=== PATIENT | female | born 1990 | race Asian ===

== ENCOUNTER 2020-08-14 17:46 | Emergency (ER) | payer OTHER ==
[2020-08-14 18:11] VITALS: BP 121/80
--- NOTE | 2020-08-14 20:10 | ED Physician Documentation ---
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 No fall. But pain was bad enough that it made her see white briefly. She points to the anterior/inferior part of the heel as the site of the pain. Review of Systems Constitutional: reports: Reviewed and negative Eyes: reports: Reviewed and negative Ears: reports: Reviewed and negative Nose: reports: Reviewed and negative Throat: reports: Reviewed and negative Cardiac: reports: Reviewed and negative PD PAST MEDICAL HISTORY - Past Medical History Psych: Panic attacks - Past Surgical History Past Surgical History: Yes - Present Medications Home Medications: Ambulatory Orders Medication Instructions Recorded Confirmed Control 1 tab PO DAILY 10/18/15 08/14/20 - Allergies Allergies/Adverse Reactions: Allergies Allergy/AdvReac Type Severity Reaction Status Date / Time No Known Drug Allergies Allergy Verified 08/14/20 18:08 - Social History Does the pt smoke?: No Smoking Status: Never smoker Does the pt drink ETOH?: No Does the pt have substance abuse?: No - Immunizations Immunizations are current?: Yes PD ED PE NORMAL - Vitals Vital signs reviewed: Yes - General General: Alert and oriented X 3, No acute distress - Extremities Extremities: Other (No Achilles tenderness, no posterior calcaneal tenderness. She has tenderness at the insertion of the plantar fascia of the right foot without plantar fascial tenderness.) - Neuro Neuro: Alert and oriented X 3, Normal speech <Elieser Resendez - Last Filed: 08/14/20 20:11> PD HPI LOWER EXT INJURY - History obtained from History obtained from: Patient - History of Present Illness PD HPI LOW EXT INJURY LOCATION: Right, Foot, Sole / plantar Results - Vitals Vitals: Vital Signs - 24 hr 08/14/20 18:08 Temperature 36.8 C Heart Rate 80 Respiratory 16 Rate Blood Pressure 121/80 O2 Saturation 99 Oxygen O2 Source Room air
--- NOTE | 2020-08-14 20:24 | ED Physician Documentation ---
PD HPI UPPER EXT INJURY - Stated complaint Stated Complaint: RIGHT FOOT PX - Chief complaint Chief Complaint: Trauma Ext - History obtained from History obtained from: Patient - Additonal information Additional information: She was walking down a ramp today and boots and felt a sudden stabbing pain in the bottom of the right heel. Now it hurts anytime she puts pressure on it. Review of Systems Constitutional: reports: Reviewed and negative Eyes: reports: Reviewed and negative Ears: reports: Reviewed and negative Nose: reports: Reviewed and negative PD PAST MEDICAL HISTORY - Past Medical History Past Medical History: No Psych: Panic attacks - Past Surgical History Past Surgical History: Yes - Present Medications Home Medications: Ambulatory Orders Medication Instructions Recorded Confirmed Control 1 tab PO DAILY 10/18/15 08/14/20 - Allergies Allergies/Adverse Reactions: Allergies Allergy/AdvReac Type Severity Reaction Status Date / Time No Known Drug Allergies Allergy Verified 08/14/20 18:08 - Social History Does the pt smoke?: No Smoking Status: Never smoker Does the pt drink ETOH?: No Does the pt have substance abuse?: No - Immunizations Immunizations are current?: Yes - POLST Patient has POLST: No PD ED PE NORMAL - Vitals Vital signs reviewed: Yes - General General: Alert and oriented X 3, No acute distress - Extremities Extremities: Other (She is tender at the insertion of plantar fascia on the bottom of the anterior part of the calcaneus. The plantar fascia itself is nontender. No Achilles tenderness or posterior calcaneal tenderness.) - Neuro Neuro: Alert and oriented X 3, Normal speech Results - Vitals Vitals: Vital Signs - 24 hr 08/14/20 18:08 Temperature 36.8 C Heart Rate 80 Respiratory 16 Rate Blood Pressure 121/80 O2 Saturation 99 Oxygen O2 Source Room air PD MEDICAL DECISION MAKING - ED course ED course: 30-year-old woman with focal pain at the insertion of the plantar fascia at the calcaneus. X-ray of the calcaneus negative for acute pathology. Close watchful waiting was advised. Departure - Departure Disposition: 01 Home, Self Care Clinical Impression: Plantar fasciitis of right foot Condition: Good Record reviewed to determine appropriate education?: Yes Instructions: ED Sprain Foot Comments: Motrin as needed for pain. Return as needed. Followup with your physician in 1 week if not better. Discharge Date/Time: 08/14/20 21:00
--- NOTE | 2020-08-14 20:39 | XRAY Report ---
PROCEDURE: Calcaneus RT INDICATIONS: foot pain TECHNIQUE: Two views of the calcaneus were acquired. COMPARISON: None FINDINGS: Bones: No fractures or dislocations. No suspicious bony lesions. Soft tissues: No suspicious calcifications. Achilles tendon appears normal. IMPRESSION: No evidence of acute bony abnormality of the right calcaneus. Reviewed by: Daniele Romero MD on 08/14/2020 8:38 PM PDT Approved by: Daniele Romero MD on 08/14/2020 8:38 PM PDT Station ID: [id number]
--- OUTSIDE RECORDS SUMMARY | 2020-08-21 00:16 | EXTERNAL MEDICAL SUMMARY RPT | Continuity of Care Document ---
:1990 Demographics Phone Unavailable Preferred Language Unknown Marital Status Unknown Am[employer] Affiliation Unknown Race Unknown Ethnic Group Unknown Author Organization [facility] Address [address] [place] [address] Phone Social History date description facility [id number]
== END 2020-08-14 21:00 | disposition home or self-care (01) ==
LOC: ED 17:46
DX: M72.2 Plantar fascial fibromatosis (principal)
CPT/HCPCS: 99282; 99283

== ENCOUNTER 2021-01-29 16:17 | Emergency (ER) | payer OTHER ==
[2021-01-29] MEDS ORDERED: LORazepam 0.5 MG TABLET PO STA (18:46)
[2021-01-29 18:47] LABS: BASOPHILS # (AUTO) 0.1 10^3/uL (0.0-0.1); BASOPHILS % (AUTO) 0.5 %; EOSINOPHILS # (AUTO) 0.4 10^3/uL (0.0-0.7); HCT - HEMATOCRIT 44.1 % (37.0-47.0); HGB - HEMOGLOBIN 14.6 g/dL (12.0-16.0); LYMPHOCYTES # (AUTO) 3.4 10^3/uL (1.5-3.5); LYMPHOCYTES % (AUTO) 32.1 %; MEAN CORPUSCULAR HEMOGLOBIN 30.4 pg (27.0-31.0); MEAN CORPUSCULAR HGB CONC 33.1 g/dL (32.0-36.0); MEAN CORPUSCULAR VOLUME 91.7 fL (81.0-99.0); MEAN PLATELET VOLUME 10.6 fL (7.9-10.8); MONOCYTES # (AUTO) 0.7 10^3/uL (0.0-1.0); MONOCYTES % (AUTO) 6.7 %; NEUTROPHILS % (AUTO) 56.5 %; PLT - PLATELET COUNT 230 10^3/uL (130-450); RED BLOOD COUNT 4.81 10^6/uL (4.20-5.40); RED CELL DISTRIBUTION WIDTH 12.2 % (12.0-15.0); WHITE BLOOD COUNT 10.6 x10^3/uL (4.8-10.8)
[2021-01-29 18:55] LABS: CALCIUM 9.6 mg/dL (8.5-10.3); CREATININE 0.9 mg/dL (0.4-1.0); POTASSIUM 3.7 mmol/L (3.5-5.0)
--- NOTE | 2021-01-29 18:57 | ED Physician Documentation ---
History of Present Illness - Stated complaint Stated Complaint: POST VACCINE SYMPTOMS - Chief complaint Chief Complaint: General - History obtained from History obtained from: Patient - History of Present Illness Timing: Today Pain level max: 0 Pain level now: 0 - Additonal information Additional information: Patient is a 30-year-old female who states that she received her Pfizer Covid vaccination this morning. Since that time she has had spasms in her hands and feet along with tingling in her hands and feet as well. She has felt very nervous and anxious. Had diarrhea x2. Nothing makes it better or worse. Review of Systems Constitutional: denies: Fever, Chills Nose: denies: Rhinorrhea / runny nose, Congestion Throat: denies: Sore throat Cardiac: denies: Chest pain / pressure Respiratory: denies: Dyspnea, Cough GI: denies: Vomiting, Diarrhea Skin: denies: Rash Musculoskeletal: denies: Neck pain, Back pain Neurologic: denies: Headache PD PAST MEDICAL HISTORY - Past Medical History Past Medical History: Yes Psych: Panic attacks - Past Surgical History Past Surgical History: Yes - Present Medications Home Medications: Ambulatory Orders Medication Instructions Recorded Confirmed Control 1 tab PO DAILY 10/18/15 08/14/20 - Allergies Allergies/Adverse Reactions: Allergies Allergy/AdvReac Type Severity Reaction Status Date / Time No Known Drug Allergies Allergy Verified 01/29/21 16:36 - Social History Does the pt smoke?: No Smoking Status: Never smoker Does the pt drink ETOH?: No Does the pt have substance abuse?: No - Immunizations Immunizations are current?: Yes - POLST Patient has POLST: No PD ED PE NORMAL - Vitals Vital signs reviewed: Yes - General General: Alert and oriented X 3, Well developed/nourished, Other (Patient is anxious appearing) - HEENT HEENT: PERRL, Moist mucous membranes - Neck Neck: Supple, no meningeal sign - Cardiac Cardiac: RRR, No murmur, Strong equal pulses - Respiratory Respiratory: No respiratory distress, Clear bilaterally - Abdomen Abdomen: Soft, Non tender, Non distended - Derm Derm: Warm and dry - Extremities Extremities: No edema, No calf tenderness / cord, Other (Brisk cap refill in all 4 extremities. 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, No motor deficit, No sensory deficit, Normal speech - Psych Psych: Other (Anxious) Results - Vitals Vitals: Oxygen O2 Source Room air - Labs Labs: Laboratory Tests 01/29/21 01/29/21 01/29/21 18:37 18:37 19:33 WBC 10.6 RBC 4.81 Hgb 14.6 Hct 44.1 MCV 91.7 MCH 30.4 MCHC 33.1 RDW 12.2 Plt Count 230 MPV 10.6 Neut # (Auto) 6.0 Lymph # (Auto) 3.4 [place] # (Auto) 0.7 Eos # (Auto) 0.4 Baso # (Auto) 0.1 Absolute Nucleated RBC 0.00 Nucleated RBC % 0.0 Sodium 136 Potassium 3.7 Chloride 100 L Carbon Dioxide 27 Anion Gap 9.0 BUN 17 Creatinine 0.9 Estimated GFR (MDRD) 75 L Glucose 98 Calcium 9.6 Urine Color LIGHT YELLOW Urine Clarity CLEAR Urine pH 6.0 Ur Specific [place] 1.010 Urine Protein NEGATIVE Urine Glucose (UA) NEGATIVE Urine Ketones NEGATIVE Urine Occult Blood NEGATIVE Urine Nitrite NEGATIVE Urine Bilirubin NEGATIVE Urine Urobilinogen 0.2 (NORMAL) Ur Leukocyte Esterase NEGATIVE Ur Microscopic Review NOT INDICATED Urine Culture Comments NOT INDICATED Urine HCG, Qual NEGATIVE PD MEDICAL DECISION MAKING - ED course Complexity details: reviewed results, re-evaluated patient, considered differential, d/w patient ED course: Patient appears to be having a panic attack. Feels better after benzodiazepine administration. Symptoms improved. No evidence of allergic reaction or anaphylaxis. No lab abnormalities. Patient counseled regarding signs and symptoms for which I believe and urgent re-evaluation would be necessary. Patient with good understanding of and agreement to plan and is comfortable going home at this time This document was made in part using voice recognition software. While efforts are made to proofread this document, sound alike and grammatical errors may occur. Departure - Departure Disposition: 01 Home, Self Care Clinical Impression: Paresthesia, Hyperventilation syndrome Condition: Good Instructions: ED Paraesthesias Follow-Up: your,doctor as needed [Other] Comments: Please follow-up with your doctor for further care. Return if you worsen. Your testing is normal tonight. Discharge Date/Time: 01/29/21 20:07
[2021-01-29 19:41] LABS: BILIRUBIN,URINE NEGATIVE (NEGATIVE); GLUCOSE, URINE (UA) NEGATIVE (NEGATIVE); KETONES,URINE (UA) NEGATIVE (NEGATIVE); LEUKOCYTE ESTERASE, URINE NEGATIVE (NEGATIVE); NITRITE,URINE NEGATIVE (NEGATIVE); OCCULT BLOOD,URINE NEGATIVE (NEGATIVE); PROTEIN,URINE NEGATIVE (NEGATIVE); UROBILINOGEN,URINE 0.2 (NORMAL) E.U./dL (NORMAL)
[2021-01-29 19:45] VITALS: BP 115/77
[2021-01-29 19:45] LABS: CLARITY,URINE CLEAR (CLEAR); HCG UR QUAL NEGATIVE
== END 2021-01-29 20:07 | disposition home or self-care (01) ==
LOC: ED 16:17
DX: F45.8 Other somatoform disorders (principal)
CPT/HCPCS: 36415; 80048; 81003; 81025; 85025; 99283; A9270; 81001; 87086

== ENCOUNTER 2022-08-14 14:35 | Outpatient (CLI) | payer OTHER ==
[2022-08-14 14:51] VITALS: BP 112/69
--- NOTE | 2022-08-14 17:47 | PROCEDURE REPORT ---
- HPI Diagnosis/Indication for NST: Gestational Diabetes Current EDU 09/02/22 Gestation 37 Weeks and 2 Days 1 Para 0 Vital Signs Temperature 36.6 C 08/14/22 14:48 Heart Rate 86 08/14/22 14:48 Respiratory Rate 16 08/14/22 14:48 Blood Pressure 112/69 08/14/22 14:48 O2 Saturation 100 08/14/22 14:48 Temperature 36.6 C 08/14/22 14:51 Heart Rate 86 08/14/22 14:48 Respiratory Rate 16 08/14/22 14:48 Blood Pressure 112/69 08/14/22 14:48 O2 Saturation 100 08/14/22 14:48 If not protocol: Oxygen Flow, liters/minute - NST Procedure NST Procedure Start Date 08/14/22 Start Time 14:45 Stop Time 15:15 Vibroacoustic Stimulation Used No Patient States Movement Yes - Results and Plan Plan: NST reactive. FHR baseline 120s, moderate variability, + accels, no decels No contractions appreciated via tocometry FINAL DIAGNOSIS: A2 Gestational diabetes, third trimester
== END 2022-08-14 15:29 | disposition home or self-care (01) ==
LOC: WFO 14:35 → FBP 14:39 → WFO 15:29
PROVIDERS: ATTEND Nurse Practitioner Obstetrics & Gynecology
DX: O24.419 Gestational diabetes mellitus in pregnancy, unspecified control (principal); Z3A.37 37 weeks gestation of pregnancy
CPT/HCPCS: 59025

== ENCOUNTER 2022-08-17 15:35 | Outpatient (CLI) | payer OTHER ==
[2022-08-17 15:49] VITALS: BP 118/73
--- NOTE | 2022-08-17 18:10 | Ultrasound Report ---
PROCEDURE: OB Biophysical Profile INDICATIONS: GDM OUTSIDE/PRIOR DATING DATA: Last menstrual period (LMP): 11/11/2021. LMP-based estimated date of delivery (MAIRANNE): 08/18/2022. First dating scan (date and location): 01/01/2022. Estimated date of delivery (MARIANNE) from first dating scan: 09/02/2022. The below data below was generated using the ultrasound MARIANNE of 09/01/2022 TECHNIQUE: Real-time scanning was performed of the fetus, with image documentation. Biophysical pro file was also obtained and uterine artery Doppler. COMPARISON: None available FINDINGS: General: A single living intrauterine gestation is present. Presentation: Vertex Placenta: Placental position is anterior, without previa. Amniotic fluid index: 12.5 cm, normal for gestational age. Largest pocket 4.1 cm. heart rate: 140 beats per minute. Maternal cervical canal: Not well seen. Estimated gestational age from initial scan: 37 weeks 5 days. Biophysical profile: Tone: 0 points. Movement: 2 points. Respiration: 2 points. Largest pocket of fluid: 2 points. Umbilical artery Doppler: 2.58; 2.75; 3.04. Preserved diastolic flow. IMPRESSION: 1. [place] living intrauterine at 37 weeks 5 days based on prior ultrasound. 2. Normal placenta and amniotic fluid. 3. Biophysical profile score 6 out of 8. Tone is not appreciated. Uterine artery Doppler is within normal limits. Reviewed by: Mesfin Lopez MD on 08/17/2022 6:09 PM PDT Approved by: Mesfin Lopez MD on 08/17/2022 6:09 PM PDT Station ID: [id number]
--- NOTE | 2022-08-24 18:16 | PROCEDURE REPORT ---
- HPI Diagnosis/Indication for NST: Other Current EDU 09/02/22 Gestation 37 Weeks and 5 Days 1 Para 0 Vital Signs Temperature 36.8 C 08/17/22 15:47 Heart Rate 90 08/17/22 15:47 Respiratory Rate 16 08/17/22 15:47 Blood Pressure 118/73 08/17/22 15:47 Temperature 36.8 C 08/17/22 15:49 Heart Rate 90 08/17/22 15:49 Respiratory Rate 14 08/17/22 15:49 Blood Pressure 118/73 08/17/22 15:49 O2 Saturation 100 08/17/22 15:49 If not protocol: Oxygen Flow, liters/minute - NST Procedure NST Procedure Start Date 08/17/22 Start Time 15:43 Stop Time 16:04 Vibroacoustic Stimulation Used No Patient States Movement Yes - Results and Plan Plan: NST reactive. FHR baseline 140s, moderate variability, + accels, no decels Contractions palpate strong every 3-5 minutes with soft resting tone
== END 2022-08-17 17:10 | disposition home or self-care (01) ==
LOC: WFO 15:35 → FBP 15:37 → WFO 17:10
PROVIDERS: ATTEND Nurse Practitioner Obstetrics & Gynecology
DX: O24.419 Gestational diabetes mellitus in pregnancy, unspecified control (principal); Z3A.37 37 weeks gestation of pregnancy
CPT/HCPCS: 59025

== ENCOUNTER 2022-08-19 18:59 | Inpatient (IN) | payer OTHER ==
[2022-08-19] MEDS ORDERED: LACTATED RINGERS 1,000 ML ONE (19:22)
[2022-08-19] MEDS ORDERED: AMPICILLIN 2 GM in SODIUM CHLORIDE 0.9% MINIBAG 100 ML IV STA (19:24)
[2022-08-19] MEDS ORDERED: LACTATED RINGERS 1,000 ML IV SCH ×2 (19:30→22:00)
[2022-08-19] MEDS ORDERED: OXYTOCIN 10 UNIT/ML VIAL ONE (19:32)
[2022-08-19] MEDS ORDERED: OXYTOCIN/SODIUM CHLORIDE 500 ML IV ONE (19:33)
[2022-08-19] MEDS ORDERED: miSOPROStoL 200 MCG TABLET ONE (19:33)
[2022-08-19 19:37] LABS: BASOPHILS % (AUTO) 0.2 %; EOSINOPHILS # (AUTO) 0.2 10^3/uL (0.0-0.7); EOSINOPHILS % (AUTO) 1.9 %; HCT - HEMATOCRIT 34.9 % (37.0-47.0); HGB - HEMOGLOBIN 11.8 g/dL (12.0-16.0); LYMPHOCYTES % (AUTO) 24.4 %; MEAN CORPUSCULAR HEMOGLOBIN 29.8 pg (27.0-31.0); MEAN CORPUSCULAR HGB CONC 33.8 g/dL (32.0-36.0); MEAN CORPUSCULAR VOLUME 88.1 fL (81.0-99.0); MONOCYTES # (AUTO) 0.8 10^3/uL (0.0-1.0); MONOCYTES % (AUTO) 6.8 %; NEUTROPHILS # (AUTO) 8.1 10^3/uL (1.5-6.6); NEUTROPHILS % (AUTO) 66.3 %; PLT - PLATELET COUNT 267 10^3/uL (130-450); RED BLOOD COUNT 3.96 10^6/uL (4.20-5.40); RED CELL DISTRIBUTION WIDTH 13.2 % (12.0-15.0); WHITE BLOOD COUNT 12.3 x10^3/uL (4.8-10.8)
--- OUTSIDE RECORDS SUMMARY | 2022-08-19 19:52 | EXTERNAL MEDICAL SUMMARY RPT | Continuity of Care Document ---
:1990 Author Organization [facility] Address [address] [place] [address] Phone Care Team Providers Name Role Phone PenaBrayan patrick Unavailable Unavailable Allergies and Intolerances date description facility type (no date) [facility] (unknown) (no date) [facility] (unknown) Encounters No information. Functional Status No information. Immunizations date description facility 2022-06-16 00:00 Tetanus, Diphtheria, Pertussis (Tdap) [facility] Medications date description facility 2022-06-16 00:00 [facility] 2022-07-20 00:00 [facility] Problems date description facility 2022-06-02 17:25 Encounter for supervision of other [facility] , second 2022-06-02 17:25 26 weeks gestation of [facility] 2022-06-28 00:00 [facility]ational [facility] mellitus [facility]GDM[facility] 2022-07-09 13:50 Gestational diabetes mellitus in [facility] controlled by or 2022-07-16 15:55 Gestational diabetes mellitus in [facility] controlled by or 2022-07-27 00:00 34 weeks gestation of [facility] 2022-07-27 08:16 Gestational diabetes mellitus in [facility] controlled by or 2022-07-27 17:11 Gestational diabetes mellitus in [facility] controlled by or 2022-07-27 17:11 34 weeks gestation of [facility] 2022-07-30 13:11 Gestational diabetes mellitus in [facility] controlled by or 2022-07-30 13:11 34 weeks gestation of [facility] 2022-08-03 00:00 35 weeks gestation of [facility] 2022-08-03 13:54 Recurrent loss [facility] 2022-08-03 13:54 Gestational diabetes mellitus in [facility] controlled by or 2022-08-03 13:54 35 weeks gestation of [facility] 2022-08-03 14:03 Recurrent loss [facility] 2022-08-03 14:03 Gestational diabetes mellitus in [facility] controlled by or 2022-08-03 14:03 35 weeks gestation of [facility] 2022-08-03 15:00 Recurrent loss [facility] 2022-08-03 15:00 Gestational diabetes mellitus in [facility] controlled by or 2022-08-03 15:00 35 weeks gestation of [facility] 2022-08-03 15:16 Recurrent loss [facility] 2022-08-03 15:16 Gestational diabetes mellitus in [facility] controlled by or 2022-08-03 15:16 35 weeks gestation of [facility] 2022-08-03 17:10 Recurrent loss [facility] 2022-08-03 17:10 Gestational diabetes mellitus in [facility] controlled by or 2022-08-03 17:10 35 weeks gestation of [facility] 2022-08-06 07:01 Recurrent loss [facility] 2022-08-06 07:01 Gestational diabetes mellitus in [facility] controlled by or 2022-08-06 07:01 35 weeks gestation of [facility] Procedures No information. Results/Labs test date author facility value unit interpret ation Result panel 1 (unknown) (no date) (unknown) [facility] Result panel 2 (unknown) (no date) (unknown) [facility]) Result panel 3 (unknown) (no date) (unknown) [facility] Result panel 4 (unknown) (no date) (unknown) [facility]) Result panel 5 (unknown) (no date) (unknown) [facility] Result panel 6 (unknown) (no date) (unknown) [facility]) Result panel 7 (unknown) (no date) (unknown) [facility]) Result panel 8 (unknown) (no date) (unknown) [facility]) Result panel 9 (unknown) (no date) (unknown) [facility] unknown) Result panel 10 (unknown) (no date) (unknown) [facility] unknown) Result panel 11 (unknown) (no date) (unknown) (unknown) 11.2 g/dl (unkn own) (unknown) (no date) (unknown) (unknown) 32.9 % (unkn own) Result panel 12 (unknown) (no date) (unknown) (unknown) 195 mg/dl (unkn own) (unknown) (no date) (unknown) (unknown) 195 mg/dl (unkn own) Result panel 13 (unknown) (no (unknown) (unknown) (no value) (units (unk nown) date) unknown) (unknown) (no (unknown) (unknown) (+12 lb) 120/58 (units (unknown) date) N unknown) (unknown) (no (unknown) (unknown) (+13 lb) 104/54 (units (unknown) date) N unknown) (unknown) (no (unknown) (unknown) (+18 lb) 122/60 (units (unknown) date) N unknown) (unknown) (no (unknown) (unknown) (+7 lb) 128/66 N (units (unknown) date) unknown) (unknown) (no (unknown) (unknown) (+8 lb) 122/68 N (units (unknown) date) unknown) (unknown) (no (unknown) (unknown) Genetic (units (unkn own) date) Screening/Teratol unknown) ogy Counseling - Includes patient, baby's father, or (unknown) (no (unknown) (unknown) -?-?-?-?-?-?-?-? (units (unknown) date) -?-?-?-? unknown) (unknown) (no (unknown) (unknown) 05/19/22 (units (unkno wn) date) unknown) (unknown) (no (unknown) (unknown) 06/16/22 (units (unkno wn) date) unknown) (unknown) (no (unknown) (unknown) 06/16/22] (units (unkn own) date) unknown) (unknown) (no (unknown) (unknown) 08/29/22 (units (unkno wn) date) Ultrasound #1 29w unknown) 3d (unknown) (no (unknown) (unknown) [id number] (units (unkno wn) date) unknown) (unknown) (no (unknown) (unknown) 01/27/22 (units (unkno wn) date) unknown) (unknown) (no (unknown) (unknown) 02/24/22 (units (unkno wn) date) unknown) (unknown) (no (unknown) (unknown) 03/24/22 (units (unkno wn) date) unknown) (unknown) (no (unknown) (unknown) 04/20/22 (units (unkno wn) date) unknown) (unknown) (no (unknown) (unknown) 12w 6d 163 lb (units ( unknown) date) unknown) (unknown) (no (unknown) (unknown) 13:15 (units (unkno wn) date) unknown) (unknown) (no (unknown) (unknown) 16w 6d 167 lb (units ( unknown) date) unknown) (unknown) (no (unknown) (unknown) 20w 5d 168 lb (units ( unknown) date) unknown) (unknown) (no (unknown) (unknown) 24w 6d 173 lb (units ( unknown) date) unknown) (unknown) (no (unknown) (unknown) 4 wk (units (unkno wn) date) unknown) (unknown) (no (unknown) (unknown) 8w 6d 162 lb (units (u nknown) date) unknown) (unknown) (no (unknown) (unknown) Abnormal lab (units (u nknown) date) values 1st unknown) trimester: discussed (unknown) (no (unknown) (unknown) Abnormal lab (units (u nknown) date) values 2nd unknown) trimester: discussed (unknown) (no (unknown) (unknown) Add'l Plan (units (unk nown) date) Details unknown) (unknown) (no (unknown) (unknown) Age/Sex: 31 / F (units (unknown) date) Date of Service: unknown) (unknown) (no (unknown) (unknown) Allergies (units (unkn own) date) () unknown) (unknown) (no (unknown) (unknown) Allergies (units (unkn own) date) unknown) (unknown) (no (unknown) (unknown) [place], [place] (units ( unknown) date) [id number] unknown) (unknown) (no (unknown) (unknown) Anesthesia (units (unk nown) date) unknown) (unknown) (no (unknown) (unknown) Aneuploidy (units (unk nown) date) Screening unknown) Offered: Accepted (wants CFDNA) (unknown) (no (unknown) (unknown) Anticipated (units (un known) date) course of unknown) care: discussed (unknown) (no (unknown) (unknown) Anxiety (-2016) (units (unknown) date) unknown) (unknown) (no (unknown) (unknown) Arrhythmia (units (unk nown) date) unknown) (unknown) (no (unknown) (unknown) Assessment and (units (unknown) date) Plan unknown) (unknown) (no (unknown) (unknown) Attending Dr: (units ( unknown) date) Richelle Dawkins unknown) (unknown) (no (unknown) (unknown) Corazon presents (units (unknown) date) today for routine unknown) OB f/u at 20w5d. She reports good (unknown) (no (unknown) (unknown) BMI 28.5 (units (unkno wn) date) unknown) (unknown) (no (unknown) (unknown) BP 110/62 (units (unkn own) date) unknown) (unknown) (no (unknown) (unknown) (units (unkno wn) date) Plan/Preferences unknown) (unknown) (no (unknown) (unknown) Planning (units (unknown) date) unknown) (unknown) (no (unknown) (unknown) Blood Pressure (units (unknown) date) Location Lt unknown) brachial (unknown) (no (unknown) (unknown) Blood (units (unkno wn) date) transfusions?: unknown) yes (Never had but would accept) (unknown) (no (unknown) (unknown) : (units (unknown) date) discussed unknown) (unknown) (no (unknown) (unknown) Chicken pox (units (un known) date) (-1994) unknown) (unknown) (no (unknown) (unknown) Childbirth (units (unk nown) date) Classes: unknown) discussed (unknown) (no (unknown) (unknown) Conceived (units (unkn own) date) naturally this unknown) (unknown) (no (unknown) (unknown) Confirmed (units (unkn own) date) 06/16/22] unknown) (unknown) (no (unknown) (unknown) Current Estimate (units (unknown) date) 09/02/22 unknown) Ultrasound #2 28w 6d (unknown) (no (unknown) (unknown) Current (units (unkno wn) date) History unknown) (unknown) (no (unknown) (unknown) DNA (units (unkno wn) date) unknown) (unknown) (no (unknown) (unknown) : 1990 (units (unknown) date) Acct:[id number] unknown) (unknown) (no (unknown) (unknown) Date of positive (units (unknown) date) home unknown) test: 12/29/21 (unknown) (no (unknown) (unknown) Date (units (unkno wn) date) unknown) (unknown) (no (unknown) (unknown) Denies Congenital (units (unknown) date) Heart Defect, unknown) Denies Down Syndrome, Denies Muscular Dystrophy, (unknown) (no (unknown) (unknown) Denies Maternal (units (unknown) date) Metabolic unknown) Disorder (EG,TYPE 1 Diabetes, PKU), Denies Patient or (unknown) (no (unknown) (unknown) Denies Neural (units ( unknown) date) Tube Defect unknown) (Meningomyelocele , Spina Bifida, or Anencephaly), (unknown) (no (unknown) (unknown) Denies Sickle (units ( unknown) date) Cell Disease or unknown) Trait (), Denies Hemophilia or other blood (unknown) (no (unknown) (unknown) Denies Enio-Sachs (units (unknown) date) (Ashkenazi unknown) Sabianism, Cajun, Indonesian Paraguayan), Denies Jose (unknown) (no (unknown) (unknown) Depression (units (unk nown) date) (-2015) unknown) (unknown) (no (unknown) (unknown) Depression: (units (un known) date) discussed unknown) (unknown) (no (unknown) (unknown) Dept at (units (unkno wn) date) . unknown) (unknown) (no (unknown) (unknown) Diet and (units (unkno wn) date) Exercise unknown) (unknown) (no (unknown) (unknown) Disease (units (unkno wn) date) (Ashkenazi unknown) Sabianism), Denies Familial Dysautonomia (Ashkenazi Sabianism), (unknown) (no (unknown) (unknown) Documented By: (units (unknown) date) Richelle Dawkins unknownShiva MAGALLON 06/16/22 1314 (unknown) (no (unknown) (unknown) Draft (units (unkno wn) date) unknown) (unknown) (no (unknown) (unknown) MARIANNE Calculator (units (unknown) date) unknown) (unknown) (no (unknown) (unknown) EGA Weight BP (units ( unknown) date) UGlucose unknown) (unknown) (no (unknown) (unknown) Eczema (-1999) (units (unknown) date) unknown) (unknown) (no (unknown) (unknown) Estimated (units (unkn own) date) Delivery Date unknown) Method Current (unknown) (no (unknown) (unknown) Exercise and (units (u nknown) date) activity, unknown) work/environmenta l/hazards, Sexual activity, X-ray (unknown) (no (unknown) (unknown) F/u in 4 wks. (units ( unknown) date) unknown) (unknown) (no (unknown) (unknown) Family History (units (unknown) date) (Updated 01/24/22 unknown) @ 21:49 by Anamaria Cooper) (unknown) (no (unknown) (unknown) Family/Other (units (u nknown) date) Multiple unknown) sclerosis (unknown) (no (unknown) (unknown) Father (units (unkno wn) date) Hypertension unknown) (unknown) (no (unknown) (unknown) Father of Baby: (units (unknown) date) same unknown) (unknown) (no (unknown) (unknown) [facility] unknown) (unknown) (no (unknown) (unknown) First Trimester (units (unknown) date) Education unknown) Checklist (unknown) (no (unknown) (unknown) Foot pain (units (unkn own) date) (-2019) unknown) (unknown) (no (unknown) (unknown) (SAB (units (unkn own) date) x7),Fertility Tx, unknown) meds only, started on baby aspirin 02/24/2022 (unknown) (no (unknown) (unknown) Genetic (units (unkno wn) date) Screening + unknown) Counseling (unknown) (no (unknown) (unknown) Genetic (units (unkno wn) date) Screening unknown) (unknown) (no (unknown) (unknown) Grandfather (units (un known) date) Cancer unknown) (unknown) (no (unknown) (unknown) Grandfather (units (un known) date) Stroke unknown) (unknown) (no (unknown) (unknown) Grandmother (units (un known) date) History unknown) of heart disease (unknown) (no (unknown) (unknown) Grandmother (units (un known) date) Multiple unknown) sclerosis (unknown) (no (unknown) (unknown) 8 (units (unkn own) date) Multiple births 0 unknown) (unknown) (no (unknown) (unknown) HIV risk (units (unkno wn) date) evaluation: low unknown) risk (unknown) (no (unknown) (unknown) Health Center (units ( unknown) date) Education unknown) (unknown) (no (unknown) (unknown) Health center (units ( unknown) date) information: unknown) nature of practice discussed, personnel (unknown) (no (unknown) (unknown) Height 5 ft 6 in (units (unknown) date) unknown) (unknown) (no (unknown) (unknown) Hepatitis C risk (units (unknown) date) evaluation: low unknown) risk (unknown) (no (unknown) (unknown) History of (units (unk nown) date) Hepatitis B: No unknown) (unknown) (no (unknown) (unknown) History of (units (unk nown) date) Hepatitis C: No unknown) (unknown) (no (unknown) (unknown) 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 (unknown) (no (unknown) (unknown) Hospital: (units (u nknown) date) unknown) (unknown) (no (unknown) (unknown) [facility] (units (u nknown) date) Chorea, Denies unknown) Other inherited genetic or chromosomal disorder, (unknown) (no (unknown) (unknown) , Elieser (units ( unknown) date) Martell unknown) (unknown) (no (unknown) (unknown) Hx # (units (u nknown) date) Pregnancies 0 unknown) Elective abortions 0 (unknown) (no (unknown) (unknown) Hx # Term (units (unkn own) date) Pregnancies 0 unknown) Ectopic pregnancies 0 (unknown) (no (unknown) (unknown) Infant will be (units (unknown) date) adopted?: no unknown) (unknown) (no (unknown) (unknown) Infection (units (unkn own) date) History unknown) (unknown) (no (unknown) (unknown) Infectious (units (unk nown) date) Disease Education unknown) (unknown) (no (unknown) (unknown) Infectious (units (unk nown) date) disease exposure: unknown) chicken pox immunity discussed, hepatitis risk (unknown) (no (unknown) (unknown) Infertility (units (un known) date) () unknown) (unknown) (no (unknown) (unknown) Initial Weight: (units (unknown) date) 155 lb unknown) (unknown) (no (unknown) (unknown) Initials (units (unkno wn) date) unknown) (unknown) (no (unknown) (unknown) Intake Clinical (units (unknown) date) Staff unknown) (unknown) (no (unknown) (unknown) Intake Note: (units (u nknown) date) unknown) (unknown) (no (unknown) (unknown) Intake performed (units (unknown) date) by: unknown) Nu Alexander (unknown) (no (unknown) (unknown) Intake (units (unkno wn) date) unknown) (unknown) (no (unknown) (unknown) Irregular (units (unkn own) date) menstrual cycle unknown) () (unknown) (no (unknown) (unknown) LM (units (unkno wn) date) unknown) (unknown) (no (unknown) (unknown) Lipoma (units (unkno wn) date) unknown) (unknown) (no (unknown) (unknown) Live with (units (unkn own) date) someone with TB unknown) or exposed to TB: No (unknown) (no (unknown) (unknown) Loc: [facility] (units (unkno wn) date) unknown) (unknown) (no (unknown) (unknown) Marital status: (units (unknown) date) unknown) (unknown) (no (unknown) (unknown) Medical History (units (unknown) date) (Updated 01/27/22 unknown) @ 15:16 by Richelle Dawkins MD) (unknown) (no (unknown) (unknown) Medications (units (un known) date) unknown) (unknown) (no (unknown) (unknown) Mother Gastric (units (unknown) date) cancer unknown) (unknown) (no (unknown) (unknown) N No 142 13 N/A (units (unknown) date) 4wk unknown) (unknown) (no (unknown) (unknown) N No no 143 17 (units (unknown) date) N/A absent AFP 4 unknown) wks (unknown) (no (unknown) (unknown) N No no 178 9 (units ( unknown) date) N/A absent unknown) long/closed AGA 9 (unknown) (no (unknown) (unknown) N Yes no 141 24 (units (unknown) date) N/A absent 4 wks unknown) (unknown) (no (unknown) (unknown) N Yes no 142 20 (units (unknown) date) N/A absent AFP unknown) negative (unknown) (no (unknown) (unknown) NF (units (unkno wn) date) unknown) (unknown) (no (unknown) (unknown) Notes (units (unkno wn) date) unknown) (unknown) (no (unknown) (unknown) Number of Living (units (unknown) date) Children 0 unknown) (unknown) (no (unknown) (unknown) Number of (units (unkn own) date) fetuses:: Single unknown) (unknown) (no (unknown) (unknown) Nutrition and (units ( unknown) date) weight gain unknown) counseling: special diet: discussed (unknown) (no (unknown) (unknown) OB Office Visit (units (unknown) date) unknown) (unknown) (no (unknown) (unknown) OB Visit Log (units (u nknown) date) unknown) (unknown) (no (unknown) (unknown) OB check (units (unkno wn) date) unknown) (unknown) (no (unknown) (unknown) On control (units (unknown) date) at conception?: unknown) No (unknown) (no (unknown) (unknown) Other Estimates (units (unknown) date) 08/18/22 LMP unknown) (Certain) 31w 0d (unknown) (no (unknown) (unknown) Ovarian cyst (units (u nknown) date) () unknown) (unknown) (no (unknown) (unknown) PCOS (polycystic (units (unknown) date) ovarian syndrome) unknown) (unknown) (no (unknown) (unknown) PFSH (units (unkno wn) date) unknown) (unknown) (no (unknown) (unknown) Pap performed?: (units (unknown) date) No unknown) (unknown) (no (unknown) (unknown) Para 0 (units (unkno wn) date) Spontaneous unknown) abortions 7 (unknown) (no (unknown) (unknown) Partner history (units (unknown) date) of STD: denies hx unknown) (unknown) (no (unknown) (unknown) Partner history (units (unknown) date) of genital unknown) herpes: No (unknown) (no (unknown) (unknown) Partner: Elieser (units ( unknown) date) Martell unknown) (unknown) (no (unknown) (unknown) Patient comes in (units (unknown) date) for follow-up OB unknown) visit. She had some pelvic pain that (unknown) (no (unknown) (unknown) Patient presents (units (unknown) date) for a new OB unknown) visit at 8 weeks gestation. She is (unknown) (no (unknown) (unknown) Patient presents (units (unknown) date) for a routine unknown) visit, accompanied by her . 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) [place] vs unknown) [facility] (unknown) (no (unknown) (unknown) Personal history (units (unknown) date) of STD: denies hx unknown) (unknown) (no (unknown) (unknown) Personal history (units (unknown) date) of genital unknown) herpes: No (unknown) (no (unknown) (unknown) Plantar (units (unkno wn) date) fasciitis unknown) (unknown) (no (unknown) (unknown) Position Sitting (units (unknown) date) unknown) (unknown) (no (unknown) (unknown) (units (unk nown) date) family unknown) planning/Tubal sterilization: further discussion needed (unknown) (no (unknown) (unknown) (units (unkn own) date) History unknown) (unknown) (no (unknown) (unknown) type:: (units (unknown) date) Other Normal unknown) (unknown) (no (unknown) (unknown) (units (unkno wn) date) Education unknown) (unknown) (no (unknown) (unknown) Initial (units (unknown) date) Assessment unknown) (unknown) (no (unknown) (unknown) (units (unkno wn) date) Specific unknown) Issues/Plans (unknown) (no (unknown) (unknown) (units (unkno wn) date) Testing: unknown) discussed (unknown) (no (unknown) (unknown) Visit (units (unknown) date) unknown) (unknown) (no (unknown) (unknown) (units (unkno wn) date) education packet: unknown) Child education/plan, symptoms, (unknown) (no (unknown) (unknown) Primary Care (units (u nknown) date) Provider: [place] Arbol[place] unknown) [place] (unknown) (no (unknown) (unknown) Primary Ob (units (unk nown) date) Provider: unknown) Richelle Dawkins (unknown) (no (unknown) (unknown) Prior (units (unkno wn) date) GBS-Infected unknown) child: No (unknown) (no (unknown) (unknown) Providers (units (unkn own) date) unknown) (unknown) (no (unknown) (unknown) Pt presents for (units (unknown) date) a PNV at 16+6 unknown) wks. No FM. No LOF/VB. 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 She unknown) has felt good movement. She says it is (unknown) (no (unknown) (unknown) Shingles (units (unkno wn) date) unknown) (unknown) (no (unknown) (unknown) Signed By: (units (unk nown) date) unknown) (unknown) (no (unknown) (unknown) Signs and (units (unkn own) date) symptoms of unknown) labor: discussed (unknown) (no (unknown) (unknown) Smoking Status: (units (unknown) date) Never smoker unknown) (unknown) (no (unknown) (unknown) Social History (units (unknown) date) unknown) (unknown) (no (unknown) (unknown) Support (units (unkno wn) date) Person(s):: Elieser unknown) (unknown) (no (unknown) (unknown) Surgical History (units (unknown) date) (Updated 01/24/22 unknown) @ 21:46 by Anamaria Cooper) (unknown) (no (unknown) (unknown) Surrogate (units (unkn own) date) ?: no unknown) (unknown) (no (unknown) (unknown) Symptoms since (units (unknown) date) LMP: Reports unknown) amenorrhea, nausea, fatigue, breast tenderness, (unknown) (no (unknown) (unknown) Teratogen (units (unkn own) date) Exposures since unknown) LMP/Conception: Denies prescription medications, (unknown) (no (unknown) (unknown) Testing (units (unkno wn) date) Education unknown) (unknown) (no (unknown) (unknown) Testing (units (unkno wn) date) education unknown) completed: group B strep, Spina bifida testing and Cell Free (unknown) (no (unknown) (unknown) This note may (units ( unknown) date) have been all or unknown) partially generated using voice recognition (unknown) (no (unknown) (unknown) Tobacco + (units (unkn own) date) Substance Use unknown) (unknown) (no (unknown) (unknown) Tobacco Status (units (unknown) date) unknown) (unknown) (no (unknown) (unknown) Trimester:: 3rd (units (unknown) date) Trimester unknown) (28wks-Del) (unknown) (no (unknown) (unknown) Tumor () (units (unknown) date) unknown) (unknown) (no (unknown) (unknown) Type(s) of (units (unk nown) date) exercise: unknown) bicycling (stationary bike), regular exercise, weight (unknown) (no (unknown) (unknown) UProtein Movement (units (unknown) date) PreLabor FHR Fndl unknown) Ht Pres Edema Cerv Exam US/Comment Next Appt (unknown) (no (unknown) (unknown) Ultrasound (units (unk nown) date) performed?: Yes unknown) (unknown) (no (unknown) (unknown) Varicella/chicke (units (unknown) date) n pox status: unknown) previous disease (unknown) (no (unknown) (unknown) Visit Date: (units (un known) date) 05/19/22 Last unknown) Updated by: Richelle Dawkins MD (unknown) (no (unknown) (unknown) Visit Date: (units (un known) date) 01/27/22 Last unknown) Updated by: Richelle Dawkins MD (unknown) (no (unknown) (unknown) Visit Date: (units (un known) date) 02/24/22 Last unknown) Updated by: Marietta Massey MD (unknown) (no (unknown) (unknown) Visit Date: (units (un known) date) 03/24/22 Last unknown) Updated by: Richelle Dawkins MD (unknown) (no (unknown) (unknown) Visit Date: (units (un known) date) 04/20/22 Last unknown) Updated by: Xiao Boland P.A-C (unknown) (no (unknown) (unknown) Visit Reasons: (units (unknown) date) OB w 3D US unknown) (unknown) (no (unknown) (unknown) Vitals (units (unkno wn) date) unknown) (unknown) (no (unknown) (unknown) Vitamins and (units (u nknown) date) iron, Diet and unknown) weight gain, Fish and mercury intake, Caffeine use, (unknown) (no (unknown) (unknown) WG (units (unkno wn) date) unknown) (unknown) (no (unknown) (unknown) Weeks (units (unkno wn) date) gestation:: 28 unknown) (unknown) (no (unknown) (unknown) Weight 177 lb (units ( unknown) date) unknown) (unknown) (no (unknown) (unknown) Ages [place] teeth (units (u nknown) date) extracted unknown) (unknown) (no (unknown) (unknown) Zika virus (units (unk nown) date) exposure: No unknown) (unknown) (no (unknown) (unknown) accompanied by (units (unknown) date) her . She unknown) went through fertility treatments with (unknown) (no (unknown) (unknown) alcohol intake: (units (unknown) date) never unknown) (unknown) (no (unknown) (unknown) anterior (units (unkno wn) date) placenta. Routine unknown) precautions reviewed with the patient. Due to 1st (unknown) (no (unknown) (unknown) anyone in either (units (unknown) date) family with: unknown) (unknown) (no (unknown) (unknown) baby's father (units ( unknown) date) had a child with unknown) defects not listed above and Denies Other (unknown) (no (unknown) (unknown) back pain. (units (unk nown) date) Advised unknown) stretching, belly band, and PT if not improving. AFP was (unknown) (no (unknown) (unknown) blood sugar (units (un known) date) diagnostic (Blood unknown) Glucose Test strips) #100 ea 06/02/22 [Rx (unknown) (no (unknown) (unknown) blood-glucose (units ( unknown) date) meter #1 ea unknown) 06/02/22 [Rx Confirmed 06/16/22] (unknown) (no (unknown) (unknown) by ultrasound is (units (unknown) date) normal with good unknown) movement, normal appearing fluid, (unknown) (no (unknown) (unknown) caffeine: Yes (units ( unknown) date) (1-2 cups unknown) tea/day) (unknown) (no (unknown) (unknown) carbon monox (units (u nknown) date) detector in home: unknown) Yes (unknown) (no (unknown) (unknown) cfDNA normal (units (u nknown) date) female, AFP unknown) negative (unknown) (no (unknown) (unknown) consistent with (units (unknown) date) 9 weeks 0 days. unknown) Yolk sac visible. heart rate 178 beats (unknown) (no (unknown) (unknown) current (units (unkno wn) date) occupational unknown) exposures/hazards : No (unknown) (no (unknown) (unknown) daily servings (units (unknown) date) fruits/ve-4 unknown) (unknown) (no (unknown) (unknown) described, visit (units (unknown) date) schedule unknown) reviewed, ultrasounds policy reviewed, coverage 24 (unknown) (no (unknown) (unknown) developing a (units (u nknown) date) pattern. No unknown) leakage of fluid or vaginal bleeding. No contractions (unknown) (no (unknown) (unknown) discussed, (units (unk nown) date) tuberculosis unknown) exposure discussed, CMV discussed, Toxoplasmosis (unknown) (no (unknown) (unknown) disorders, (units (unk nown) date) Denies Cystic unknown) Fibrosis, Denies Mental Retardation/Autis m, Denies (unknown) (no (unknown) (unknown) do you feel safe (units (unknown) date) at home: Yes unknown) (unknown) (no (unknown) (unknown) during the past (units (unknown) date) year weight has: unknown) remained stable (unknown) (no (unknown) (unknown) education level: (units (unknown) date) college unknown) (Associate's degree) (unknown) (no (unknown) (unknown) exposure, (units (unkn own) date) Medication use, unknown) Sauna/hot tub use, Dental care, Travel and Influenza (unknown) (no (unknown) (unknown) fire (units (unkno wn) date) extinguisher in unknown) home: Yes (unknown) (no (unknown) (unknown) firearms in (units (un known) date) home: Yes unknown) firearms unloaded and locked: Yes (unknown) (no (unknown) (unknown) frequency: 5-6 (units (unknown) date) times per week unknown) (unknown) (no (unknown) (unknown) gestational sac (units (unknown) date) with a fetus with unknown) a crown-rump length measuring 2.29 cm (unknown) (no (unknown) (unknown) have occurred. (units (unknown) date) If there are any unknown) questions, please contact the Medical Records (unknown) (no (unknown) (unknown) hours a day and (units (unknown) date) participation of unknown) father in care and office visits (unknown) (no (unknown) (unknown) household (units (unkn own) date) members: spouse unknown) and family (father and [id number]-sk-eyb) (unknown) (no (unknown) (unknown) housing: house (units (unknown) date) unknown) (unknown) (no (unknown) (unknown) illicit drugs (units ( unknown) date) and Denies other unknown) (unknown) (no (unknown) (unknown) kag (units (unkno wn) date) unknown) (unknown) (no (unknown) (unknown) lancets #100 ea (units (unknown) date) 06/02/22 [Rx unknown) Confirmed 06/16/22] (unknown) (no (unknown) (unknown) last visit. (units (un known) date) Plan: AFP today. unknown) 20 wk u/s reviewed. F/U 4 wks. Warning signs (unknown) (no (unknown) (unknown) lifting and (units (un known) date) other (hiking) unknown) (unknown) (no (unknown) (unknown) lives (units (unkno wn) date) independently: unknown) Yes (unknown) (no (unknown) (unknown) marital status: (units (unknown) date) unknown) (unknown) (no (unknown) (unknown) may occur. (units (unk nown) date) Occasional unknown) wrong-word or 'sound-alike' substitutions may have (unknown) (no (unknown) (unknown) medication only. (units (unknown) date) Had 7 unknown) miscarriages. No bleeding with this . This 1 (unknown) (no (unknown) (unknown) movement and (units (u nknown) date) denies VB, LOF, unknown) cramping and regular contractions. Pt reports low (unknown) (no (unknown) (unknown) negative. (units (unkn own) date) Anatomy US unknown) scheduled for later today. Warning precautions reviewed. 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 Please (unknown) (no (unknown) (unknown) or cramping. (units (u nknown) date) Plan: 1 hour unknown) glucose ordered. Follow-up in 4 weeks. Warning (unknown) (no (unknown) (unknown) per minute. (units (un known) date) Normal ovaries unknown) bilaterally. Plan: Follow-up in 4 weeks. Warning (unknown) (no (unknown) (unknown) pets and (units (unkno wn) date) animals: Yes (1 unknown) large dog, chickens) (unknown) (no (unknown) (unknown) precautions, (units (u nknown) date) Listeriosis unknown) prevention and Rubella Immunization (unknown) (no (unknown) (unknown) preeclampsia. (units ( unknown) date) unknown) (unknown) (no (unknown) (unknown) (units (unkn own) date) discussed unknown) starting baby aspirin per day to decrease her risk for (unknown) (no (unknown) (unknown) prenat.vits,dara, (units (unknown) date) [id number] 1 unknown) tab PO DAILY 01/08/22 [History Confirmed (unknown) (no (unknown) (unknown) read the note (units ( unknown) date) carefully and unknown) recognize, using context, where these substitutions (unknown) (no (unknown) (unknown) reviewed. (units (unkn own) date) unknown) (unknown) (no (unknown) (unknown) seatbelt use: (units ( unknown) date) always unknown) (unknown) (no (unknown) (unknown) second hand (units (un known) date) exposure: Yes unknown) (iynphd-ln-nge smokes outside the house) (unknown) (no (unknown) (unknown) signs reviewed. (units (unknown) date) cfDNA ordered. unknown) (unknown) (no (unknown) (unknown) signs reviewed. (units (unknown) date) unknown) (unknown) (no (unknown) (unknown) software. (units (unkn own) date) Although every unknown) effort is made to edit content, snubber errors (unknown) (no (unknown) (unknown) special anjum (units ( unknown) date) needs: No unknown) (unknown) (no (unknown) (unknown) substance use (units ( unknown) date) type: does not unknown) use (unknown) (no (unknown) (unknown) travel history: (units (unknown) date) over 6 months ago unknown) (unknown) (no (unknown) (unknown) urinary (units (unkno wn) date) frequency and unknown) irritability (unknown) (no (unknown) (unknown) vaccine (Annual (units (unknown) date) flu, Phizer Covid unknown) x2) (unknown) (no (unknown) (unknown) w0d 4 wks (units (unkn own) date) unknown) (unknown) (no (unknown) (unknown) was not using (units ( unknown) date) any infertility unknown) medications. Ultrasound: An intrauterine (unknown) (no (unknown) (unknown) water heater (units (u nknown) date) temp set < 120 unknown) deg: Yes (unknown) (no (unknown) (unknown) well-balanced (units ( unknown) date) diet: daily or unknown) most days (unknown) (no (unknown) (unknown) went away with (units (unknown) date) laying down. No unknown) vaginal bleeding. No fevers. heart tone (unknown) (no (unknown) (unknown) while ) (units (unknown) date) unknown) (unknown) (no (unknown) (unknown) working smoke (units ( unknown) date) detector in home: unknown) Yes Result panel 14 (unknown) (no (unknown) (unknown) (no value) (units (unk nown) date) unknown) (unknown) (no (unknown) (unknown) (+12 lb) 120/58 (units (unknown) date) N unknown) (unknown) (no (unknown) (unknown) (+13 lb) 104/54 (units (unknown) date) N unknown) (unknown) (no (unknown) (unknown) (+18 lb) 122/60 (units (unknown) date) N unknown) (unknown) (no (unknown) (unknown) (+7 lb) 128/66 N (units (unknown) date) unknown) (unknown) (no (unknown) (unknown) (+8 lb) 122/68 N (units (unknown) date) unknown) (unknown) (no (unknown) (unknown) Genetic (units (unkn own) date) Screening/Teratol unknown) ogy Counseling - Includes patient, baby's father, or (unknown) (no (unknown) (unknown) -?-?-?-?-?-?-?-? (units (unknown) date) -?-?-?-? unknown) (unknown) (no (unknown) (unknown) 0.5 mL IM Right (units (unknown) date) Deltoid [id number] unknown) 05/01/24 [id number] SANOFI-PASTEUR (unknown) (no (unknown) (unknown) 05/19/22 (units (unkno wn) date) unknown) (unknown) (no (unknown) (unknown) 06/16/22 Single (units (unknown) date) Vaccine 12/20/20 unknown) (unknown) (no (unknown) (unknown) 06/16/22 (units (unkno wn) date) unknown) (unknown) (no (unknown) (unknown) 06/16/22] (units (unkn own) date) unknown) (unknown) (no (unknown) (unknown) 08/29/22 (units (unkno wn) date) Ultrasound #1 29w unknown) 3d (unknown) (no (unknown) (unknown) [id number] (units (unkno wn) date) unknown) (unknown) (no (unknown) (unknown) 01/27/22 (units (unkno wn) date) unknown) (unknown) (no (unknown) (unknown) 02/24/22 (units (unkno wn) date) unknown) (unknown) (no (unknown) (unknown) 03/24/22 (units (unkno wn) date) unknown) (unknown) (no (unknown) (unknown) 04/20/22 (units (unkno wn) date) unknown) (unknown) (no (unknown) (unknown) 12w 6d 163 lb (units ( unknown) date) unknown) (unknown) (no (unknown) (unknown) 13:15 (units (unkno wn) date) unknown) (unknown) (no (unknown) (unknown) 16w 6d 167 lb (units ( unknown) date) unknown) (unknown) (no (unknown) (unknown) 20w 5d 168 lb (units ( unknown) date) unknown) (unknown) (no (unknown) (unknown) 24w 6d 173 lb (units ( unknown) date) unknown) (unknown) (no (unknown) (unknown) 4 wk (units (unkno wn) date) unknown) (unknown) (no (unknown) (unknown) 8w 6d 162 lb (units (u nknown) date) unknown) (unknown) (no (unknown) (unknown) Abnormal lab (units (u nknown) date) values 1st unknown) trimester: discussed (unknown) (no (unknown) (unknown) Abnormal lab (units (u nknown) date) values 2nd unknown) trimester: discussed (unknown) (no (unknown) (unknown) Adacel(Tdap (units (un known) date) Adolesn/Adult)(PF unknown) ) (unknown) (no (unknown) (unknown) Add'l Plan (units (unk nown) date) Details unknown) (unknown) (no (unknown) (unknown) Administered by: (units (unknown) date) Nu Alexander, unknown) KUNAL on 06/16/22 13:25 (unknown) (no (unknown) (unknown) Age/Sex: 31 / F (units (unknown) date) Date of Service: unknown) (unknown) (no (unknown) (unknown) Allergies (units (unkn own) date) (-2013) unknown) (unknown) (no (unknown) (unknown) Allergies (units (unkn own) date) unknown) (unknown) (no (unknown) (unknown) [place] (units ( unknown) date) [id number] unknown) (unknown) (no (unknown) (unknown) Anesthesia (units (unk nown) date) unknown) (unknown) (no (unknown) (unknown) Aneuploidy (units (unk nown) date) Screening unknown) Offered: Accepted (wants CFDNA) (unknown) (no (unknown) (unknown) Anticipated (units (un known) date) course of unknown) care: discussed (unknown) (no (unknown) (unknown) Anxiety (-2015) (units (unknown) date) unknown) (unknown) (no (unknown) (unknown) Arrhythmia (units (unk nown) date) unknown) (unknown) (no (unknown) (unknown) Assessment and (units (unknown) date) Plan unknown) (unknown) (no (unknown) (unknown) Attending Dr: (units ( unknown) date) Richelle Dawkins unknown) (unknown) (no (unknown) (unknown) Corazon presents (units (unknown) date) today for routine unknown) OB f/u at 20w5d. She reports good (unknown) (no (unknown) (unknown) BMI 28.5 (units (unkno wn) date) unknown) (unknown) (no (unknown) (unknown) BP 110/62 (units (unkn own) date) unknown) (unknown) (no (unknown) (unknown) (units (unkno wn) date) Plan/Preferences unknown) (unknown) (no (unknown) (unknown) Planning (units (unknown) date) unknown) (unknown) (no (unknown) (unknown) Blood Pressure (units (unknown) date) Location Lt unknown) brachial (unknown) (no (unknown) (unknown) Blood (units (unkno wn) date) transfusions?: unknown) yes (Never had but would accept) (unknown) (no (unknown) (unknown) : (units (unknown) date) discussed unknown) (unknown) (no (unknown) (unknown) Chicken pox (units (un known) date) () unknown) (unknown) (no (unknown) (unknown) Childbirth (units (unk nown) date) Classes: unknown) discussed (unknown) (no (unknown) (unknown) Conceived (units (unkn own) date) naturally this unknown) (unknown) (no (unknown) (unknown) Confirmed (units (unkn own) date) 06/16/22] unknown) (unknown) (no (unknown) (unknown) Current Estimate (units (unknown) date) 09/02/22 unknown) Ultrasound #2 28w 6d (unknown) (no (unknown) (unknown) Current (units (unkno wn) date) History unknown) (unknown) (no (unknown) (unknown) DNA (units (unkno wn) date) unknown) (unknown) (no (unknown) (unknown) : 1990 (units (unknown) date) Acct:[id number] unknown) (unknown) (no (unknown) (unknown) Date of positive (units (unknown) date) home unknown) test: 12/29/21 (unknown) (no (unknown) (unknown) Date (units (unkno wn) date) unknown) (unknown) (no (unknown) (unknown) Denies Congenital (units (unknown) date) Heart Defect, unknown) Denies Down Syndrome, Denies Muscular Dystrophy, (unknown) (no (unknown) (unknown) Denies Maternal (units (unknown) date) Metabolic unknown) Disorder (EG,TYPE 1 Diabetes, PKU), Denies Patient or (unknown) (no (unknown) (unknown) Denies Neural (units ( unknown) date) Tube Defect unknown) (Meningomyelocele , Spina Bifida, or Anencephaly), (unknown) (no (unknown) (unknown) Denies Sickle (units ( unknown) date) Cell Disease or unknown) Trait (), Denies Hemophilia or other blood (unknown) (no (unknown) (unknown) Denies Enio-Sachs (units (unknown) date) (Ashkenazi unknown) Sabianism, Cajun, Indonesian Paraguayan), Denies Jose (unknown) (no (unknown) (unknown) Depression (units (unk nown) date) (-2016) unknown) (unknown) (no (unknown) (unknown) Depression: (units (un known) date) discussed unknown) (unknown) (no (unknown) (unknown) Dept at (units (unkno wn) date) . unknown) (unknown) (no (unknown) (unknown) Diet and (units (unkno wn) date) Exercise unknown) (unknown) (no (unknown) (unknown) Disease (units (unkno wn) date) (Ashkenazi unknown) Sabianism), Denies Familial Dysautonomia (Ashkenazi Sabianism), (unknown) (no (unknown) (unknown) Documented By: (units (unknown) date) Richelle Dawkins unknown) 06/16/22 1314 (unknown) (no (unknown) (unknown) Dose Route Admin (units (unknown) date) Location Lot unknown) Number Expiration Date NDC (unknown) (no (unknown) (unknown) Draft (units (unkno wn) date) unknown) (unknown) (no (unknown) (unknown) MARIANNE Calculator (units (unknown) date) unknown) (unknown) (no (unknown) (unknown) EGA Weight BP (units ( unknown) date) UGlucose unknown) (unknown) (no (unknown) (unknown) Eczema (-2000) (units (unknown) date) unknown) (unknown) (no (unknown) (unknown) Eligibility (units (un known) date) Eligibility Date unknown) Funding Source (unknown) (no (unknown) (unknown) Estimated (units (unkn own) date) Delivery Date unknown) Method Current (unknown) (no (unknown) (unknown) Exercise and (units (u nknown) date) activity, unknown) work/environmenta l/hazards, Sexual activity, X-ray (unknown) (no (unknown) (unknown) F/u in 4 wks. (units ( unknown) date) unknown) (unknown) (no (unknown) (unknown) Family History (units (unknown) date) (Updated 01/24/22 unknown) @ 21:49 by Anamaria Cooper) (unknown) (no (unknown) (unknown) Family/Other (units (u nknown) date) Multiple unknown) sclerosis (unknown) (no (unknown) (unknown) Father (units (unkno wn) date) Hypertension unknown) (unknown) (no (unknown) (unknown) Father of Baby: (units (unknown) date) same unknown) (unknown) (no (unknown) (unknown) [facility]) (unknown) (no (unknown) (unknown) First Trimester (units (unknown) date) Education unknown) Checklist (unknown) (no (unknown) (unknown) Foot pain (units (unkn own) date) () unknown) (unknown) (no (unknown) (unknown) (SAB (units (unkn own) date) x7),Fertility Tx, unknown) meds only, started on baby aspirin 02/24/2022 (unknown) (no (unknown) (unknown) Genetic (units (unkno wn) date) Screening + unknown) Counseling (unknown) (no (unknown) (unknown) Genetic (units (unkno wn) date) Screening unknown) (unknown) (no (unknown) (unknown) Grandfather (units (un known) date) Cancer unknown) (unknown) (no (unknown) (unknown) Grandfather (units (un known) date) Stroke unknown) (unknown) (no (unknown) (unknown) Grandmother (units (un known) date) History unknown) of heart disease (unknown) (no (unknown) (unknown) Grandmother (units (un known) date) Multiple unknown) sclerosis (unknown) (no (unknown) (unknown) 8 (units (unkn own) date) Multiple births 0 unknown) (unknown) (no (unknown) (unknown) HIV risk (units (unkno wn) date) evaluation: low unknown) risk (unknown) (no (unknown) (unknown) Health Center (units ( unknown) date) Education unknown) (unknown) (no (unknown) (unknown) Health center (units ( unknown) date) information: unknown) nature of practice discussed, personnel (unknown) (no (unknown) (unknown) Height 5 ft 6 in (units (unknown) date) unknown) (unknown) (no (unknown) (unknown) Hepatitis C risk (units (unknown) date) evaluation: low unknown) risk (unknown) (no (unknown) (unknown) History of (units (unk nown) date) Hepatitis B: No unknown) (unknown) (no (unknown) (unknown) History of (units (unk nown) date) Hepatitis C: No unknown) (unknown) (no (unknown) (unknown) 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 (unknown) (no (unknown) (unknown) Hospital[facility] (units (u nknown) date) unknown) (unknown) (no (unknown) (unknown) [facility] (units (u nknown) date) Chorea, Denies unknown) Other inherited genetic or chromosomal disorder, (unknown) (no (unknown) (unknown) , Elieser (units ( unknown) date) Martell unknown) (unknown) (no (unknown) (unknown) Hx # (units (u nknown) date) Pregnancies 0 unknown) Elective abortions 0 (unknown) (no (unknown) (unknown) Hx # Term (units (unkn own) date) Pregnancies 0 unknown) Ectopic pregnancies 0 (unknown) (no (unknown) (unknown) Immunizations (units ( unknown) date) unknown) (unknown) (no (unknown) (unknown) Infant will be (units (unknown) date) adopted?: no unknown) (unknown) (no (unknown) (unknown) Infection (units (unkn own) date) History unknown) (unknown) (no (unknown) (unknown) Infectious (units (unk nown) date) Disease Education unknown) (unknown) (no (unknown) (unknown) Infectious (units (unk nown) date) disease exposure: unknown) chicken pox immunity discussed, hepatitis risk (unknown) (no (unknown) (unknown) Infertility (units (un known) date) () unknown) (unknown) (no (unknown) (unknown) Initial Weight: (units (unknown) date) 155 lb unknown) (unknown) (no (unknown) (unknown) Initials (units (unkno wn) date) unknown) (unknown) (no (unknown) (unknown) Intake Clinical (units (unknown) date) Staff unknown) (unknown) (no (unknown) (unknown) Intake Note: (units (u nknown) date) unknown) (unknown) (no (unknown) (unknown) Intake performed (units (unknown) date) by: unknown) Nu Alexander (unknown) (no (unknown) (unknown) Intake (units (unkno wn) date) unknown) (unknown) (no (unknown) (unknown) Irregular (units (unkn own) date) menstrual cycle unknown) () (unknown) (no (unknown) (unknown) LM (units (unkno wn) date) unknown) (unknown) (no (unknown) (unknown) Lipoma (units (unkno wn) date) unknown) (unknown) (no (unknown) (unknown) Live with (units (unkn own) date) someone with TB unknown) or exposed to TB: No (unknown) (no (unknown) (unknown) Loc: [facility] (units (unkno wn) date) unknown) (unknown) (no (unknown) (unknown) Cloth Roll Winder (units (u nknown) date) unknown) (unknown) (no (unknown) (unknown) Marital status: (units (unknown) date) unknown) (unknown) (no (unknown) (unknown) Medical History (units (unknown) date) (Updated 01/27/22 unknown) @ 15:16 by Richelle Dawkins MD) (unknown) (no (unknown) (unknown) Medications (units (un known) date) unknown) (unknown) (no (unknown) (unknown) Mother Gastric (units (unknown) date) cancer unknown) (unknown) (no (unknown) (unknown) N No 142 13 N/A (units (unknown) date) 4wk unknown) (unknown) (no (unknown) (unknown) N No no 143 17 (units (unknown) date) N/A absent AFP 4 unknown) wks (unknown) (no (unknown) (unknown) N No no 178 9 (units ( unknown) date) N/A absent unknown) long/closed AGA 9 (unknown) (no (unknown) (unknown) N Yes no 141 24 (units (unknown) date) N/A absent 4 wks unknown) (unknown) (no (unknown) (unknown) N Yes no 142 20 (units (unknown) date) N/A absent AFP unknown) negative (unknown) (no (unknown) (unknown) NF (units (unkno wn) date) unknown) (unknown) (no (unknown) (unknown) Not [facility] Eligible (units (unknown) date) 06/16/22 Private unknown) Funds (unknown) (no (unknown) (unknown) Notes (units (unkno wn) date) unknown) (unknown) (no (unknown) (unknown) Number of Living (units (unknown) date) Children 0 unknown) (unknown) (no (unknown) (unknown) Number of (units (unkn own) date) fetuses:: Single unknown) (unknown) (no (unknown) (unknown) Nutrition and (units ( unknown) date) weight gain unknown) counseling: special diet: discussed (unknown) (no (unknown) (unknown) OB Office Visit (units (unknown) date) unknown) (unknown) (no (unknown) (unknown) OB Visit Log (units (u nknown) date) unknown) (unknown) (no (unknown) (unknown) OB check (units (unkno wn) date) unknown) (unknown) (no (unknown) (unknown) On control (units (unknown) date) at conception?: unknown) No (unknown) (no (unknown) (unknown) Orders (units (unkno wn) date) unknown) (unknown) (no (unknown) (unknown) Orders: (units (unkno wn) date) unknown) (unknown) (no (unknown) (unknown) Other Estimates (units (unknown) date) 08/18/22 LMP unknown) (Certain) 31w 0d (unknown) (no (unknown) (unknown) Ovarian cyst (units (u nknown) date) () unknown) (unknown) (no (unknown) (unknown) PCOS (polycystic (units (unknown) date) ovarian syndrome) unknown) (unknown) (no (unknown) (unknown) PFSH (units (unkno wn) date) unknown) (unknown) (no (unknown) (unknown) Pap performed?: (units (unknown) date) No unknown) (unknown) (no (unknown) (unknown) Para 0 (units (unkno wn) date) Spontaneous unknown) abortions 7 (unknown) (no (unknown) (unknown) Partner history (units (unknown) date) of STD: denies hx unknown) (unknown) (no (unknown) (unknown) Partner history (units (unknown) date) of genital unknown) herpes: No (unknown) (no (unknown) (unknown) Partner: Elieser (units ( unknown) date) Martell unknown) (unknown) (no (unknown) (unknown) Patient comes in (units (unknown) date) for follow-up OB unknown) visit. She had some pelvic pain that (unknown) (no (unknown) (unknown) Patient presents (units (unknown) date) for a new OB unknown) visit at 8 weeks gestation. She is (unknown) (no (unknown) (unknown) Patient presents (units (unknown) date) for a routine unknown) visit, accompanied by her . 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) [facility] vs unknown) [facility] (unknown) (no (unknown) (unknown) Performing (units (unk nown) date) Provider: unknown) Richelle Dawkins MD (unknown) (no (unknown) (unknown) Personal history (units (unknown) date) of STD: denies hx unknown) (unknown) (no (unknown) (unknown) Personal history (units (unknown) date) of genital unknown) herpes: No (unknown) (no (unknown) (unknown) Plantar (units (unkno wn) date) fasciitis unknown) (unknown) (no (unknown) (unknown) Position Sitting (units (unknown) date) unknown) (unknown) (no (unknown) (unknown) (units (unk nown) date) family unknown) planning/Tubal sterilization: further discussion needed (unknown) (no (unknown) (unknown) (units (unkn own) date) History unknown) (unknown) (no (unknown) (unknown) type:: (units (unknown) date) Other Normal unknown) (unknown) (no (unknown) (unknown) (units (unkno wn) date) Education unknown) (unknown) (no (unknown) (unknown) Initial (units (unknown) date) Assessment unknown) (unknown) (no (unknown) (unknown) (units (unkno wn) date) Specific unknown) Issues/Plans (unknown) (no (unknown) (unknown) (units (unkno wn) date) Testing: unknown) discussed (unknown) (no (unknown) (unknown) Visit (units (unknown) date) unknown) (unknown) (no (unknown) (unknown) (units (unkno wn) date) education packet: unknown) Child education/plan, symptoms, (unknown) (no (unknown) (unknown) Primary Care (units (u nknown) date) Provider: [place] Arboleda unknown) [place] (unknown) (no (unknown) (unknown) Primary Ob (units (unk nown) date) Provider: unknown) Richelle Dawkins (unknown) (no (unknown) (unknown) Prior (units (unkno wn) date) GBS-Infected unknown) child: No (unknown) (no (unknown) (unknown) Providers (units (unkn own) date) unknown) (unknown) (no (unknown) (unknown) Pt presents for (units (unknown) date) a PNV at 16+6 unknown) wks. No FM. No LOF/VB. 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 She unknown) has felt good movement. She says it is (unknown) (no (unknown) (unknown) Shingles (units (unkno wn) date) unknown) (unknown) (no (unknown) (unknown) Signed By: (units (unk nown) date) unknown) (unknown) (no (unknown) (unknown) Signs and (units (unkn own) date) symptoms of unknown) labor: discussed (unknown) (no (unknown) (unknown) Smoking Status: (units (unknown) date) Never smoker unknown) (unknown) (no (unknown) (unknown) Social History (units (unknown) date) unknown) (unknown) (no (unknown) (unknown) Support (units (unkno wn) date) Person(s):: Elieser unknown) (unknown) (no (unknown) (unknown) Surgical History (units (unknown) date) (Updated 01/24/22 unknown) @ 21:46 by Anamaria Cooper) (unknown) (no (unknown) (unknown) Surrogate (units (unkn own) date) ?: no unknown) (unknown) (no (unknown) (unknown) Symptoms since (units (unknown) date) LMP: Reports unknown) amenorrhea, nausea, fatigue, breast tenderness, (unknown) (no (unknown) (unknown) Tdap Adult (units (unk nown) date) (Adacel) Today unknown) Z23 - Encounter for immunization (unknown) (no (unknown) (unknown) Teratogen (units (unkn own) date) Exposures since unknown) LMP/Conception: Denies prescription medications, (unknown) (no (unknown) (unknown) Testing (units (unkno wn) date) Education unknown) (unknown) (no (unknown) (unknown) Testing (units (unkno wn) date) education unknown) completed: group B strep, Spina bifida testing and Cell Free (unknown) (no (unknown) (unknown) This note may (units ( unknown) date) have been all or unknown) partially generated using voice recognition (unknown) (no (unknown) (unknown) Tobacco + (units (unkn own) date) Substance Use unknown) (unknown) (no (unknown) (unknown) Tobacco Status (units (unknown) date) unknown) (unknown) (no (unknown) (unknown) Trimester:: 3rd (units (unknown) date) Trimester unknown) (28wks-Del) (unknown) (no (unknown) (unknown) Tumor () (units (unknown) date) unknown) (unknown) (no (unknown) (unknown) Type(s) of (units (unk nown) date) exercise: unknown) bicycling (stationary bike), regular exercise, weight (unknown) (no (unknown) (unknown) UProtein Movement (units (unknown) date) PreLabor FHR Fndl unknown) Ht Pres Edema Cerv Exam US/Comment Next Appt (unknown) (no (unknown) (unknown) Ultrasound (units (unk nown) date) performed?: Yes unknown) (unknown) (no (unknown) (unknown) VIS Given Date (units (unknown) date) VIS Provided VIS unknown) Publication Date (unknown) (no (unknown) (unknown) Varicella/chicke (units (unknown) date) n pox status: unknown) previous disease (unknown) (no (unknown) (unknown) Visit Date: (units (un known) date) 05/19/22 Last unknown) Updated by: Richelle Dawkins MD (unknown) (no (unknown) (unknown) Visit Date: (units (un known) date) 01/27/22 Last unknown) Updated by: Richelle Dawkins MD (unknown) (no (unknown) (unknown) Visit Date: (units (un known) date) 02/24/22 Last unknown) Updated by: Marietta Massey MD (unknown) (no (unknown) (unknown) Visit Date: (units (un known) date) 03/24/22 Last unknown) Updated by: Richelle Dawkins MD (unknown) (no (unknown) (unknown) Visit Date: (units (un known) date) 04/20/22 Last unknown) Updated by: Xiao Boland P.A-C (unknown) (no (unknown) (unknown) Visit Reasons: (units (unknown) date) OB w 3D US unknown) (unknown) (no (unknown) (unknown) Vitals (units (unkno wn) date) unknown) (unknown) (no (unknown) (unknown) Vitamins and (units (u nknown) date) iron, Diet and unknown) weight gain, Fish and mercury intake, Caffeine use, (unknown) (no (unknown) (unknown) WG (units (unkno wn) date) unknown) (unknown) (no (unknown) (unknown) Weeks (units (unkno wn) date) gestation:: 28 unknown) (unknown) (no (unknown) (unknown) Weight 177 lb (units ( unknown) date) unknown) (unknown) (no (unknown) (unknown) Ages [place] teeth (units (u nknown) date) extracted unknown) (unknown) (no (unknown) (unknown) Zika virus (units (unk nown) date) exposure: No unknown) (unknown) (no (unknown) (unknown) accompanied by (units (unknown) date) her . She unknown) went through fertility treatments with (unknown) (no (unknown) (unknown) alcohol intake: (units (unknown) date) never unknown) (unknown) (no (unknown) (unknown) anterior (units (unkno wn) date) placenta. Routine unknown) precautions reviewed with the patient. Due to 1st (unknown) (no (unknown) (unknown) anyone in either (units (unknown) date) family with: unknown) (unknown) (no (unknown) (unknown) baby's father (units ( unknown) date) had a child with unknown) defects not listed above and Denies Other (unknown) (no (unknown) (unknown) back pain. (units (unk nown) date) Advised unknown) stretching, belly band, and PT if not improving. AFP was (unknown) (no (unknown) (unknown) blood sugar (units (un known) date) diagnostic (Blood unknown) Glucose Test strips) #100 ea 06/02/22 [Rx (unknown) (no (unknown) (unknown) blood-glucose (units ( unknown) date) meter #1 ea unknown) 06/02/22 [Rx Confirmed 06/16/22] (unknown) (no (unknown) (unknown) by ultrasound is (units (unknown) date) normal with good unknown) movement, normal appearing fluid, (unknown) (no (unknown) (unknown) caffeine: Yes (units ( unknown) date) (1-2 cups unknown) tea/day) (unknown) (no (unknown) (unknown) carbon monox (units (u nknown) date) detector in home: unknown) Yes (unknown) (no (unknown) (unknown) cfDNA normal (units (u nknown) date) female, AFP unknown) negative (unknown) (no (unknown) (unknown) consistent with (units (unknown) date) 9 weeks 0 days. unknown) Yolk sac visible. heart rate 178 beats (unknown) (no (unknown) (unknown) current (units (unkno wn) date) occupational unknown) exposures/hazards : No (unknown) (no (unknown) (unknown) daily servings (units (unknown) date) fruits/ve-4 unknown) (unknown) (no (unknown) (unknown) described, visit (units (unknown) date) schedule unknown) reviewed, ultrasounds policy reviewed, coverage 24 (unknown) (no (unknown) (unknown) developing a (units (u nknown) date) pattern. No unknown) leakage of fluid or vaginal bleeding. No contractions (unknown) (no (unknown) (unknown) discussed, (units (unk nown) date) tuberculosis unknown) exposure discussed, CMV discussed, Toxoplasmosis (unknown) (no (unknown) (unknown) disorders, (units (unk nown) date) Denies Cystic unknown) Fibrosis, Denies Mental Retardation/Autis m, Denies (unknown) (no (unknown) (unknown) do you feel safe (units (unknown) date) at home: Yes unknown) (unknown) (no (unknown) (unknown) during the past (units (unknown) date) year weight has: unknown) remained stable (unknown) (no (unknown) (unknown) education level: (units (unknown) date) college unknown) (Associate's degree) (unknown) (no (unknown) (unknown) exposure, (units (unkn own) date) Medication use, unknown) Sauna/hot tub use, Dental care, Travel and Influenza (unknown) (no (unknown) (unknown) fire (units (unkno wn) date) extinguisher in unknown) home: Yes (unknown) (no (unknown) (unknown) firearms in (units (un known) date) home: Yes unknown) firearms unloaded and locked: Yes (unknown) (no (unknown) (unknown) frequency: 5-6 (units (unknown) date) times per week unknown) (unknown) (no (unknown) (unknown) gestational sac (units (unknown) date) with a fetus with unknown) a crown-rump length measuring 2.29 cm (unknown) (no (unknown) (unknown) have occurred. (units (unknown) date) If there are any unknown) questions, please contact the Medical Records (unknown) (no (unknown) (unknown) hours a day and (units (unknown) date) participation of unknown) father in care and office visits (unknown) (no (unknown) (unknown) household (units (unkn own) date) members: spouse unknown) and family (father and [id number]) (unknown) (no (unknown) (unknown) housing: house (units (unknown) date) unknown) (unknown) (no (unknown) (unknown) illicit drugs (units ( unknown) date) and Denies other unknown) (unknown) (no (unknown) (unknown) kag (units (unkno wn) date) unknown) (unknown) (no (unknown) (unknown) lancets #100 ea (units (unknown) date) 06/02/22 [Rx unknown) Confirmed 06/16/22] (unknown) (no (unknown) (unknown) last visit. (units (un known) date) Plan: AFP today. unknown) 20 wk u/s reviewed. F/U 4 wks. Warning signs (unknown) (no (unknown) (unknown) lifting and (units (un known) date) other (hiking) unknown) (unknown) (no (unknown) (unknown) lives (units (unkno wn) date) independently: unknown) Yes (unknown) (no (unknown) (unknown) marital status: (units (unknown) date) unknown) (unknown) (no (unknown) (unknown) may occur. (units (unk nown) date) Occasional unknown) wrong-word or 'sound-alike' substitutions may have (unknown) (no (unknown) (unknown) medication only. (units (unknown) date) Had 7 unknown) miscarriages. No bleeding with this . This 1 (unknown) (no (unknown) (unknown) movement and (units (u nknown) date) denies VB, LOF, unknown) cramping and regular contractions. Pt reports low (unknown) (no (unknown) (unknown) negative. (units (unkn own) date) Anatomy US unknown) scheduled for later today. Warning precautions reviewed. 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 Please (unknown) (no (unknown) (unknown) or cramping. (units (u nknown) date) Plan: 1 hour unknown) glucose ordered. Follow-up in 4 weeks. Warning (unknown) (no (unknown) (unknown) per minute. (units (un known) date) Normal ovaries unknown) bilaterally. Plan: Follow-up in 4 weeks. Warning (unknown) (no (unknown) (unknown) pets and (units (unkno wn) date) animals: Yes (1 unknown) large dog, chickens) (unknown) (no (unknown) (unknown) precautions, (units (u nknown) date) Listeriosis unknown) prevention and Rubella Immunization (unknown) (no (unknown) (unknown) preeclampsia. (units ( unknown) date) unknown) (unknown) (no (unknown) (unknown) (units (unkn own) date) discussed unknown) starting baby aspirin per day to decrease her risk for (unknown) (no (unknown) (unknown) prenat.vits,dara, (units (unknown) date) [id number] 1 unknown) tab PO DAILY 01/08/22 [History Confirmed (unknown) (no (unknown) (unknown) read the note (units ( unknown) date) carefully and unknown) recognize, using context, where these substitutions (unknown) (no (unknown) (unknown) reviewed. (units (unkn own) date) unknown) (unknown) (no (unknown) (unknown) seatbelt use: (units ( unknown) date) always unknown) (unknown) (no (unknown) (unknown) second hand (units (un known) date) exposure: Yes unknown) ([id number] smokes outside the house) (unknown) (no (unknown) (unknown) signs reviewed. (units (unknown) date) cfDNA ordered. unknown) (unknown) (no (unknown) (unknown) signs reviewed. (units (unknown) date) unknown) (unknown) (no (unknown) (unknown) software. (units (unkn own) date) Although every unknown) effort is made to edit content, snubber errors (unknown) (no (unknown) (unknown) special anjum (units ( unknown) date) needs: No unknown) (unknown) (no (unknown) (unknown) substance use (units ( unknown) date) type: does not unknown) use (unknown) (no (unknown) (unknown) travel history: (units (unknown) date) over 6 months ago unknown) (unknown) (no (unknown) (unknown) urinary (units (unkno wn) date) frequency and unknown) irritability (unknown) (no (unknown) (unknown) vaccine (Annual (units (unknown) date) flu, Phizer Covid unknown) x2) (unknown) (no (unknown) (unknown) w0d 4 wks (units (unkn own) date) unknown) (unknown) (no (unknown) (unknown) was not using (units ( unknown) date) any infertility unknown) medications. Ultrasound: An intrauterine (unknown) (no (unknown) (unknown) water heater (units (u nknown) date) temp set < 120 unknown) deg: Yes (unknown) (no (unknown) (unknown) well-balanced (units ( unknown) date) diet: daily or unknown) most days (unknown) (no (unknown) (unknown) went away with (units (unknown) date) laying down. No unknown) vaginal bleeding. No fevers. heart tone (unknown) (no (unknown) (unknown) while ) (units (unknown) date) unknown) (unknown) (no (unknown) (unknown) working smoke (units ( unknown) date) detector in home: unknown) Yes Result panel 15 (unknown) (no (unknown) (unknown) (no value) (units (unk nown) date) unknown) (unknown) (no (unknown) (unknown) (+12 lb) 120/58 (units (unknown) date) N unknown) (unknown) (no (unknown) (unknown) (+13 lb) 104/54 (units (unknown) date) N unknown) (unknown) (no (unknown) (unknown) (+18 lb) 122/60 (units (unknown) date) N unknown) (unknown) (no (unknown) (unknown) (+22 lb) 110/62 (units (unknown) date) unknown) (unknown) (no (unknown) (unknown) (+7 lb) 128/66 N (units (unknown) date) unknown) (unknown) (no (unknown) (unknown) (+8 lb) 122/68 N (units (unknown) date) unknown) (unknown) (no (unknown) (unknown) Genetic (units (unkn own) date) Screening/Teratol unknown) ogy Counseling - Includes patient, baby's father, or (unknown) (no (unknown) (unknown) -?-?-?-?-?-?-?-? (units (unknown) date) -?-?-?-? unknown) (unknown) (no (unknown) (unknown) 0.5 mL IM Right (units (unknown) date) Deltoid [id number] unknown) 05/01/24 [id number] SANOFI-PASTEUR (unknown) (no (unknown) (unknown) 05/19/22 (units (unkno wn) date) unknown) (unknown) (no (unknown) (unknown) 06/16/22 Single (units (unknown) date) Vaccine 12/20/20 unknown) (unknown) (no (unknown) (unknown) 06/16/22 (units (unkno wn) date) unknown) (unknown) (no (unknown) (unknown) 06/16/22] (units (unkn own) date) unknown) (unknown) (no (unknown) (unknown) 08/29/22 (units (unkno wn) date) Ultrasound #1 29w unknown) 3d (unknown) (no (unknown) (unknown) [id number] (units (unkno wn) date) unknown) (unknown) (no (unknown) (unknown) 01/27/22 (units (unkno wn) date) unknown) (unknown) (no (unknown) (unknown) 02/24/22 (units (unkno wn) date) unknown) (unknown) (no (unknown) (unknown) 03/24/22 (units (unkno wn) date) unknown) (unknown) (no (unknown) (unknown) 04/20/22 (units (unkno wn) date) unknown) (unknown) (no (unknown) (unknown) 12w 6d 163 lb (units ( unknown) date) unknown) (unknown) (no (unknown) (unknown) 13:15 (units (unkno wn) date) unknown) (unknown) (no (unknown) (unknown) 16w 6d 167 lb (units ( unknown) date) unknown) (unknown) (no (unknown) (unknown) 20w 5d 168 lb (units ( unknown) date) unknown) (unknown) (no (unknown) (unknown) 24w 6d 173 lb (units ( unknown) date) unknown) (unknown) (no (unknown) (unknown) 28w 6d 177 lb (units ( unknown) date) unknown) (unknown) (no (unknown) (unknown) 3 wks (units (unkno wn) date) unknown) (unknown) (no (unknown) (unknown) 4 wk (units (unkno wn) date) unknown) (unknown) (no (unknown) (unknown) 8w 6d 162 lb (units (u nknown) date) unknown) (unknown) (no (unknown) (unknown) Abnormal lab (units (u nknown) date) values 1st unknown) trimester: discussed (unknown) (no (unknown) (unknown) Abnormal lab (units (u nknown) date) values 2nd unknown) trimester: discussed (unknown) (no (unknown) (unknown) Adacel(Tdap (units (un known) date) Adolesn/Adult)(PF unknown) ) (unknown) (no (unknown) (unknown) Add'l Plan (units (unk nown) date) Details unknown) (unknown) (no (unknown) (unknown) Administered by: (units (unknown) date) Nu Alexander, unknown) KUNAL on 06/16/22 13:25 (unknown) (no (unknown) (unknown) Age/Sex: 31 / F (units (unknown) date) Date of Service: unknown) (unknown) (no (unknown) (unknown) Allergies (units (unkn own) date) () unknown) (unknown) (no (unknown) (unknown) Allergies (units (unkn own) date) unknown) (unknown) (no (unknown) (unknown) ORALIA Erickson (units ( unknown) date) [id number] unknown) (unknown) (no (unknown) (unknown) Anesthesia (units (unk nown) date) unknown) (unknown) (no (unknown) (unknown) Aneuploidy (units (unk nown) date) Screening unknown) Offered: Accepted (wants CFDNA) (unknown) (no (unknown) (unknown) Anticipated (units (un known) date) course of unknown) care: discussed (unknown) (no (unknown) (unknown) Anxiety (-2016) (units (unknown) date) unknown) (unknown) (no (unknown) (unknown) Arrhythmia (units (unk nown) date) unknown) (unknown) (no (unknown) (unknown) Assessment and (units (unknown) date) Plan unknown) (unknown) (no (unknown) (unknown) Attending Dr: (units ( unknown) date) Richelle Dawkins unknown) (unknown) (no (unknown) (unknown) Corazon presents (units (unknown) date) today for routine unknown) OB f/u at 20w5d. She reports good (unknown) (no (unknown) (unknown) BMI 28.5 (units (unkno wn) date) unknown) (unknown) (no (unknown) (unknown) BP 110/62 (units (unkn own) date) unknown) (unknown) (no (unknown) (unknown) (units (unkno wn) date) Plan/Preferences unknown) (unknown) (no (unknown) (unknown) Planning (units (unknown) date) unknown) (unknown) (no (unknown) (unknown) Blood Pressure (units (unknown) date) Location Lt unknown) brachial (unknown) (no (unknown) (unknown) Blood (units (unkno wn) date) transfusions?: unknown) yes (Never had but would accept) (unknown) (no (unknown) (unknown) : (units (unknown) date) discussed unknown) (unknown) (no (unknown) (unknown) Chicken pox (units (un known) date) () unknown) (unknown) (no (unknown) (unknown) Childbirth (units (unk nown) date) Classes: unknown) discussed (unknown) (no (unknown) (unknown) Conceived (units (unkn own) date) naturally this unknown) (unknown) (no (unknown) (unknown) Confirmed (units (unkn own) date) 06/16/22] unknown) (unknown) (no (unknown) (unknown) Current Estimate (units (unknown) date) 09/02/22 unknown) Ultrasound #2 28w 6d (unknown) (no (unknown) (unknown) Current (units (unkno wn) date) History unknown) (unknown) (no (unknown) (unknown) DNA (units (unkno wn) date) unknown) (unknown) (no (unknown) (unknown) : 1990 (units (unknown) date) Acct:[id number] unknown) (unknown) (no (unknown) (unknown) Date of positive (units (unknown) date) home unknown) test: 12/29/21 (unknown) (no (unknown) (unknown) Date (units (unkno wn) date) unknown) (unknown) (no (unknown) (unknown) Denies Congenital (units (unknown) date) Heart Defect, unknown) Denies Down Syndrome, Denies Muscular Dystrophy, (unknown) (no (unknown) (unknown) Denies Neural (units ( unknown) date) Tube Defect unknown) (Meningomyelocele , Spina Bifida, or Anencephaly), (unknown) (no (unknown) (unknown) Denies Sickle (units ( unknown) date) Cell Disease or unknown) Trait (), Denies Hemophilia or other blood (unknown) (no (unknown) (unknown) Denies Enio-Sachs (units (unknown) date) (Ashkenazi unknown) Sabianism, Cajun, Indonesian Paraguayan), Denies Jose (unknown) (no (unknown) (unknown) Depression (units (unk nown) date) (-2016) unknown) (unknown) (no (unknown) (unknown) Depression: (units (un known) date) discussed unknown) (unknown) (no (unknown) (unknown) Dept at (units (unkno wn) date) . unknown) (unknown) (no (unknown) (unknown) Diet and (units (unkno wn) date) Exercise unknown) (unknown) (no (unknown) (unknown) Disease (units (unkno wn) date) (Ashkenazi unknown) Sabianism), Denies Familial Dysautonomia (Ashkenazi Sabianism), (unknown) (no (unknown) (unknown) Documented By: (units (unknown) date) Richelle Dawkins unknown) 06/16/22 1314 (unknown) (no (unknown) (unknown) Dose Route Admin (units (unknown) date) Location Lot unknown) Number Expiration Date NDC (unknown) (no (unknown) (unknown) Draft (units (unkno wn) date) unknown) (unknown) (no (unknown) (unknown) MARIANNE Calculator (units (unknown) date) unknown) (unknown) (no (unknown) (unknown) EGA Weight BP (units ( unknown) date) UGlucose unknown) (unknown) (no (unknown) (unknown) Eczema (-2000) (units (unknown) date) unknown) (unknown) (no (unknown) (unknown) Eligibility (units (un known) date) Eligibility Date unknown) Funding Source (unknown) (no (unknown) (unknown) Estimated (units (unkn own) date) Delivery Date unknown) Method Current (unknown) (no (unknown) (unknown) Exercise and (units (u nknown) date) activity, unknown) work/environmenta l/hazards, Sexual activity, X-ray (unknown) (no (unknown) (unknown) F/u in 4 wks. (units ( unknown) date) unknown) (unknown) (no (unknown) (unknown) Family History (units (unknown) date) (Updated 01/24/22 unknown) @ 21:49 by Anamaria Cooper) (unknown) (no (unknown) (unknown) Family/Other (units (u nknown) date) Multiple unknown) sclerosis (unknown) (no (unknown) (unknown) Father (units (unkno wn) date) Hypertension unknown) (unknown) (no (unknown) (unknown) Father of Baby: (units (unknown) date) same unknown) (unknown) (no (unknown) (unknown) [facility] unknown) (unknown) (no (unknown) (unknown) First Trimester (units (unknown) date) Education unknown) Checklist (unknown) (no (unknown) (unknown) Foot pain (units (unkn own) date) () unknown) (unknown) (no (unknown) (unknown) (SAB (units (unkn own) date) x7),Fertility Tx, unknown) meds only, started on baby aspirin 02/24/2022 (unknown) (no (unknown) (unknown) Genetic (units (unkno wn) date) Screening + unknown) Counseling (unknown) (no (unknown) (unknown) Genetic (units (unkno wn) date) Screening unknown) (unknown) (no (unknown) (unknown) Grandfather (units (un known) date) Cancer unknown) (unknown) (no (unknown) (unknown) Grandfather (units (un known) date) Stroke unknown) (unknown) (no (unknown) (unknown) Grandmother (units (un known) date) History unknown) of heart disease (unknown) (no (unknown) (unknown) Grandmother (units (un known) date) Multiple unknown) sclerosis (unknown) (no (unknown) (unknown) 8 (units (unkn own) date) Multiple births 0 unknown) (unknown) (no (unknown) (unknown) HIV risk (units (unkno wn) date) evaluation: low unknown) risk (unknown) (no (unknown) (unknown) Health Center (units ( unknown) date) Education unknown) (unknown) (no (unknown) (unknown) Health center (units ( unknown) date) information: unknown) nature of practice discussed, personnel (unknown) (no (unknown) (unknown) Height 5 ft 6 in (units (unknown) date) unknown) (unknown) (no (unknown) (unknown) Hepatitis C risk (units (unknown) date) evaluation: low unknown) risk (unknown) (no (unknown) (unknown) History of (units (unk nown) date) Hepatitis B: No unknown) (unknown) (no (unknown) (unknown) History of (units (unk nown) date) Hepatitis C: No unknown) (unknown) (no (unknown) (unknown) 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 (unknown) (no (unknown) (unknown) Hospital: (units (u nknown) date) unknown) (unknown) (no (unknown) (unknown) [facility] (units (u nknown) date) Chorea, Denies unknown) Other inherited genetic or chromosomal disorder, D (unknown) (no (unknown) (unknown) , Elieser (units ( unknown) date) Martell unknown) (unknown) (no (unknown) (unknown) Hx # (units (u nknown) date) Pregnancies 0 unknown) Elective abortions 0 (unknown) (no (unknown) (unknown) Hx # Term (units (unkn own) date) Pregnancies 0 unknown) Ectopic pregnancies 0 (unknown) (no (unknown) (unknown) Immunizations (units ( unknown) date) unknown) (unknown) (no (unknown) (unknown) will be (units (unknown) date) adopted?: no unknown) (unknown) (no (unknown) (unknown) Infection (units (unkn own) date) History unknown) (unknown) (no (unknown) (unknown) Infectious (units (unk nown) date) Disease Education unknown) (unknown) (no (unknown) (unknown) Infectious (units (unk nown) date) disease exposure: unknown) chicken pox immunity discussed, hepatitis risk (unknown) (no (unknown) (unknown) Infertility (units (un known) date) () unknown) (unknown) (no (unknown) (unknown) Initial Weight: (units (unknown) date) 155 lb unknown) (unknown) (no (unknown) (unknown) Initials (units (unkno wn) date) unknown) (unknown) (no (unknown) (unknown) Intake Clinical (units (unknown) date) Staff unknown) (unknown) (no (unknown) (unknown) Intake Note: (units (u nknown) date) unknown) (unknown) (no (unknown) (unknown) Intake performed (units (unknown) date) by: unknown) Nu Alexander (unknown) (no (unknown) (unknown) Intake (units (unkno wn) date) unknown) (unknown) (no (unknown) (unknown) Irregular (units (unkn own) date) menstrual cycle unknown) () (unknown) (no (unknown) (unknown) LM (units (unkno wn) date) unknown) (unknown) (no (unknown) (unknown) Lipoma (units (unkno wn) date) unknown) (unknown) (no (unknown) (unknown) Live with (units (unkn own) date) someone with TB unknown) or exposed to TB: No (unknown) (no (unknown) (unknown) Loc: [facility] (units (unkno wn) date) unknown) (unknown) (no (unknown) (unknown) Cloth Roll Winder (units (u nknown) date) unknown) (unknown) (no (unknown) (unknown) Marital status: (units (unknown) date) unknown) (unknown) (no (unknown) (unknown) Medical History (units (unknown) date) (Updated 01/27/22 unknown) @ 15:16 by Richelle Dawkins MD) (unknown) (no (unknown) (unknown) Medications (units (un known) date) unknown) (unknown) (no (unknown) (unknown) Mother Gastric (units (unknown) date) cancer unknown) (unknown) (no (unknown) (unknown) N No 142 13 N/A (units (unknown) date) 4wk unknown) (unknown) (no (unknown) (unknown) N No no 143 17 (units (unknown) date) N/A absent AFP 4 unknown) wks (unknown) (no (unknown) (unknown) N No no 178 9 (units ( unknown) date) N/A absent unknown) long/closed AGA 9 (unknown) (no (unknown) (unknown) N Yes no 141 24 (units (unknown) date) N/A absent 4 wks unknown) (unknown) (no (unknown) (unknown) N Yes no 142 20 (units (unknown) date) N/A absent AFP unknown) negative (unknown) (no (unknown) (unknown) NF (units (unkno wn) date) unknown) (unknown) (no (unknown) (unknown) Not VFC Eligible (units (unknown) date) 06/16/22 Private unknown) Funds (unknown) (no (unknown) (unknown) Notes (units (unkno wn) date) unknown) (unknown) (no (unknown) (unknown) Number of Living (units (unknown) date) Children 0 unknown) (unknown) (no (unknown) (unknown) Number of (units (unkn own) date) fetuses:: Single unknown) (unknown) (no (unknown) (unknown) Nutrition and (units ( unknown) date) weight gain unknown) counseling: special diet: discussed (unknown) (no (unknown) (unknown) OB Office Visit (units (unknown) date) unknown) (unknown) (no (unknown) (unknown) OB Visit Log (units (u nknown) date) unknown) (unknown) (no (unknown) (unknown) OB check (units (unkno wn) date) unknown) (unknown) (no (unknown) (unknown) On control (units (unknown) date) at conception?: unknown) No (unknown) (no (unknown) (unknown) Orders (units (unkno wn) date) unknown) (unknown) (no (unknown) (unknown) Orders: (units (unkno wn) date) unknown) (unknown) (no (unknown) (unknown) Other Estimates (units (unknown) date) 08/18/22 LMP unknown) (Certain) 31w 0d (unknown) (no (unknown) (unknown) Ovarian cyst (units (u nknown) date) () unknown) (unknown) (no (unknown) (unknown) PCOS (polycystic (units (unknown) date) ovarian syndrome) unknown) (unknown) (no (unknown) (unknown) PFSH (units (unkno wn) date) unknown) (unknown) (no (unknown) (unknown) Pap performed?: (units (unknown) date) No unknown) (unknown) (no (unknown) (unknown) Para 0 (units (unkno wn) date) Spontaneous unknown) abortions 7 (unknown) (no (unknown) (unknown) Partner history (units (unknown) date) of STD: denies hx unknown) (unknown) (no (unknown) (unknown) Partner history (units (unknown) date) of genital unknown) herpes: No (unknown) (no (unknown) (unknown) Partner: Elieser (units ( unknown) date) Martell unknown) (unknown) (no (unknown) (unknown) Patient comes in (units (unknown) date) for follow-up OB unknown) visit. She had some pelvic pain that (unknown) (no (unknown) (unknown) Patient presents (units (unknown) date) for a new OB unknown) visit at 8 weeks gestation. She is (unknown) (no (unknown) (unknown) Patient presents (units (unknown) date) for a routine unknown) visit, accompanied by her . 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) [facility] vs unknown) [facility] (unknown) (no (unknown) (unknown) Performing (units (unk nown) date) Provider: unknown) Richelle Dawkins MD (unknown) (no (unknown) (unknown) Personal history (units (unknown) date) of STD: denies hx unknown) (unknown) (no (unknown) (unknown) Personal history (units (unknown) date) of genital unknown) herpes: No (unknown) (no (unknown) (unknown) Plantar (units (unkno wn) date) fasciitis unknown) (unknown) (no (unknown) (unknown) Position Sitting (units (unknown) date) unknown) (unknown) (no (unknown) (unknown) (units (unk nown) date) family unknown) planning/Tubal sterilization: further discussion needed (unknown) (no (unknown) (unknown) (units (unkn own) date) History unknown) (unknown) (no (unknown) (unknown) type:: (units (unknown) date) Other Normal unknown) (unknown) (no (unknown) (unknown) (units (unkno wn) date) Education unknown) (unknown) (no (unknown) (unknown) Initial (units (unknown) date) Assessment unknown) (unknown) (no (unknown) (unknown) (units (unkno wn) date) Specific unknown) Issues/Plans (unknown) (no (unknown) (unknown) (units (unkno wn) date) Testing: unknown) discussed (unknown) (no (unknown) (unknown) Visit (units (unknown) date) unknown) (unknown) (no (unknown) (unknown) (units (unkno wn) date) education packet: unknown) Child education/plan, symptoms, (unknown) (no (unknown) (unknown) Primary Care (units (u nknown) date) Provider: [place] Arboleda unknown) Lindy (unknown) (no (unknown) (unknown) Primary Ob (units (unk nown) date) Provider: unknown) Richelle Dawkins (unknown) (no (unknown) (unknown) Prior (units (unkno wn) date) GBS-Infected unknown) child: No (unknown) (no (unknown) (unknown) Providers (units (unkn own) date) unknown) (unknown) (no (unknown) (unknown) Pt presents for (units (unknown) date) a PNV at 16+6 unknown) wks. No FM. No LOF/VB. 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 She unknown) has felt good movement. She says it is (unknown) (no (unknown) (unknown) Shingles (units (unkno wn) date) unknown) (unknown) (no (unknown) (unknown) Signed By: (units (unk nown) date) unknown) (unknown) (no (unknown) (unknown) Signs and (units (unkn own) date) symptoms of unknown) labor: discussed (unknown) (no (unknown) (unknown) Smoking Status: (units (unknown) date) Never smoker unknown) (unknown) (no (unknown) (unknown) Social History (units (unknown) date) unknown) (unknown) (no (unknown) (unknown) Support (units (unkno wn) date) Person(s):: Elieser unknown) (unknown) (no (unknown) (unknown) Surgical History (units (unknown) date) (Updated 01/24/22 unknown) @ 21:46 by Anamaria Cooper) (unknown) (no (unknown) (unknown) Surrogate (units (unkn own) date) ?: no unknown) (unknown) (no (unknown) (unknown) Symptoms since (units (unknown) date) LMP: Reports unknown) amenorrhea, nausea, fatigue, breast tenderness, (unknown) (no (unknown) (unknown) Tdap Adult (units (unk nown) date) (Adacel) Today unknown) Z23 - Encounter for immunization (unknown) (no (unknown) (unknown) Teratogen (units (unkn own) date) Exposures since unknown) LMP/Conception: Denies prescription medications, (unknown) (no (unknown) (unknown) Testing (units (unkno wn) date) Education unknown) (unknown) (no (unknown) (unknown) Testing (units (unkno wn) date) education unknown) completed: group B strep, Spina bifida testing and Cell Free (unknown) (no (unknown) (unknown) This note may (units ( unknown) date) have been all or unknown) partially generated using voice recognition (unknown) (no (unknown) (unknown) Tobacco + (units (unkn own) date) Substance Use unknown) (unknown) (no (unknown) (unknown) Tobacco Status (units (unknown) date) unknown) (unknown) (no (unknown) (unknown) Trimester:: 3rd (units (unknown) date) Trimester unknown) (28wks-Del) (unknown) (no (unknown) (unknown) Tumor () (units (unknown) date) unknown) (unknown) (no (unknown) (unknown) Type(s) of (units (unk nown) date) exercise: unknown) bicycling (stationary bike), regular exercise, weight (unknown) (no (unknown) (unknown) UProtein Movement (units (unknown) date) PreLabor FHR Fndl unknown) Ht Pres Edema Cerv Exam US/Comment Next Appt (unknown) (no (unknown) (unknown) Ultrasound (units (unk nown) date) performed?: Yes unknown) (unknown) (no (unknown) (unknown) VIS Given Date (units (unknown) date) VIS Provided VIS unknown) Publication Date (unknown) (no (unknown) (unknown) Varicella/chicke (units (unknown) date) n pox status: unknown) previous disease (unknown) (no (unknown) (unknown) Visit Date: (units (un known) date) 05/19/22 Last unknown) Updated by: Richelle Dawkins MD (unknown) (no (unknown) (unknown) Visit Date: (units (un known) date) 01/27/22 Last unknown) Updated by: Richelle Dawkins MD (unknown) (no (unknown) (unknown) Visit Date: (units (un known) date) 02/24/22 Last unknown) Updated by: Marietta Massey MD (unknown) (no (unknown) (unknown) Visit Date: (units (un known) date) 03/24/22 Last unknown) Updated by: Richelle Dawkins MD (unknown) (no (unknown) (unknown) Visit Date: (units (un known) date) 04/20/22 Last unknown) Updated by: Xioa Boland P.A-C (unknown) (no (unknown) (unknown) Visit Reasons: (units (unknown) date) OB w 3D US unknown) (unknown) (no (unknown) (unknown) Vitals (units (unkno wn) date) unknown) (unknown) (no (unknown) (unknown) Vitamins and (units (u nknown) date) iron, Diet and unknown) weight gain, Fish and mercury intake, Caffeine use, (unknown) (no (unknown) (unknown) WG (units (unkno wn) date) unknown) (unknown) (no (unknown) (unknown) Weeks (units (unkno wn) date) gestation:: 28 unknown) (unknown) (no (unknown) (unknown) Weight 177 lb (units ( unknown) date) unknown) (unknown) (no (unknown) (unknown) Ages [place] teeth (units (u nknown) date) extracted unknown) (unknown) (no (unknown) (unknown) Yes no 144 29 (units ( unknown) date) Vertex absent AGA unknown) 29w5d (unknown) (no (unknown) (unknown) Zika virus (units (unk nown) date) exposure: No unknown) (unknown) (no (unknown) (unknown) accompanied by (units (unknown) date) her . She unknown) went through fertility treatments with (unknown) (no (unknown) (unknown) alcohol intake: (units (unknown) date) never unknown) (unknown) (no (unknown) (unknown) anterior (units (unkno wn) date) placenta. Routine unknown) precautions reviewed with the patient. Due to 1st (unknown) (no (unknown) (unknown) anyone in either (units (unknown) date) family with: unknown) (unknown) (no (unknown) (unknown) baby's father (units ( unknown) date) had a child with unknown) defects not listed above and Denies Other (unknown) (no (unknown) (unknown) back pain. (units (unk nown) date) Advised unknown) stretching, belly band, and PT if not improving. AFP was (unknown) (no (unknown) (unknown) blood sugar (units (un known) date) diagnostic (Blood unknown) Glucose Test strips) #100 ea 06/02/22 [Rx (unknown) (no (unknown) (unknown) blood-glucose (units ( unknown) date) meter #1 ea unknown) 06/02/22 [Rx Confirmed 06/16/22] (unknown) (no (unknown) (unknown) by ultrasound is (units (unknown) date) normal with good unknown) movement, normal appearing fluid, (unknown) (no (unknown) (unknown) caffeine: Yes (units ( unknown) date) (1-2 cups unknown) tea/day) (unknown) (no (unknown) (unknown) carbon monox (units (u nknown) date) detector in home: unknown) Yes (unknown) (no (unknown) (unknown) cfDNA normal (units (u nknown) date) female, AFP unknown) negative (unknown) (no (unknown) (unknown) consistent with (units (unknown) date) 9 weeks 0 days. unknown) Yolk sac visible. heart rate 178 beats (unknown) (no (unknown) (unknown) current (units (unkno wn) date) occupational unknown) exposures/hazards : No (unknown) (no (unknown) (unknown) daily servings (units (unknown) date) fruits/ve-4 unknown) (unknown) (no (unknown) (unknown) described, visit (units (unknown) date) schedule unknown) reviewed, ultrasounds policy reviewed, coverage 24 (unknown) (no (unknown) (unknown) developing a (units (u nknown) date) pattern. No unknown) leakage of fluid or vaginal bleeding. No contractions (unknown) (no (unknown) (unknown) discussed, (units (unk nown) date) tuberculosis unknown) exposure discussed, CMV discussed, Toxoplasmosis (unknown) (no (unknown) (unknown) disorders, (units (unk nown) date) Denies Cystic unknown) Fibrosis, Denies Mental Retardation/Autis m, Denies (unknown) (no (unknown) (unknown) do you feel safe (units (unknown) date) at home: Yes unknown) (unknown) (no (unknown) (unknown) during the past (units (unknown) date) year weight has: unknown) remained stable (unknown) (no (unknown) (unknown) education level: (units (unknown) date) college unknown) (Associate's degree) (unknown) (no (unknown) (unknown) enies Maternal (units (unknown) date) Metabolic unknown) Disorder (EG,TYPE 1 Diabetes, PKU), Denies Patient or (unknown) (no (unknown) (unknown) exposure, (units (unkn own) date) Medication use, unknown) Sauna/hot tub use, Dental care, Travel and Influenza (unknown) (no (unknown) (unknown) fire (units (unkno wn) date) extinguisher in unknown) home: Yes (unknown) (no (unknown) (unknown) firearms in (units (un known) date) home: Yes unknown) firearms unloaded and locked: Yes (unknown) (no (unknown) (unknown) frequency: 5-6 (units (unknown) date) times per week unknown) (unknown) (no (unknown) (unknown) gestational sac (units (unknown) date) with a fetus with unknown) a crown-rump length measuring 2.29 cm (unknown) (no (unknown) (unknown) have occurred. (units (unknown) date) If there are any unknown) questions, please contact the Medical Records (unknown) (no (unknown) (unknown) hours a day and (units (unknown) date) participation of unknown) father in care and office visits (unknown) (no (unknown) (unknown) household (units (unkn own) date) members: spouse unknown) and family (father and [id number]-fhb) (unknown) (no (unknown) (unknown) housing: house (units (unknown) date) unknown) (unknown) (no (unknown) (unknown) illicit drugs (units ( unknown) date) and Denies other unknown) (unknown) (no (unknown) (unknown) kag (units (unkno wn) date) unknown) (unknown) (no (unknown) (unknown) lancets #100 ea (units (unknown) date) 06/02/22 [Rx unknown) Confirmed 06/16/22] (unknown) (no (unknown) (unknown) last visit. (units (un known) date) Plan: AFP today. unknown) 20 wk u/s reviewed. F/U 4 wks. Warning signs (unknown) (no (unknown) (unknown) lifting and (units (un known) date) other (hiking) unknown) (unknown) (no (unknown) (unknown) lives (units (unkno wn) date) independently: unknown) Yes (unknown) (no (unknown) (unknown) marital status: (units (unknown) date) unknown) (unknown) (no (unknown) (unknown) may occur. (units (unk nown) date) Occasional unknown) wrong-word or 'sound-alike' substitutions may have (unknown) (no (unknown) (unknown) medication only. (units (unknown) date) Had 7 unknown) miscarriages. No bleeding with this . This 1 (unknown) (no (unknown) (unknown) movement and (units (u nknown) date) denies VB, LOF, unknown) cramping and regular contractions. Pt reports low (unknown) (no (unknown) (unknown) negative. (units (unkn own) date) Anatomy US unknown) scheduled for later today. Warning precautions reviewed. 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 Please (unknown) (no (unknown) (unknown) or cramping. (units (u nknown) date) Plan: 1 hour unknown) glucose ordered. Follow-up in 4 weeks. Warning (unknown) (no (unknown) (unknown) per minute. (units (un known) date) Normal ovaries unknown) bilaterally. Plan: Follow-up in 4 weeks. Warning (unknown) (no (unknown) (unknown) pets and (units (unkno wn) date) animals: Yes (1 unknown) large dog, chickens) (unknown) (no (unknown) (unknown) precautions, (units (u nknown) date) Listeriosis unknown) prevention and Rubella Immunization (unknown) (no (unknown) (unknown) preeclampsia. (units ( unknown) date) unknown) (unknown) (no (unknown) (unknown) (units (unkn own) date) discussed unknown) starting baby aspirin per day to decrease her risk for (unknown) (no (unknown) (unknown) prenat.vits,dara, (units (unknown) date) [id number] 1 unknown) tab PO DAILY 01/08/22 [History Confirmed (unknown) (no (unknown) (unknown) read the note (units ( unknown) date) carefully and unknown) recognize, using context, where these substitutions (unknown) (no (unknown) (unknown) reviewed. (units (unkn own) date) unknown) (unknown) (no (unknown) (unknown) seatbelt use: (units ( unknown) date) always unknown) (unknown) (no (unknown) (unknown) second hand (units (un known) date) exposure: Yes unknown) ([id number] smokes outside the house) (unknown) (no (unknown) (unknown) signs reviewed. (units (unknown) date) cfDNA ordered. unknown) (unknown) (no (unknown) (unknown) signs reviewed. (units (unknown) date) unknown) (unknown) (no (unknown) (unknown) software. (units (unkn own) date) Although every unknown) effort is made to edit content, snubber errors (unknown) (no (unknown) (unknown) special anjum (units ( unknown) date) needs: No unknown) (unknown) (no (unknown) (unknown) substance use (units ( unknown) date) type: does not unknown) use (unknown) (no (unknown) (unknown) travel history: (units (unknown) date) over 6 months ago unknown) (unknown) (no (unknown) (unknown) urinary (units (unkno wn) date) frequency and unknown) irritability (unknown) (no (unknown) (unknown) vaccine (Annual (units (unknown) date) flu, Phizer Covid unknown) x2) (unknown) (no (unknown) (unknown) w0d 4 wks (units (unkn own) date) unknown) (unknown) (no (unknown) (unknown) was not using (units ( unknown) date) any infertility unknown) medications. Ultrasound: An intrauterine (unknown) (no (unknown) (unknown) water heater (units (u nknown) date) temp set < 120 unknown) deg: Yes (unknown) (no (unknown) (unknown) well-balanced (units ( unknown) date) diet: daily or unknown) most days (unknown) (no (unknown) (unknown) went away with (units (unknown) date) laying down. No unknown) vaginal bleeding. No fevers. heart tone (unknown) (no (unknown) (unknown) while ) (units (unknown) date) unknown) (unknown) (no (unknown) (unknown) working smoke (units ( unknown) date) detector in home: unknown) Yes Result panel 16 (unknown) (no (unknown) (unknown) (no value) (units (unk nown) date) unknown) (unknown) (no (unknown) (unknown) (+12 lb) 120/58 (units (unknown) date) N unknown) (unknown) (no (unknown) (unknown) (+13 lb) 104/54 (units (unknown) date) N unknown) (unknown) (no (unknown) (unknown) (+18 lb) 122/60 (units (unknown) date) N unknown) (unknown) (no (unknown) (unknown) (+22 lb) 110/62 (units (unknown) date) unknown) (unknown) (no (unknown) (unknown) (+7 lb) 128/66 N (units (unknown) date) unknown) (unknown) (no (unknown) (unknown) (+8 lb) 122/68 N (units (unknown) date) unknown) (unknown) (no (unknown) (unknown) Genetic (units (unkn own) date) Screening/Teratol unknown) ogy Counseling - Includes patient, baby's father, or (unknown) (no (unknown) (unknown) -?-?-?-?-?-?-?-? (units (unknown) date) -?-?-?-? unknown) (unknown) (no (unknown) (unknown) 0.5 mL IM Right (units (unknown) date) Deltoid [id number] unknown) 05/01/24 [id number] SANOFI-PASTEUR (unknown) (no (unknown) (unknown) 05/19/22 (units (unkno wn) date) unknown) (unknown) (no (unknown) (unknown) 06/16/22 Single (units (unknown) date) Vaccine 12/20/20 unknown) (unknown) (no (unknown) (unknown) 06/16/22 (units (unkno wn) date) unknown) (unknown) (no (unknown) (unknown) 06/16/22] (units (unkn own) date) unknown) (unknown) (no (unknown) (unknown) 08/29/22 (units (unkno wn) date) Ultrasound #1 29w unknown) 3d (unknown) (no (unknown) (unknown) [id number] (units (unkno wn) date) unknown) (unknown) (no (unknown) (unknown) 01/27/22 (units (unkno wn) date) unknown) (unknown) (no (unknown) (unknown) 02/24/22 (units (unkno wn) date) unknown) (unknown) (no (unknown) (unknown) 03/24/22 (units (unkno wn) date) unknown) (unknown) (no (unknown) (unknown) 04/20/22 (units (unkno wn) date) unknown) (unknown) (no (unknown) (unknown) 12w 6d 163 lb (units ( unknown) date) unknown) (unknown) (no (unknown) (unknown) 13:15 (units (unkno wn) date) unknown) (unknown) (no (unknown) (unknown) 16w 6d 167 lb (units ( unknown) date) unknown) (unknown) (no (unknown) (unknown) 20w 5d 168 lb (units ( unknown) date) unknown) (unknown) (no (unknown) (unknown) 24w 6d 173 lb (units ( unknown) date) unknown) (unknown) (no (unknown) (unknown) 28w 6d 177 lb (units ( unknown) date) unknown) (unknown) (no (unknown) (unknown) 3 wks (units (unkno wn) date) unknown) (unknown) (no (unknown) (unknown) 4 wk (units (unkno wn) date) unknown) (unknown) (no (unknown) (unknown) 8w 6d 162 lb (units (u nknown) date) unknown) (unknown) (no (unknown) (unknown) Abnormal lab (units (u nknown) date) values 1st unknown) trimester: discussed (unknown) (no (unknown) (unknown) Abnormal lab (units (u nknown) date) values 2nd unknown) trimester: discussed (unknown) (no (unknown) (unknown) Adacel(Tdap (units (un known) date) Adolesn/Adult)(PF unknown) ) (unknown) (no (unknown) (unknown) Add'l Plan (units (unk nown) date) Details unknown) (unknown) (no (unknown) (unknown) Administered by: (units (unknown) date) Nu Alexander unknown) KUNAL on 06/16/22 13:25 (unknown) (no (unknown) (unknown) Age/Sex: 31 / F (units (unknown) date) Date of Service: unknown) (unknown) (no (unknown) (unknown) Allergies (units (unkn own) date) (-2013) unknown) (unknown) (no (unknown) (unknown) Allergies (units (unkn own) date) unknown) (unknown) (no (unknown) (unknown) [place], [place] (units ( unknown) date) [id number] unknown) (unknown) (no (unknown) (unknown) Anesthesia (units (unk nown) date) unknown) (unknown) (no (unknown) (unknown) Aneuploidy (units (unk nown) date) Screening unknown) Offered: Accepted (wants CFDNA) (unknown) (no (unknown) (unknown) Anticipated (units (un known) date) course of unknown) care: discussed (unknown) (no (unknown) (unknown) Anxiety (-2016) (units (unknown) date) unknown) (unknown) (no (unknown) (unknown) Arrhythmia (units (unk nown) date) unknown) (unknown) (no (unknown) (unknown) Assessment and (units (unknown) date) Plan unknown) (unknown) (no (unknown) (unknown) Attending Dr: (units ( unknown) date) Richelle Dawkins unknown) (unknown) (no (unknown) (unknown) Corazon presents (units (unknown) date) today for routine unknown) OB f/u at 20w5d. She reports good (unknown) (no (unknown) (unknown) BMI 28.5 (units (unkno wn) date) unknown) (unknown) (no (unknown) (unknown) BP 110/62 (units (unkn own) date) unknown) (unknown) (no (unknown) (unknown) (units (unkno wn) date) Plan/Preferences unknown) (unknown) (no (unknown) (unknown) Planning (units (unknown) date) unknown) (unknown) (no (unknown) (unknown) Blood Pressure (units (unknown) date) Location Lt unknown) brachial (unknown) (no (unknown) (unknown) Blood (units (unkno wn) date) transfusions?: unknown) yes (Never had but would accept) (unknown) (no (unknown) (unknown) : (units (unknown) date) discussed unknown) (unknown) (no (unknown) (unknown) Chicken pox (units (un known) date) () unknown) (unknown) (no (unknown) (unknown) Childbirth (units (unk nown) date) Classes: unknown) discussed (unknown) (no (unknown) (unknown) Conceived (units (unkn own) date) naturally this unknown) (unknown) (no (unknown) (unknown) Confirmed (units (unkn own) date) 06/16/22] unknown) (unknown) (no (unknown) (unknown) Current Estimate (units (unknown) date) 09/02/22 unknown) Ultrasound #2 28w 6d (unknown) (no (unknown) (unknown) Current (units (unkno wn) date) History unknown) (unknown) (no (unknown) (unknown) DNA (units (unkno wn) date) unknown) (unknown) (no (unknown) (unknown) : 1990 (units (unknown) date) Acct:[id number] unknown) (unknown) (no (unknown) (unknown) Date of positive (units (unknown) date) home unknown) test: 12/29/21 (unknown) (no (unknown) (unknown) Date (units (unkno wn) date) unknown) (unknown) (no (unknown) (unknown) Denies Congenital (units (unknown) date) Heart Defect, unknown) Denies Down Syndrome, Denies Muscular Dystrophy, (unknown) (no (unknown) (unknown) Denies Maternal (units (unknown) date) Metabolic unknown) Disorder (EG,TYPE 1 Diabetes, PKU), Denies Patient or (unknown) (no (unknown) (unknown) Denies Neural (units ( unknown) date) Tube Defect unknown) (Meningomyelocele , Spina Bifida, or Anencephaly), (unknown) (no (unknown) (unknown) Denies Sickle (units ( unknown) date) Cell Disease or unknown) Trait (), Denies Hemophilia or other blood (unknown) (no (unknown) (unknown) Denies Enio-Sachs (units (unknown) date) (Ashkenazi unknown) Sabianism, Cajun, Indonesian Paraguayan), Denies Jose (unknown) (no (unknown) (unknown) Depression (units (unk nown) date) (-2016) unknown) (unknown) (no (unknown) (unknown) Depression: (units (un known) date) discussed unknown) (unknown) (no (unknown) (unknown) Dept at (units (unkno wn) date) . unknown) (unknown) (no (unknown) (unknown) Diet and (units (unkno wn) date) Exercise unknown) (unknown) (no (unknown) (unknown) Disease (units (unkno wn) date) (Ashkenazi unknown) Sabianism), Denies Familial Dysautonomia (Ashkenazi Sabianism), (unknown) (no (unknown) (unknown) Documented By: (units (unknown) date) Richelle Dawkins unknownShiva MAGALLON 06/16/22 1314 (unknown) (no (unknown) (unknown) Dose Route Admin (units (unknown) date) Location Lot unknown) Number Expiration Date NDC (unknown) (no (unknown) (unknown) Draft (units (unkno wn) date) unknown) (unknown) (no (unknown) (unknown) MARIANNE Calculator (units (unknown) date) unknown) (unknown) (no (unknown) (unknown) EGA Weight BP (units ( unknown) date) UGlucose unknown) (unknown) (no (unknown) (unknown) Eczema (-2000) (units (unknown) date) unknown) (unknown) (no (unknown) (unknown) Eligibility (units (un known) date) Eligibility Date unknown) Funding Source (unknown) (no (unknown) (unknown) Estimated (units (unkn own) date) Delivery Date unknown) Method Current (unknown) (no (unknown) (unknown) Exercise and (units (u nknown) date) activity, unknown) work/environmenta l/hazards, Sexual activity, X-ray (unknown) (no (unknown) (unknown) F/u in 4 wks. (units ( unknown) date) unknown) (unknown) (no (unknown) (unknown) Family History (units (unknown) date) (Updated 01/24/22 unknown) @ 21:49 by Anamaria Cooper) (unknown) (no (unknown) (unknown) Family/Other (units (u nknown) date) Multiple unknown) sclerosis (unknown) (no (unknown) (unknown) Father (units (unkno wn) date) Hypertension unknown) (unknown) (no (unknown) (unknown) Father of Baby: (units (unknown) date) same unknown) (unknown) (no (unknown) (unknown) [facility] unknown) (unknown) (no (unknown) (unknown) First Trimester (units (unknown) date) Education unknown) Checklist (unknown) (no (unknown) (unknown) Foot pain (units (unkn own) date) (-2019) unknown) (unknown) (no (unknown) (unknown) (SAB (units (unkn own) date) x7),Fertility Tx, unknown) meds only, started on baby aspirin 02/24/2022 (unknown) (no (unknown) (unknown) GDM, on (units (unkno wn) date) Metformin 500mg unknown) BID (unknown) (no (unknown) (unknown) Genetic (units (unkno wn) date) Screening + unknown) Counseling (unknown) (no (unknown) (unknown) Genetic (units (unkno wn) date) Screening unknown) (unknown) (no (unknown) (unknown) Grandfather (units (un known) date) Cancer unknown) (unknown) (no (unknown) (unknown) Grandfather (units (un known) date) Stroke unknown) (unknown) (no (unknown) (unknown) Grandmother (units (un known) date) History unknown) of heart disease (unknown) (no (unknown) (unknown) Grandmother (units (un known) date) Multiple unknown) sclerosis (unknown) (no (unknown) (unknown) 8 (units (unkn own) date) Multiple births 0 unknown) (unknown) (no (unknown) (unknown) HIV risk (units (unkno wn) date) evaluation: low unknown) risk (unknown) (no (unknown) (unknown) Health Center (units ( unknown) date) Education unknown) (unknown) (no (unknown) (unknown) Health center (units ( unknown) date) information: unknown) nature of practice discussed, personnel (unknown) (no (unknown) (unknown) Height 5 ft 6 in (units (unknown) date) unknown) (unknown) (no (unknown) (unknown) Hepatitis C risk (units (unknown) date) evaluation: low unknown) risk (unknown) (no (unknown) (unknown) History of (units (unk nown) date) Hepatitis B: No unknown) (unknown) (no (unknown) (unknown) History of (units (unk nown) date) Hepatitis C: No unknown) (unknown) (no (unknown) (unknown) 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 (unknown) (no (unknown) (unknown) Hospital[facility] (units (u nknown) date) unknown) (unknown) (no (unknown) (unknown) [facility] (units (u nknown) date) Chorea, Denies unknown) Other inherited genetic or chromosomal disorder, (unknown) (no (unknown) (unknown) , Elieser (units ( unknown) date) Martell unknown) (unknown) (no (unknown) (unknown) Hx # (units (u nknown) date) Pregnancies 0 unknown) Elective abortions 0 (unknown) (no (unknown) (unknown) Hx # Term (units (unkn own) date) Pregnancies 0 unknown) Ectopic pregnancies 0 (unknown) (no (unknown) (unknown) Immunizations (units ( unknown) date) unknown) (unknown) (no (unknown) (unknown) Infant will be (units (unknown) date) adopted?: no unknown) (unknown) (no (unknown) (unknown) Infection (units (unkn own) date) History unknown) (unknown) (no (unknown) (unknown) Infectious (units (unk nown) date) Disease Education unknown) (unknown) (no (unknown) (unknown) Infectious (units (unk nown) date) disease exposure: unknown) chicken pox immunity discussed, hepatitis risk (unknown) (no (unknown) (unknown) Infertility (units (un known) date) () unknown) (unknown) (no (unknown) (unknown) Initial Weight: (units (unknown) date) 155 lb unknown) (unknown) (no (unknown) (unknown) Initials (units (unkno wn) date) unknown) (unknown) (no (unknown) (unknown) Intake Clinical (units (unknown) date) Staff unknown) (unknown) (no (unknown) (unknown) Intake Note: (units (u nknown) date) unknown) (unknown) (no (unknown) (unknown) Intake performed (units (unknown) date) by: unknown) Nu Alexander (unknown) (no (unknown) (unknown) Intake (units (unkno wn) date) unknown) (unknown) (no (unknown) (unknown) Irregular (units (unkn own) date) menstrual cycle unknown) () (unknown) (no (unknown) (unknown) LM (units (unkno wn) date) unknown) (unknown) (no (unknown) (unknown) Lipoma (units (unkno wn) date) unknown) (unknown) (no (unknown) (unknown) Live with (units (unkn own) date) someone with TB unknown) or exposed to TB: No (unknown) (no (unknown) (unknown) Loc: [facility] (units (unkno wn) date) unknown) (unknown) (no (unknown) (unknown) Cloth Roll Winder (units (u nknown) date) unknown) (unknown) (no (unknown) (unknown) Marital status: (units (unknown) date) unknown) (unknown) (no (unknown) (unknown) Medical History (units (unknown) date) (Updated 01/27/22 unknown) @ 15:16 by Richelle Dawkins MD) (unknown) (no (unknown) (unknown) Medications (units (un known) date) unknown) (unknown) (no (unknown) (unknown) Medications: (units (u nknown) date) unknown) (unknown) (no (unknown) (unknown) Mother Gastric (units (unknown) date) cancer unknown) (unknown) (no (unknown) (unknown) N No 142 13 N/A (units (unknown) date) 4wk unknown) (unknown) (no (unknown) (unknown) N No no 143 17 (units (unknown) date) N/A absent AFP 4 unknown) wks (unknown) (no (unknown) (unknown) N No no 178 9 (units ( unknown) date) N/A absent unknown) long/closed AGA 9 (unknown) (no (unknown) (unknown) N Yes no 141 24 (units (unknown) date) N/A absent 4 wks unknown) (unknown) (no (unknown) (unknown) N Yes no 142 20 (units (unknown) date) N/A absent AFP unknown) negative (unknown) (no (unknown) (unknown) NF (units (unkno wn) date) unknown) (unknown) (no (unknown) (unknown) New (units (unkno wn) date) unknown) (unknown) (no (unknown) (unknown) Not [facility] Eligible (units (unknown) date) 06/16/22 Private unknown) Funds (unknown) (no (unknown) (unknown) Notes (units (unkno wn) date) unknown) (unknown) (no (unknown) (unknown) Number of Living (units (unknown) date) Children 0 unknown) (unknown) (no (unknown) (unknown) Number of (units (unkn own) date) fetuses:: Single unknown) (unknown) (no (unknown) (unknown) Nutrition and (units ( unknown) date) weight gain unknown) counseling: special diet: discussed (unknown) (no (unknown) (unknown) OB Office Visit (units (unknown) date) unknown) (unknown) (no (unknown) (unknown) OB Visit Log (units (u nknown) date) unknown) (unknown) (no (unknown) (unknown) OB check (units (unkno wn) date) unknown) (unknown) (no (unknown) (unknown) On control (units (unknown) date) at conception?: unknown) No (unknown) (no (unknown) (unknown) Orders (units (unkno wn) date) unknown) (unknown) (no (unknown) (unknown) Orders: (units (unkno wn) date) unknown) (unknown) (no (unknown) (unknown) Other Estimates (units (unknown) date) 08/18/22 LMP unknown) (Certain) 31w 0d (unknown) (no (unknown) (unknown) Ovarian cyst (units (u nknown) date) () unknown) (unknown) (no (unknown) (unknown) PCOS (polycystic (units (unknown) date) ovarian syndrome) unknown) (unknown) (no (unknown) (unknown) PFSH (units (unkno wn) date) unknown) (unknown) (no (unknown) (unknown) Pap performed?: (units (unknown) date) No unknown) (unknown) (no (unknown) (unknown) Para 0 (units (unkno wn) date) Spontaneous unknown) abortions 7 (unknown) (no (unknown) (unknown) Partner history (units (unknown) date) of STD: denies hx unknown) (unknown) (no (unknown) (unknown) Partner history (units (unknown) date) of genital unknown) herpes: No (unknown) (no (unknown) (unknown) Partner: Elieser (units ( unknown) date) Martell unknown) (unknown) (no (unknown) (unknown) Patient comes in (units (unknown) date) for follow-up OB unknown) visit. She had some pelvic pain that (unknown) (no (unknown) (unknown) Patient presents (units (unknown) date) for a new OB unknown) visit at 8 weeks gestation. She is (unknown) (no (unknown) (unknown) Patient presents (units (unknown) date) for a routine unknown) visit, accompanied by her . 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) [facility] vs unknown) [facility] (unknown) (no (unknown) (unknown) Performing (units (unk nown) date) Provider: unknown) Richelle Dawkins MD (unknown) (no (unknown) (unknown) Personal history (units (unknown) date) of STD: denies hx unknown) (unknown) (no (unknown) (unknown) Personal history (units (unknown) date) of genital unknown) herpes: No (unknown) (no (unknown) (unknown) Plantar (units (unkno wn) date) fasciitis unknown) (unknown) (no (unknown) (unknown) Position Sitting (units (unknown) date) unknown) (unknown) (no (unknown) (unknown) (units (unk nown) date) family unknown) planning/Tubal sterilization: further discussion needed (unknown) (no (unknown) (unknown) (units (unkn own) date) History unknown) (unknown) (no (unknown) (unknown) type:: (units (unknown) date) Other Normal unknown) (unknown) (no (unknown) (unknown) (units (unkno wn) date) Education unknown) (unknown) (no (unknown) (unknown) Initial (units (unknown) date) Assessment unknown) (unknown) (no (unknown) (unknown) (units (unkno wn) date) Specific unknown) Issues/Plans (unknown) (no (unknown) (unknown) (units (unkno wn) date) Testing: unknown) discussed (unknown) (no (unknown) (unknown) Visit (units (unknown) date) unknown) (unknown) (no (unknown) (unknown) (units (unkno wn) date) education packet: unknown) Child education/plan, symptoms, (unknown) (no (unknown) (unknown) Primary Care (units (u nknown) date) Provider: [place] Arboleda unknown) Lindy (unknown) (no (unknown) (unknown) Primary Ob (units (unk nown) date) Provider: unknown) Richelle Dawkins (unknown) (no (unknown) (unknown) Prior (units (unkno wn) date) GBS-Infected unknown) child: No (unknown) (no (unknown) (unknown) Providers (units (unkn own) date) unknown) (unknown) (no (unknown) (unknown) Pt presents for (units (unknown) date) a PNV at 16+6 unknown) wks. No FM. No LOF/VB. 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 She unknown) has felt good movement. She says it is (unknown) (no (unknown) (unknown) Shingles (units (unkno wn) date) unknown) (unknown) (no (unknown) (unknown) Signed By: (units (unk nown) date) unknown) (unknown) (no (unknown) (unknown) Signs and (units (unkn own) date) symptoms of unknown) labor: discussed (unknown) (no (unknown) (unknown) Smoking Status: (units (unknown) date) Never smoker unknown) (unknown) (no (unknown) (unknown) Social History (units (unknown) date) unknown) (unknown) (no (unknown) (unknown) Support (units (unkno wn) date) Person(s):: Elieser unknown) (unknown) (no (unknown) (unknown) Surgical History (units (unknown) date) (Updated 01/24/22 unknown) @ 21:46 by Anamaria Cooper) (unknown) (no (unknown) (unknown) Surrogate (units (unkn own) date) ?: no unknown) (unknown) (no (unknown) (unknown) Symptoms since (units (unknown) date) LMP: Reports unknown) amenorrhea, nausea, fatigue, breast tenderness, (unknown) (no (unknown) (unknown) Tdap Adult (units (unk nown) date) (Adacel) Today unknown) Z23 - Encounter for immunization (unknown) (no (unknown) (unknown) Teratogen (units (unkn own) date) Exposures since unknown) LMP/Conception: Denies prescription medications, (unknown) (no (unknown) (unknown) Testing (units (unkno wn) date) Education unknown) (unknown) (no (unknown) (unknown) Testing (units (unkno wn) date) education unknown) completed: group B strep, Spina bifida testing and Cell Free (unknown) (no (unknown) (unknown) This note may (units ( unknown) date) have been all or unknown) partially generated using voice recognition (unknown) (no (unknown) (unknown) Tobacco + (units (unkn own) date) Substance Use unknown) (unknown) (no (unknown) (unknown) Tobacco Status (units (unknown) date) unknown) (unknown) (no (unknown) (unknown) Trimester:: 3rd (units (unknown) date) Trimester unknown) (28wks-Del) (unknown) (no (unknown) (unknown) Tumor (-02/2012) (units (unknown) date) unknown) (unknown) (no (unknown) (unknown) Type(s) of (units (unk nown) date) exercise: unknown) bicycling (stationary bike), regular exercise, weight (unknown) (no (unknown) (unknown) UProtein Movement (units (unknown) date) PreLabor FHR Fndl unknown) Ht Pres Edema Cerv Exam US/Comment Next Appt (unknown) (no (unknown) (unknown) Ultrasound (units (unk nown) date) performed?: Yes unknown) (unknown) (no (unknown) (unknown) VIS Given Date (units (unknown) date) VIS Provided VIS unknown) Publication Date (unknown) (no (unknown) (unknown) Varicella/chicke (units (unknown) date) n pox status: unknown) previous disease (unknown) (no (unknown) (unknown) Visit Date: (units (un known) date) 05/19/22 Last unknown) Updated by: Richelle Dawkins MD (unknown) (no (unknown) (unknown) Visit Date: (units (un known) date) 01/27/22 Last unknown) Updated by: Richelle Dawkins MD (unknown) (no (unknown) (unknown) Visit Date: (units (un known) date) 02/24/22 Last unknown) Updated by: Marietta Massey MD (unknown) (no (unknown) (unknown) Visit Date: (units (un known) date) 03/24/22 Last unknown) Updated by: Richelle Dawkins MD (unknown) (no (unknown) (unknown) Visit Date: (units (un known) date) 04/20/22 Last unknown) Updated by: Xiao Boland P.A-C (unknown) (no (unknown) (unknown) Visit Reasons: (units (unknown) date) OB w 3D US unknown) (unknown) (no (unknown) (unknown) Vitals (units (unkno wn) date) unknown) (unknown) (no (unknown) (unknown) Vitamins and (units (u nknown) date) iron, Diet and unknown) weight gain, Fish and mercury intake, Caffeine use, (unknown) (no (unknown) (unknown) WG (units (unkno wn) date) unknown) (unknown) (no (unknown) (unknown) Weeks (units (unkno wn) date) gestation:: 28 unknown) (unknown) (no (unknown) (unknown) Weight 177 lb (units ( unknown) date) unknown) (unknown) (no (unknown) (unknown) Ages [place] teeth (units (u nknown) date) extracted unknown) (unknown) (no (unknown) (unknown) Yes no 144 29 (units ( unknown) date) Vertex absent AGA unknown) 29w5d (unknown) (no (unknown) (unknown) Zika virus (units (unk nown) date) exposure: No unknown) (unknown) (no (unknown) (unknown) accompanied by (units (unknown) date) her . She unknown) went through fertility treatments with (unknown) (no (unknown) (unknown) alcohol intake: (units (unknown) date) never unknown) (unknown) (no (unknown) (unknown) anterior (units (unkno wn) date) placenta. Routine unknown) precautions reviewed with the patient. Due to 1st (unknown) (no (unknown) (unknown) anyone in either (units (unknown) date) family with: unknown) (unknown) (no (unknown) (unknown) baby's father (units ( unknown) date) had a child with unknown) defects not listed above and Denies Other (unknown) (no (unknown) (unknown) back pain. (units (unk nown) date) Advised unknown) stretching, belly band, and PT if not improving. AFP was (unknown) (no (unknown) (unknown) blood sugar (units (un known) date) diagnostic (Blood unknown) Glucose Test strips) #100 ea 06/02/22 [Rx (unknown) (no (unknown) (unknown) blood-glucose (units ( unknown) date) meter #1 ea unknown) 06/02/22 [Rx Confirmed 06/16/22] (unknown) (no (unknown) (unknown) by ultrasound is (units (unknown) date) normal with good unknown) movement, normal appearing fluid, (unknown) (no (unknown) (unknown) caffeine: Yes (units ( unknown) date) (1-2 cups unknown) tea/day) (unknown) (no (unknown) (unknown) carbon monox (units (u nknown) date) detector in home: unknown) Yes (unknown) (no (unknown) (unknown) cfDNA normal (units (u nknown) date) female, AFP unknown) negative (unknown) (no (unknown) (unknown) consistent with (units (unknown) date) 9 weeks 0 days. unknown) Yolk sac visible. heart rate 178 beats (unknown) (no (unknown) (unknown) current (units (unkno wn) date) occupational unknown) exposures/hazards : No (unknown) (no (unknown) (unknown) daily servings (units (unknown) date) fruits/ve-4 unknown) (unknown) (no (unknown) (unknown) described, visit (units (unknown) date) schedule unknown) reviewed, ultrasounds policy reviewed, coverage 24 (unknown) (no (unknown) (unknown) developing a (units (u nknown) date) pattern. No unknown) leakage of fluid or vaginal bleeding. No contractions (unknown) (no (unknown) (unknown) discussed, (units (unk nown) date) tuberculosis unknown) exposure discussed, CMV discussed, Toxoplasmosis (unknown) (no (unknown) (unknown) disorders, (units (unk nown) date) Denies Cystic unknown) Fibrosis, Denies Mental Retardation/Autis m, Denies (unknown) (no (unknown) (unknown) do you feel safe (units (unknown) date) at home: Yes unknown) (unknown) (no (unknown) (unknown) during the past (units (unknown) date) year weight has: unknown) remained stable (unknown) (no (unknown) (unknown) education level: (units (unknown) date) college unknown) (Associate's degree) (unknown) (no (unknown) (unknown) exposure, (units (unkn own) date) Medication use, unknown) Sauna/hot tub use, Dental care, Travel and Influenza (unknown) (no (unknown) (unknown) fire (units (unkno wn) date) extinguisher in unknown) home: Yes (unknown) (no (unknown) (unknown) firearms in (units (un known) date) home: Yes unknown) firearms unloaded and locked: Yes (unknown) (no (unknown) (unknown) frequency: 5-6 (units (unknown) date) times per week unknown) (unknown) (no (unknown) (unknown) gestational sac (units (unknown) date) with a fetus with unknown) a crown-rump length measuring 2.29 cm (unknown) (no (unknown) (unknown) have occurred. (units (unknown) date) If there are any unknown) questions, please contact the Medical Records (unknown) (no (unknown) (unknown) hours a day and (units (unknown) date) participation of unknown) father in care and office visits (unknown) (no (unknown) (unknown) household (units (unkn own) date) members: spouse unknown) and family (father and llstpx-ru-uku) (unknown) (no (unknown) (unknown) housing: house (units (unknown) date) unknown) (unknown) (no (unknown) (unknown) illicit drugs (units ( unknown) date) and Denies other unknown) (unknown) (no (unknown) (unknown) kag (units (unkno wn) date) unknown) (unknown) (no (unknown) (unknown) lancets #100 ea (units (unknown) date) 06/02/22 [Rx unknown) Confirmed 06/16/22] (unknown) (no (unknown) (unknown) last visit. (units (un known) date) Plan: AFP today. unknown) 20 wk u/s reviewed. F/U 4 wks. Warning signs (unknown) (no (unknown) (unknown) lifting and (units (un known) date) other (hiking) unknown) (unknown) (no (unknown) (unknown) lives (units (unkno wn) date) independently: unknown) Yes (unknown) (no (unknown) (unknown) marital status: (units (unknown) date) unknown) (unknown) (no (unknown) (unknown) may occur. (units (unk nown) date) Occasional unknown) wrong-word or 'sound-alike' substitutions may have (unknown) (no (unknown) (unknown) medication only. (units (unknown) date) Had 7 unknown) miscarriages. No bleeding with this . This 1 (unknown) (no (unknown) (unknown) metformin 500 mg (units (unknown) date) PO BID 60 tabs unknown) 0RF (unknown) (no (unknown) (unknown) metformin 500 mg (units (unknown) date) tablet 500 mg PO unknown) BID #60 tabs 06/16/22 [Rx Confirmed 06/16/22] (unknown) (no (unknown) (unknown) movement and (units (u nknown) date) denies VB, LOF, unknown) cramping and regular contractions. Pt reports low (unknown) (no (unknown) (unknown) negative. (units (unkn own) date) Anatomy US unknown) scheduled for later today. Warning precautions reviewed. 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 Please (unknown) (no (unknown) (unknown) or cramping. (units (u nknown) date) Plan: 1 hour unknown) glucose ordered. Follow-up in 4 weeks. Warning (unknown) (no (unknown) (unknown) per minute. (units (un known) date) Normal ovaries unknown) bilaterally. Plan: Follow-up in 4 weeks. Warning (unknown) (no (unknown) (unknown) pets and (units (unkno wn) date) animals: Yes (1 unknown) large dog, chickens) (unknown) (no (unknown) (unknown) precautions, (units (u nknown) date) Listeriosis unknown) prevention and Rubella Immunization (unknown) (no (unknown) (unknown) preeclampsia. (units ( unknown) date) unknown) (unknown) (no (unknown) (unknown) (units (unkn own) date) discussed unknown) starting baby aspirin per day to decrease her risk for (unknown) (no (unknown) (unknown) prenat.vits,dara, (units (unknown) date) wxh-wung-wanrc 1 unknown) tab PO DAILY 01/08/22 [History Confirmed (unknown) (no (unknown) (unknown) read the note (units ( unknown) date) carefully and unknown) recognize, using context, where these substitutions (unknown) (no (unknown) (unknown) reviewed. (units (unkn own) date) unknown) (unknown) (no (unknown) (unknown) seatbelt use: (units ( unknown) date) always unknown) (unknown) (no (unknown) (unknown) second hand (units (un known) date) exposure: Yes unknown) (kiztma-bi-uke smokes outside the house) (unknown) (no (unknown) (unknown) signs reviewed. (units (unknown) date) cfDNA ordered. unknown) (unknown) (no (unknown) (unknown) signs reviewed. (units (unknown) date) unknown) (unknown) (no (unknown) (unknown) software. (units (unkn own) date) Although every unknown) effort is made to edit content, snubber errors (unknown) (no (unknown) (unknown) special anjum (units ( unknown) date) needs: No unknown) (unknown) (no (unknown) (unknown) substance use (units ( unknown) date) type: does not unknown) use (unknown) (no (unknown) (unknown) travel history: (units (unknown) date) over 6 months ago unknown) (unknown) (no (unknown) (unknown) urinary (units (unkno wn) date) frequency and unknown) irritability (unknown) (no (unknown) (unknown) vaccine (Annual (units (unknown) date) flu, Phizer Covid unknown) x2) (unknown) (no (unknown) (unknown) w0d 4 wks (units (unkn own) date) unknown) (unknown) (no (unknown) (unknown) was not using (units ( unknown) date) any infertility unknown) medications. Ultrasound: An intrauterine (unknown) (no (unknown) (unknown) water heater (units (u nknown) date) temp set < 120 unknown) deg: Yes (unknown) (no (unknown) (unknown) well-balanced (units ( unknown) date) diet: daily or unknown) most days (unknown) (no (unknown) (unknown) went away with (units (unknown) date) laying down. No unknown) vaginal bleeding. No fevers. heart tone (unknown) (no (unknown) (unknown) while ) (units (unknown) date) unknown) (unknown) (no (unknown) (unknown) working smoke (units ( unknown) date) detector in home: unknown) Yes Result panel 17 (unknown) (no (unknown) (unknown) (no value) (units (unk nown) date) unknown) (unknown) (no (unknown) (unknown) (+12 lb) 120/58 (units (unknown) date) N unknown) (unknown) (no (unknown) (unknown) (+13 lb) 104/54 (units (unknown) date) N unknown) (unknown) (no (unknown) (unknown) (+18 lb) 122/60 (units (unknown) date) N unknown) (unknown) (no (unknown) (unknown) (+22 lb) 110/62 (units (unknown) date) N unknown) (unknown) (no (unknown) (unknown) (+7 lb) 128/66 N (units (unknown) date) unknown) (unknown) (no (unknown) (unknown) (+8 lb) 122/68 N (units (unknown) date) unknown) (unknown) (no (unknown) (unknown) (1) Gestational (units (unknown) date) diabetes: unknown) (unknown) (no (unknown) (unknown) (2) 28 weeks (units (u nknown) date) gestation of unknown) : (unknown) (no (unknown) (unknown) Genetic (units (unkn own) date) Screening/Teratol unknown) ogy Counseling - Includes patient, baby's father, or (unknown) (no (unknown) (unknown) -?-?-?-?-?-?-?-? (units (unknown) date) -?-?-?-? unknown) (unknown) (no (unknown) (unknown) 0.5 mL IM Right (units (unknown) date) Deltoid [id number] unknown) 05/01/24 [id number] SANOFI-PASTEUR (unknown) (no (unknown) (unknown) 05/19/22 (units (unkno wn) date) unknown) (unknown) (no (unknown) (unknown) 06/16/22 Single (units (unknown) date) Vaccine 12/20/20 unknown) (unknown) (no (unknown) (unknown) 06/16/22 (units (unkno wn) date) unknown) (unknown) (no (unknown) (unknown) 06/16/22] (units (unkn own) date) unknown) (unknown) (no (unknown) (unknown) 06/28/22 1619 (units ( unknown) date) unknown) (unknown) (no (unknown) (unknown) 08/29/22 (units (unkno wn) date) Ultrasound #1 31w unknown) 1d (unknown) (no (unknown) (unknown) [id number] (units (unkno wn) date) unknown) (unknown) (no (unknown) (unknown) 01/27/22 (units (unkno wn) date) unknown) (unknown) (no (unknown) (unknown) 02/24/22 (units (unkno wn) date) unknown) (unknown) (no (unknown) (unknown) 03/24/22 (units (unkno wn) date) unknown) (unknown) (no (unknown) (unknown) 04/20/22 (units (unkno wn) date) unknown) (unknown) (no (unknown) (unknown) 12w 6d 163 lb (units ( unknown) date) unknown) (unknown) (no (unknown) (unknown) 13:15 (units (unkno wn) date) unknown) (unknown) (no (unknown) (unknown) 16w 6d 167 lb (units ( unknown) date) unknown) (unknown) (no (unknown) (unknown) 20w 5d 168 lb (units ( unknown) date) unknown) (unknown) (no (unknown) (unknown) 24w 6d 173 lb (units ( unknown) date) unknown) (unknown) (no (unknown) (unknown) 28w 6d 177 lb (units ( unknown) date) unknown) (unknown) (no (unknown) (unknown) 3 wks (units (unkno wn) date) unknown) (unknown) (no (unknown) (unknown) 4 wk (units (unkno wn) date) unknown) (unknown) (no (unknown) (unknown) 8w 6d 162 lb (units (u nknown) date) unknown) (unknown) (no (unknown) (unknown) Abnormal lab (units (u nknown) date) values 1st unknown) trimester: discussed (unknown) (no (unknown) (unknown) Abnormal lab (units (u nknown) date) values 2nd unknown) trimester: discussed (unknown) (no (unknown) (unknown) Adacel(Tdap (units (un known) date) Adolesn/Adult)(PF unknown) ) (unknown) (no (unknown) (unknown) Add'l Plan (units (unk nown) date) Details unknown) (unknown) (no (unknown) (unknown) Administered by: (units (unknown) date) Nu Alexander, unknown) KUNAL on 06/16/22 13:25 (unknown) (no (unknown) (unknown) Age/Sex: 31 / F (units (unknown) date) Date of Service: unknown) (unknown) (no (unknown) (unknown) Allergies (units (unkn own) date) (-2013) unknown) (unknown) (no (unknown) (unknown) Allergies (units (unkn own) date) unknown) (unknown) (no (unknown) (unknown) ORALIA Erickson (units ( unknown) date) [id number] unknown) (unknown) (no (unknown) (unknown) Anesthesia (units (unk nown) date) unknown) (unknown) (no (unknown) (unknown) Aneuploidy (units (unk nown) date) Screening unknown) Offered: Accepted (wants CFDNA) (unknown) (no (unknown) (unknown) Anticipated (units (un known) date) course of unknown) care: discussed (unknown) (no (unknown) (unknown) Anxiety () (units (unknown) date) unknown) (unknown) (no (unknown) (unknown) Arrhythmia (units (unk nown) date) unknown) (unknown) (no (unknown) (unknown) Assessment and (units (unknown) date) Plan unknown) (unknown) (no (unknown) (unknown) Attending Dr: (units ( unknown) date) Richelle Dawkins unknown) (unknown) (no (unknown) (unknown) Corazon presents (units (unknown) date) today for routine unknown) OB f/u at 20w5d. She reports good (unknown) (no (unknown) (unknown) BMI 28.5 (units (unkno wn) date) unknown) (unknown) (no (unknown) (unknown) BP 110/62 (units (unkn own) date) unknown) (unknown) (no (unknown) (unknown) (units (unkno wn) date) Plan/Preferences unknown) (unknown) (no (unknown) (unknown) Planning (units (unknown) date) unknown) (unknown) (no (unknown) (unknown) Blood Pressure (units (unknown) date) Location Lt unknown) brachial (unknown) (no (unknown) (unknown) Blood (units (unkno wn) date) transfusions?: unknown) yes (Never had but would accept) (unknown) (no (unknown) (unknown) : (units (unknown) date) discussed unknown) (unknown) (no (unknown) (unknown) Chicken pox (units (un known) date) (-1994) unknown) (unknown) (no (unknown) (unknown) Childbirth (units (unk nown) date) Classes: unknown) discussed (unknown) (no (unknown) (unknown) Conceived (units (unkn own) date) naturally this unknown) (unknown) (no (unknown) (unknown) Confirmed (units (unkn own) date) 06/16/22] unknown) (unknown) (no (unknown) (unknown) Current Estimate (units (unknown) date) 09/02/22 unknown) Ultrasound #2 30w 4d (unknown) (no (unknown) (unknown) Current (units (unkno wn) date) History unknown) (unknown) (no (unknown) (unknown) DNA (units (unkno wn) date) unknown) (unknown) (no (unknown) (unknown) : 1990 (units (unknown) date) Acct:[id number] unknown) (unknown) (no (unknown) (unknown) Date of positive (units (unknown) date) home unknown) test: 12/29/21 (unknown) (no (unknown) (unknown) Date (units (unkno wn) date) unknown) (unknown) (no (unknown) (unknown) Denies Congenital (units (unknown) date) Heart Defect, unknown) Denies Down Syndrome, Denies Muscular Dystrophy, (unknown) (no (unknown) (unknown) Denies Maternal (units (unknown) date) Metabolic unknown) Disorder (EG,TYPE 1 Diabetes, PKU), Denies Patient or (unknown) (no (unknown) (unknown) Denies Neural (units ( unknown) date) Tube Defect unknown) (Meningomyelocele , Spina Bifida, or Anencephaly), (unknown) (no (unknown) (unknown) Denies Sickle (units ( unknown) date) Cell Disease or unknown) Trait (), Denies Hemophilia or other blood (unknown) (no (unknown) (unknown) Denies Enio-Sachs (units (unknown) date) (Ashkenazi unknown) Sabianism, Cajun, Indonesian Paraguayan), Denies Jose (unknown) (no (unknown) (unknown) Depression (units (unk nown) date) () unknown) (unknown) (no (unknown) (unknown) Depression: (units (un known) date) discussed unknown) (unknown) (no (unknown) (unknown) Dept at (units (unkno wn) date) . unknown) (unknown) (no (unknown) (unknown) Diet and (units (unkno wn) date) Exercise unknown) (unknown) (no (unknown) (unknown) Disease (units (unkno wn) date) (Ashkenazi unknown) Sabianism), Denies Familial Dysautonomia (Ashkenazi Sabianism), (unknown) (no (unknown) (unknown) Documented By: (units (unknown) date) Richelle Dawkins unknownShiva MAGALLON 06/16/22 1314 (unknown) (no (unknown) (unknown) Dose Route Admin (units (unknown) date) Location Lot unknown) Number Expiration Date NDC (unknown) (no (unknown) (unknown) MARIANNE Calculator (units (unknown) date) unknown) (unknown) (no (unknown) (unknown) EGA Weight BP (units ( unknown) date) UGlucose unknown) (unknown) (no (unknown) (unknown) Eczema (-2000) (units (unknown) date) unknown) (unknown) (no (unknown) (unknown) Eligibility (units (un known) date) Eligibility Date unknown) Funding Source (unknown) (no (unknown) (unknown) Estimated (units (unkn own) date) Delivery Date unknown) Method Current (unknown) (no (unknown) (unknown) Exercise and (units (u nknown) date) activity, unknown) work/environmenta l/hazards, Sexual activity, X-ray (unknown) (no (unknown) (unknown) F/u in 4 wks. (units ( unknown) date) unknown) (unknown) (no (unknown) (unknown) Family History (units (unknown) date) (Updated 01/24/22 unknown) @ 21:49 by Anamaria Cooper) (unknown) (no (unknown) (unknown) Family/Other (units (u nknown) date) Multiple unknown) sclerosis (unknown) (no (unknown) (unknown) Father (units (unkno wn) date) Hypertension unknown) (unknown) (no (unknown) (unknown) Father of Baby: (units (unknown) date) same unknown) (unknown) (no (unknown) (unknown) [facility] ([facility] unknown) (unknown) (no (unknown) (unknown) First Trimester (units (unknown) date) Education unknown) Checklist (unknown) (no (unknown) (unknown) Foot pain (units (unkn own) date) (-2019) unknown) (unknown) (no (unknown) (unknown) (SAB (units (unkn own) date) x7),Fertility Tx, unknown) meds only, started on baby aspirin 02/24/2022 (unknown) (no (unknown) (unknown) GDM, on (units (unkno wn) date) Metformin 500mg unknown) BID (unknown) (no (unknown) (unknown) Genetic (units (unkno wn) date) Screening + unknown) Counseling (unknown) (no (unknown) (unknown) Genetic (units (unkno wn) date) Screening unknown) (unknown) (no (unknown) (unknown) Gestational (units (un known) date) diabetes mellitus unknown) control: oral hypoglycemic-cont rolled (unknown) (no (unknown) (unknown) Grandfather (units (un known) date) Cancer unknown) (unknown) (no (unknown) (unknown) Grandfather (units (un known) date) Stroke unknown) (unknown) (no (unknown) (unknown) Grandmother (units (un known) date) History unknown) of heart disease (unknown) (no (unknown) (unknown) Grandmother (units (un known) date) Multiple unknown) sclerosis (unknown) (no (unknown) (unknown) 8 (units (unkn own) date) Multiple births 0 unknown) (unknown) (no (unknown) (unknown) HIV risk (units (unkno wn) date) evaluation: low unknown) risk (unknown) (no (unknown) (unknown) Health Center (units ( unknown) date) Education unknown) (unknown) (no (unknown) (unknown) Health center (units ( unknown) date) information: unknown) nature of practice discussed, personnel (unknown) (no (unknown) (unknown) Height 5 ft 6 in (units (unknown) date) unknown) (unknown) (no (unknown) (unknown) Hepatitis C risk (units (unknown) date) evaluation: low unknown) risk (unknown) (no (unknown) (unknown) History of (units (unk nown) date) Hepatitis B: No unknown) (unknown) (no (unknown) (unknown) History of (units (unk nown) date) Hepatitis C: No unknown) (unknown) (no (unknown) (unknown) 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 (unknown) (no (unknown) (unknown) Hospital[facility] (units (u nknown) date) unknown) (unknown) (no (unknown) (unknown) Mirela's (units (u nknown) date) Chorea, Denies unknown) Other inherited genetic or chromosomal disorder, (unknown) (no (unknown) (unknown) , Elieser (units ( unknown) date) Martell unknown) (unknown) (no (unknown) (unknown) Hx # (units (u nknown) date) Pregnancies 0 unknown) Elective abortions 0 (unknown) (no (unknown) (unknown) Hx # Term (units (unkn own) date) Pregnancies 0 unknown) Ectopic pregnancies 0 (unknown) (no (unknown) (unknown) Immunizations (units ( unknown) date) unknown) (unknown) (no (unknown) (unknown) will be (units (unknown) date) adopted?: no unknown) (unknown) (no (unknown) (unknown) Infection (units (unkn own) date) History unknown) (unknown) (no (unknown) (unknown) Infectious (units (unk nown) date) Disease Education unknown) (unknown) (no (unknown) (unknown) Infectious (units (unk nown) date) disease exposure: unknown) chicken pox immunity discussed, hepatitis risk (unknown) (no (unknown) (unknown) Infertility (units (un known) date) () unknown) (unknown) (no (unknown) (unknown) Initial Weight: (units (unknown) date) 155 lb unknown) (unknown) (no (unknown) (unknown) Initials (units (unkno wn) date) unknown) (unknown) (no (unknown) (unknown) Intake Clinical (units (unknown) date) Staff unknown) (unknown) (no (unknown) (unknown) Intake Note: (units (u nknown) date) unknown) (unknown) (no (unknown) (unknown) Intake performed (units (unknown) date) by: unknown) Nu Alexander (unknown) (no (unknown) (unknown) Intake (units (unkno wn) date) unknown) (unknown) (no (unknown) (unknown) Irregular (units (unkn own) date) menstrual cycle unknown) () (unknown) (no (unknown) (unknown) LM (units (unkno wn) date) unknown) (unknown) (no (unknown) (unknown) Lipoma (units (unkno wn) date) unknown) (unknown) (no (unknown) (unknown) Live with (units (unkn own) date) someone with TB unknown) or exposed to TB: No (unknown) (no (unknown) (unknown) Loc: [facility] (units (unkno wn) date) unknown) (unknown) (no (unknown) (unknown) Cloth Roll Winder (units (u nknown) date) unknown) (unknown) (no (unknown) (unknown) Marital status: (units (unknown) date) unknown) (unknown) (no (unknown) (unknown) Medical History (units (unknown) date) (Updated 06/28/22 unknown) @ 16:18 by Richelle Dawkins MD) (unknown) (no (unknown) (unknown) Medications (units (un known) date) unknown) (unknown) (no (unknown) (unknown) Medications: (units (u nknown) date) unknown) (unknown) (no (unknown) (unknown) Mother Gastric (units (unknown) date) cancer unknown) (unknown) (no (unknown) (unknown) N No 142 13 N/A (units (unknown) date) 4wk unknown) (unknown) (no (unknown) (unknown) N No no 143 17 (units (unknown) date) N/A absent AFP 4 unknown) wks (unknown) (no (unknown) (unknown) N No no 178 9 (units ( unknown) date) N/A absent unknown) long/closed AGA 9 (unknown) (no (unknown) (unknown) N Yes no 141 24 (units (unknown) date) N/A absent 4 wks unknown) (unknown) (no (unknown) (unknown) N Yes no 142 20 (units (unknown) date) N/A absent AFP unknown) negative (unknown) (no (unknown) (unknown) N Yes no 144 29 (units (unknown) date) Vertex absent AGA unknown) 29w5d (unknown) (no (unknown) (unknown) NF (units (unkno wn) date) unknown) (unknown) (no (unknown) (unknown) New (units (unkno wn) date) unknown) (unknown) (no (unknown) (unknown) Not [facility] Eligible (units (unknown) date) 06/16/22 Private unknown) Funds (unknown) (no (unknown) (unknown) Notes (units (unkno wn) date) unknown) (unknown) (no (unknown) (unknown) Number of Living (units (unknown) date) Children 0 unknown) (unknown) (no (unknown) (unknown) Number of (units (unkn own) date) fetuses:: Single unknown) (unknown) (no (unknown) (unknown) Nutrition and (units ( unknown) date) weight gain unknown) counseling: special diet: discussed (unknown) (no (unknown) (unknown) OB Office Visit (units (unknown) date) unknown) (unknown) (no (unknown) (unknown) OB Visit Log (units (u nknown) date) unknown) (unknown) (no (unknown) (unknown) OB check (units (unkno wn) date) unknown) (unknown) (no (unknown) (unknown) On U/S: AGA (units (un known) date) 29w5d. 3#4oz unknown) 66%ile. Nl AFV. Plan: Metformin 500mg BID. F/U 3 (unknown) (no (unknown) (unknown) On control (units (unknown) date) at conception?: unknown) No (unknown) (no (unknown) (unknown) Orders (units (unkno wn) date) unknown) (unknown) (no (unknown) (unknown) Orders: (units (unkno wn) date) unknown) (unknown) (no (unknown) (unknown) Other Estimates (units (unknown) date) 08/18/22 LMP unknown) (Certain) 32w 5d (unknown) (no (unknown) (unknown) Ovarian cyst (units (u nknown) date) (-2018) unknown) (unknown) (no (unknown) (unknown) PCOS (polycystic (units (unknown) date) ovarian syndrome) unknown) (unknown) (no (unknown) (unknown) PFSH (units (unkno wn) date) unknown) (unknown) (no (unknown) (unknown) Pap performed?: (units (unknown) date) No unknown) (unknown) (no (unknown) (unknown) Para 0 (units (unkno wn) date) Spontaneous unknown) abortions 7 (unknown) (no (unknown) (unknown) Partner history (units (unknown) date) of STD: denies hx unknown) (unknown) (no (unknown) (unknown) Partner history (units (unknown) date) of genital unknown) herpes: No (unknown) (no (unknown) (unknown) Partner: Elieser (units ( unknown) date) Martell unknown) (unknown) (no (unknown) (unknown) Patient comes in (units (unknown) date) for follow-up OB unknown) visit. She had some pelvic pain that (unknown) (no (unknown) (unknown) Patient presents (units (unknown) date) for a new OB unknown) visit at 8 weeks gestation. She is (unknown) (no (unknown) (unknown) Patient presents (units (unknown) date) for a routine unknown) visit, accompanied by her . 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) [facility] vs unknown) [facility] (unknown) (no (unknown) (unknown) Performing (units (unk nown) date) Provider: unknown) Richelle Dawkins MD (unknown) (no (unknown) (unknown) Personal history (units (unknown) date) of STD: denies hx unknown) (unknown) (no (unknown) (unknown) Personal history (units (unknown) date) of genital unknown) herpes: No (unknown) (no (unknown) (unknown) Plantar (units (unkno wn) date) fasciitis unknown) (unknown) (no (unknown) (unknown) Position Sitting (units (unknown) date) unknown) (unknown) (no (unknown) (unknown) (units (unk nown) date) family unknown) planning/Tubal sterilization: further discussion needed (unknown) (no (unknown) (unknown) (units (unkn own) date) History unknown) (unknown) (no (unknown) (unknown) type:: (units (unknown) date) Other Normal unknown) (unknown) (no (unknown) (unknown) (units (unkno wn) date) Education unknown) (unknown) (no (unknown) (unknown) Initial (units (unknown) date) Assessment unknown) (unknown) (no (unknown) (unknown) (units (unkno wn) date) Specific unknown) Issues/Plans (unknown) (no (unknown) (unknown) (units (unkno wn) date) Testing: unknown) discussed (unknown) (no (unknown) (unknown) Visit (units (unknown) date) unknown) (unknown) (no (unknown) (unknown) (units (unkno wn) date) education packet: unknown) Child education/plan, symptoms, (unknown) (no (unknown) (unknown) Primary Care (units (u nknown) date) Provider: PALMIRA Arboleda unknown) Lindy (unknown) (no (unknown) (unknown) Primary Ob (units (unk nown) date) Provider: unknown) Richelle Dawkins (unknown) (no (unknown) (unknown) Prior (units (unkno wn) date) GBS-Infected unknown) child: No (unknown) (no (unknown) (unknown) Providers (units (unkn own) date) unknown) (unknown) (no (unknown) (unknown) Pt presents for (units (unknown) date) a PNV at 16+6 unknown) wks. No FM. No LOF/VB. Rec'd flu shot (unknown) (no (unknown) (unknown) Pt presents for (units (unknown) date) a routine PNV at unknown) 28 +6 wks gestation. Abnormal 3 hr GTT. (unknown) (no (unknown) (unknown) Qualifiers: (units (un known) date) unknown) (unknown) (no (unknown) (unknown) Rash or viral (units ( unknown) date) illness since unknown) last menstrual period: No (unknown) (no (unknown) (unknown) Rash (units (unkno wn) date) unknown) (unknown) (no (unknown) (unknown) Reason For Visit (units (unknown) date) unknown) (unknown) (no (unknown) (unknown) Recent travel (units ( unknown) date) outside of unknown) country?: No (unknown) (no (unknown) (unknown) Recurrent (units (unkn own) date) loss or unknown) a stillbirth: Yes (unknown) (no (unknown) (unknown) Reports over the (units (unknown) date) counter unknown) medications (diclofenac), Denies alcohol, Denies (unknown) (no (unknown) (unknown) Safety (units (unkno wn) date) unknown) (unknown) (no (unknown) (unknown) Second Trimester (units (unknown) date) Education unknown) Checklist (unknown) (no (unknown) (unknown) Selecting a (units (un known) date) care unknown) provider: further discussion needed (unknown) (no (unknown) (unknown) She is at 24 (units (u nknown) date) weeks 6 days. She unknown) has felt good movement. She says it is (unknown) (no (unknown) (unknown) Shingles (units (unkno wn) date) unknown) (unknown) (no (unknown) (unknown) Signed By: (units (unk nown) date) <Electronically unknown) signed by Richelle Dawkins MD> (unknown) (no (unknown) (unknown) Signed (units (unkno wn) date) unknown) (unknown) (no (unknown) (unknown) Signs and (units (unkn own) date) symptoms of unknown) labor: discussed (unknown) (no (unknown) (unknown) Smoking Status: (units (unknown) date) Never smoker unknown) (unknown) (no (unknown) (unknown) Social History (units (unknown) date) unknown) (unknown) (no (unknown) (unknown) Status: Acute (units ( unknown) date) unknown) (unknown) (no (unknown) (unknown) Support (units (unkno wn) date) Person(s):: Elieser unknown) (unknown) (no (unknown) (unknown) Surgical History (units (unknown) date) (Updated 01/24/22 unknown) @ 21:46 by Anamaria Cooper) (unknown) (no (unknown) (unknown) Surrogate (units (unkn own) date) ?: no unknown) (unknown) (no (unknown) (unknown) Symptoms since (units (unknown) date) LMP: Reports unknown) amenorrhea, nausea, fatigue, breast tenderness, (unknown) (no (unknown) (unknown) Tdap Adult (units (unk nown) date) (Adacel) 06/16/22 unknown) Z23 - Encounter for immunization (unknown) (no (unknown) (unknown) Teratogen (units (unkn own) date) Exposures since unknown) LMP/Conception: Denies prescription medications, (unknown) (no (unknown) (unknown) Testing (units (unkno wn) date) Education unknown) (unknown) (no (unknown) (unknown) Testing (units (unkno wn) date) education unknown) completed: group B strep, Spina bifida testing and Cell Free (unknown) (no (unknown) (unknown) This note may (units ( unknown) date) have been all or unknown) partially generated using voice recognition (unknown) (no (unknown) (unknown) Tobacco + (units (unkn own) date) Substance Use unknown) (unknown) (no (unknown) (unknown) Tobacco Status (units (unknown) date) unknown) (unknown) (no (unknown) (unknown) Trimester: (units (unk nown) date) second trimester unknown) Qualified Code(s): O24.415 - Gestational diabetes (unknown) (no (unknown) (unknown) Trimester:: 3rd (units (unknown) date) Trimester unknown) (28wks-Del) (unknown) (no (unknown) (unknown) Tumor () (units (unknown) date) unknown) (unknown) (no (unknown) (unknown) Type(s) of (units (unk nown) date) exercise: unknown) bicycling (stationary bike), regular exercise, weight (unknown) (no (unknown) (unknown) UProtein Movement (units (unknown) date) PreLabor FHR Fndl unknown) Ht Pres Edema Cerv Exam US/Comment Next Appt (unknown) (no (unknown) (unknown) Ultrasound (units (unk nown) date) performed?: Yes unknown) (unknown) (no (unknown) (unknown) VIS Given Date (units (unknown) date) VIS Provided VIS unknown) Publication Date (unknown) (no (unknown) (unknown) Varicella/chicke (units (unknown) date) n pox status: unknown) previous disease (unknown) (no (unknown) (unknown) Visit Date: (units (un known) date) 05/19/22 Last unknown) Updated by: Richelle Dawkins MD (unknown) (no (unknown) (unknown) Visit Date: (units (un known) date) 06/16/22 Last unknown) Updated by: Richelle Dawkins MD (unknown) (no (unknown) (unknown) Visit Date: (units (un known) date) 01/27/22 Last unknown) Updated by: Richelle Dawkins MD (unknown) (no (unknown) (unknown) Visit Date: (units (un known) date) 02/24/22 Last unknown) Updated by: Marietta Massey MD (unknown) (no (unknown) (unknown) Visit Date: (units (un known) date) 03/24/22 Last unknown) Updated by: Richelle Dawkins MD (unknown) (no (unknown) (unknown) Visit Date: (units (un known) date) 04/20/22 Last unknown) Updated by: Xiao Boland P.A-C (unknown) (no (unknown) (unknown) Visit Reasons: (units (unknown) date) OB w 3D US unknown) (unknown) (no (unknown) (unknown) Vitals (units (unkno wn) date) unknown) (unknown) (no (unknown) (unknown) Vitamins and (units (u nknown) date) iron, Diet and unknown) weight gain, Fish and mercury intake, Caffeine use, (unknown) (no (unknown) (unknown) WG (units (unkno wn) date) unknown) (unknown) (no (unknown) (unknown) Weeks (units (unkno wn) date) gestation:: 28 unknown) (unknown) (no (unknown) (unknown) Weight 177 lb (units ( unknown) date) unknown) (unknown) (no (unknown) (unknown) Ages [place] teeth (units (u nknown) date) extracted unknown) (unknown) (no (unknown) (unknown) Zika virus (units (unk nown) date) exposure: No unknown) (unknown) (no (unknown) (unknown) accompanied by (units (unknown) date) her . She unknown) went through fertility treatments with (unknown) (no (unknown) (unknown) alcohol intake: (units (unknown) date) never unknown) (unknown) (no (unknown) (unknown) anterior (units (unkno wn) date) placenta. Routine unknown) precautions reviewed with the patient. Due to 1st (unknown) (no (unknown) (unknown) anyone in either (units (unknown) date) family with: unknown) (unknown) (no (unknown) (unknown) baby's father (units ( unknown) date) had a child with unknown) defects not listed above and Denies Other (unknown) (no (unknown) (unknown) back pain. (units (unk nown) date) Advised unknown) stretching, belly band, and PT if not improving. AFP was (unknown) (no (unknown) (unknown) blood sugar (units (un known) date) diagnostic (Blood unknown) Glucose Test strips) #100 ea 06/02/22 [Rx (unknown) (no (unknown) (unknown) blood-glucose (units ( unknown) date) meter #1 ea unknown) 06/02/22 [Rx Confirmed 06/16/22] (unknown) (no (unknown) (unknown) by ultrasound is (units (unknown) date) normal with good unknown) movement, normal appearing fluid, (unknown) (no (unknown) (unknown) caffeine: Yes (units ( unknown) date) (1-2 cups unknown) tea/day) (unknown) (no (unknown) (unknown) carbon monox (units (u nknown) date) detector in home: unknown) Yes (unknown) (no (unknown) (unknown) cfDNA normal (units (u nknown) date) female, AFP unknown) negative (unknown) (no (unknown) (unknown) consistent with (units (unknown) date) 9 weeks 0 days. unknown) Yolk sac visible. heart rate 178 beats (unknown) (no (unknown) (unknown) current (units (unkno wn) date) occupational unknown) exposures/hazards : No (unknown) (no (unknown) (unknown) daily servings (units (unknown) date) fruits/ve-4 unknown) (unknown) (no (unknown) (unknown) described, visit (units (unknown) date) schedule unknown) reviewed, ultrasounds policy reviewed, coverage 24 (unknown) (no (unknown) (unknown) developing a (units (u nknown) date) pattern. No unknown) leakage of fluid or vaginal bleeding. No contractions (unknown) (no (unknown) (unknown) discussed, (units (unk nown) date) tuberculosis unknown) exposure discussed, CMV discussed, Toxoplasmosis (unknown) (no (unknown) (unknown) disorders, (units (unk nown) date) Denies Cystic unknown) Fibrosis, Denies Mental Retardation/Autis m, Denies (unknown) (no (unknown) (unknown) do you feel safe (units (unknown) date) at home: Yes unknown) (unknown) (no (unknown) (unknown) during the past (units (unknown) date) year weight has: unknown) remained stable (unknown) (no (unknown) (unknown) education level: (units (unknown) date) college unknown) (Associate's degree) (unknown) (no (unknown) (unknown) exposure, (units (unkn own) date) Medication use, unknown) Sauna/hot tub use, Dental care, Travel and Influenza (unknown) (no (unknown) (unknown) fire (units (unkno wn) date) extinguisher in unknown) home: Yes (unknown) (no (unknown) (unknown) firearms in (units (un known) date) home: Yes unknown) firearms unloaded and locked: Yes (unknown) (no (unknown) (unknown) frequency: 5-6 (units (unknown) date) times per week unknown) (unknown) (no (unknown) (unknown) gestational sac (units (unknown) date) with a fetus with unknown) a crown-rump length measuring 2.29 cm (unknown) (no (unknown) (unknown) have occurred. (units (unknown) date) If there are any unknown) questions, please contact the Medical Records (unknown) (no (unknown) (unknown) hours a day and (units (unknown) date) participation of unknown) father in care and office visits (unknown) (no (unknown) (unknown) household (units (unkn own) date) members: spouse unknown) and family (father and qjrjex-gl-zwy) (unknown) (no (unknown) (unknown) housing: house (units (unknown) date) unknown) (unknown) (no (unknown) (unknown) illicit drugs (units ( unknown) date) and Denies other unknown) (unknown) (no (unknown) (unknown) kag (units (unkno wn) date) unknown) (unknown) (no (unknown) (unknown) lancets #100 ea (units (unknown) date) 06/02/22 [Rx unknown) Confirmed 06/16/22] (unknown) (no (unknown) (unknown) last visit. (units (un known) date) Plan: AFP today. unknown) 20 wk u/s reviewed. F/U 4 wks. Warning signs (unknown) (no (unknown) (unknown) lifting and (units (un known) date) other (hiking) unknown) (unknown) (no (unknown) (unknown) lives (units (unkno wn) date) independently: unknown) Yes (unknown) (no (unknown) (unknown) marital status: (units (unknown) date) unknown) (unknown) (no (unknown) (unknown) may occur. (units (unk nown) date) Occasional unknown) wrong-word or 'sound-alike' substitutions may have (unknown) (no (unknown) (unknown) medication only. (units (unknown) date) Had 7 unknown) miscarriages. No bleeding with this . This 1 (unknown) (no (unknown) (unknown) mellitus in (units (un known) date) , unknown) controlled by oral hypoglycemic drugs (unknown) (no (unknown) (unknown) metformin 500 mg (units (unknown) date) PO BID 60 tabs unknown) 0RF (unknown) (no (unknown) (unknown) metformin 500 mg (units (unknown) date) tablet 500 mg PO unknown) BID #60 tabs 06/16/22 [Rx Confirmed 06/16/22] (unknown) (no (unknown) (unknown) movement and (units (u nknown) date) denies VB, LOF, unknown) cramping and regular contractions. Pt reports low (unknown) (no (unknown) (unknown) negative. (units (unkn own) date) Anatomy US unknown) scheduled for later today. Warning precautions reviewed. 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 Please (unknown) (no (unknown) (unknown) or cramping. (units (u nknown) date) Plan: 1 hour unknown) glucose ordered. Follow-up in 4 weeks. Warning (unknown) (no (unknown) (unknown) per minute. (units (un known) date) Normal ovaries unknown) bilaterally. Plan: Follow-up in 4 weeks. Warning (unknown) (no (unknown) (unknown) pets and (units (unkno wn) date) animals: Yes (1 unknown) large dog, chickens) (unknown) (no (unknown) (unknown) precautions, (units (u nknown) date) Listeriosis unknown) prevention and Rubella Immunization (unknown) (no (unknown) (unknown) preeclampsia. (units ( unknown) date) unknown) (unknown) (no (unknown) (unknown) (units (unkn own) date) discussed unknown) starting baby aspirin per day to decrease her risk for (unknown) (no (unknown) (unknown) prenat.vits,dara, (units (unknown) date) ghe-rdbc-rinwo 1 unknown) tab PO DAILY 01/08/22 [History Confirmed (unknown) (no (unknown) (unknown) read the note (units ( unknown) date) carefully and unknown) recognize, using context, where these substitutions (unknown) (no (unknown) (unknown) reviewed. (units (unkn own) date) unknown) (unknown) (no (unknown) (unknown) seatbelt use: (units ( unknown) date) always unknown) (unknown) (no (unknown) (unknown) second hand (units (un known) date) exposure: Yes unknown) (krlbco-ih-lbk smokes outside the house) (unknown) (no (unknown) (unknown) signs reviewed. (units (unknown) date) cfDNA ordered. unknown) (unknown) (no (unknown) (unknown) signs reviewed. (units (unknown) date) unknown) (unknown) (no (unknown) (unknown) software. (units (unkn own) date) Although every unknown) effort is made to edit content, snubber errors (unknown) (no (unknown) (unknown) special anjum (units ( unknown) date) needs: No unknown) (unknown) (no (unknown) (unknown) substance use (units ( unknown) date) type: does not unknown) use (unknown) (no (unknown) (unknown) travel history: (units (unknown) date) over 6 months ago unknown) (unknown) (no (unknown) (unknown) urinary (units (unkno wn) date) frequency and unknown) irritability (unknown) (no (unknown) (unknown) vaccine (Annual (units (unknown) date) flu, Phizer Covid unknown) x2) (unknown) (no (unknown) (unknown) w0d 4 wks (units (unkn own) date) unknown) (unknown) (no (unknown) (unknown) was not using (units ( unknown) date) any infertility unknown) medications. Ultrasound: An intrauterine (unknown) (no (unknown) (unknown) water heater (units (u nknown) date) temp set < 120 unknown) deg: Yes (unknown) (no (unknown) (unknown) well-balanced (units ( unknown) date) diet: daily or unknown) most days (unknown) (no (unknown) (unknown) went away with (units (unknown) date) laying down. No unknown) vaginal bleeding. No fevers. heart tone (unknown) (no (unknown) (unknown) while ) (units (unknown) date) unknown) (unknown) (no (unknown) (unknown) wks. Warning (units (u nknown) date) signs for PTL unknown) reviewed. (unknown) (no (unknown) (unknown) working smoke (units ( unknown) date) detector in home: unknown) Yes Result panel 18 (unknown) (no (unknown) (unknown) (no value) (units (unk nown) date) unknown) (unknown) (no (unknown) (unknown) (+12 lb) 120/58 (units (unknown) date) N unknown) (unknown) (no (unknown) (unknown) (+13 lb) 104/54 (units (unknown) date) N unknown) (unknown) (no (unknown) (unknown) (+18 lb) 122/60 (units (unknown) date) N unknown) (unknown) (no (unknown) (unknown) (+22 lb) 110/62 (units (unknown) date) N unknown) (unknown) (no (unknown) (unknown) (+7 lb) 128/66 N (units (unknown) date) unknown) (unknown) (no (unknown) (unknown) (+8 lb) 122/68 N (units (unknown) date) unknown) (unknown) (no (unknown) (unknown) (1) Gestational (units (unknown) date) diabetes: unknown) (unknown) (no (unknown) (unknown) (2) 28 weeks (units (u nknown) date) gestation of unknown) : (unknown) (no (unknown) (unknown) ADDENDUM (units (u nknown) date) unknown) (unknown) (no (unknown) (unknown) Genetic (units (unkn own) date) Screening/Teratol unknown) ogy Counseling - Includes patient, baby's father, or (unknown) (no (unknown) (unknown) -?-?-?-?-?-?-?-? (units (unknown) date) -?-?-?-? unknown) (unknown) (no (unknown) (unknown) 0.5 mL IM Right (units (unknown) date) Deltoid [id number] unknown) 05/01/24 [id number] SANOFI-PASTEUR (unknown) (no (unknown) (unknown) 05/19/22 (units (unkno wn) date) unknown) (unknown) (no (unknown) (unknown) 06/16/22 Single (units (unknown) date) Vaccine 12/20/20 unknown) (unknown) (no (unknown) (unknown) 06/16/22 (units (unkno wn) date) unknown) (unknown) (no (unknown) (unknown) 06/16/22] (units (unkn own) date) unknown) (unknown) (no (unknown) (unknown) 06/28/22 1619 (units ( unknown) date) unknown) (unknown) (no (unknown) (unknown) 06/28/22 1620 (units ( unknown) date) unknown) (unknown) (no (unknown) (unknown) 08/29/22 (units (unkno wn) date) Ultrasound #1 31w unknown) 1d (unknown) (no (unknown) (unknown) [id number] (units (unkno wn) date) unknown) (unknown) (no (unknown) (unknown) 01/27/22 (units (unkno wn) date) unknown) (unknown) (no (unknown) (unknown) 02/24/22 (units (unkno wn) date) unknown) (unknown) (no (unknown) (unknown) 03/24/22 (units (unkno wn) date) unknown) (unknown) (no (unknown) (unknown) 04/20/22 (units (unkno wn) date) unknown) (unknown) (no (unknown) (unknown) 12w 6d 163 lb (units ( unknown) date) unknown) (unknown) (no (unknown) (unknown) 13:15 (units (unkno wn) date) unknown) (unknown) (no (unknown) (unknown) 16w 6d 167 lb (units ( unknown) date) unknown) (unknown) (no (unknown) (unknown) 20w 5d 168 lb (units ( unknown) date) unknown) (unknown) (no (unknown) (unknown) 24w 6d 173 lb (units ( unknown) date) unknown) (unknown) (no (unknown) (unknown) 28w 6d 177 lb (units ( unknown) date) unknown) (unknown) (no (unknown) (unknown) 3 wks (units (unkno wn) date) unknown) (unknown) (no (unknown) (unknown) 4 wk (units (unkno wn) date) unknown) (unknown) (no (unknown) (unknown) 8w 6d 162 lb (units (u nknown) date) unknown) (unknown) (no (unknown) (unknown) Abnormal lab (units (u nknown) date) values 1st unknown) trimester: discussed (unknown) (no (unknown) (unknown) Abnormal lab (units (u nknown) date) values 2nd unknown) trimester: discussed (unknown) (no (unknown) (unknown) Adacel(Tdap (units (un known) date) Adolesn/Adult)(PF unknown) ) (unknown) (no (unknown) (unknown) Add'l Plan (units (unk nown) date) Details unknown) (unknown) (no (unknown) (unknown) Addendum (units (unkno wn) date) Documented By: unknown) Richelle Dawkins MD (unknown) (no (unknown) (unknown) Addendum Signed (units (unknown) date) By: unknown) <Electronically signed by Richelle Dawkins, (unknown) (no (unknown) (unknown) Administered by: (units (unknown) date) Nu Alexander, unknown) KUNAL on 06/16/22 13:25 (unknown) (no (unknown) (unknown) Age/Sex: 31 / F (units (unknown) date) Date of Service: unknown) (unknown) (no (unknown) (unknown) Allergies (units (unkn own) date) () unknown) (unknown) (no (unknown) (unknown) Allergies (units (unkn own) date) unknown) (unknown) (no (unknown) (unknown) ORALIA Erickson (units ( unknown) date) [id number] unknown) (unknown) (no (unknown) (unknown) Anesthesia (units (unk nown) date) unknown) (unknown) (no (unknown) (unknown) Aneuploidy (units (unk nown) date) Screening unknown) Offered: Accepted (wants CFDNA) (unknown) (no (unknown) (unknown) Anticipated (units (un known) date) course of unknown) care: discussed (unknown) (no (unknown) (unknown) Anxiety (-2016) (units (unknown) date) unknown) (unknown) (no (unknown) (unknown) Arrhythmia (units (unk nown) date) unknown) (unknown) (no (unknown) (unknown) Assessment and (units (unknown) date) Plan unknown) (unknown) (no (unknown) (unknown) Attending Dr: (units ( unknown) date) Richelle Dawkins unknown) (unknown) (no (unknown) (unknown) Corazon presents (units (unknown) date) today for routine unknown) OB f/u at 20w5d. She reports good (unknown) (no (unknown) (unknown) BMI 28.5 (units (unkno wn) date) unknown) (unknown) (no (unknown) (unknown) BP 110/62 (units (unkn own) date) unknown) (unknown) (no (unknown) (unknown) (units (unkno wn) date) Plan/Preferences unknown) (unknown) (no (unknown) (unknown) Planning (units (unknown) date) unknown) (unknown) (no (unknown) (unknown) Blood Pressure (units (unknown) date) Location Lt unknown) brachial (unknown) (no (unknown) (unknown) Blood (units (unkno wn) date) transfusions?: unknown) yes (Never had but would accept) (unknown) (no (unknown) (unknown) : (units (unknown) date) discussed unknown) (unknown) (no (unknown) (unknown) Chicken pox (units (un known) date) (-1994) unknown) (unknown) (no (unknown) (unknown) Childbirth (units (unk nown) date) Classes: unknown) discussed (unknown) (no (unknown) (unknown) Conceived (units (unkn own) date) naturally this unknown) (unknown) (no (unknown) (unknown) Confirmed (units (unkn own) date) 06/16/22] unknown) (unknown) (no (unknown) (unknown) Current Estimate (units (unknown) date) 09/02/22 unknown) Ultrasound #2 30w 4d (unknown) (no (unknown) (unknown) Current (units (unkno wn) date) History unknown) (unknown) (no (unknown) (unknown) DNA (units (unkno wn) date) unknown) (unknown) (no (unknown) (unknown) : 1990 (units (unknown) date) Acct:[id number] unknown) (unknown) (no (unknown) (unknown) Date of positive (units (unknown) date) home unknown) test: 12/29/21 (unknown) (no (unknown) (unknown) Date (units (unkno wn) date) unknown) (unknown) (no (unknown) (unknown) Denies Congenital (units (unknown) date) Heart Defect, unknown) Denies Down Syndrome, Denies Muscular Dystrophy, (unknown) (no (unknown) (unknown) Denies Maternal (units (unknown) date) Metabolic unknown) Disorder (EG,TYPE 1 Diabetes, PKU), Denies Patient or (unknown) (no (unknown) (unknown) Denies Neural (units ( unknown) date) Tube Defect unknown) (Meningomyelocele , Spina Bifida, or Anencephaly), (unknown) (no (unknown) (unknown) Denies Sickle (units ( unknown) date) Cell Disease or unknown) Trait (), Denies Hemophilia or other blood (unknown) (no (unknown) (unknown) Denies Enio-Sachs (units (unknown) date) (Ashkenazi unknown) Sabianism, Cajun, Indonesian Paraguayan), Denies Jose (unknown) (no (unknown) (unknown) Depression (units (unk nown) date) (-2015) unknown) (unknown) (no (unknown) (unknown) Depression: (units (un known) date) discussed unknown) (unknown) (no (unknown) (unknown) Dept at (units (unkno wn) date) . unknown) (unknown) (no (unknown) (unknown) Diet and (units (unkno wn) date) Exercise unknown) (unknown) (no (unknown) (unknown) Disease (units (unkno wn) date) (Ashkenazi unknown) Sabianism), Denies Familial Dysautonomia (Ashkenazi Sabianism), (unknown) (no (unknown) (unknown) Documented By: (units (unknown) date) Richelle Dawkins unknownShvia MAGALLON 06/16/22 1314 (unknown) (no (unknown) (unknown) Dose Route Admin (units (unknown) date) Location Lot unknown) Number Expiration Date NDC (unknown) (no (unknown) (unknown) MARIANNE Calculator (units (unknown) date) unknown) (unknown) (no (unknown) (unknown) EGA Weight BP (units ( unknown) date) UGlucose unknown) (unknown) (no (unknown) (unknown) Eczema (-2000) (units (unknown) date) unknown) (unknown) (no (unknown) (unknown) Eligibility (units (un known) date) Eligibility Date unknown) Funding Source (unknown) (no (unknown) (unknown) Estimated (units (unkn own) date) Delivery Date unknown) Method Current (unknown) (no (unknown) (unknown) Exercise and (units (u nknown) date) activity, unknown) work/environmenta l/hazards, Sexual activity, X-ray (unknown) (no (unknown) (unknown) F/u in 4 wks. (units ( unknown) date) unknown) (unknown) (no (unknown) (unknown) Family History (units (unknown) date) (Updated 01/24/22 unknown) @ 21:49 by Anamaria Cooper) (unknown) (no (unknown) (unknown) Family/Other (units (u nknown) date) Multiple unknown) sclerosis (unknown) (no (unknown) (unknown) Fasting BS's: (units ( unknown) date) 65-106, 2 hr PP unknown) 82-158. (unknown) (no (unknown) (unknown) Father (units (unkno wn) date) Hypertension unknown) (unknown) (no (unknown) (unknown) Father of Baby: (units (unknown) date) same unknown) (unknown) (no (unknown) (unknown) [facility] ([facility] unknown) (unknown) (no (unknown) (unknown) First Trimester (units (unknown) date) Education unknown) Checklist (unknown) (no (unknown) (unknown) Foot pain (units (unkn own) date) (-2019) unknown) (unknown) (no (unknown) (unknown) (SAB (units (unkn own) date) x7),Fertility Tx, unknown) meds only, started on baby aspirin 02/24/2022 (unknown) (no (unknown) (unknown) GDM, on (units (unkno wn) date) Metformin 500mg unknown) BID (unknown) (no (unknown) (unknown) Genetic (units (unkno wn) date) Screening + unknown) Counseling (unknown) (no (unknown) (unknown) Genetic (units (unkno wn) date) Screening unknown) (unknown) (no (unknown) (unknown) Gestational (units (un known) date) diabetes mellitus unknown) control: oral hypoglycemic-cont rolled (unknown) (no (unknown) (unknown) Grandfather (units (un known) date) Cancer unknown) (unknown) (no (unknown) (unknown) Grandfather (units (un known) date) Stroke unknown) (unknown) (no (unknown) (unknown) Grandmother (units (un known) date) History unknown) of heart disease (unknown) (no (unknown) (unknown) Grandmother (units (un known) date) Multiple unknown) sclerosis (unknown) (no (unknown) (unknown) 8 (units (unkn own) date) Multiple births 0 unknown) (unknown) (no (unknown) (unknown) HIV risk (units (unkno wn) date) evaluation: low unknown) risk (unknown) (no (unknown) (unknown) Health Center (units ( unknown) date) Education unknown) (unknown) (no (unknown) (unknown) Health center (units ( unknown) date) information: unknown) nature of practice discussed, personnel (unknown) (no (unknown) (unknown) Height 5 ft 6 in (units (unknown) date) unknown) (unknown) (no (unknown) (unknown) Hepatitis C risk (units (unknown) date) evaluation: low unknown) risk (unknown) (no (unknown) (unknown) History of (units (unk nown) date) Hepatitis B: No unknown) (unknown) (no (unknown) (unknown) History of (units (unk nown) date) Hepatitis C: No unknown) (unknown) (no (unknown) (unknown) 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 (unknown) (no (unknown) (unknown) [facility] (units (u nknown) date) unknown) (unknown) (no (unknown) (unknown) [facility] (units (u nknown) date) Chorea, Denies unknown) Other inherited genetic or chromosomal disorder, (unknown) (no (unknown) (unknown) , Elieser (units ( unknown) date) Martell unknown) (unknown) (no (unknown) (unknown) Hx # (units (u nknown) date) Pregnancies 0 unknown) Elective abortions 0 (unknown) (no (unknown) (unknown) Hx # Term (units (unkn own) date) Pregnancies 0 unknown) Ectopic pregnancies 0 (unknown) (no (unknown) (unknown) Immunizations (units ( unknown) date) unknown) (unknown) (no (unknown) (unknown) Infant will be (units (unknown) date) adopted?: no unknown) (unknown) (no (unknown) (unknown) Infection (units (unkn own) date) History unknown) (unknown) (no (unknown) (unknown) Infectious (units (unk nown) date) Disease Education unknown) (unknown) (no (unknown) (unknown) Infectious (units (unk nown) date) disease exposure: unknown) chicken pox immunity discussed, hepatitis risk (unknown) (no (unknown) (unknown) Infertility (units (un known) date) () unknown) (unknown) (no (unknown) (unknown) Initial Weight: (units (unknown) date) 155 lb unknown) (unknown) (no (unknown) (unknown) Initials (units (unkno wn) date) unknown) (unknown) (no (unknown) (unknown) Intake Clinical (units (unknown) date) Staff unknown) (unknown) (no (unknown) (unknown) Intake Note: (units (u nknown) date) unknown) (unknown) (no (unknown) (unknown) Intake performed (units (unknown) date) by: unknown) Nu Alexander (unknown) (no (unknown) (unknown) Intake (units (unkno wn) date) unknown) (unknown) (no (unknown) (unknown) Irregular (units (unkn own) date) menstrual cycle unknown) () (unknown) (no (unknown) (unknown) LM (units (unkno wn) date) unknown) (unknown) (no (unknown) (unknown) Lipoma (units (unkno wn) date) unknown) (unknown) (no (unknown) (unknown) Live with (units (unkn own) date) someone with TB unknown) or exposed to TB: No (unknown) (no (unknown) (unknown) Loc: [facility] (units (unkno wn) date) unknown) (unknown) (no (unknown) (unknown) MD> 06/28/22 (units (u nknown) date) 1620 unknown) (unknown) (no (unknown) (unknown) Cloth Roll Winder (units (u nknown) date) unknown) (unknown) (no (unknown) (unknown) Marital status: (units (unknown) date) unknown) (unknown) (no (unknown) (unknown) Medical History (units (unknown) date) (Updated 06/28/22 unknown) @ 16:18 by Richelle Dawkins MD) (unknown) (no (unknown) (unknown) Medications (units (un known) date) unknown) (unknown) (no (unknown) (unknown) Medications: (units (u nknown) date) unknown) (unknown) (no (unknown) (unknown) Mother Gastric (units (unknown) date) cancer unknown) (unknown) (no (unknown) (unknown) N No 142 13 N/A (units (unknown) date) 4wk unknown) (unknown) (no (unknown) (unknown) N No no 143 17 (units (unknown) date) N/A absent AFP 4 unknown) wks (unknown) (no (unknown) (unknown) N No no 178 9 (units ( unknown) date) N/A absent unknown) long/closed AGA 9 (unknown) (no (unknown) (unknown) N Yes no 141 24 (units (unknown) date) N/A absent 4 wks unknown) (unknown) (no (unknown) (unknown) N Yes no 142 20 (units (unknown) date) N/A absent AFP unknown) negative (unknown) (no (unknown) (unknown) N Yes no 144 29 (units (unknown) date) Vertex absent AGA unknown) 29w5d (unknown) (no (unknown) (unknown) NF (units (unkno wn) date) unknown) (unknown) (no (unknown) (unknown) New (units (unkno wn) date) unknown) (unknown) (no (unknown) (unknown) Not VFC Eligible (units (unknown) date) 06/16/22 Private unknown) Funds (unknown) (no (unknown) (unknown) Notes (units (unkno wn) date) unknown) (unknown) (no (unknown) (unknown) Number of Living (units (unknown) date) Children 0 unknown) (unknown) (no (unknown) (unknown) Number of (units (unkn own) date) fetuses:: Single unknown) (unknown) (no (unknown) (unknown) Nutrition and (units ( unknown) date) weight gain unknown) counseling: special diet: discussed (unknown) (no (unknown) (unknown) OB Office Visit (units (unknown) date) unknown) (unknown) (no (unknown) (unknown) OB Visit Log (units (u nknown) date) unknown) (unknown) (no (unknown) (unknown) OB check (units (unkno wn) date) unknown) (unknown) (no (unknown) (unknown) On U/S: AGA (units (un known) date) 29w5d. 3#4oz unknown) 66%ile. Nl AFV. Plan: Metformin 500mg BID. F/U 3 (unknown) (no (unknown) (unknown) On control (units (unknown) date) at conception?: unknown) No (unknown) (no (unknown) (unknown) Orders (units (unkno wn) date) unknown) (unknown) (no (unknown) (unknown) Orders: (units (unkno wn) date) unknown) (unknown) (no (unknown) (unknown) Other Estimates (units (unknown) date) 08/18/22 LMP unknown) (Certain) 32w 5d (unknown) (no (unknown) (unknown) Ovarian cyst (units (u nknown) date) () unknown) (unknown) (no (unknown) (unknown) PCOS (polycystic (units (unknown) date) ovarian syndrome) unknown) (unknown) (no (unknown) (unknown) PFSH (units (unkno wn) date) unknown) (unknown) (no (unknown) (unknown) Pap performed?: (units (unknown) date) No unknown) (unknown) (no (unknown) (unknown) Para 0 (units (unkno wn) date) Spontaneous unknown) abortions 7 (unknown) (no (unknown) (unknown) Partner history (units (unknown) date) of STD: denies hx unknown) (unknown) (no (unknown) (unknown) Partner history (units (unknown) date) of genital unknown) herpes: No (unknown) (no (unknown) (unknown) Partner: Elieser (units ( unknown) date) Martell unknown) (unknown) (no (unknown) (unknown) Patient comes in (units (unknown) date) for follow-up OB unknown) visit. She had some pelvic pain that (unknown) (no (unknown) (unknown) Patient presents (units (unknown) date) for a new OB unknown) visit at 8 weeks gestation. She is (unknown) (no (unknown) (unknown) Patient presents (units (unknown) date) for a routine unknown) visit, accompanied by her . 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) [facility] vs unknown) [facility] (unknown) (no (unknown) (unknown) Performing (units (unk nown) date) Provider: unknown) Richelle Dawkins MD (unknown) (no (unknown) (unknown) Personal history (units (unknown) date) of STD: denies hx unknown) (unknown) (no (unknown) (unknown) Personal history (units (unknown) date) of genital unknown) herpes: No (unknown) (no (unknown) (unknown) Plantar (units (unkno wn) date) fasciitis unknown) (unknown) (no (unknown) (unknown) Position Sitting (units (unknown) date) unknown) (unknown) (no (unknown) (unknown) (units (unk nown) date) family unknown) planning/Tubal sterilization: further discussion needed (unknown) (no (unknown) (unknown) (units (unkn own) date) History unknown) (unknown) (no (unknown) (unknown) type:: (units (unknown) date) Other Normal unknown) (unknown) (no (unknown) (unknown) (units (unkno wn) date) Education unknown) (unknown) (no (unknown) (unknown) Initial (units (unknown) date) Assessment unknown) (unknown) (no (unknown) (unknown) (units (unkno wn) date) Specific unknown) Issues/Plans (unknown) (no (unknown) (unknown) (units (unkno wn) date) Testing: unknown) discussed (unknown) (no (unknown) (unknown) Visit (units (unknown) date) unknown) (unknown) (no (unknown) (unknown) (units (unkno wn) date) education packet: unknown) Child education/plan, symptoms, (unknown) (no (unknown) (unknown) Primary Care (units (u nknown) date) Provider: [place] Arboleda unknown) [place] (unknown) (no (unknown) (unknown) Primary Ob (units (unk nown) date) Provider: unknown) Richelle Dawkins (unknown) (no (unknown) (unknown) Prior (units (unkno wn) date) GBS-Infected unknown) child: No (unknown) (no (unknown) (unknown) Providers (units (unkn own) date) unknown) (unknown) (no (unknown) (unknown) Pt presents for (units (unknown) date) a PNV at 16+6 unknown) wks. No FM. No LOF/VB. Rec'd flu shot (unknown) (no (unknown) (unknown) Pt presents for (units (unknown) date) a routine PNV at unknown) 28 +6 wks gestation. Abnormal 3 hr GTT. (unknown) (no (unknown) (unknown) Qualifiers: (units (un known) date) unknown) (unknown) (no (unknown) (unknown) Rash or viral (units ( unknown) date) illness since unknown) last menstrual period: No (unknown) (no (unknown) (unknown) Rash (units (unkno wn) date) unknown) (unknown) (no (unknown) (unknown) Reason For Visit (units (unknown) date) unknown) (unknown) (no (unknown) (unknown) Recent travel (units ( unknown) date) outside of unknown) country?: No (unknown) (no (unknown) (unknown) Recurrent (units (unkn own) date) loss or unknown) a stillbirth: Yes (unknown) (no (unknown) (unknown) Reports over the (units (unknown) date) counter unknown) medications (diclofenac), Denies alcohol, Denies (unknown) (no (unknown) (unknown) Safety (units (unkno wn) date) unknown) (unknown) (no (unknown) (unknown) Second Trimester (units (unknown) date) Education unknown) Checklist (unknown) (no (unknown) (unknown) Selecting a (units (un known) date) care unknown) provider: further discussion needed (unknown) (no (unknown) (unknown) She is at 24 (units (u nknown) date) weeks 6 days. She unknown) has felt good movement. She says it is (unknown) (no (unknown) (unknown) Shingles (units (unkno wn) date) unknown) (unknown) (no (unknown) (unknown) Signed By: (units (unk nown) date) <Electronically unknown) signed by Richelle Dawkins MD> (unknown) (no (unknown) (unknown) Signed with (units (un known) date) Addenda unknown) (unknown) (no (unknown) (unknown) Signs and (units (unkn own) date) symptoms of unknown) labor: discussed (unknown) (no (unknown) (unknown) Smoking Status: (units (unknown) date) Never smoker unknown) (unknown) (no (unknown) (unknown) Social History (units (unknown) date) unknown) (unknown) (no (unknown) (unknown) Status: Acute (units ( unknown) date) unknown) (unknown) (no (unknown) (unknown) Support (units (unkno wn) date) Person(s):: Elieser unknown) (unknown) (no (unknown) (unknown) Surgical History (units (unknown) date) (Updated 01/24/22 unknown) @ 21:46 by Anamaria Cooper) (unknown) (no (unknown) (unknown) Surrogate (units (unkn own) date) ?: no unknown) (unknown) (no (unknown) (unknown) Symptoms since (units (unknown) date) LMP: Reports unknown) amenorrhea, nausea, fatigue, breast tenderness, (unknown) (no (unknown) (unknown) Tdap Adult (units (unk nown) date) (Adacel) 06/16/22 unknown) Z23 - Encounter for immunization (unknown) (no (unknown) (unknown) Teratogen (units (unkn own) date) Exposures since unknown) LMP/Conception: Denies prescription medications, (unknown) (no (unknown) (unknown) Testing (units (unkno wn) date) Education unknown) (unknown) (no (unknown) (unknown) Testing (units (unkno wn) date) education unknown) completed: group B strep, Spina bifida testing and Cell Free (unknown) (no (unknown) (unknown) This note may (units ( unknown) date) have been all or unknown) partially generated using voice recognition (unknown) (no (unknown) (unknown) Tobacco + (units (unkn own) date) Substance Use unknown) (unknown) (no (unknown) (unknown) Tobacco Status (units (unknown) date) unknown) (unknown) (no (unknown) (unknown) Trimester: (units (unk nown) date) second trimester unknown) Qualified Code(s): O24.415 - Gestational diabetes (unknown) (no (unknown) (unknown) Trimester:: 3rd (units (unknown) date) Trimester unknown) (28wks-Del) (unknown) (no (unknown) (unknown) Tumor () (units (unknown) date) unknown) (unknown) (no (unknown) (unknown) Type(s) of (units (unk nown) date) exercise: unknown) bicycling (stationary bike), regular exercise, weight (unknown) (no (unknown) (unknown) UProtein Movement (units (unknown) date) PreLabor FHR Fndl unknown) Ht Pres Edema Cerv Exam US/Comment Next Appt (unknown) (no (unknown) (unknown) Ultrasound (units (unk nown) date) performed?: Yes unknown) (unknown) (no (unknown) (unknown) VIS Given Date (units (unknown) date) VIS Provided VIS unknown) Publication Date (unknown) (no (unknown) (unknown) Varicella/chicke (units (unknown) date) n pox status: unknown) previous disease (unknown) (no (unknown) (unknown) Visit Date: (units (un known) date) 05/19/22 Last unknown) Updated by: Richelle Dawkins MD (unknown) (no (unknown) (unknown) Visit Date: (units (un known) date) 06/16/22 Last unknown) Updated by: Richelle Dawkins MD (unknown) (no (unknown) (unknown) Visit Date: (units (un known) date) 01/27/22 Last unknown) Updated by: Richelle Dawkins MD (unknown) (no (unknown) (unknown) Visit Date: (units (un known) date) 02/24/22 Last unknown) Updated by: Marietta Massey MD (unknown) (no (unknown) (unknown) Visit Date: (units (un known) date) 03/24/22 Last unknown) Updated by: Richelle Dawkins MD (unknown) (no (unknown) (unknown) Visit Date: (units (un known) date) 04/20/22 Last unknown) Updated by: Xiao Boland P.A-C (unknown) (no (unknown) (unknown) Visit Reasons: (units (unknown) date) OB w 3D US unknown) (unknown) (no (unknown) (unknown) Vitals (units (unkno wn) date) unknown) (unknown) (no (unknown) (unknown) Vitamins and (units (u nknown) date) iron, Diet and unknown) weight gain, Fish and mercury intake, Caffeine use, (unknown) (no (unknown) (unknown) WG (units (unkno wn) date) unknown) (unknown) (no (unknown) (unknown) Weeks (units (unkno wn) date) gestation:: 28 unknown) (unknown) (no (unknown) (unknown) Weight 177 lb (units ( unknown) date) unknown) (unknown) (no (unknown) (unknown) Ages [place] teeth (units (u nknown) date) extracted unknown) (unknown) (no (unknown) (unknown) Zika virus (units (unk nown) date) exposure: No unknown) (unknown) (no (unknown) (unknown) accompanied by (units (unknown) date) her . She unknown) went through fertility treatments with (unknown) (no (unknown) (unknown) alcohol intake: (units (unknown) date) never unknown) (unknown) (no (unknown) (unknown) anterior (units (unkno wn) date) placenta. Routine unknown) precautions reviewed with the patient. Due to 1st (unknown) (no (unknown) (unknown) anyone in either (units (unknown) date) family with: unknown) (unknown) (no (unknown) (unknown) baby's father (units ( unknown) date) had a child with unknown) defects not listed above and Denies Other (unknown) (no (unknown) (unknown) back pain. (units (unk nown) date) Advised unknown) stretching, belly band, and PT if not improving. AFP was (unknown) (no (unknown) (unknown) blood sugar (units (un known) date) diagnostic (Blood unknown) Glucose Test strips) #100 ea 06/02/22 [Rx (unknown) (no (unknown) (unknown) blood-glucose (units ( unknown) date) meter #1 ea unknown) 06/02/22 [Rx Confirmed 06/16/22] (unknown) (no (unknown) (unknown) by ultrasound is (units (unknown) date) normal with good unknown) movement, normal appearing fluid, (unknown) (no (unknown) (unknown) caffeine: Yes (units ( unknown) date) (1-2 cups unknown) tea/day) (unknown) (no (unknown) (unknown) carbon monox (units (u nknown) date) detector in home: unknown) Yes (unknown) (no (unknown) (unknown) cfDNA normal (units (u nknown) date) female, AFP unknown) negative (unknown) (no (unknown) (unknown) consistent with (units (unknown) date) 9 weeks 0 days. unknown) Yolk sac visible. heart rate 178 beats (unknown) (no (unknown) (unknown) current (units (unkno wn) date) occupational unknown) exposures/hazards : No (unknown) (no (unknown) (unknown) daily servings (units (unknown) date) fruits/ve-4 unknown) (unknown) (no (unknown) (unknown) described, visit (units (unknown) date) schedule unknown) reviewed, ultrasounds policy reviewed, coverage 24 (unknown) (no (unknown) (unknown) developing a (units (u nknown) date) pattern. No unknown) leakage of fluid or vaginal bleeding. No contractions (unknown) (no (unknown) (unknown) discussed, (units (unk nown) date) tuberculosis unknown) exposure discussed, CMV discussed, Toxoplasmosis (unknown) (no (unknown) (unknown) disorders, (units (unk nown) date) Denies Cystic unknown) Fibrosis, Denies Mental Retardation/Autis m, Denies (unknown) (no (unknown) (unknown) do you feel safe (units (unknown) date) at home: Yes unknown) (unknown) (no (unknown) (unknown) during the past (units (unknown) date) year weight has: unknown) remained stable (unknown) (no (unknown) (unknown) education level: (units (unknown) date) college unknown) (Associate's degree) (unknown) (no (unknown) (unknown) exposure, (units (unkn own) date) Medication use, unknown) Sauna/hot tub use, Dental care, Travel and Influenza (unknown) (no (unknown) (unknown) fire (units (unkno wn) date) extinguisher in unknown) home: Yes (unknown) (no (unknown) (unknown) firearms in (units (un known) date) home: Yes unknown) firearms unloaded and locked: Yes (unknown) (no (unknown) (unknown) frequency: 5-6 (units (unknown) date) times per week unknown) (unknown) (no (unknown) (unknown) gestational sac (units (unknown) date) with a fetus with unknown) a crown-rump length measuring 2.29 cm (unknown) (no (unknown) (unknown) have occurred. (units (unknown) date) If there are any unknown) questions, please contact the Medical Records (unknown) (no (unknown) (unknown) hours a day and (units (unknown) date) participation of unknown) father in care and office visits (unknown) (no (unknown) (unknown) household (units (unkn own) date) members: spouse unknown) and family (father and [id number]-jls) (unknown) (no (unknown) (unknown) housing: house (units (unknown) date) unknown) (unknown) (no (unknown) (unknown) illicit drugs (units ( unknown) date) and Denies other unknown) (unknown) (no (unknown) (unknown) kag (units (unkno wn) date) unknown) (unknown) (no (unknown) (unknown) lancets #100 ea (units (unknown) date) 06/02/22 [Rx unknown) Confirmed 06/16/22] (unknown) (no (unknown) (unknown) last visit. (units (un known) date) Plan: AFP today. unknown) 20 wk u/s reviewed. F/U 4 wks. Warning signs (unknown) (no (unknown) (unknown) lifting and (units (un known) date) other (hiking) unknown) (unknown) (no (unknown) (unknown) lives (units (unkno wn) date) independently: unknown) Yes (unknown) (no (unknown) (unknown) marital status: (units (unknown) date) unknown) (unknown) (no (unknown) (unknown) may occur. (units (unk nown) date) Occasional unknown) wrong-word or 'sound-alike' substitutions may have (unknown) (no (unknown) (unknown) medication only. (units (unknown) date) Had 7 unknown) miscarriages. No bleeding with this . This 1 (unknown) (no (unknown) (unknown) mellitus in (units (un known) date) , unknown) controlled by oral hypoglycemic drugs (unknown) (no (unknown) (unknown) metformin 500 mg (units (unknown) date) PO BID 60 tabs unknown) 0RF (unknown) (no (unknown) (unknown) metformin 500 mg (units (unknown) date) tablet 500 mg PO unknown) BID #60 tabs 06/16/22 [Rx Confirmed 06/16/22] (unknown) (no (unknown) (unknown) movement and (units (u nknown) date) denies VB, LOF, unknown) cramping and regular contractions. Pt reports low (unknown) (no (unknown) (unknown) negative. (units (unkn own) date) Anatomy US unknown) scheduled for later today. Warning precautions reviewed. 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 Please (unknown) (no (unknown) (unknown) or cramping. (units (u nknown) date) Plan: 1 hour unknown) glucose ordered. Follow-up in 4 weeks. Warning (unknown) (no (unknown) (unknown) per minute. (units (un known) date) Normal ovaries unknown) bilaterally. Plan: Follow-up in 4 weeks. Warning (unknown) (no (unknown) (unknown) pets and (units (unkno wn) date) animals: Yes (1 unknown) large dog, chickens) (unknown) (no (unknown) (unknown) precautions, (units (u nknown) date) Listeriosis unknown) prevention and Rubella Immunization (unknown) (no (unknown) (unknown) preeclampsia. (units ( unknown) date) unknown) (unknown) (no (unknown) (unknown) (units (unkn own) date) discussed unknown) starting baby aspirin per day to decrease her risk for (unknown) (no (unknown) (unknown) prenat.vits,dara, (units (unknown) date) kuf-tlrk-cpnio 1 unknown) tab PO DAILY 01/08/22 [History Confirmed (unknown) (no (unknown) (unknown) read the note (units ( unknown) date) carefully and unknown) recognize, using context, where these substitutions (unknown) (no (unknown) (unknown) reviewed. (units (unkn own) date) unknown) (unknown) (no (unknown) (unknown) seatbelt use: (units ( unknown) date) always unknown) (unknown) (no (unknown) (unknown) second hand (units (un known) date) exposure: Yes unknown) (djjgze-ty-rhj smokes outside the house) (unknown) (no (unknown) (unknown) signs reviewed. (units (unknown) date) cfDNA ordered. unknown) (unknown) (no (unknown) (unknown) signs reviewed. (units (unknown) date) unknown) (unknown) (no (unknown) (unknown) software. (units (unkn own) date) Although every unknown) effort is made to edit content, snubber errors (unknown) (no (unknown) (unknown) special anjum (units ( unknown) date) needs: No unknown) (unknown) (no (unknown) (unknown) substance use (units ( unknown) date) type: does not unknown) use (unknown) (no (unknown) (unknown) travel history: (units (unknown) date) over 6 months ago unknown) (unknown) (no (unknown) (unknown) urinary (units (unkno wn) date) frequency and unknown) irritability (unknown) (no (unknown) (unknown) vaccine (Annual (units (unknown) date) flu, Phizer Covid unknown) x2) (unknown) (no (unknown) (unknown) w0d 4 wks (units (unkn own) date) unknown) (unknown) (no (unknown) (unknown) was not using (units ( unknown) date) any infertility unknown) medications. Ultrasound: An intrauterine (unknown) (no (unknown) (unknown) water heater (units (u nknown) date) temp set < 120 unknown) deg: Yes (unknown) (no (unknown) (unknown) well-balanced (units ( unknown) date) diet: daily or unknown) most days (unknown) (no (unknown) (unknown) went away with (units (unknown) date) laying down. No unknown) vaginal bleeding. No fevers. heart tone (unknown) (no (unknown) (unknown) while ) (units (unknown) date) unknown) (unknown) (no (unknown) (unknown) wks. Warning (units (u nknown) date) signs for PTL unknown) reviewed. (unknown) (no (unknown) (unknown) working smoke (units ( unknown) date) detector in home: unknown) Yes Result panel 19 (unknown) (no (unknown) (unknown) (no value) (units (unk nown) date) unknown) (unknown) (no (unknown) (unknown) (+12 lb) 120/58 (units (unknown) date) N unknown) (unknown) (no (unknown) (unknown) (+13 lb) 104/54 (units (unknown) date) N unknown) (unknown) (no (unknown) (unknown) (+18 lb) 122/60 (units (unknown) date) N unknown) (unknown) (no (unknown) (unknown) (+22 lb) 110/62 (units (unknown) date) N unknown) (unknown) (no (unknown) (unknown) (+7 lb) 128/66 N (units (unknown) date) unknown) (unknown) (no (unknown) (unknown) (+8 lb) 122/68 N (units (unknown) date) unknown) (unknown) (no (unknown) (unknown) Genetic (units (unkn own) date) Screening/Teratol unknown) ogy Counseling - Includes patient, baby's father, or (unknown) (no (unknown) (unknown) -?-?-?-?-?-?-?-? (units (unknown) date) -?-?-?-? unknown) (unknown) (no (unknown) (unknown) 05/19/22 (units (unkno wn) date) unknown) (unknown) (no (unknown) (unknown) 06/16/22 (units (unkno wn) date) unknown) (unknown) (no (unknown) (unknown) 07/07/22 (units (unkno wn) date) unknown) (unknown) (no (unknown) (unknown) 08/29/22 (units (unkno wn) date) Ultrasound #1 32w unknown) 3d (unknown) (no (unknown) (unknown) [id number] (units (unkno wn) date) unknown) (unknown) (no (unknown) (unknown) 01/27/22 (units (unkno wn) date) unknown) (unknown) (no (unknown) (unknown) 02/24/22 (units (unkno wn) date) unknown) (unknown) (no (unknown) (unknown) 03/24/22 (units (unkno wn) date) unknown) (unknown) (no (unknown) (unknown) 04/20/22 (units (unkno wn) date) unknown) (unknown) (no (unknown) (unknown) 12w 6d 163 lb (units ( unknown) date) unknown) (unknown) (no (unknown) (unknown) 16w 6d 167 lb (units ( unknown) date) unknown) (unknown) (no (unknown) (unknown) 20w 5d 168 lb (units ( unknown) date) unknown) (unknown) (no (unknown) (unknown) 24w 6d 173 lb (units ( unknown) date) unknown) (unknown) (no (unknown) (unknown) 28w 6d 177 lb (units ( unknown) date) unknown) (unknown) (no (unknown) (unknown) 3 wks (units (unkno wn) date) unknown) (unknown) (no (unknown) (unknown) 4 wk (units (unkno wn) date) unknown) (unknown) (no (unknown) (unknown) 8w 6d 162 lb (units (u nknown) date) unknown) (unknown) (no (unknown) (unknown) Abnormal lab (units (u nknown) date) values 1st unknown) trimester: discussed (unknown) (no (unknown) (unknown) Abnormal lab (units (u nknown) date) values 2nd unknown) trimester: discussed (unknown) (no (unknown) (unknown) Add'l Plan (units (unk nown) date) Details unknown) (unknown) (no (unknown) (unknown) Age/Sex: 32 / F (units (unknown) date) Date of Service: unknown) (unknown) (no (unknown) (unknown) Allergies (units (unkn own) date) (-2013) unknown) (unknown) (no (unknown) (unknown) Allergies (units (unkn own) date) unknown) (unknown) (no (unknown) (unknown) ORALIA Erickson (units ( unknown) date) [id number] unknown) (unknown) (no (unknown) (unknown) Anesthesia (units (unk nown) date) unknown) (unknown) (no (unknown) (unknown) Aneuploidy (units (unk nown) date) Screening unknown) Offered: Accepted (wants CFDNA) (unknown) (no (unknown) (unknown) Anticipated (units (un known) date) course of unknown) care: discussed (unknown) (no (unknown) (unknown) Anxiety (-2016) (units (unknown) date) unknown) (unknown) (no (unknown) (unknown) Arrhythmia (units (unk nown) date) unknown) (unknown) (no (unknown) (unknown) Assessment and (units (unknown) date) Plan unknown) (unknown) (no (unknown) (unknown) Attending Dr: (units ( unknown) date) Richelle Dawkins unknown) (unknown) (no (unknown) (unknown) Corazon presents (units (unknown) date) today for routine unknown) OB f/u at 20w5d. She reports good (unknown) (no (unknown) (unknown) (units (unkno wn) date) Plan/Preferences unknown) (unknown) (no (unknown) (unknown) Planning (units (unknown) date) unknown) (unknown) (no (unknown) (unknown) Blood (units (unkno wn) date) transfusions?: unknown) yes (Never had but would accept) (unknown) (no (unknown) (unknown) : (units (unknown) date) discussed unknown) (unknown) (no (unknown) (unknown) Chicken pox (units (un known) date) () unknown) (unknown) (no (unknown) (unknown) Childbirth (units (unk nown) date) Classes: unknown) discussed (unknown) (no (unknown) (unknown) Conceived (units (unkn own) date) naturally this unknown) (unknown) (no (unknown) (unknown) Current Estimate (units (unknown) date) 09/02/22 unknown) Ultrasound #2 31w 6d (unknown) (no (unknown) (unknown) Current (units (unkno wn) date) History unknown) (unknown) (no (unknown) (unknown) DNA (units (unkno wn) date) unknown) (unknown) (no (unknown) (unknown) : 1990 (units (unknown) date) Acct:[id number] unknown) (unknown) (no (unknown) (unknown) Date of positive (units (unknown) date) home unknown) test: 12/29/21 (unknown) (no (unknown) (unknown) Date (units (unkno wn) date) unknown) (unknown) (no (unknown) (unknown) Denies Congenital (units (unknown) date) Heart Defect, unknown) Denies Down Syndrome, Denies Muscular Dystrophy, (unknown) (no (unknown) (unknown) Denies Maternal (units (unknown) date) Metabolic unknown) Disorder (EG,TYPE 1 Diabetes, PKU), Denies Patient or (unknown) (no (unknown) (unknown) Denies Neural (units ( unknown) date) Tube Defect unknown) (Meningomyelocele , Spina Bifida, or Anencephaly), (unknown) (no (unknown) (unknown) Denies Sickle (units ( unknown) date) Cell Disease or unknown) Trait (), Denies Hemophilia or other blood (unknown) (no (unknown) (unknown) Denies Enio-Sachs (units (unknown) date) (Ashkenazi unknown) Sabianism, Cajun, Indonesian Paraguayan), Denies Jose (unknown) (no (unknown) (unknown) Depression (units (unk nown) date) (-2016) unknown) (unknown) (no (unknown) (unknown) Depression: (units (un known) date) discussed unknown) (unknown) (no (unknown) (unknown) Dept at (units (unkno wn) date) . unknown) (unknown) (no (unknown) (unknown) Diet and (units (unkno wn) date) Exercise unknown) (unknown) (no (unknown) (unknown) Disease (units (unkno wn) date) (Ashkenazi unknown) Sabianism), Denies Familial Dysautonomia (Ashkenazi Sabianism), (unknown) (no (unknown) (unknown) Documented By: (units (unknown) date) Richelle Dawkins unknown) 07/07/22 1521 (unknown) (no (unknown) (unknown) Draft (units (unkno wn) date) unknown) (unknown) (no (unknown) (unknown) MARIANNE Calculator (units (unknown) date) unknown) (unknown) (no (unknown) (unknown) EGA Weight BP (units ( unknown) date) UGlucose unknown) (unknown) (no (unknown) (unknown) Eczema (-2000) (units (unknown) date) unknown) (unknown) (no (unknown) (unknown) Estimated (units (unkn own) date) Delivery Date unknown) Method Current (unknown) (no (unknown) (unknown) Exercise and (units (u nknown) date) activity, unknown) work/environmenta l/hazards, Sexual activity, X-ray (unknown) (no (unknown) (unknown) F/u in 4 wks. (units ( unknown) date) unknown) (unknown) (no (unknown) (unknown) Family History (units (unknown) date) (Updated 01/24/22 unknown) @ 21:49 by Anamaria Cooper) (unknown) (no (unknown) (unknown) Family/Other (units (u nknown) date) Multiple unknown) sclerosis (unknown) (no (unknown) (unknown) Father (units (unkno wn) date) Hypertension unknown) (unknown) (no (unknown) (unknown) Father of Baby: (units (unknown) date) same unknown) (unknown) (no (unknown) (unknown) [facility] ([facility] unknown) (unknown) (no (unknown) (unknown) First Trimester (units (unknown) date) Education unknown) Checklist (unknown) (no (unknown) (unknown) Foot pain (units (unkn own) date) (-2019) unknown) (unknown) (no (unknown) (unknown) (SAB (units (unkn own) date) x7),Fertility Tx, unknown) meds only, started on baby aspirin 02/24/2022 (unknown) (no (unknown) (unknown) GDM, on (units (unkno wn) date) Metformin 500mg unknown) BID (unknown) (no (unknown) (unknown) Genetic (units (unkno wn) date) Screening + unknown) Counseling (unknown) (no (unknown) (unknown) Genetic (units (unkno wn) date) Screening unknown) (unknown) (no (unknown) (unknown) Grandfather (units (un known) date) Cancer unknown) (unknown) (no (unknown) (unknown) Grandfather (units (un known) date) Stroke unknown) (unknown) (no (unknown) (unknown) Grandmother (units (un known) date) History unknown) of heart disease (unknown) (no (unknown) (unknown) Grandmother (units (un known) date) Multiple unknown) sclerosis (unknown) (no (unknown) (unknown) 8 (units (unkn own) date) Multiple births 0 unknown) (unknown) (no (unknown) (unknown) HIV risk (units (unkno wn) date) evaluation: low unknown) risk (unknown) (no (unknown) (unknown) Health Center (units ( unknown) date) Education unknown) (unknown) (no (unknown) (unknown) Health center (units ( unknown) date) information: unknown) nature of practice discussed, personnel (unknown) (no (unknown) (unknown) Hepatitis C risk (units (unknown) date) evaluation: low unknown) risk (unknown) (no (unknown) (unknown) History of (units (unk nown) date) Hepatitis B: No unknown) (unknown) (no (unknown) (unknown) History of (units (unk nown) date) Hepatitis C: No unknown) (unknown) (no (unknown) (unknown) 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 (unknown) (no (unknown) (unknown) Hospital: [facility] (units (u nknown) date) unknown) (unknown) (no (unknown) (unknown) [facility] (units (u nknown) date) Chorea, Denies unknown) Other inherited genetic or chromosomal disorder, (unknown) (no (unknown) (unknown) , Elieser (units ( unknown) date) Martell unknown) (unknown) (no (unknown) (unknown) Hx # (units (u nknown) date) Pregnancies 0 unknown) Elective abortions 0 (unknown) (no (unknown) (unknown) Hx # Term (units (unkn own) date) Pregnancies 0 unknown) Ectopic pregnancies 0 (unknown) (no (unknown) (unknown) Infant will be (units (unknown) date) adopted?: no unknown) (unknown) (no (unknown) (unknown) Infection (units (unkn own) date) History unknown) (unknown) (no (unknown) (unknown) Infectious (units (unk nown) date) Disease Education unknown) (unknown) (no (unknown) (unknown) Infectious (units (unk nown) date) disease exposure: unknown) chicken pox immunity discussed, hepatitis risk (unknown) (no (unknown) (unknown) Infertility (units (un known) date) () unknown) (unknown) (no (unknown) (unknown) Initial Weight: (units (unknown) date) 155 lb unknown) (unknown) (no (unknown) (unknown) Initials (units (unkno wn) date) unknown) (unknown) (no (unknown) (unknown) Intake (units (unkno wn) date) unknown) (unknown) (no (unknown) (unknown) Irregular (units (unkn own) date) menstrual cycle unknown) (-2017) (unknown) (no (unknown) (unknown) LM (units (unkno wn) date) unknown) (unknown) (no (unknown) (unknown) Lipoma (units (unkno wn) date) unknown) (unknown) (no (unknown) (unknown) Live with (units (unkn own) date) someone with TB unknown) or exposed to TB: No (unknown) (no (unknown) (unknown) Loc: [facility] (units (unkno wn) date) unknown) (unknown) (no (unknown) (unknown) Marital status: (units (unknown) date) unknown) (unknown) (no (unknown) (unknown) Medical History (units (unknown) date) (Updated 06/28/22 unknown) @ 16:18 by Richelle Dawkins MD) (unknown) (no (unknown) (unknown) Mother Gastric (units (unknown) date) cancer unknown) (unknown) (no (unknown) (unknown) N No 142 13 N/A (units (unknown) date) 4wk unknown) (unknown) (no (unknown) (unknown) N No no 143 17 (units (unknown) date) N/A absent AFP 4 unknown) wks (unknown) (no (unknown) (unknown) N No no 178 9 (units ( unknown) date) N/A absent unknown) long/closed AGA 9 (unknown) (no (unknown) (unknown) N Yes no 141 24 (units (unknown) date) N/A absent 4 wks unknown) (unknown) (no (unknown) (unknown) N Yes no 142 20 (units (unknown) date) N/A absent AFP unknown) negative (unknown) (no (unknown) (unknown) N Yes no 144 29 (units (unknown) date) Vertex absent AGA unknown) 29w5d (unknown) (no (unknown) (unknown) NF (units (unkno wn) date) unknown) (unknown) (no (unknown) (unknown) Notes (units (unkno wn) date) unknown) (unknown) (no (unknown) (unknown) Number of Living (units (unknown) date) Children 0 unknown) (unknown) (no (unknown) (unknown) Number of (units (unkn own) date) fetuses:: Single unknown) (unknown) (no (unknown) (unknown) Nutrition and (units ( unknown) date) weight gain unknown) counseling: special diet: discussed (unknown) (no (unknown) (unknown) OB Office Visit (units (unknown) date) unknown) (unknown) (no (unknown) (unknown) OB Visit Log (units (u nknown) date) unknown) (unknown) (no (unknown) (unknown) On U/S: AGA (units (un known) date) 29w5d. 3#4oz unknown) 66%ile. Nl AFV. Plan: Metformin 500mg BID. F/U 3 (unknown) (no (unknown) (unknown) On control (units (unknown) date) at conception?: unknown) No (unknown) (no (unknown) (unknown) Other Estimates (units (unknown) date) 08/18/22 LMP unknown) (Certain) 34w 0d (unknown) (no (unknown) (unknown) Ovarian cyst (units (u nknown) date) () unknown) (unknown) (no (unknown) (unknown) PCOS (polycystic (units (unknown) date) ovarian syndrome) unknown) (unknown) (no (unknown) (unknown) PFSH (units (unkno wn) date) unknown) (unknown) (no (unknown) (unknown) Para 0 (units (unkno wn) date) Spontaneous unknown) abortions 7 (unknown) (no (unknown) (unknown) Partner history (units (unknown) date) of STD: denies hx unknown) (unknown) (no (unknown) (unknown) Partner history (units (unknown) date) of genital unknown) herpes: No (unknown) (no (unknown) (unknown) Partner: Elieser (units ( unknown) date) Martell unknown) (unknown) (no (unknown) (unknown) Patient comes in (units (unknown) date) for follow-up OB unknown) visit. She had some pelvic pain that (unknown) (no (unknown) (unknown) Patient presents (units (unknown) date) for a new OB unknown) visit at 8 weeks gestation. She is (unknown) (no (unknown) (unknown) Patient presents (units (unknown) date) for a routine unknown) visit, accompanied by her . 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) [facility] vs unknown) [facility] (unknown) (no (unknown) (unknown) Personal history (units (unknown) date) of STD: denies hx unknown) (unknown) (no (unknown) (unknown) Personal history (units (unknown) date) of genital unknown) herpes: No (unknown) (no (unknown) (unknown) Plantar (units (unkno wn) date) fasciitis unknown) (unknown) (no (unknown) (unknown) (units (unk nown) date) family unknown) planning/Tubal sterilization: further discussion needed (unknown) (no (unknown) (unknown) (units (unkn own) date) History unknown) (unknown) (no (unknown) (unknown) type:: (units (unknown) date) Other Normal unknown) (unknown) (no (unknown) (unknown) (units (unkno wn) date) Education unknown) (unknown) (no (unknown) (unknown) Initial (units (unknown) date) Assessment unknown) (unknown) (no (unknown) (unknown) (units (unkno wn) date) Specific unknown) Issues/Plans (unknown) (no (unknown) (unknown) (units (unkno wn) date) Testing: unknown) discussed (unknown) (no (unknown) (unknown) Visit (units (unknown) date) unknown) (unknown) (no (unknown) (unknown) (units (unkno wn) date) education packet: unknown) Child education/plan, symptoms, (unknown) (no (unknown) (unknown) Primary Care (units (u nknown) date) Provider: [place] Israel (unknown) (no (unknown) (unknown) Primary Ob (units (unk nown) date) Provider: unknown) Richelle Dawkins (unknown) (no (unknown) (unknown) Prior (units (unkno wn) date) GBS-Infected unknown) child: No (unknown) (no (unknown) (unknown) Providers (units (unkn own) date) unknown) (unknown) (no (unknown) (unknown) Pt presents for (units (unknown) date) a PNV at 16+6 unknown) wks. No FM. No LOF/VB. Rec'd flu shot (unknown) (no (unknown) (unknown) Pt presents for (units (unknown) date) a routine PNV at unknown) 28 +6 wks gestation. Abnormal 3 hr GTT. 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 She unknown) has felt good movement. She says it is (unknown) (no (unknown) (unknown) Shingles (units (unkno wn) date) unknown) (unknown) (no (unknown) (unknown) Signed By: (units (unk nown) date) unknown) (unknown) (no (unknown) (unknown) Signs and (units (unkn own) date) symptoms of unknown) labor: discussed (unknown) (no (unknown) (unknown) Smoking Status: (units (unknown) date) Never smoker unknown) (unknown) (no (unknown) (unknown) Social History (units (unknown) date) unknown) (unknown) (no (unknown) (unknown) Support (units (unkno wn) date) Person(s):: Elieser unknown) (unknown) (no (unknown) (unknown) Surgical History (units (unknown) date) (Updated 01/24/22 unknown) @ 21:46 by Anamaria Cooper) (unknown) (no (unknown) (unknown) Surrogate (units (unkn own) date) ?: no unknown) (unknown) (no (unknown) (unknown) Symptoms since (units (unknown) date) LMP: Reports unknown) amenorrhea, nausea, fatigue, breast tenderness, (unknown) (no (unknown) (unknown) Teratogen (units (unkn own) date) Exposures since unknown) LMP/Conception: Denies prescription medications, (unknown) (no (unknown) (unknown) Testing (units (unkno wn) date) Education unknown) (unknown) (no (unknown) (unknown) Testing (units (unkno wn) date) education unknown) completed: group B strep, Spina bifida testing and Cell Free (unknown) (no (unknown) (unknown) This note may (units ( unknown) date) have been all or unknown) partially generated using voice recognition (unknown) (no (unknown) (unknown) Tobacco + (units (unkn own) date) Substance Use unknown) (unknown) (no (unknown) (unknown) Tobacco Status (units (unknown) date) unknown) (unknown) (no (unknown) (unknown) Tumor () (units (unknown) date) unknown) (unknown) (no (unknown) (unknown) Type(s) of (units (unk nown) date) exercise: unknown) bicycling (stationary bike), regular exercise, weight (unknown) (no (unknown) (unknown) UProtein Movement (units (unknown) date) PreLabor FHR Fndl unknown) Ht Pres Edema Cerv Exam US/Comment Next Appt (unknown) (no (unknown) (unknown) Varicella/chicke (units (unknown) date) n pox status: unknown) previous disease (unknown) (no (unknown) (unknown) Visit Date: (units (un known) date) 05/19/22 Last unknown) Updated by: Richelle Dawkins MD (unknown) (no (unknown) (unknown) Visit Date: (units (un known) date) 06/16/22 Last unknown) Updated by: Richelle Dawkins MD (unknown) (no (unknown) (unknown) Visit Date: (units (un known) date) 01/27/22 Last unknown) Updated by: Richelle Dawkins MD (unknown) (no (unknown) (unknown) Visit Date: (units (un known) date) 02/24/22 Last unknown) Updated by: Marietta Massey MD (unknown) (no (unknown) (unknown) Visit Date: (units (un known) date) 03/24/22 Last unknown) Updated by: Richelle Dawkins MD (unknown) (no (unknown) (unknown) Visit Date: (units (un known) date) 04/20/22 Last unknown) Updated by: Xiao Boland P.A-C (unknown) (no (unknown) (unknown) Visit Reasons: (units (unknown) date) OB unknown) (unknown) (no (unknown) (unknown) Vitamins and (units (u nknown) date) iron, Diet and unknown) weight gain, Fish and mercury intake, Caffeine use, (unknown) (no (unknown) (unknown) WG (units (unkno wn) date) unknown) (unknown) (no (unknown) (unknown) Ages [place] teeth (units (u nknown) date) extracted unknown) (unknown) (no (unknown) (unknown) Zika virus (units (unk nown) date) exposure: No unknown) (unknown) (no (unknown) (unknown) accompanied by (units (unknown) date) her . She unknown) went through fertility treatments with (unknown) (no (unknown) (unknown) alcohol intake: (units (unknown) date) never unknown) (unknown) (no (unknown) (unknown) anterior (units (unkno wn) date) placenta. Routine unknown) precautions reviewed with the patient. Due to 1st (unknown) (no (unknown) (unknown) anyone in either (units (unknown) date) family with: unknown) (unknown) (no (unknown) (unknown) baby's father (units ( unknown) date) had a child with unknown) defects not listed above and Denies Other (unknown) (no (unknown) (unknown) back pain. (units (unk nown) date) Advised unknown) stretching, belly band, and PT if not improving. AFP was (unknown) (no (unknown) (unknown) by ultrasound is (units (unknown) date) normal with good unknown) movement, normal appearing fluid, (unknown) (no (unknown) (unknown) caffeine: Yes (units ( unknown) date) (1-2 cups unknown) tea/day) (unknown) (no (unknown) (unknown) carbon monox (units (u nknown) date) detector in home: unknown) Yes (unknown) (no (unknown) (unknown) cfDNA normal (units (u nknown) date) female, AFP unknown) negative (unknown) (no (unknown) (unknown) consistent with (units (unknown) date) 9 weeks 0 days. unknown) Yolk sac visible. heart rate 178 beats (unknown) (no (unknown) (unknown) current (units (unkno wn) date) occupational unknown) exposures/hazards : No (unknown) (no (unknown) (unknown) daily servings (units (unknown) date) fruits/ve-4 unknown) (unknown) (no (unknown) (unknown) described, visit (units (unknown) date) schedule unknown) reviewed, ultrasounds policy reviewed, coverage 24 (unknown) (no (unknown) (unknown) developing a (units (u nknown) date) pattern. No unknown) leakage of fluid or vaginal bleeding. No contractions (unknown) (no (unknown) (unknown) discussed, (units (unk nown) date) tuberculosis unknown) exposure discussed, CMV discussed, Toxoplasmosis (unknown) (no (unknown) (unknown) disorders, (units (unk nown) date) Denies Cystic unknown) Fibrosis, Denies Mental Retardation/Autis m, Denies (unknown) (no (unknown) (unknown) do you feel safe (units (unknown) date) at home: Yes unknown) (unknown) (no (unknown) (unknown) during the past (units (unknown) date) year weight has: unknown) remained stable (unknown) (no (unknown) (unknown) education level: (units (unknown) date) college unknown) (Associate's degree) (unknown) (no (unknown) (unknown) exposure, (units (unkn own) date) Medication use, unknown) Sauna/hot tub use, Dental care, Travel and Influenza (unknown) (no (unknown) (unknown) fire (units (unkno wn) date) extinguisher in unknown) home: Yes (unknown) (no (unknown) (unknown) firearms in (units (un known) date) home: Yes unknown) firearms unloaded and locked: Yes (unknown) (no (unknown) (unknown) frequency: 5-6 (units (unknown) date) times per week unknown) (unknown) (no (unknown) (unknown) gestational sac (units (unknown) date) with a fetus with unknown) a crown-rump length measuring 2.29 cm (unknown) (no (unknown) (unknown) have occurred. (units (unknown) date) If there are any unknown) questions, please contact the Medical Records (unknown) (no (unknown) (unknown) hours a day and (units (unknown) date) participation of unknown) father in care and office visits (unknown) (no (unknown) (unknown) household (units (unkn own) date) members: spouse unknown) and family (father and [id number]) (unknown) (no (unknown) (unknown) housing: house (units (unknown) date) unknown) (unknown) (no (unknown) (unknown) illicit drugs (units ( unknown) date) and Denies other unknown) (unknown) (no (unknown) (unknown) kag (units (unkno wn) date) unknown) (unknown) (no (unknown) (unknown) last visit. (units (un known) date) Plan: AFP today. unknown) 20 wk u/s reviewed. F/U 4 wks. Warning signs (unknown) (no (unknown) (unknown) lifting and (units (un known) date) other (hiking) unknown) (unknown) (no (unknown) (unknown) lives (units (unkno wn) date) independently: unknown) Yes (unknown) (no (unknown) (unknown) marital status: (units (unknown) date) unknown) (unknown) (no (unknown) (unknown) may occur. (units (unk nown) date) Occasional unknown) wrong-word or 'sound-alike' substitutions may have (unknown) (no (unknown) (unknown) medication only. (units (unknown) date) Had 7 unknown) miscarriages. No bleeding with this . This 1 (unknown) (no (unknown) (unknown) movement and (units (u nknown) date) denies VB, LOF, unknown) cramping and regular contractions. Pt reports low (unknown) (no (unknown) (unknown) negative. (units (unkn own) date) Anatomy US unknown) scheduled for later today. Warning precautions reviewed. 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 Please (unknown) (no (unknown) (unknown) or cramping. (units (u nknown) date) Plan: 1 hour unknown) glucose ordered. Follow-up in 4 weeks. Warning (unknown) (no (unknown) (unknown) per minute. (units (un known) date) Normal ovaries unknown) bilaterally. Plan: Follow-up in 4 weeks. Warning (unknown) (no (unknown) (unknown) pets and (units (unkno wn) date) animals: Yes (1 unknown) large dog, chickens) (unknown) (no (unknown) (unknown) precautions, (units (u nknown) date) Listeriosis unknown) prevention and Rubella Immunization (unknown) (no (unknown) (unknown) preeclampsia. (units ( unknown) date) unknown) (unknown) (no (unknown) (unknown) (units (unkn own) date) discussed unknown) starting baby aspirin per day to decrease her risk for (unknown) (no (unknown) (unknown) read the note (units ( unknown) date) carefully and unknown) recognize, using context, where these substitutions (unknown) (no (unknown) (unknown) reviewed. (units (unkn own) date) unknown) (unknown) (no (unknown) (unknown) seatbelt use: (units ( unknown) date) always unknown) (unknown) (no (unknown) (unknown) second hand (units (un known) date) exposure: Yes unknown) ([id number] smokes outside the house) (unknown) (no (unknown) (unknown) signs reviewed. (units (unknown) date) cfDNA ordered. unknown) (unknown) (no (unknown) (unknown) signs reviewed. (units (unknown) date) unknown) (unknown) (no (unknown) (unknown) software. (units (unkn own) date) Although every unknown) effort is made to edit content, snubber errors (unknown) (no (unknown) (unknown) special anjum (units ( unknown) date) needs: No unknown) (unknown) (no (unknown) (unknown) substance use (units ( unknown) date) type: does not unknown) use (unknown) (no (unknown) (unknown) travel history: (units (unknown) date) over 6 months ago unknown) (unknown) (no (unknown) (unknown) urinary (units (unkno wn) date) frequency and unknown) irritability (unknown) (no (unknown) (unknown) vaccine (Annual (units (unknown) date) flu, Phizer Covid unknown) x2) (unknown) (no (unknown) (unknown) w0d 4 wks (units (unkn own) date) unknown) (unknown) (no (unknown) (unknown) was not using (units ( unknown) date) any infertility unknown) medications. Ultrasound: An intrauterine (unknown) (no (unknown) (unknown) water heater (units (u nknown) date) temp set < 120 unknown) deg: Yes (unknown) (no (unknown) (unknown) well-balanced (units ( unknown) date) diet: daily or unknown) most days (unknown) (no (unknown) (unknown) went away with (units (unknown) date) laying down. No unknown) vaginal bleeding. No fevers. heart tone (unknown) (no (unknown) (unknown) while ) (units (unknown) date) unknown) (unknown) (no (unknown) (unknown) wks. Warning (units (u nknown) date) signs for PTL unknown) reviewed. (unknown) (no (unknown) (unknown) working smoke (units ( unknown) date) detector in home: unknown) Yes Result panel 20 (unknown) (no (unknown) (unknown) (no value) (units (unk nown) date) unknown) (unknown) (no (unknown) (unknown) (+12 lb) 120/58 (units (unknown) date) N unknown) (unknown) (no (unknown) (unknown) (+13 lb) 104/54 (units (unknown) date) N unknown) (unknown) (no (unknown) (unknown) (+18 lb) 122/60 (units (unknown) date) N unknown) (unknown) (no (unknown) (unknown) (+22 lb) 110/62 (units (unknown) date) N unknown) (unknown) (no (unknown) (unknown) (+7 lb) 128/66 N (units (unknown) date) unknown) (unknown) (no (unknown) (unknown) (+8 lb) 122/68 N (units (unknown) date) unknown) (unknown) (no (unknown) (unknown) Genetic (units (unkn own) date) Screening/Teratol unknown) ogy Counseling - Includes patient, baby's father, or (unknown) (no (unknown) (unknown) -?-?-?-?-?-?-?-? (units (unknown) date) -?-?-?-? unknown) (unknown) (no (unknown) (unknown) 05/19/22 (units (unkno wn) date) unknown) (unknown) (no (unknown) (unknown) 06/16/22 (units (unkno wn) date) unknown) (unknown) (no (unknown) (unknown) 07/07/22 (units (unkno wn) date) unknown) (unknown) (no (unknown) (unknown) 07/07/22] (units (unkn own) date) unknown) (unknown) (no (unknown) (unknown) 08/29/22 (units (unkno wn) date) Ultrasound #1 32w unknown) 3d (unknown) (no (unknown) (unknown) [id number] (units (unkno wn) date) unknown) (unknown) (no (unknown) (unknown) 01/27/22 (units (unkno wn) date) unknown) (unknown) (no (unknown) (unknown) 02/24/22 (units (unkno wn) date) unknown) (unknown) (no (unknown) (unknown) 03/24/22 (units (unkno wn) date) unknown) (unknown) (no (unknown) (unknown) 04/20/22 (units (unkno wn) date) unknown) (unknown) (no (unknown) (unknown) 12w 6d 163 lb (units ( unknown) date) unknown) (unknown) (no (unknown) (unknown) 15:28 (units (unkno wn) date) unknown) (unknown) (no (unknown) (unknown) 16w 6d 167 lb (units ( unknown) date) unknown) (unknown) (no (unknown) (unknown) 20w 5d 168 lb (units ( unknown) date) unknown) (unknown) (no (unknown) (unknown) 24w 6d 173 lb (units ( unknown) date) unknown) (unknown) (no (unknown) (unknown) 28w 6d 177 lb (units ( unknown) date) unknown) (unknown) (no (unknown) (unknown) 3 wks (units (unkno wn) date) unknown) (unknown) (no (unknown) (unknown) 4 wk (units (unkno wn) date) unknown) (unknown) (no (unknown) (unknown) 8w 6d 162 lb (units (u nknown) date) unknown) (unknown) (no (unknown) (unknown) Abnormal lab (units (u nknown) date) values 1st unknown) trimester: discussed (unknown) (no (unknown) (unknown) Abnormal lab (units (u nknown) date) values 2nd unknown) trimester: discussed (unknown) (no (unknown) (unknown) Add'l Plan (units (unk nown) date) Details unknown) (unknown) (no (unknown) (unknown) Age/Sex: 32 / F (units (unknown) date) Date of Service: unknown) (unknown) (no (unknown) (unknown) Allergies (units (unkn own) date) () unknown) (unknown) (no (unknown) (unknown) Allergies (units (unkn own) date) unknown) (unknown) (no (unknown) (unknown) [place], [place] (units ( unknown) date) [id number] unknown) (unknown) (no (unknown) (unknown) Anesthesia (units (unk nown) date) unknown) (unknown) (no (unknown) (unknown) Aneuploidy (units (unk nown) date) Screening unknown) Offered: Accepted (wants CFDNA) (unknown) (no (unknown) (unknown) Anticipated (units (un known) date) course of unknown) care: discussed (unknown) (no (unknown) (unknown) Anxiety (-2016) (units (unknown) date) unknown) (unknown) (no (unknown) (unknown) Arrhythmia (units (unk nown) date) unknown) (unknown) (no (unknown) (unknown) Assessment and (units (unknown) date) Plan unknown) (unknown) (no (unknown) (unknown) Attending Dr: (units ( unknown) date) Richelle Dakwins unknown) (unknown) (no (unknown) (unknown) Corazon presents (units (unknown) date) today for routine unknown) OB f/u at 20w5d. She reports good (unknown) (no (unknown) (unknown) BMI 28.8 (units (unkno wn) date) unknown) (unknown) (no (unknown) (unknown) BP 128/62 (units (unkn own) date) unknown) (unknown) (no (unknown) (unknown) (units (unkno wn) date) Plan/Preferences unknown) (unknown) (no (unknown) (unknown) Planning (units (unknown) date) unknown) (unknown) (no (unknown) (unknown) Blood Pressure (units (unknown) date) Location Rt unknown) brachial (unknown) (no (unknown) (unknown) Blood (units (unkno wn) date) transfusions?: unknown) yes (Never had but would accept) (unknown) (no (unknown) (unknown) : (units (unknown) date) discussed unknown) (unknown) (no (unknown) (unknown) Chicken pox (units (un known) date) (-1994) unknown) (unknown) (no (unknown) (unknown) Childbirth (units (unk nown) date) Classes: unknown) discussed (unknown) (no (unknown) (unknown) Conceived (units (unkn own) date) naturally this unknown) (unknown) (no (unknown) (unknown) Confirmed (units (unkn own) date) 07/07/22] unknown) (unknown) (no (unknown) (unknown) Current Estimate (units (unknown) date) 09/02/22 unknown) Ultrasound #2 31w 6d (unknown) (no (unknown) (unknown) Current (units (unkno wn) date) History unknown) (unknown) (no (unknown) (unknown) DNA (units (unkno wn) date) unknown) (unknown) (no (unknown) (unknown) : 1990 (units (unknown) date) Acct:[id number] unknown) (unknown) (no (unknown) (unknown) Date of positive (units (unknown) date) home unknown) test: 12/29/21 (unknown) (no (unknown) (unknown) Date (units (unkno wn) date) unknown) (unknown) (no (unknown) (unknown) Denies Congenital (units (unknown) date) Heart Defect, unknown) Denies Down Syndrome, Denies Muscular Dystrophy, (unknown) (no (unknown) (unknown) Denies Maternal (units (unknown) date) Metabolic unknown) Disorder (EG,TYPE 1 Diabetes, PKU), Denies Patient or (unknown) (no (unknown) (unknown) Denies Neural (units ( unknown) date) Tube Defect unknown) (Meningomyelocele , Spina Bifida, or Anencephaly), (unknown) (no (unknown) (unknown) Denies Sickle (units ( unknown) date) Cell Disease or unknown) Trait (), Denies Hemophilia or other blood (unknown) (no (unknown) (unknown) Denies Enio-Sachs (units (unknown) date) (Ashkenazi unknown) Sabianism, Cajun, Indonesian Paraguayan), Denies Jose (unknown) (no (unknown) (unknown) Depression (units (unk nown) date) (-2016) unknown) (unknown) (no (unknown) (unknown) Depression: (units (un known) date) discussed unknown) (unknown) (no (unknown) (unknown) Dept at (units (unkno wn) date) . unknown) (unknown) (no (unknown) (unknown) Diet and (units (unkno wn) date) Exercise unknown) (unknown) (no (unknown) (unknown) Disease (units (unkno wn) date) (Ashkenazi unknown) Sabianism), Denies Familial Dysautonomia (Ashkenazi Sabianism), (unknown) (no (unknown) (unknown) Documented By: (units (unknown) date) Richelle Dawkins unknownShiva MAGALLON 07/07/22 1521 (unknown) (no (unknown) (unknown) Draft (units (unkno wn) date) unknown) (unknown) (no (unknown) (unknown) MARIANNE Calculator (units (unknown) date) unknown) (unknown) (no (unknown) (unknown) EGA Weight BP (units ( unknown) date) UGlucose unknown) (unknown) (no (unknown) (unknown) Eczema (-2000) (units (unknown) date) unknown) (unknown) (no (unknown) (unknown) Estimated (units (unkn own) date) Delivery Date unknown) Method Current (unknown) (no (unknown) (unknown) Exercise and (units (u nknown) date) activity, unknown) work/environmenta l/hazards, Sexual activity, X-ray (unknown) (no (unknown) (unknown) F/u in 4 wks. (units ( unknown) date) unknown) (unknown) (no (unknown) (unknown) Family History (units (unknown) date) (Updated 01/24/22 unknown) @ 21:49 by Anamaria Cooper) (unknown) (no (unknown) (unknown) Family/Other (units (u nknown) date) Multiple unknown) sclerosis (unknown) (no (unknown) (unknown) Father (units (unkno wn) date) Hypertension unknown) (unknown) (no (unknown) (unknown) Father of Baby: (units (unknown) date) same unknown) (unknown) (no (unknown) (unknown) [facility]) (unknown) (no (unknown) (unknown) First Trimester (units (unknown) date) Education unknown) Checklist (unknown) (no (unknown) (unknown) Foot pain (units (unkn own) date) (-2020) unknown) (unknown) (no (unknown) (unknown) (SAB (units (unkn own) date) x7),Fertility Tx, unknown) meds only, started on baby aspirin 02/24/2022 (unknown) (no (unknown) (unknown) GDM, on (units (unkno wn) date) Metformin 500mg unknown) BID (unknown) (no (unknown) (unknown) Genetic (units (unkno wn) date) Screening + unknown) Counseling (unknown) (no (unknown) (unknown) Genetic (units (unkno wn) date) Screening unknown) (unknown) (no (unknown) (unknown) Grandfather (units (un known) date) Cancer unknown) (unknown) (no (unknown) (unknown) Grandfather (units (un known) date) Stroke unknown) (unknown) (no (unknown) (unknown) Grandmother (units (un known) date) History unknown) of heart disease (unknown) (no (unknown) (unknown) Grandmother (units (un known) date) Multiple unknown) sclerosis (unknown) (no (unknown) (unknown) 8 (units (unkn own) date) Multiple births 0 unknown) (unknown) (no (unknown) (unknown) HIV risk (units (unkno wn) date) evaluation: low unknown) risk (unknown) (no (unknown) (unknown) Health Center (units ( unknown) date) Education unknown) (unknown) (no (unknown) (unknown) Health center (units ( unknown) date) information: unknown) nature of practice discussed, personnel (unknown) (no (unknown) (unknown) Height 5 ft 6 in (units (unknown) date) unknown) (unknown) (no (unknown) (unknown) Hepatitis C risk (units (unknown) date) evaluation: low unknown) risk (unknown) (no (unknown) (unknown) History of (units (unk nown) date) Hepatitis B: No unknown) (unknown) (no (unknown) (unknown) History of (units (unk nown) date) Hepatitis C: No unknown) (unknown) (no (unknown) (unknown) 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 (unknown) (no (unknown) (unknown) Hospital[facility] (units (u nknown) date) unknown) (unknown) (no (unknown) (unknown) [facility] (units (u nknown) date) Chorea, Denies unknown) Other inherited genetic or chromosomal disorder, (unknown) (no (unknown) (unknown) , Elieser (units ( unknown) date) Martell unknown) (unknown) (no (unknown) (unknown) Hx # (units (u nknown) date) Pregnancies 0 unknown) Elective abortions 0 (unknown) (no (unknown) (unknown) Hx # Term (units (unkn own) date) Pregnancies 0 unknown) Ectopic pregnancies 0 (unknown) (no (unknown) (unknown) Infant will be (units (unknown) date) adopted?: no unknown) (unknown) (no (unknown) (unknown) Infection (units (unkn own) date) History unknown) (unknown) (no (unknown) (unknown) Infectious (units (unk nown) date) Disease Education unknown) (unknown) (no (unknown) (unknown) Infectious (units (unk nown) date) disease exposure: unknown) chicken pox immunity discussed, hepatitis risk (unknown) (no (unknown) (unknown) Infertility (units (un known) date) () unknown) (unknown) (no (unknown) (unknown) Initial Weight: (units (unknown) date) 155 lb unknown) (unknown) (no (unknown) (unknown) Initials (units (unkno wn) date) unknown) (unknown) (no (unknown) (unknown) Intake Clinical (units (unknown) date) Staff unknown) (unknown) (no (unknown) (unknown) Intake Note: (units (u nknown) date) unknown) (unknown) (no (unknown) (unknown) Intake performed (units (unknown) date) by: unknown) Nu Alexander (unknown) (no (unknown) (unknown) Intake (units (unkno wn) date) unknown) (unknown) (no (unknown) (unknown) Irregular (units (unkn own) date) menstrual cycle unknown) () (unknown) (no (unknown) (unknown) LM (units (unkno wn) date) unknown) (unknown) (no (unknown) (unknown) Lipoma (units (unkno wn) date) unknown) (unknown) (no (unknown) (unknown) Live with (units (unkn own) date) someone with TB unknown) or exposed to TB: No (unknown) (no (unknown) (unknown) Loc: [facility] (units (unkno wn) date) unknown) (unknown) (no (unknown) (unknown) Marital status: (units (unknown) date) unknown) (unknown) (no (unknown) (unknown) Medical History (units (unknown) date) (Updated 06/28/22 unknown) @ 16:18 by Richelle Dawkins MD) (unknown) (no (unknown) (unknown) Medications (units (un known) date) unknown) (unknown) (no (unknown) (unknown) Mother Gastric (units (unknown) date) cancer unknown) (unknown) (no (unknown) (unknown) N No 142 13 N/A (units (unknown) date) 4wk unknown) (unknown) (no (unknown) (unknown) N No no 143 17 (units (unknown) date) N/A absent AFP 4 unknown) wks (unknown) (no (unknown) (unknown) N No no 178 9 (units ( unknown) date) N/A absent unknown) long/closed AGA 9 (unknown) (no (unknown) (unknown) N Yes no 141 24 (units (unknown) date) N/A absent 4 wks unknown) (unknown) (no (unknown) (unknown) N Yes no 142 20 (units (unknown) date) N/A absent AFP unknown) negative (unknown) (no (unknown) (unknown) N Yes no 144 29 (units (unknown) date) Vertex absent AGA unknown) 29w5d (unknown) (no (unknown) (unknown) NF (units (unkno wn) date) unknown) (unknown) (no (unknown) (unknown) Notes (units (unkno wn) date) unknown) (unknown) (no (unknown) (unknown) Number of Living (units (unknown) date) Children 0 unknown) (unknown) (no (unknown) (unknown) Number of (units (unkn own) date) fetuses:: Single unknown) (unknown) (no (unknown) (unknown) Nutrition and (units ( unknown) date) weight gain unknown) counseling: special diet: discussed (unknown) (no (unknown) (unknown) OB Office Visit (units (unknown) date) unknown) (unknown) (no (unknown) (unknown) OB Visit Log (units (u nknown) date) unknown) (unknown) (no (unknown) (unknown) OB check (units (unkno wn) date) unknown) (unknown) (no (unknown) (unknown) On U/S: AGA (units (un known) date) 29w5d. 3#4oz unknown) 66%ile. Nl AFV. Plan: Metformin 500mg BID. F/U 3 (unknown) (no (unknown) (unknown) On control (units (unknown) date) at conception?: unknown) No (unknown) (no (unknown) (unknown) Other Estimates (units (unknown) date) 08/18/22 LMP unknown) (Certain) 34w 0d (unknown) (no (unknown) (unknown) Ovarian cyst (units (u nknown) date) () unknown) (unknown) (no (unknown) (unknown) PCOS (polycystic (units (unknown) date) ovarian syndrome) unknown) (unknown) (no (unknown) (unknown) PFSH (units (unkno wn) date) unknown) (unknown) (no (unknown) (unknown) Pap performed?: (units (unknown) date) No unknown) (unknown) (no (unknown) (unknown) Para 0 (units (unkno wn) date) Spontaneous unknown) abortions 7 (unknown) (no (unknown) (unknown) Partner history (units (unknown) date) of STD: denies hx unknown) (unknown) (no (unknown) (unknown) Partner history (units (unknown) date) of genital unknown) herpes: No (unknown) (no (unknown) (unknown) Partner: Elieser (units ( unknown) date) Martell unknown) (unknown) (no (unknown) (unknown) Patient comes in (units (unknown) date) for follow-up OB unknown) visit. She had some pelvic pain that (unknown) (no (unknown) (unknown) Patient presents (units (unknown) date) for a new OB unknown) visit at 8 weeks gestation. She is (unknown) (no (unknown) (unknown) Patient presents (units (unknown) date) for a routine unknown) visit, accompanied by her . 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) [place] vs unknown) [facility] (unknown) (no (unknown) (unknown) Personal history (units (unknown) date) of STD: denies hx unknown) (unknown) (no (unknown) (unknown) Personal history (units (unknown) date) of genital unknown) herpes: No (unknown) (no (unknown) (unknown) Plantar (units (unkno wn) date) fasciitis unknown) (unknown) (no (unknown) (unknown) Position Sitting (units (unknown) date) unknown) (unknown) (no (unknown) (unknown) (units (unk nown) date) family unknown) planning/Tubal sterilization: further discussion needed (unknown) (no (unknown) (unknown) (units (unkn own) date) History unknown) (unknown) (no (unknown) (unknown) type:: (units (unknown) date) Other Normal unknown) (unknown) (no (unknown) (unknown) (units (unkno wn) date) Education unknown) (unknown) (no (unknown) (unknown) Initial (units (unknown) date) Assessment unknown) (unknown) (no (unknown) (unknown) (units (unkno wn) date) Specific unknown) Issues/Plans (unknown) (no (unknown) (unknown) (units (unkno wn) date) Testing: unknown) discussed (unknown) (no (unknown) (unknown) Visit (units (unknown) date) unknown) (unknown) (no (unknown) (unknown) (units (unkno wn) date) education packet: unknown) Child education/plan, symptoms, (unknown) (no (unknown) (unknown) Primary Care (units (u nknown) date) Provider: [place] Arboleda unknown) Lindy (unknown) (no (unknown) (unknown) Primary Ob (units (unk nown) date) Provider: unknown) Richelle Dawkins (unknown) (no (unknown) (unknown) Prior (units (unkno wn) date) GBS-Infected unknown) child: No (unknown) (no (unknown) (unknown) Providers (units (unkn own) date) unknown) (unknown) (no (unknown) (unknown) Pt presents for (units (unknown) date) a PNV at 16+6 unknown) wks. No FM. No LOF/VB. Rec'd flu shot (unknown) (no (unknown) (unknown) Pt presents for (units (unknown) date) a routine PNV at unknown) 28 +6 wks gestation. Abnormal 3 hr GTT. 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 She unknown) has felt good movement. She says it is (unknown) (no (unknown) (unknown) Shingles (units (unkno wn) date) unknown) (unknown) (no (unknown) (unknown) Signed By: (units (unk nown) date) unknown) (unknown) (no (unknown) (unknown) Signs and (units (unkn own) date) symptoms of unknown) labor: discussed (unknown) (no (unknown) (unknown) Smoking Status: (units (unknown) date) Never smoker unknown) (unknown) (no (unknown) (unknown) Social History (units (unknown) date) unknown) (unknown) (no (unknown) (unknown) Support (units (unkno wn) date) Person(s):: Elieser unknown) (unknown) (no (unknown) (unknown) Surgical History (units (unknown) date) (Updated 01/24/22 unknown) @ 21:46 by Anamaria Cooper) (unknown) (no (unknown) (unknown) Surrogate (units (unkn own) date) ?: no unknown) (unknown) (no (unknown) (unknown) Symptoms since (units (unknown) date) LMP: Reports unknown) amenorrhea, nausea, fatigue, breast tenderness, (unknown) (no (unknown) (unknown) Teratogen (units (unkn own) date) Exposures since unknown) LMP/Conception: Denies prescription medications, (unknown) (no (unknown) (unknown) Testing (units (unkno wn) date) Education unknown) (unknown) (no (unknown) (unknown) Testing (units (unkno wn) date) education unknown) completed: group B strep, Spina bifida testing and Cell Free (unknown) (no (unknown) (unknown) This note may (units ( unknown) date) have been all or unknown) partially generated using voice recognition (unknown) (no (unknown) (unknown) Tobacco + (units (unkn own) date) Substance Use unknown) (unknown) (no (unknown) (unknown) Tobacco Status (units (unknown) date) unknown) (unknown) (no (unknown) (unknown) Trimester:: 3rd (units (unknown) date) Trimester unknown) (28wks-Del) (unknown) (no (unknown) (unknown) Tumor () (units (unknown) date) unknown) (unknown) (no (unknown) (unknown) Type(s) of (units (unk nown) date) exercise: unknown) bicycling (stationary bike), regular exercise, weight (unknown) (no (unknown) (unknown) UProtein Movement (units (unknown) date) PreLabor FHR Fndl unknown) Ht Pres Edema Cerv Exam US/Comment Next Appt (unknown) (no (unknown) (unknown) Ultrasound (units (unk nown) date) performed?: No unknown) (unknown) (no (unknown) (unknown) Varicella/chicke (units (unknown) date) n pox status: unknown) previous disease (unknown) (no (unknown) (unknown) Visit Date: (units (un known) date) 05/19/22 Last unknown) Updated by: Richelle Dawkins MD (unknown) (no (unknown) (unknown) Visit Date: (units (un known) date) 06/16/22 Last unknown) Updated by: Richelle Dawkins MD (unknown) (no (unknown) (unknown) Visit Date: (units (un known) date) 01/27/22 Last unknown) Updated by: Richelle Dawkins MD (unknown) (no (unknown) (unknown) Visit Date: (units (un known) date) 02/24/22 Last unknown) Updated by: Marietta Massey MD (unknown) (no (unknown) (unknown) Visit Date: (units (un known) date) 03/24/22 Last unknown) Updated by: Richelle Dawkins MD (unknown) (no (unknown) (unknown) Visit Date: (units (un known) date) 04/20/22 Last unknown) Updated by: Xiao Boland P.A-C (unknown) (no (unknown) (unknown) Visit Reasons: (units (unknown) date) OB unknown) (unknown) (no (unknown) (unknown) Vitals (units (unkno wn) date) unknown) (unknown) (no (unknown) (unknown) Vitamins and (units (u nknown) date) iron, Diet and unknown) weight gain, Fish and mercury intake, Caffeine use, (unknown) (no (unknown) (unknown) WG (units (unkno wn) date) unknown) (unknown) (no (unknown) (unknown) Weeks (units (unkno wn) date) gestation:: 31 unknown) (unknown) (no (unknown) (unknown) Weight 179 lb (units ( unknown) date) unknown) (unknown) (no (unknown) (unknown) Ages [place] teeth (units (u nknown) date) extracted unknown) (unknown) (no (unknown) (unknown) Zika virus (units (unk nown) date) exposure: No unknown) (unknown) (no (unknown) (unknown) accompanied by (units (unknown) date) her . She unknown) went through fertility treatments with (unknown) (no (unknown) (unknown) alcohol intake: (units (unknown) date) never unknown) (unknown) (no (unknown) (unknown) anterior (units (unkno wn) date) placenta. Routine unknown) precautions reviewed with the patient. Due to 1st (unknown) (no (unknown) (unknown) anyone in either (units (unknown) date) family with: unknown) (unknown) (no (unknown) (unknown) baby's father (units ( unknown) date) had a child with unknown) defects not listed above and Denies Other (unknown) (no (unknown) (unknown) back pain. (units (unk nown) date) Advised unknown) stretching, belly band, and PT if not improving. AFP was (unknown) (no (unknown) (unknown) blood sugar (units (un known) date) diagnostic (Blood unknown) Glucose Test strips) #100 ea 06/02/22 [Rx (unknown) (no (unknown) (unknown) blood-glucose (units ( unknown) date) meter #1 ea unknown) 06/02/22 [Rx Confirmed 07/07/22] (unknown) (no (unknown) (unknown) by ultrasound is (units (unknown) date) normal with good unknown) movement, normal appearing fluid, (unknown) (no (unknown) (unknown) caffeine: Yes (units ( unknown) date) (1-2 cups unknown) tea/day) (unknown) (no (unknown) (unknown) carbon monox (units (u nknown) date) detector in home: unknown) Yes (unknown) (no (unknown) (unknown) cfDNA normal (units (u nknown) date) female, AFP unknown) negative (unknown) (no (unknown) (unknown) consistent with (units (unknown) date) 9 weeks 0 days. unknown) Yolk sac visible. heart rate 178 beats (unknown) (no (unknown) (unknown) current (units (unkno wn) date) occupational unknown) exposures/hazards : No (unknown) (no (unknown) (unknown) daily servings (units (unknown) date) fruits/ve-4 unknown) (unknown) (no (unknown) (unknown) described, visit (units (unknown) date) schedule unknown) reviewed, ultrasounds policy reviewed, coverage 24 (unknown) (no (unknown) (unknown) developing a (units (u nknown) date) pattern. No unknown) leakage of fluid or vaginal bleeding. No contractions (unknown) (no (unknown) (unknown) discussed, (units (unk nown) date) tuberculosis unknown) exposure discussed, CMV discussed, Toxoplasmosis (unknown) (no (unknown) (unknown) disorders, (units (unk nown) date) Denies Cystic unknown) Fibrosis, Denies Mental Retardation/Autis m, Denies (unknown) (no (unknown) (unknown) do you feel safe (units (unknown) date) at home: Yes unknown) (unknown) (no (unknown) (unknown) during the past (units (unknown) date) year weight has: unknown) remained stable (unknown) (no (unknown) (unknown) education level: (units (unknown) date) college unknown) (Associate's degree) (unknown) (no (unknown) (unknown) exposure, (units (unkn own) date) Medication use, unknown) Sauna/hot tub use, Dental care, Travel and Influenza (unknown) (no (unknown) (unknown) fire (units (unkno wn) date) extinguisher in unknown) home: Yes (unknown) (no (unknown) (unknown) firearms in (units (un known) date) home: Yes unknown) firearms unloaded and locked: Yes (unknown) (no (unknown) (unknown) frequency: 5-6 (units (unknown) date) times per week unknown) (unknown) (no (unknown) (unknown) gestational sac (units (unknown) date) with a fetus with unknown) a crown-rump length measuring 2.29 cm (unknown) (no (unknown) (unknown) have occurred. (units (unknown) date) If there are any unknown) questions, please contact the Medical Records (unknown) (no (unknown) (unknown) hours a day and (units (unknown) date) participation of unknown) father in care and office visits (unknown) (no (unknown) (unknown) household (units (unkn own) date) members: spouse unknown) and family (father and [id number]) (unknown) (no (unknown) (unknown) housing: house (units (unknown) date) unknown) (unknown) (no (unknown) (unknown) illicit drugs (units ( unknown) date) and Denies other unknown) (unknown) (no (unknown) (unknown) kag (units (unkno wn) date) unknown) (unknown) (no (unknown) (unknown) lancets #100 ea (units (unknown) date) 06/02/22 [Rx unknown) Confirmed 07/07/22] (unknown) (no (unknown) (unknown) last visit. (units (un known) date) Plan: AFP today. unknown) 20 wk u/s reviewed. F/U 4 wks. Warning signs (unknown) (no (unknown) (unknown) lifting and (units (un known) date) other (hiking) unknown) (unknown) (no (unknown) (unknown) lives (units (unkno wn) date) independently: unknown) Yes (unknown) (no (unknown) (unknown) marital status: (units (unknown) date) unknown) (unknown) (no (unknown) (unknown) may occur. (units (unk nown) date) Occasional unknown) wrong-word or 'sound-alike' substitutions may have (unknown) (no (unknown) (unknown) medication only. (units (unknown) date) Had 7 unknown) miscarriages. No bleeding with this . This 1 (unknown) (no (unknown) (unknown) metformin 500 mg (units (unknown) date) tablet 500 mg PO unknown) BID #60 tabs 06/16/22 [Rx Confirmed 07/07/22] (unknown) (no (unknown) (unknown) movement and (units (u nknown) date) denies VB, LOF, unknown) cramping and regular contractions. Pt reports low (unknown) (no (unknown) (unknown) negative. (units (unkn own) date) Anatomy US unknown) scheduled for later today. Warning precautions reviewed. 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 Please (unknown) (no (unknown) (unknown) or cramping. (units (u nknown) date) Plan: 1 hour unknown) glucose ordered. Follow-up in 4 weeks. Warning (unknown) (no (unknown) (unknown) per minute. (units (un known) date) Normal ovaries unknown) bilaterally. Plan: Follow-up in 4 weeks. Warning (unknown) (no (unknown) (unknown) pets and (units (unkno wn) date) animals: Yes (1 unknown) large dog, chickens) (unknown) (no (unknown) (unknown) precautions, (units (u nknown) date) Listeriosis unknown) prevention and Rubella Immunization (unknown) (no (unknown) (unknown) preeclampsia. (units ( unknown) date) unknown) (unknown) (no (unknown) (unknown) (units (unkn own) date) discussed unknown) starting baby aspirin per day to decrease her risk for (unknown) (no (unknown) (unknown) prenat.vits,dara, (units (unknown) date) ddx-flig-xthed 1 unknown) tab PO DAILY 01/08/22 [History Confirmed (unknown) (no (unknown) (unknown) read the note (units ( unknown) date) carefully and unknown) recognize, using context, where these substitutions (unknown) (no (unknown) (unknown) reviewed. (units (unkn own) date) unknown) (unknown) (no (unknown) (unknown) seatbelt use: (units ( unknown) date) always unknown) (unknown) (no (unknown) (unknown) second hand (units (un known) date) exposure: Yes unknown) (yggrim-hm-xwo smokes outside the house) (unknown) (no (unknown) (unknown) signs reviewed. (units (unknown) date) cfDNA ordered. unknown) (unknown) (no (unknown) (unknown) signs reviewed. (units (unknown) date) unknown) (unknown) (no (unknown) (unknown) software. (units (unkn own) date) Although every unknown) effort is made to edit content, snubber errors (unknown) (no (unknown) (unknown) special anjum (units ( unknown) date) needs: No unknown) (unknown) (no (unknown) (unknown) substance use (units ( unknown) date) type: does not unknown) use (unknown) (no (unknown) (unknown) travel history: (units (unknown) date) over 6 months ago unknown) (unknown) (no (unknown) (unknown) urinary (units (unkno wn) date) frequency and unknown) irritability (unknown) (no (unknown) (unknown) vaccine (Annual (units (unknown) date) flu, Phizer Covid unknown) x2) (unknown) (no (unknown) (unknown) w0d 4 wks (units (unkn own) date) unknown) (unknown) (no (unknown) (unknown) was not using (units ( unknown) date) any infertility unknown) medications. Ultrasound: An intrauterine (unknown) (no (unknown) (unknown) water heater (units (u nknown) date) temp set < 120 unknown) deg: Yes (unknown) (no (unknown) (unknown) well-balanced (units ( unknown) date) diet: daily or unknown) most days (unknown) (no (unknown) (unknown) went away with (units (unknown) date) laying down. No unknown) vaginal bleeding. No fevers. heart tone (unknown) (no (unknown) (unknown) while ) (units (unknown) date) unknown) (unknown) (no (unknown) (unknown) wks. Warning (units (u nknown) date) signs for PTL unknown) reviewed. (unknown) (no (unknown) (unknown) working smoke (units ( unknown) date) detector in home: unknown) Yes Result panel 21 (unknown) (no (unknown) (unknown) (no value) (units (unk nown) date) unknown) (unknown) (no (unknown) (unknown) (+12 lb) 120/58 (units (unknown) date) N unknown) (unknown) (no (unknown) (unknown) (+13 lb) 104/54 (units (unknown) date) N unknown) (unknown) (no (unknown) (unknown) (+18 lb) 122/60 (units (unknown) date) N unknown) (unknown) (no (unknown) (unknown) (+22 lb) 110/62 (units (unknown) date) N unknown) (unknown) (no (unknown) (unknown) (+24 lb) 128/62 (units (unknown) date) N unknown) (unknown) (no (unknown) (unknown) (+7 lb) 128/66 N (units (unknown) date) unknown) (unknown) (no (unknown) (unknown) (+8 lb) 122/68 N (units (unknown) date) unknown) (unknown) (no (unknown) (unknown) Genetic (units (unkn own) date) Screening/Teratol unknown) ogy Counseling - Includes patient, baby's father, or (unknown) (no (unknown) (unknown) -?-?-?-?-?-?-?-? (units (unknown) date) -?-?-?-? unknown) (unknown) (no (unknown) (unknown) 05/19/22 (units (unkno wn) date) unknown) (unknown) (no (unknown) (unknown) 06/16/22 (units (unkno wn) date) unknown) (unknown) (no (unknown) (unknown) 07/07/22 (units (unkno wn) date) unknown) (unknown) (no (unknown) (unknown) 07/07/22] (units (unkn own) date) unknown) (unknown) (no (unknown) (unknown) 08/29/22 (units (unkno wn) date) Ultrasound #1 32w unknown) 3d (unknown) (no (unknown) (unknown) [id number] (units (unkno wn) date) unknown) (unknown) (no (unknown) (unknown) 01/27/22 (units (unkno wn) date) unknown) (unknown) (no (unknown) (unknown) 02/24/22 (units (unkno wn) date) unknown) (unknown) (no (unknown) (unknown) 03/24/22 (units (unkno wn) date) unknown) (unknown) (no (unknown) (unknown) 04/20/22 (units (unkno wn) date) unknown) (unknown) (no (unknown) (unknown) 12w 6d 163 lb (units ( unknown) date) unknown) (unknown) (no (unknown) (unknown) 15:28 (units (unkno wn) date) unknown) (unknown) (no (unknown) (unknown) 16w 6d 167 lb (units ( unknown) date) unknown) (unknown) (no (unknown) (unknown) 20w 5d 168 lb (units ( unknown) date) unknown) (unknown) (no (unknown) (unknown) 24w 6d 173 lb (units ( unknown) date) unknown) (unknown) (no (unknown) (unknown) 28w 6d 177 lb (units ( unknown) date) unknown) (unknown) (no (unknown) (unknown) 3 wks (units (unkno wn) date) unknown) (unknown) (no (unknown) (unknown) 31w 6d 179 lb (units ( unknown) date) unknown) (unknown) (no (unknown) (unknown) 4 wk (units (unkno wn) date) unknown) (unknown) (no (unknown) (unknown) 8w 6d 162 lb (units (u nknown) date) unknown) (unknown) (no (unknown) (unknown) Abnormal lab (units (u nknown) date) values 1st unknown) trimester: discussed (unknown) (no (unknown) (unknown) Abnormal lab (units (u nknown) date) values 2nd unknown) trimester: discussed (unknown) (no (unknown) (unknown) Add'l Plan (units (unk nown) date) Details unknown) (unknown) (no (unknown) (unknown) Age/Sex: 32 / F (units (unknown) date) Date of Service: unknown) (unknown) (no (unknown) (unknown) Allergies (units (unkn own) date) (-2013) unknown) (unknown) (no (unknown) (unknown) Allergies (units (unkn own) date) unknown) (unknown) (no (unknown) (unknown) [place], [place] (units ( unknown) date) [id number] unknown) (unknown) (no (unknown) (unknown) Anesthesia (units (unk nown) date) unknown) (unknown) (no (unknown) (unknown) Aneuploidy (units (unk nown) date) Screening unknown) Offered: Accepted (wants CFDNA) (unknown) (no (unknown) (unknown) Anticipated (units (un known) date) course of unknown) care: discussed (unknown) (no (unknown) (unknown) Anxiety (-2016) (units (unknown) date) unknown) (unknown) (no (unknown) (unknown) Arrhythmia (units (unk nown) date) unknown) (unknown) (no (unknown) (unknown) Assessment and (units (unknown) date) Plan unknown) (unknown) (no (unknown) (unknown) Attending Dr: (units ( unknown) date) Richelle Dawkins unknown) (unknown) (no (unknown) (unknown) Corazon presents (units (unknown) date) today for routine unknown) OB f/u at 20w5d. She reports good (unknown) (no (unknown) (unknown) BMI 28.8 (units (unkno wn) date) unknown) (unknown) (no (unknown) (unknown) BP 128/62 (units (unkn own) date) unknown) (unknown) (no (unknown) (unknown) (units (unkno wn) date) Plan/Preferences unknown) (unknown) (no (unknown) (unknown) Planning (units (unknown) date) unknown) (unknown) (no (unknown) (unknown) Blood Pressure (units (unknown) date) Location Rt unknown) brachial (unknown) (no (unknown) (unknown) Blood (units (unkno wn) date) transfusions?: unknown) yes (Never had but would accept) (unknown) (no (unknown) (unknown) : (units (unknown) date) discussed unknown) (unknown) (no (unknown) (unknown) Chicken pox (units (un known) date) () unknown) (unknown) (no (unknown) (unknown) Childbirth (units (unk nown) date) Classes: unknown) discussed (unknown) (no (unknown) (unknown) Conceived (units (unkn own) date) naturally this unknown) (unknown) (no (unknown) (unknown) Confirmed (units (unkn own) date) 07/07/22] unknown) (unknown) (no (unknown) (unknown) Current Estimate (units (unknown) date) 09/02/22 unknown) Ultrasound #2 31w 6d (unknown) (no (unknown) (unknown) Current (units (unkno wn) date) History unknown) (unknown) (no (unknown) (unknown) DNA (units (unkno wn) date) unknown) (unknown) (no (unknown) (unknown) : 1990 (units (unknown) date) Acct:[id number] unknown) (unknown) (no (unknown) (unknown) Date of positive (units (unknown) date) home unknown) test: 12/29/21 (unknown) (no (unknown) (unknown) Date (units (unkno wn) date) unknown) (unknown) (no (unknown) (unknown) Denies Congenital (units (unknown) date) Heart Defect, unknown) Denies Down Syndrome, Denies Muscular Dystrophy, (unknown) (no (unknown) (unknown) Denies Maternal (units (unknown) date) Metabolic unknown) Disorder (EG,TYPE 1 Diabetes, PKU), Denies Patient or (unknown) (no (unknown) (unknown) Denies Neural (units ( unknown) date) Tube Defect unknown) (Meningomyelocele , Spina Bifida, or Anencephaly), (unknown) (no (unknown) (unknown) Denies Sickle (units ( unknown) date) Cell Disease or unknown) Trait (), Denies Hemophilia or other blood (unknown) (no (unknown) (unknown) Denies Enio-Sachs (units (unknown) date) (Ashkenazi unknown) Sabianism, Cajun, Indonesian Paraguayan), Denies Jose (unknown) (no (unknown) (unknown) Depression (units (unk nown) date) (-2016) unknown) (unknown) (no (unknown) (unknown) Depression: (units (un known) date) discussed unknown) (unknown) (no (unknown) (unknown) Dept at (units (unkno wn) date) . unknown) (unknown) (no (unknown) (unknown) Diet and (units (unkno wn) date) Exercise unknown) (unknown) (no (unknown) (unknown) Disease (units (unkno wn) date) (Ashkenazi unknown) Sabianism), Denies Familial Dysautonomia (Ashkenazi Sabianism), (unknown) (no (unknown) (unknown) Documented By: (units (unknown) date) Richelle Dawkins unknown) 07/07/22 1521 (unknown) (no (unknown) (unknown) Draft (units (unkno wn) date) unknown) (unknown) (no (unknown) (unknown) MARIANNE Calculator (units (unknown) date) unknown) (unknown) (no (unknown) (unknown) EGA Weight BP (units ( unknown) date) UGlucose unknown) (unknown) (no (unknown) (unknown) Eczema (-2000) (units (unknown) date) unknown) (unknown) (no (unknown) (unknown) Estimated (units (unkn own) date) Delivery Date unknown) Method Current (unknown) (no (unknown) (unknown) Exercise and (units (u nknown) date) activity, unknown) work/environmenta l/hazards, Sexual activity, X-ray (unknown) (no (unknown) (unknown) F/u in 4 wks. (units ( unknown) date) unknown) (unknown) (no (unknown) (unknown) Family History (units (unknown) date) (Updated 01/24/22 unknown) @ 21:49 by Anamaria Cooper) (unknown) (no (unknown) (unknown) Family/Other (units (u nknown) date) Multiple unknown) sclerosis (unknown) (no (unknown) (unknown) Father (units (unkno wn) date) Hypertension unknown) (unknown) (no (unknown) (unknown) Father of Baby: (units (unknown) date) same unknown) (unknown) (no (unknown) (unknown) [facility]) (unknown) (no (unknown) (unknown) First Trimester (units (unknown) date) Education unknown) Checklist (unknown) (no (unknown) (unknown) Foot pain (units (unkn own) date) (-2019) unknown) (unknown) (no (unknown) (unknown) (SAB (units (unkn own) date) x7),Fertility Tx, unknown) meds only, started on baby aspirin 02/24/2022 (unknown) (no (unknown) (unknown) GDM, on (units (unkno wn) date) Metformin 500mg unknown) BID (unknown) (no (unknown) (unknown) Genetic (units (unkno wn) date) Screening + unknown) Counseling (unknown) (no (unknown) (unknown) Genetic (units (unkno wn) date) Screening unknown) (unknown) (no (unknown) (unknown) Grandfather (units (un known) date) Cancer unknown) (unknown) (no (unknown) (unknown) Grandfather (units (un known) date) Stroke unknown) (unknown) (no (unknown) (unknown) Grandmother (units (un known) date) History unknown) of heart disease (unknown) (no (unknown) (unknown) Grandmother (units (un known) date) Multiple unknown) sclerosis (unknown) (no (unknown) (unknown) 8 (units (unkn own) date) Multiple births 0 unknown) (unknown) (no (unknown) (unknown) HIV risk (units (unkno wn) date) evaluation: low unknown) risk (unknown) (no (unknown) (unknown) [facility] Center (units ( unknown) date) Education unknown) (unknown) (no (unknown) (unknown) Health center (units ( unknown) date) information: unknown) nature of practice discussed, personnel (unknown) (no (unknown) (unknown) Height 5 ft 6 in (units (unknown) date) unknown) (unknown) (no (unknown) (unknown) Hepatitis C risk (units (unknown) date) evaluation: low unknown) risk (unknown) (no (unknown) (unknown) History of (units (unk nown) date) Hepatitis B: No unknown) (unknown) (no (unknown) (unknown) History of (units (unk nown) date) Hepatitis C: No unknown) (unknown) (no (unknown) (unknown) 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 (unknown) (no (unknown) (unknown) Hospital: [facility] (units (u nknown) date) unknown) (unknown) (no (unknown) (unknown) [facility] (units (u nknown) date) Chorea, Denies unknown) Other inherited genetic or chromosomal disorder, (unknown) (no (unknown) (unknown) , Elieser (units ( unknown) date) Martell unknown) (unknown) (no (unknown) (unknown) Hx # (units (u nknown) date) Pregnancies 0 unknown) Elective abortions 0 (unknown) (no (unknown) (unknown) Hx # Term (units (unkn own) date) Pregnancies 0 unknown) Ectopic pregnancies 0 (unknown) (no (unknown) (unknown) will be (units (unknown) date) adopted?: no unknown) (unknown) (no (unknown) (unknown) Infection (units (unkn own) date) History unknown) (unknown) (no (unknown) (unknown) Infectious (units (unk nown) date) Disease Education unknown) (unknown) (no (unknown) (unknown) Infectious (units (unk nown) date) disease exposure: unknown) chicken pox immunity discussed, hepatitis risk (unknown) (no (unknown) (unknown) Infertility (units (un known) date) () unknown) (unknown) (no (unknown) (unknown) Initial Weight: (units (unknown) date) 155 lb unknown) (unknown) (no (unknown) (unknown) Initials (units (unkno wn) date) unknown) (unknown) (no (unknown) (unknown) Intake Clinical (units (unknown) date) Staff unknown) (unknown) (no (unknown) (unknown) Intake Note: (units (u nknown) date) unknown) (unknown) (no (unknown) (unknown) Intake performed (units (unknown) date) by: unknown) [facility] (unknown) (no (unknown) (unknown) Intake (units (unkno wn) date) unknown) (unknown) (no (unknown) (unknown) Irregular (units (unkn own) date) menstrual cycle unknown) () (unknown) (no (unknown) (unknown) LM (units (unkno wn) date) unknown) (unknown) (no (unknown) (unknown) Lipoma (units (unkno wn) date) unknown) (unknown) (no (unknown) (unknown) Live with (units (unkn own) date) someone with TB unknown) or exposed to TB: No (unknown) (no (unknown) (unknown) Loc: [facility] (units (unkno wn) date) unknown) (unknown) (no (unknown) (unknown) Marital status: (units (unknown) date) unknown) (unknown) (no (unknown) (unknown) Medical History (units (unknown) date) (Updated 06/28/22 unknown) @ 16:18 by Richelle Dawkins MD) (unknown) (no (unknown) (unknown) Medications (units (un known) date) unknown) (unknown) (no (unknown) (unknown) Mother Gastric (units (unknown) date) cancer unknown) (unknown) (no (unknown) (unknown) N No 142 13 N/A (units (unknown) date) 4wk unknown) (unknown) (no (unknown) (unknown) N No no 143 17 (units (unknown) date) N/A absent AFP 4 unknown) wks (unknown) (no (unknown) (unknown) N No no 178 9 (units ( unknown) date) N/A absent unknown) long/closed AGA 9 (unknown) (no (unknown) (unknown) N Yes no 141 24 (units (unknown) date) N/A absent 4 wks unknown) (unknown) (no (unknown) (unknown) N Yes no 142 20 (units (unknown) date) N/A absent AFP unknown) negative (unknown) (no (unknown) (unknown) N Yes no 144 29 (units (unknown) date) Vertex absent AGA unknown) 29w5d (unknown) (no (unknown) (unknown) N Yes no 150 32 (units (unknown) date) Vertex absent 2 unknown) wks (unknown) (no (unknown) (unknown) NF (units (unkno wn) date) unknown) (unknown) (no (unknown) (unknown) Notes (units (unkno wn) date) unknown) (unknown) (no (unknown) (unknown) Number of Living (units (unknown) date) Children 0 unknown) (unknown) (no (unknown) (unknown) Number of (units (unkn own) date) fetuses:: Single unknown) (unknown) (no (unknown) (unknown) Nutrition and (units ( unknown) date) weight gain unknown) counseling: special diet: discussed (unknown) (no (unknown) (unknown) OB Office Visit (units (unknown) date) unknown) (unknown) (no (unknown) (unknown) OB Visit Log (units (u nknown) date) unknown) (unknown) (no (unknown) (unknown) OB check (units (unkno wn) date) unknown) (unknown) (no (unknown) (unknown) On U/S: AGA (units (un known) date) 29w5d. 3#4oz unknown) 66%ile. Nl AFV. Plan: Metformin 500mg BID. F/U 3 (unknown) (no (unknown) (unknown) On control (units (unknown) date) at conception?: unknown) No (unknown) (no (unknown) (unknown) Other Estimates (units (unknown) date) 08/18/22 LMP unknown) (Certain) 34w 0d (unknown) (no (unknown) (unknown) Ovarian cyst (units (u nknown) date) () unknown) (unknown) (no (unknown) (unknown) PCOS (polycystic (units (unknown) date) ovarian syndrome) unknown) (unknown) (no (unknown) (unknown) PFSH (units (unkno wn) date) unknown) (unknown) (no (unknown) (unknown) Pap performed?: (units (unknown) date) No unknown) (unknown) (no (unknown) (unknown) Para 0 (units (unkno wn) date) Spontaneous unknown) abortions 7 (unknown) (no (unknown) (unknown) Partner history (units (unknown) date) of STD: denies hx unknown) (unknown) (no (unknown) (unknown) Partner history (units (unknown) date) of genital unknown) herpes: No (unknown) (no (unknown) (unknown) Partner: Elieser (units ( unknown) date) Martell unknown) (unknown) (no (unknown) (unknown) Patient comes in (units (unknown) date) for follow-up OB unknown) visit. She had some pelvic pain that (unknown) (no (unknown) (unknown) Patient presents (units (unknown) date) for a new OB unknown) visit at 8 weeks gestation. She is (unknown) (no (unknown) (unknown) Patient presents (units (unknown) date) for a routine unknown) visit, accompanied by her . 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) [place] vs unknown) [facility] (unknown) (no (unknown) (unknown) Personal history (units (unknown) date) of STD: denies hx unknown) (unknown) (no (unknown) (unknown) Personal history (units (unknown) date) of genital unknown) herpes: No (unknown) (no (unknown) (unknown) Plantar (units (unkno wn) date) fasciitis unknown) (unknown) (no (unknown) (unknown) Position Sitting (units (unknown) date) unknown) (unknown) (no (unknown) (unknown) (units (unk nown) date) family unknown) planning/Tubal sterilization: further discussion needed (unknown) (no (unknown) (unknown) (units (unkn own) date) History unknown) (unknown) (no (unknown) (unknown) type:: (units (unknown) date) Other Normal unknown) (unknown) (no (unknown) (unknown) (units (unkno wn) date) Education unknown) (unknown) (no (unknown) (unknown) Initial (units (unknown) date) Assessment unknown) (unknown) (no (unknown) (unknown) (units (unkno wn) date) Specific unknown) Issues/Plans (unknown) (no (unknown) (unknown) (units (unkno wn) date) Testing: unknown) discussed (unknown) (no (unknown) (unknown) Visit (units (unknown) date) unknown) (unknown) (no (unknown) (unknown) (units (unkno wn) date) education packet: unknown) Child education/plan, symptoms, (unknown) (no (unknown) (unknown) Primary Care (units (u nknown) date) Provider: [place] Arboleda unknownShiva Israel (unknown) (no (unknown) (unknown) Primary Ob (units (unk nown) date) Provider: unknown) Richelle Dawkins (unknown) (no (unknown) (unknown) Prior (units (unkno wn) date) GBS-Infected unknown) child: No (unknown) (no (unknown) (unknown) Providers (units (unkn own) date) unknown) (unknown) (no (unknown) (unknown) Pt presents for (units (unknown) date) a PNV at 16+6 unknown) wks. No FM. No LOF/VB. Rec'd flu shot (unknown) (no (unknown) (unknown) Pt presents for (units (unknown) date) a routine PNV at unknown) 28 +6 wks gestation. Abnormal 3 hr GTT. 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 She unknown) has felt good movement. She says it is (unknown) (no (unknown) (unknown) Shingles (units (unkno wn) date) unknown) (unknown) (no (unknown) (unknown) Signed By: (units (unk nown) date) unknown) (unknown) (no (unknown) (unknown) Signs and (units (unkn own) date) symptoms of unknown) labor: discussed (unknown) (no (unknown) (unknown) Smoking Status: (units (unknown) date) Never smoker unknown) (unknown) (no (unknown) (unknown) Social History (units (unknown) date) unknown) (unknown) (no (unknown) (unknown) Support (units (unkno wn) date) Person(s):: Elieser unknown) (unknown) (no (unknown) (unknown) Surgical History (units (unknown) date) (Updated 01/24/22 unknown) @ 21:46 by Anamaria Cooper) (unknown) (no (unknown) (unknown) Surrogate (units (unkn own) date) ?: no unknown) (unknown) (no (unknown) (unknown) Symptoms since (units (unknown) date) LMP: Reports unknown) amenorrhea, nausea, fatigue, breast tenderness, (unknown) (no (unknown) (unknown) Teratogen (units (unkn own) date) Exposures since unknown) LMP/Conception: Denies prescription medications, (unknown) (no (unknown) (unknown) Testing (units (unkno wn) date) Education unknown) (unknown) (no (unknown) (unknown) Testing (units (unkno wn) date) education unknown) completed: group B strep, Spina bifida testing and Cell Free (unknown) (no (unknown) (unknown) This note may (units ( unknown) date) have been all or unknown) partially generated using voice recognition (unknown) (no (unknown) (unknown) Tobacco + (units (unkn own) date) Substance Use unknown) (unknown) (no (unknown) (unknown) Tobacco Status (units (unknown) date) unknown) (unknown) (no (unknown) (unknown) Trimester:: 3rd (units (unknown) date) Trimester unknown) (28wks-Del) (unknown) (no (unknown) (unknown) Tumor () (units (unknown) date) unknown) (unknown) (no (unknown) (unknown) Type(s) of (units (unk nown) date) exercise: unknown) bicycling (stationary bike), regular exercise, weight (unknown) (no (unknown) (unknown) UProtein Movement (units (unknown) date) PreLabor FHR Fndl unknown) Ht Pres Edema Cerv Exam US/Comment Next Appt (unknown) (no (unknown) (unknown) Ultrasound (units (unk nown) date) performed?: No unknown) (unknown) (no (unknown) (unknown) Varicella/chicke (units (unknown) date) n pox status: unknown) previous disease (unknown) (no (unknown) (unknown) Visit Date: (units (un known) date) 05/19/22 Last unknown) Updated by: Richelle Dawkins MD (unknown) (no (unknown) (unknown) Visit Date: (units (un known) date) 06/16/22 Last unknown) Updated by: Richelle Dawkins MD (unknown) (no (unknown) (unknown) Visit Date: (units (un known) date) 01/27/22 Last unknown) Updated by: Richelle Dawkins MD (unknown) (no (unknown) (unknown) Visit Date: (units (un known) date) 02/24/22 Last unknown) Updated by: Marietta Massey MD (unknown) (no (unknown) (unknown) Visit Date: (units (un known) date) 03/24/22 Last unknown) Updated by: Richelle Dawkins MD (unknown) (no (unknown) (unknown) Visit Date: (units (un known) date) 04/20/22 Last unknown) Updated by: Xiao Boland P.A-C (unknown) (no (unknown) (unknown) Visit Reasons: (units (unknown) date) OB unknown) (unknown) (no (unknown) (unknown) Vitals (units (unkno wn) date) unknown) (unknown) (no (unknown) (unknown) Vitamins and (units (u nknown) date) iron, Diet and unknown) weight gain, Fish and mercury intake, Caffeine use, (unknown) (no (unknown) (unknown) WG (units (unkno wn) date) unknown) (unknown) (no (unknown) (unknown) Weeks (units (unkno wn) date) gestation:: 31 unknown) (unknown) (no (unknown) (unknown) Weight 179 lb (units ( unknown) date) unknown) (unknown) (no (unknown) (unknown) Ages [place] teeth (units (u nknown) date) extracted unknown) (unknown) (no (unknown) (unknown) Zika virus (units (unk nown) date) exposure: No unknown) (unknown) (no (unknown) (unknown) accompanied by (units (unknown) date) her . She unknown) went through fertility treatments with (unknown) (no (unknown) (unknown) alcohol intake: (units (unknown) date) never unknown) (unknown) (no (unknown) (unknown) anterior (units (unkno wn) date) placenta. Routine unknown) precautions reviewed with the patient. Due to 1st (unknown) (no (unknown) (unknown) anyone in either (units (unknown) date) family with: unknown) (unknown) (no (unknown) (unknown) baby's father (units ( unknown) date) had a child with unknown) defects not listed above and Denies Other (unknown) (no (unknown) (unknown) back pain. (units (unk nown) date) Advised unknown) stretching, belly band, and PT if not improving. AFP was (unknown) (no (unknown) (unknown) blood sugar (units (un known) date) diagnostic (Blood unknown) Glucose Test strips) #100 ea 06/02/22 [Rx (unknown) (no (unknown) (unknown) blood-glucose (units ( unknown) date) meter #1 ea unknown) 06/02/22 [Rx Confirmed 07/07/22] (unknown) (no (unknown) (unknown) by ultrasound is (units (unknown) date) normal with good unknown) movement, normal appearing fluid, (unknown) (no (unknown) (unknown) caffeine: Yes (units ( unknown) date) (1-2 cups unknown) tea/day) (unknown) (no (unknown) (unknown) carbon monox (units (u nknown) date) detector in home: unknown) Yes (unknown) (no (unknown) (unknown) cfDNA normal (units (u nknown) date) female, AFP unknown) negative (unknown) (no (unknown) (unknown) consistent with (units (unknown) date) 9 weeks 0 days. unknown) Yolk sac visible. heart rate 178 beats (unknown) (no (unknown) (unknown) current (units (unkno wn) date) occupational unknown) exposures/hazards : No (unknown) (no (unknown) (unknown) daily servings (units (unknown) date) fruits/ve-4 unknown) (unknown) (no (unknown) (unknown) described, visit (units (unknown) date) schedule unknown) reviewed, ultrasounds policy reviewed, coverage 24 (unknown) (no (unknown) (unknown) developing a (units (u nknown) date) pattern. No unknown) leakage of fluid or vaginal bleeding. No contractions (unknown) (no (unknown) (unknown) discussed, (units (unk nown) date) tuberculosis unknown) exposure discussed, CMV discussed, Toxoplasmosis (unknown) (no (unknown) (unknown) disorders, (units (unk nown) date) Denies Cystic unknown) Fibrosis, Denies Mental Retardation/Autis m, Denies (unknown) (no (unknown) (unknown) do you feel safe (units (unknown) date) at home: Yes unknown) (unknown) (no (unknown) (unknown) during the past (units (unknown) date) year weight has: unknown) remained stable (unknown) (no (unknown) (unknown) education level: (units (unknown) date) college unknown) (Associate's degree) (unknown) (no (unknown) (unknown) exposure, (units (unkn own) date) Medication use, unknown) Sauna/hot tub use, Dental care, Travel and Influenza (unknown) (no (unknown) (unknown) fire (units (unkno wn) date) extinguisher in unknown) home: Yes (unknown) (no (unknown) (unknown) firearms in (units (un known) date) home: Yes unknown) firearms unloaded and locked: Yes (unknown) (no (unknown) (unknown) frequency: 5-6 (units (unknown) date) times per week unknown) (unknown) (no (unknown) (unknown) gestational sac (units (unknown) date) with a fetus with unknown) a crown-rump length measuring 2.29 cm (unknown) (no (unknown) (unknown) have occurred. (units (unknown) date) If there are any unknown) questions, please contact the Medical Records (unknown) (no (unknown) (unknown) hours a day and (units (unknown) date) participation of unknown) father in care and office visits (unknown) (no (unknown) (unknown) household (units (unkn own) date) members: spouse unknown) and family (father and cmcbth-yr-yog) (unknown) (no (unknown) (unknown) housing: house (units (unknown) date) unknown) (unknown) (no (unknown) (unknown) illicit drugs (units ( unknown) date) and Denies other unknown) (unknown) (no (unknown) (unknown) kag (units (unkno wn) date) unknown) (unknown) (no (unknown) (unknown) lancets #100 ea (units (unknown) date) 06/02/22 [Rx unknown) Confirmed 07/07/22] (unknown) (no (unknown) (unknown) last visit. (units (un known) date) Plan: AFP today. unknown) 20 wk u/s reviewed. F/U 4 wks. Warning signs (unknown) (no (unknown) (unknown) lifting and (units (un known) date) other (hiking) unknown) (unknown) (no (unknown) (unknown) lives (units (unkno wn) date) independently: unknown) Yes (unknown) (no (unknown) (unknown) marital status: (units (unknown) date) unknown) (unknown) (no (unknown) (unknown) may occur. (units (unk nown) date) Occasional unknown) wrong-word or 'sound-alike' substitutions may have (unknown) (no (unknown) (unknown) medication only. (units (unknown) date) Had 7 unknown) miscarriages. No bleeding with this . This 1 (unknown) (no (unknown) (unknown) metformin 500 mg (units (unknown) date) tablet 500 mg PO unknown) BID #60 tabs 06/16/22 [Rx Confirmed 07/07/22] (unknown) (no (unknown) (unknown) movement and (units (u nknown) date) denies VB, LOF, unknown) cramping and regular contractions. Pt reports low (unknown) (no (unknown) (unknown) negative. (units (unkn own) date) Anatomy US unknown) scheduled for later today. Warning precautions reviewed. 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 Please (unknown) (no (unknown) (unknown) or cramping. (units (u nknown) date) Plan: 1 hour unknown) glucose ordered. Follow-up in 4 weeks. Warning (unknown) (no (unknown) (unknown) per minute. (units (un known) date) Normal ovaries unknown) bilaterally. Plan: Follow-up in 4 weeks. Warning (unknown) (no (unknown) (unknown) pets and (units (unkno wn) date) animals: Yes (1 unknown) large dog, chickens) (unknown) (no (unknown) (unknown) precautions, (units (u nknown) date) Listeriosis unknown) prevention and Rubella Immunization (unknown) (no (unknown) (unknown) preeclampsia. (units ( unknown) date) unknown) (unknown) (no (unknown) (unknown) (units (unkn own) date) discussed unknown) starting baby aspirin per day to decrease her risk for (unknown) (no (unknown) (unknown) prenat.vits,dara, (units (unknown) date) [id number] 1 unknown) tab PO DAILY 01/08/22 [History Confirmed (unknown) (no (unknown) (unknown) read the note (units ( unknown) date) carefully and unknown) recognize, using context, where these substitutions (unknown) (no (unknown) (unknown) reviewed. (units (unkn own) date) unknown) (unknown) (no (unknown) (unknown) seatbelt use: (units ( unknown) date) always unknown) (unknown) (no (unknown) (unknown) second hand (units (un known) date) exposure: Yes unknown) (dvpxdl-ov-zcg smokes outside the house) (unknown) (no (unknown) (unknown) signs reviewed. (units (unknown) date) cfDNA ordered. unknown) (unknown) (no (unknown) (unknown) signs reviewed. (units (unknown) date) unknown) (unknown) (no (unknown) (unknown) software. (units (unkn own) date) Although every unknown) effort is made to edit content, snubber errors (unknown) (no (unknown) (unknown) special anjum (units ( unknown) date) needs: No unknown) (unknown) (no (unknown) (unknown) substance use (units ( unknown) date) type: does not unknown) use (unknown) (no (unknown) (unknown) travel history: (units (unknown) date) over 6 months ago unknown) (unknown) (no (unknown) (unknown) urinary (units (unkno wn) date) frequency and unknown) irritability (unknown) (no (unknown) (unknown) vaccine (Annual (units (unknown) date) flu, Phizer Covid unknown) x2) (unknown) (no (unknown) (unknown) w0d 4 wks (units (unkn own) date) unknown) (unknown) (no (unknown) (unknown) was not using (units ( unknown) date) any infertility unknown) medications. Ultrasound: An intrauterine (unknown) (no (unknown) (unknown) water heater (units (u nknown) date) temp set < 120 unknown) deg: Yes (unknown) (no (unknown) (unknown) well-balanced (units ( unknown) date) diet: daily or unknown) most days (unknown) (no (unknown) (unknown) went away with (units (unknown) date) laying down. No unknown) vaginal bleeding. No fevers. heart tone (unknown) (no (unknown) (unknown) while ) (units (unknown) date) unknown) (unknown) (no (unknown) (unknown) wks. Warning (units (u nknown) date) signs for PTL unknown) reviewed. (unknown) (no (unknown) (unknown) working smoke (units ( unknown) date) detector in home: unknown) Yes Result panel 22 (unknown) (no (unknown) (unknown) (no value) (units (unk nown) date) unknown) (unknown) (no (unknown) (unknown) (+12 lb) 120/58 (units (unknown) date) N unknown) (unknown) (no (unknown) (unknown) (+13 lb) 104/54 (units (unknown) date) N unknown) (unknown) (no (unknown) (unknown) (+18 lb) 122/60 (units (unknown) date) N unknown) (unknown) (no (unknown) (unknown) (+22 lb) 110/62 (units (unknown) date) N unknown) (unknown) (no (unknown) (unknown) (+24 lb) 128/62 (units (unknown) date) N unknown) (unknown) (no (unknown) (unknown) (+7 lb) 128/66 N (units (unknown) date) unknown) (unknown) (no (unknown) (unknown) (+8 lb) 122/68 N (units (unknown) date) unknown) (unknown) (no (unknown) (unknown) Genetic (units (unkn own) date) Screening/Teratol unknown) ogy Counseling - Includes patient, baby's father, or (unknown) (no (unknown) (unknown) -?-?-?-?-?-?-?-? (units (unknown) date) -?-?-?-? unknown) (unknown) (no (unknown) (unknown) 05/19/22 (units (unkno wn) date) unknown) (unknown) (no (unknown) (unknown) 06/16/22 (units (unkno wn) date) unknown) (unknown) (no (unknown) (unknown) 07/07/22 (units (unkno wn) date) unknown) (unknown) (no (unknown) (unknown) 07/20/22 (units (unkno wn) date) unknown) (unknown) (no (unknown) (unknown) 07/20/22] (units (unkn own) date) unknown) (unknown) (no (unknown) (unknown) 08/29/22 (units (unkno wn) date) Ultrasound #1 34w unknown) 2d (unknown) (no (unknown) (unknown) [id number] (units (unkno wn) date) unknown) (unknown) (no (unknown) (unknown) 01/27/22 (units (unkno wn) date) unknown) (unknown) (no (unknown) (unknown) 02/24/22 (units (unkno wn) date) unknown) (unknown) (no (unknown) (unknown) 03/24/22 (units (unkno wn) date) unknown) (unknown) (no (unknown) (unknown) 04/20/22 (units (unkno wn) date) unknown) (unknown) (no (unknown) (unknown) 12w 6d 163 lb (units ( unknown) date) unknown) (unknown) (no (unknown) (unknown) 15:40 (units (unkno wn) date) unknown) (unknown) (no (unknown) (unknown) 16w 6d 167 lb (units ( unknown) date) unknown) (unknown) (no (unknown) (unknown) 20w 5d 168 lb (units ( unknown) date) unknown) (unknown) (no (unknown) (unknown) 24w 6d 173 lb (units ( unknown) date) unknown) (unknown) (no (unknown) (unknown) 28w 6d 177 lb (units ( unknown) date) unknown) (unknown) (no (unknown) (unknown) 3 wks (units (unkno wn) date) unknown) (unknown) (no (unknown) (unknown) 31w 6d 179 lb (units ( unknown) date) unknown) (unknown) (no (unknown) (unknown) 4 wk (units (unkno wn) date) unknown) (unknown) (no (unknown) (unknown) 8w 6d 162 lb (units (u nknown) date) unknown) (unknown) (no (unknown) (unknown) Abnormal lab (units (u nknown) date) values 1st unknown) trimester: discussed (unknown) (no (unknown) (unknown) Abnormal lab (units (u nknown) date) values 2nd unknown) trimester: discussed (unknown) (no (unknown) (unknown) Add'l Plan (units (unk nown) date) Details unknown) (unknown) (no (unknown) (unknown) Age/Sex: 32 / F (units (unknown) date) Date of Service: unknown) (unknown) (no (unknown) (unknown) Allergies (units (unkn own) date) (-2014) unknown) (unknown) (no (unknown) (unknown) Allergies (units (unkn own) date) unknown) (unknown) (no (unknown) (unknown) [place] (units ( unknown) date) [id number] unknown) (unknown) (no (unknown) (unknown) Anesthesia (units (unk nown) date) unknown) (unknown) (no (unknown) (unknown) Aneuploidy (units (unk nown) date) Screening unknown) Offered: Accepted (wants CFDNA) (unknown) (no (unknown) (unknown) Anticipated (units (un known) date) course of unknown) care: discussed (unknown) (no (unknown) (unknown) Anxiety (-2016) (units (unknown) date) unknown) (unknown) (no (unknown) (unknown) Arrhythmia (units (unk nown) date) unknown) (unknown) (no (unknown) (unknown) Assessment and (units (unknown) date) Plan unknown) (unknown) (no (unknown) (unknown) Attending Dr: (units ( unknown) date) Richelle Dawkins unknown) (unknown) (no (unknown) (unknown) Corazon presents (units (unknown) date) today for routine unknown) OB f/u at 20w5d. She reports good (unknown) (no (unknown) (unknown) BMI 28.7 (units (unkno wn) date) unknown) (unknown) (no (unknown) (unknown) BP 116/62 (units (unkn own) date) unknown) (unknown) (no (unknown) (unknown) (units (unkno wn) date) Plan/Preferences unknown) (unknown) (no (unknown) (unknown) Planning (units (unknown) date) unknown) (unknown) (no (unknown) (unknown) Blood Pressure (units (unknown) date) Location Rt unknown) brachial (unknown) (no (unknown) (unknown) Blood (units (unkno wn) date) transfusions?: unknown) yes (Never had but would accept) (unknown) (no (unknown) (unknown) : (units (unknown) date) discussed unknown) (unknown) (no (unknown) (unknown) Chicken pox (units (un known) date) (-1994) unknown) (unknown) (no (unknown) (unknown) Childbirth (units (unk nown) date) Classes: unknown) discussed (unknown) (no (unknown) (unknown) Conceived (units (unkn own) date) naturally this unknown) (unknown) (no (unknown) (unknown) Confirmed (units (unkn own) date) 07/20/22] unknown) (unknown) (no (unknown) (unknown) Current Estimate (units (unknown) date) 09/02/22 unknown) Ultrasound #2 33w 5d (unknown) (no (unknown) (unknown) Current (units (unkno wn) date) History unknown) (unknown) (no (unknown) (unknown) DNA (units (unkno wn) date) unknown) (unknown) (no (unknown) (unknown) : 1990 (units (unknown) date) Acct:[id number] unknown) (unknown) (no (unknown) (unknown) Date of positive (units (unknown) date) home unknown) test: 12/29/21 (unknown) (no (unknown) (unknown) Date (units (unkno wn) date) unknown) (unknown) (no (unknown) (unknown) Denies Congenital (units (unknown) date) Heart Defect, unknown) Denies Down Syndrome, Denies Muscular Dystrophy, (unknown) (no (unknown) (unknown) Denies Maternal (units (unknown) date) Metabolic unknown) Disorder (EG,TYPE 1 Diabetes, PKU), Denies Patient or (unknown) (no (unknown) (unknown) Denies Neural (units ( unknown) date) Tube Defect unknown) (Meningomyelocele , Spina Bifida, or Anencephaly), (unknown) (no (unknown) (unknown) Denies Sickle (units ( unknown) date) Cell Disease or unknown) Trait (), Denies Hemophilia or other blood (unknown) (no (unknown) (unknown) Denies Enio-Sachs (units (unknown) date) (Ashkenazi unknown) Sabianism, Cajun, Indonesian Paraguayan), Denies Jose (unknown) (no (unknown) (unknown) Depression (units (unk nown) date) (-2015) unknown) (unknown) (no (unknown) (unknown) Depression: (units (un known) date) discussed unknown) (unknown) (no (unknown) (unknown) Dept at (units (unkno wn) date) . 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 (units ( unknown) date) unknown) (unknown) (no (unknown) (unknown) Family History (units (unknown) date) (Updated 01/24/22 unknown) @ 21:49 by Anamaria Cooper) (unknown) (no (unknown) (unknown) Family/Other (units (u nknown) date) Multiple unknown) sclerosis (unknown) (no (unknown) (unknown) Father (units (unkno wn) date) Hypertension unknown) (unknown) (no (unknown) (unknown) Father of Baby: (units (unknown) date) same unknown) (unknown) (no (unknown) (unknown) [facility] ([facility] unknown) (unknown) (no (unknown) (unknown) First Trimester (units (unknown) date) Education unknown) Checklist (unknown) (no (unknown) (unknown) Foot pain (units (unkn own) date) (-2019) unknown) (unknown) (no (unknown) (unknown) (SAB (units (unkn own) date) x7),Fertility Tx, unknown) meds only, started on baby aspirin 02/24/2022 (unknown) (no (unknown) (unknown) GDM, on (units (unkno wn) date) Metformin 500mg unknown) BID (unknown) (no (unknown) (unknown) Genetic (units (unkno wn) date) Screening + unknown) Counseling (unknown) (no (unknown) (unknown) Genetic (units (unkno wn) date) Screening unknown) (unknown) (no (unknown) (unknown) Grandfather (units (un known) date) Cancer unknown) (unknown) (no (unknown) (unknown) Grandfather (units (un known) date) Stroke unknown) (unknown) (no (unknown) (unknown) Grandmother (units (un known) date) History unknown) of heart disease (unknown) (no (unknown) (unknown) Grandmother (units (un known) date) Multiple unknown) sclerosis (unknown) (no (unknown) (unknown) 8 (units (unkn own) date) Multiple births 0 unknown) (unknown) (no (unknown) (unknown) HIV risk (units (unkno wn) date) evaluation: low unknown) risk (unknown) (no (unknown) (unknown) Health Center (units ( unknown) date) Education unknown) (unknown) (no (unknown) (unknown) Health center (units ( unknown) date) information: unknown) nature of practice discussed, personnel (unknown) (no (unknown) (unknown) Height 5 ft 6 in (units (unknown) date) unknown) (unknown) (no (unknown) (unknown) Hepatitis C risk (units (unknown) date) evaluation: low unknown) risk (unknown) (no (unknown) (unknown) History of (units (unk nown) date) Hepatitis B: No unknown) (unknown) (no (unknown) (unknown) History of (units (unk nown) date) Hepatitis C: No unknown) (unknown) (no (unknown) (unknown) 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 (unknown) (no (unknown) (unknown) Hospital: (units (u nknown) date) unknown) (unknown) (no (unknown) (unknown) [facility] (units (u nknown) date) Chorea, Denies unknown) Other inherited genetic or chromosomal disorder, (unknown) (no (unknown) (unknown) , Elieser (units ( unknown) date) Martell unknown) (unknown) (no (unknown) (unknown) Hx # (units (u nknown) date) Pregnancies 0 unknown) Elective abortions 0 (unknown) (no (unknown) (unknown) Hx # Term (units (unkn own) date) Pregnancies 0 unknown) Ectopic pregnancies 0 (unknown) (no (unknown) (unknown) will be (units (unknown) date) adopted?: no unknown) (unknown) (no (unknown) (unknown) Infection (units (unkn own) date) History unknown) (unknown) (no (unknown) (unknown) Infectious (units (unk nown) date) Disease Education unknown) (unknown) (no (unknown) (unknown) Infectious (units (unk nown) date) disease exposure: unknown) chicken pox immunity discussed, hepatitis risk (unknown) (no (unknown) (unknown) Infertility (units (un known) date) () unknown) (unknown) (no (unknown) (unknown) Initial Weight: (units (unknown) date) 155 lb unknown) (unknown) (no (unknown) (unknown) Initials (units (unkno wn) date) unknown) (unknown) (no (unknown) (unknown) Intake Clinical (units (unknown) date) Staff unknown) (unknown) (no (unknown) (unknown) Intake Note: (units (u nknown) date) unknown) (unknown) (no (unknown) (unknown) Intake performed (units (unknown) date) by: unknown) Nu Alexander (unknown) (no (unknown) (unknown) Intake (units (unkno wn) date) unknown) (unknown) (no (unknown) (unknown) Irregular (units (unkn own) date) menstrual cycle unknown) () (unknown) (no (unknown) (unknown) LM (units (unkno wn) date) unknown) (unknown) (no (unknown) (unknown) Lipoma (units (unkno wn) date) unknown) (unknown) (no (unknown) (unknown) Live with (units (unkn own) date) someone with TB unknown) or exposed to TB: No (unknown) (no (unknown) (unknown) Loc: [facility] (units (unkno wn) date) unknown) (unknown) (no (unknown) (unknown) Marital status: (units (unknown) date) unknown) (unknown) (no (unknown) (unknown) Medical History (units (unknown) date) (Updated 06/28/22 unknown) @ 16:18 by Richelle Dawikns MD) (unknown) (no (unknown) (unknown) Medications (units (un known) date) unknown) (unknown) (no (unknown) (unknown) Mother Gastric (units (unknown) date) cancer unknown) (unknown) (no (unknown) (unknown) N No 142 13 N/A (units (unknown) date) 4wk unknown) (unknown) (no (unknown) (unknown) N No no 143 17 (units (unknown) date) N/A absent AFP 4 unknown) wks (unknown) (no (unknown) (unknown) N No no 178 9 (units ( unknown) date) N/A absent unknown) long/closed AGA 9 (unknown) (no (unknown) (unknown) N Yes no 141 24 (units (unknown) date) N/A absent 4 wks unknown) (unknown) (no (unknown) (unknown) N Yes no 142 20 (units (unknown) date) N/A absent AFP unknown) negative (unknown) (no (unknown) (unknown) N Yes no 144 29 (units (unknown) date) Vertex absent AGA unknown) 29w5d (unknown) (no (unknown) (unknown) N Yes no 150 32 (units (unknown) date) Vertex absent 2 unknown) wks (unknown) (no (unknown) (unknown) NF (units (unkno wn) date) unknown) (unknown) (no (unknown) (unknown) Notes (units (unkno wn) date) unknown) (unknown) (no (unknown) (unknown) Number of Living (units (unknown) date) Children 0 unknown) (unknown) (no (unknown) (unknown) Number of (units (unkn own) date) fetuses:: Single unknown) (unknown) (no (unknown) (unknown) Nutrition and (units ( unknown) date) weight gain unknown) counseling: special diet: discussed (unknown) (no (unknown) (unknown) OB Office Visit (units (unknown) date) unknown) (unknown) (no (unknown) (unknown) OB Visit Log (units (u nknown) date) unknown) (unknown) (no (unknown) (unknown) OB check (units (unkno wn) date) unknown) (unknown) (no (unknown) (unknown) On U/S: AGA (units (un known) date) 29w5d. 3#4oz unknown) 66%ile. Nl AFV. Plan: Metformin 500mg BID. F/U 3 (unknown) (no (unknown) (unknown) On control (units (unknown) date) at conception?: unknown) No (unknown) (no (unknown) (unknown) Other Estimates (units (unknown) date) 08/18/22 LMP unknown) (Certain) 35w 6d (unknown) (no (unknown) (unknown) Ovarian cyst (units (u nknown) date) () unknown) (unknown) (no (unknown) (unknown) PCOS (polycystic (units (unknown) date) ovarian syndrome) unknown) (unknown) (no (unknown) (unknown) PFSH (units (unkno wn) date) unknown) (unknown) (no (unknown) (unknown) Pap performed?: (units (unknown) date) No unknown) (unknown) (no (unknown) (unknown) Para 0 (units (unkno wn) date) Spontaneous unknown) abortions 7 (unknown) (no (unknown) (unknown) Partner history (units (unknown) date) of STD: denies hx unknown) (unknown) (no (unknown) (unknown) Partner history (units (unknown) date) of genital unknown) herpes: No (unknown) (no (unknown) (unknown) Partner: Elieser (units ( unknown) date) Martell unknown) (unknown) (no (unknown) (unknown) Patient comes in (units (unknown) date) for follow-up OB unknown) visit. She had some pelvic pain that (unknown) (no (unknown) (unknown) Patient presents (units (unknown) date) for a new OB unknown) visit at 8 weeks gestation. She is (unknown) (no (unknown) (unknown) Patient presents (units (unknown) date) for a routine unknown) visit, accompanied by her . 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) [place] [facility] vs unknown) [facility] (unknown) (no (unknown) (unknown) Personal history (units (unknown) date) of STD: denies hx unknown) (unknown) (no (unknown) (unknown) Personal history (units (unknown) date) of genital unknown) herpes: No (unknown) (no (unknown) (unknown) Plantar (units (unkno wn) date) fasciitis unknown) (unknown) (no (unknown) (unknown) Position Sitting (units (unknown) date) unknown) (unknown) (no (unknown) (unknown) (units (unk nown) date) family unknown) planning/Tubal sterilization: further discussion needed (unknown) (no (unknown) (unknown) (units (unkn own) date) History unknown) (unknown) (no (unknown) (unknown) type:: (units (unknown) date) Other Normal unknown) (unknown) (no (unknown) (unknown) (units (unkno wn) date) Education unknown) (unknown) (no (unknown) (unknown) Initial (units (unknown) date) Assessment unknown) (unknown) (no (unknown) (unknown) (units (unkno wn) date) Specific unknown) Issues/Plans (unknown) (no (unknown) (unknown) (units (unkno wn) date) Testing: unknown) discussed (unknown) (no (unknown) (unknown) Visit (units (unknown) date) unknown) (unknown) (no (unknown) (unknown) (units (unkno wn) date) education packet: unknown) Child education/plan, symptoms, (unknown) (no (unknown) (unknown) Primary Care (units (u nknown) date) Provider: [place] Arboleda unknown) Lindy (unknown) (no (unknown) (unknown) Primary Ob (units (unk nown) date) Provider: unknown) Garde,Richelle A (unknown) (no (unknown) (unknown) Prior (units (unkno wn) date) GBS-Infected unknown) child: No (unknown) (no (unknown) (unknown) Providers (units (unkn own) date) unknown) (unknown) (no (unknown) (unknown) Pt presents for (units (unknown) date) a PNV at 16+6 unknown) wks. No FM. No LOF/VB. Rec'd flu shot (unknown) (no (unknown) (unknown) Pt presents for (units (unknown) date) a routine PNV at unknown) 28 +6 wks gestation. Abnormal 3 hr GTT. 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 She unknown) has felt good movement. She says it is (unknown) (no (unknown) (unknown) Shingles (units (unkno wn) date) unknown) (unknown) (no (unknown) (unknown) Signed By: (units (unk nown) date) unknown) (unknown) (no (unknown) (unknown) Signs and (units (unkn own) date) symptoms of unknown) labor: discussed (unknown) (no (unknown) (unknown) Smoking Status: (units (unknown) date) Never smoker unknown) (unknown) (no (unknown) (unknown) Social History (units (unknown) date) unknown) (unknown) (no (unknown) (unknown) Support (units (unkno wn) date) Person(s):: Elieser unknown) (unknown) (no (unknown) (unknown) Surgical History (units (unknown) date) (Updated 01/24/22 unknown) @ 21:46 by Anamaria Cooper) (unknown) (no (unknown) (unknown) Surrogate (units (unkn own) date) ?: no unknown) (unknown) (no (unknown) (unknown) Symptoms since (units (unknown) date) LMP: Reports unknown) amenorrhea, nausea, fatigue, breast tenderness, (unknown) (no (unknown) (unknown) Teratogen (units (unkn own) date) Exposures since unknown) LMP/Conception: Denies prescription medications, (unknown) (no (unknown) (unknown) Testing (units (unkno wn) date) Education unknown) (unknown) (no (unknown) (unknown) Testing (units (unkno wn) date) education unknown) completed: group B strep, Spina bifida testing and Cell Free (unknown) (no (unknown) (unknown) This note may (units ( unknown) date) have been all or unknown) partially generated using voice recognition (unknown) (no (unknown) (unknown) Tobacco + (units (unkn own) date) Substance Use unknown) (unknown) (no (unknown) (unknown) Tobacco Status (units (unknown) date) unknown) (unknown) (no (unknown) (unknown) Trimester:: 3rd (units (unknown) date) Trimester unknown) (28wks-Del) (unknown) (no (unknown) (unknown) Tumor () (units (unknown) date) unknown) (unknown) (no (unknown) (unknown) Type(s) of (units (unk nown) date) exercise: unknown) bicycling (stationary bike), regular exercise, weight (unknown) (no (unknown) (unknown) UProtein Movement (units (unknown) date) PreLabor FHR Fndl unknown) Ht Pres Edema Cerv Exam US/Comment Next Appt (unknown) (no (unknown) (unknown) Ultrasound (units (unk nown) date) performed?: No unknown) (unknown) (no (unknown) (unknown) Varicella/chicke (units (unknown) date) n pox status: unknown) previous disease (unknown) (no (unknown) (unknown) Visit Date: (units (un known) date) 05/19/22 Last unknown) Updated by: Richelle Dawkins MD (unknown) (no (unknown) (unknown) Visit Date: (units (un known) date) 06/16/22 Last unknown) Updated by: Richelle Dawkins MD (unknown) (no (unknown) (unknown) Visit Date: (units (un known) date) 01/27/22 Last unknown) Updated by: Richelle Dawkins MD (unknown) (no (unknown) (unknown) Visit Date: (units (un known) date) 02/24/22 Last unknown) Updated by: Marietta Massey MD (unknown) (no (unknown) (unknown) Visit Date: (units (un known) date) 03/24/22 Last unknown) Updated by: Richelle Dawkins MD (unknown) (no (unknown) (unknown) Visit Date: (units (un known) date) 04/20/22 Last unknown) Updated by: Xiao Boland P.A-C (unknown) (no (unknown) (unknown) Visit Reasons: (units (unknown) date) OB unknown) (unknown) (no (unknown) (unknown) Vitals (units (unkno wn) date) unknown) (unknown) (no (unknown) (unknown) Vitamins and (units (u nknown) date) iron, Diet and unknown) weight gain, Fish and mercury intake, Caffeine use, (unknown) (no (unknown) (unknown) WG (units (unkno wn) date) unknown) (unknown) (no (unknown) (unknown) Weeks (units (unkno wn) date) gestation:: 33 unknown) (unknown) (no (unknown) (unknown) Weight 178 lb (units ( unknown) date) unknown) (unknown) (no (unknown) (unknown) Ages [place] teeth (units (u nknown) date) extracted unknown) (unknown) (no (unknown) (unknown) Zika virus (units (unk nown) date) exposure: No unknown) (unknown) (no (unknown) (unknown) accompanied by (units (unknown) date) her . She unknown) went through fertility treatments with (unknown) (no (unknown) (unknown) alcohol intake: (units (unknown) date) never unknown) (unknown) (no (unknown) (unknown) anterior (units (unkno wn) date) placenta. Routine unknown) precautions reviewed with the patient. Due to 1st (unknown) (no (unknown) (unknown) anyone in either (units (unknown) date) family with: unknown) (unknown) (no (unknown) (unknown) baby's father (units ( unknown) date) had a child with unknown) defects not listed above and Denies Other (unknown) (no (unknown) (unknown) back pain. (units (unk nown) date) Advised unknown) stretching, belly band, and PT if not improving. AFP was (unknown) (no (unknown) (unknown) blood sugar (units (un known) date) diagnostic (Blood unknown) Glucose Test strips) #100 ea 06/02/22 [Rx (unknown) (no (unknown) (unknown) blood-glucose (units ( unknown) date) meter #1 ea unknown) 06/02/22 [Rx Confirmed 07/20/22] (unknown) (no (unknown) (unknown) by ultrasound is (units (unknown) date) normal with good unknown) movement, normal appearing fluid, (unknown) (no (unknown) (unknown) caffeine: Yes (units ( unknown) date) (1-2 cups unknown) tea/day) (unknown) (no (unknown) (unknown) carbon monox (units (u nknown) date) detector in home: unknown) Yes (unknown) (no (unknown) (unknown) cfDNA normal (units (u nknown) date) female, AFP unknown) negative (unknown) (no (unknown) (unknown) consistent with (units (unknown) date) 9 weeks 0 days. unknown) Yolk sac visible. heart rate 178 beats (unknown) (no (unknown) (unknown) current (units (unkno wn) date) occupational unknown) exposures/hazards : No (unknown) (no (unknown) (unknown) daily servings (units (unknown) date) fruits/ve-4 unknown) (unknown) (no (unknown) (unknown) described, visit (units (unknown) date) schedule unknown) reviewed, ultrasounds policy reviewed, coverage 24 (unknown) (no (unknown) (unknown) developing a (units (u nknown) date) pattern. No unknown) leakage of fluid or vaginal bleeding. No contractions (unknown) (no (unknown) (unknown) discussed, (units (unk nown) date) tuberculosis unknown) exposure discussed, CMV discussed, Toxoplasmosis (unknown) (no (unknown) (unknown) disorders, (units (unk nown) date) Denies Cystic unknown) Fibrosis, Denies Mental Retardation/Autis m, Denies (unknown) (no (unknown) (unknown) do you feel safe (units (unknown) date) at home: Yes unknown) (unknown) (no (unknown) (unknown) during the past (units (unknown) date) year weight has: unknown) remained stable (unknown) (no (unknown) (unknown) education level: (units (unknown) date) college unknown) (Associate's degree) (unknown) (no (unknown) (unknown) exposure, (units (unkn own) date) Medication use, unknown) Sauna/hot tub use, Dental care, Travel and Influenza (unknown) (no (unknown) (unknown) fire (units (unkno wn) date) extinguisher in unknown) home: Yes (unknown) (no (unknown) (unknown) firearms in (units (un known) date) home: Yes unknown) firearms unloaded and locked: Yes (unknown) (no (unknown) (unknown) frequency: 5-6 (units (unknown) date) times per week unknown) (unknown) (no (unknown) (unknown) gestational sac (units (unknown) date) with a fetus with unknown) a crown-rump length measuring 2.29 cm (unknown) (no (unknown) (unknown) have occurred. (units (unknown) date) If there are any unknown) questions, please contact the Medical Records (unknown) (no (unknown) (unknown) hours a day and (units (unknown) date) participation of unknown) father in care and office visits (unknown) (no (unknown) (unknown) household (units (unkn own) date) members: spouse unknown) and family (father and [id number]) (unknown) (no (unknown) (unknown) housing: house (units (unknown) date) unknown) (unknown) (no (unknown) (unknown) illicit drugs (units ( unknown) date) and Denies other unknown) (unknown) (no (unknown) (unknown) kag (units (unkno wn) date) unknown) (unknown) (no (unknown) (unknown) lancets #100 ea (units (unknown) date) 06/02/22 [Rx unknown) Confirmed 07/20/22] (unknown) (no (unknown) (unknown) last visit. (units (un known) date) Plan: AFP today. unknown) 20 wk u/s reviewed. F/U 4 wks. Warning signs (unknown) (no (unknown) (unknown) lifting and (units (un known) date) other (hiking) unknown) (unknown) (no (unknown) (unknown) lives (units (unkno wn) date) independently: unknown) Yes (unknown) (no (unknown) (unknown) marital status: (units (unknown) date) unknown) (unknown) (no (unknown) (unknown) may occur. (units (unk nown) date) Occasional unknown) wrong-word or 'sound-alike' substitutions may have (unknown) (no (unknown) (unknown) medication only. (units (unknown) date) Had 7 unknown) miscarriages. No bleeding with this . This 1 (unknown) (no (unknown) (unknown) metformin 500 mg (units (unknown) date) tablet 500 mg PO unknown) BID #60 tabs 06/16/22 [Rx Confirmed 07/20/22] (unknown) (no (unknown) (unknown) movement and (units (u nknown) date) denies VB, LOF, unknown) cramping and regular contractions. Pt reports low (unknown) (no (unknown) (unknown) negative. (units (unkn own) date) Anatomy US unknown) scheduled for later today. Warning precautions reviewed. 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 Please (unknown) (no (unknown) (unknown) or cramping. (units (u nknown) date) Plan: 1 hour unknown) glucose ordered. Follow-up in 4 weeks. Warning (unknown) (no (unknown) (unknown) per minute. (units (un known) date) Normal ovaries unknown) bilaterally. Plan: Follow-up in 4 weeks. Warning (unknown) (no (unknown) (unknown) pets and (units (unkno wn) date) animals: Yes (1 unknown) large dog, chickens) (unknown) (no (unknown) (unknown) precautions, (units (u nknown) date) Listeriosis unknown) prevention and Rubella Immunization (unknown) (no (unknown) (unknown) preeclampsia. (units ( unknown) date) unknown) (unknown) (no (unknown) (unknown) (units (unkn own) date) discussed unknown) starting baby aspirin per day to decrease her risk for (unknown) (no (unknown) (unknown) prenat.vits,dara, (units (unknown) date) [id number] 1 unknown) tab PO DAILY 01/08/22 [History Confirmed (unknown) (no (unknown) (unknown) read the note (units ( unknown) date) carefully and unknown) recognize, using context, where these substitutions (unknown) (no (unknown) (unknown) reviewed. (units (unkn own) date) unknown) (unknown) (no (unknown) (unknown) seatbelt use: (units ( unknown) date) always unknown) (unknown) (no (unknown) (unknown) second hand (units (un known) date) exposure: Yes unknown) (fssdlt-rt-pny smokes outside the house) (unknown) (no (unknown) (unknown) signs reviewed. (units (unknown) date) cfDNA ordered. unknown) (unknown) (no (unknown) (unknown) signs reviewed. (units (unknown) date) unknown) (unknown) (no (unknown) (unknown) software. (units (unkn own) date) Although every unknown) effort is made to edit content, snubber errors (unknown) (no (unknown) (unknown) special anjum (units ( unknown) date) needs: No unknown) (unknown) (no (unknown) (unknown) substance use (units ( unknown) date) type: does not unknown) use (unknown) (no (unknown) (unknown) travel history: (units (unknown) date) over 6 months ago unknown) (unknown) (no (unknown) (unknown) urinary (units (unkno wn) date) frequency and unknown) irritability (unknown) (no (unknown) (unknown) vaccine (Annual (units (unknown) date) flu, Phizer Covid unknown) x2) (unknown) (no (unknown) (unknown) w0d 4 wks (units (unkn own) date) unknown) (unknown) (no (unknown) (unknown) was not using (units ( unknown) date) any infertility unknown) medications. Ultrasound: An intrauterine (unknown) (no (unknown) (unknown) water heater (units (u nknown) date) temp set < 120 unknown) deg: Yes (unknown) (no (unknown) (unknown) well-balanced (units ( unknown) date) diet: daily or unknown) most days (unknown) (no (unknown) (unknown) went away with (units (unknown) date) laying down. No unknown) vaginal bleeding. No fevers. heart tone (unknown) (no (unknown) (unknown) while ) (units (unknown) date) unknown) (unknown) (no (unknown) (unknown) wks. Warning (units (u nknown) date) signs for PTL unknown) reviewed. (unknown) (no (unknown) (unknown) working smoke (units ( unknown) date) detector in home: unknown) Yes Result panel 23 (unknown) (no (unknown) (unknown) (no value) (units (unk nown) date) unknown) (unknown) (no (unknown) (unknown) (+12 lb) 120/58 (units (unknown) date) N unknown) (unknown) (no (unknown) (unknown) (+13 lb) 104/54 (units (unknown) date) N unknown) (unknown) (no (unknown) (unknown) (+18 lb) 122/60 (units (unknown) date) N unknown) (unknown) (no (unknown) (unknown) (+22 lb) 110/62 (units (unknown) date) N unknown) (unknown) (no (unknown) (unknown) (+23 lb) 116/62 (units (unknown) date) N unknown) (unknown) (no (unknown) (unknown) (+24 lb) 128/62 (units (unknown) date) N unknown) (unknown) (no (unknown) (unknown) (+7 lb) 128/66 N (units (unknown) date) unknown) (unknown) (no (unknown) (unknown) (+8 lb) 122/68 N (units (unknown) date) unknown) (unknown) (no (unknown) (unknown) Genetic (units (unkn own) date) Screening/Teratol unknown) ogy Counseling - Includes patient, baby's father, or (unknown) (no (unknown) (unknown) -?-?-?-?-?-?-?-? (units (unknown) date) -?-?-?-? unknown) (unknown) (no (unknown) (unknown) 05/19/22 (units (unkno wn) date) unknown) (unknown) (no (unknown) (unknown) 06/16/22 (units (unkno wn) date) unknown) (unknown) (no (unknown) (unknown) 07/07/22 (units (unkno wn) date) unknown) (unknown) (no (unknown) (unknown) 07/20/22 (units (unkno wn) date) unknown) (unknown) (no (unknown) (unknown) 07/20/22] (units (unkn own) date) unknown) (unknown) (no (unknown) (unknown) 08/29/22 (units (unkno wn) date) Ultrasound #1 34w unknown) 2d (unknown) (no (unknown) (unknown) [id number] (units (unkno wn) date) unknown) (unknown) (no (unknown) (unknown) 01/27/22 (units (unkno wn) date) unknown) (unknown) (no (unknown) (unknown) 02/24/22 (units (unkno wn) date) unknown) (unknown) (no (unknown) (unknown) 03/24/22 (units (unkno wn) date) unknown) (unknown) (no (unknown) (unknown) 04/20/22 (units (unkno wn) date) unknown) (unknown) (no (unknown) (unknown) 12w 6d 163 lb (units ( unknown) date) unknown) (unknown) (no (unknown) (unknown) 15:40 (units (unkno wn) date) unknown) (unknown) (no (unknown) (unknown) 16w 6d 167 lb (units ( unknown) date) unknown) (unknown) (no (unknown) (unknown) 20w 5d 168 lb (units ( unknown) date) unknown) (unknown) (no (unknown) (unknown) 24w 6d 173 lb (units ( unknown) date) unknown) (unknown) (no (unknown) (unknown) 28w 6d 177 lb (units ( unknown) date) unknown) (unknown) (no (unknown) (unknown) 3 wks (units (unkno wn) date) unknown) (unknown) (no (unknown) (unknown) 31w 6d 179 lb (units ( unknown) date) unknown) (unknown) (no (unknown) (unknown) 33w 5d 178 lb (units ( unknown) date) unknown) (unknown) (no (unknown) (unknown) 4 wk (units (unkno wn) date) unknown) (unknown) (no (unknown) (unknown) 8w 6d 162 lb (units (u nknown) date) unknown) (unknown) (no (unknown) (unknown) Abnormal lab (units (u nknown) date) values 1st unknown) trimester: discussed (unknown) (no (unknown) (unknown) Abnormal lab (units (u nknown) date) values 2nd unknown) trimester: discussed (unknown) (no (unknown) (unknown) Add'l Plan (units (unk nown) date) Details unknown) (unknown) (no (unknown) (unknown) Age/Sex: 32 / F (units (unknown) date) Date of Service: unknown) (unknown) (no (unknown) (unknown) Allergies (units (unkn own) date) () unknown) (unknown) (no (unknown) (unknown) Allergies (units (unkn own) date) unknown) (unknown) (no (unknown) (unknown) ORALIA Erickson (units ( unknown) date) [id number] unknown) (unknown) (no (unknown) (unknown) Anesthesia (units (unk nown) date) unknown) (unknown) (no (unknown) (unknown) Aneuploidy (units (unk nown) date) Screening unknown) Offered: Accepted (wants CFDNA) (unknown) (no (unknown) (unknown) Anticipated (units (un known) date) course of unknown) care: discussed (unknown) (no (unknown) (unknown) Anxiety () (units (unknown) date) unknown) (unknown) (no (unknown) (unknown) Arrhythmia (units (unk nown) date) unknown) (unknown) (no (unknown) (unknown) Assessment and (units (unknown) date) Plan unknown) (unknown) (no (unknown) (unknown) Attending Dr: (units ( unknown) date) Richelle Dawkins unknown) (unknown) (no (unknown) (unknown) Corazon presents (units (unknown) date) today for routine unknown) OB f/u at 20w5d. She reports good (unknown) (no (unknown) (unknown) BMI 28.7 (units (unkno wn) date) unknown) (unknown) (no (unknown) (unknown) BP 116/62 (units (unkn own) date) unknown) (unknown) (no (unknown) (unknown) (units (unkno wn) date) Plan/Preferences unknown) (unknown) (no (unknown) (unknown) Planning (units (unknown) date) unknown) (unknown) (no (unknown) (unknown) Blood Pressure (units (unknown) date) Location Rt unknown) brachial (unknown) (no (unknown) (unknown) Blood (units (unkno wn) date) transfusions?: unknown) yes (Never had but would accept) (unknown) (no (unknown) (unknown) : (units (unknown) date) discussed unknown) (unknown) (no (unknown) (unknown) Chicken pox (units (un known) date) () unknown) (unknown) (no (unknown) (unknown) Childbirth (units (unk nown) date) Classes: unknown) discussed (unknown) (no (unknown) (unknown) Conceived (units (unkn own) date) naturally this unknown) (unknown) (no (unknown) (unknown) Confirmed (units (unkn own) date) 07/20/22] unknown) (unknown) (no (unknown) (unknown) Current Estimate (units (unknown) date) 09/02/22 unknown) Ultrasound #2 33w 5d (unknown) (no (unknown) (unknown) Current (units (unkno wn) date) History unknown) (unknown) (no (unknown) (unknown) DNA (units (unkno wn) date) unknown) (unknown) (no (unknown) (unknown) : 1990 (units (unknown) date) Acct:[id number] unknown) (unknown) (no (unknown) (unknown) Date of positive (units (unknown) date) home unknown) test: 12/29/21 (unknown) (no (unknown) (unknown) Date (units (unkno wn) date) unknown) (unknown) (no (unknown) (unknown) Denies Congenital (units (unknown) date) Heart Defect, unknown) Denies Down Syndrome, Denies Muscular Dystrophy, (unknown) (no (unknown) (unknown) Denies Maternal (units (unknown) date) Metabolic unknown) Disorder (EG,TYPE 1 Diabetes, PKU), Denies Patient or (unknown) (no (unknown) (unknown) Denies Neural (units ( unknown) date) Tube Defect unknown) (Meningomyelocele , Spina Bifida, or Anencephaly), D (unknown) (no (unknown) (unknown) Denies Sickle (units ( unknown) date) Cell Disease or unknown) Trait (), Denies Hemophilia or other blood (unknown) (no (unknown) (unknown) Depression (units (unk nown) date) (-2016) unknown) (unknown) (no (unknown) (unknown) Depression: (units (un known) date) discussed unknown) (unknown) (no (unknown) (unknown) Dept at (units (unkno wn) date) . 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 (units ( unknown) date) unknown) (unknown) (no (unknown) (unknown) Family History (units (unknown) date) (Updated 01/24/22 unknown) @ 21:49 by Anamaria Cooper) (unknown) (no (unknown) (unknown) Family/Other (units (u nknown) date) Multiple unknown) sclerosis (unknown) (no (unknown) (unknown) Father (units (unkno wn) date) Hypertension unknown) (unknown) (no (unknown) (unknown) Father of Baby: (units (unknown) date) same unknown) (unknown) (no (unknown) (unknown) [facility] unknown) (unknown) (no (unknown) (unknown) First Trimester (units (unknown) date) Education unknown) Checklist (unknown) (no (unknown) (unknown) Foot pain (units (unkn own) date) () unknown) (unknown) (no (unknown) (unknown) (SAB (units (unkn own) date) x7),Fertility Tx, unknown) meds only, started on baby aspirin 02/24/2022 (unknown) (no (unknown) (unknown) GDM, on (units (unkno wn) date) Metformin 500mg unknown) BID (unknown) (no (unknown) (unknown) Genetic (units (unkno wn) date) Screening + unknown) Counseling (unknown) (no (unknown) (unknown) Genetic (units (unkno wn) date) Screening unknown) (unknown) (no (unknown) (unknown) Grandfather (units (un known) date) Cancer unknown) (unknown) (no (unknown) (unknown) Grandfather (units (un known) date) Stroke unknown) (unknown) (no (unknown) (unknown) Grandmother (units (un known) date) History unknown) of heart disease (unknown) (no (unknown) (unknown) Grandmother (units (un known) date) Multiple unknown) sclerosis (unknown) (no (unknown) (unknown) 8 (units (unkn own) date) Multiple births 0 unknown) (unknown) (no (unknown) (unknown) HIV risk (units (unkno wn) date) evaluation: low unknown) risk (unknown) (no (unknown) (unknown) Health Center (units ( unknown) date) Education unknown) (unknown) (no (unknown) (unknown) Health center (units ( unknown) date) information: unknown) nature of practice discussed, personnel (unknown) (no (unknown) (unknown) Height 5 ft 6 in (units (unknown) date) unknown) (unknown) (no (unknown) (unknown) Hepatitis C risk (units (unknown) date) evaluation: low unknown) risk (unknown) (no (unknown) (unknown) History of (units (unk nown) date) Hepatitis B: No unknown) (unknown) (no (unknown) (unknown) History of (units (unk nown) date) Hepatitis C: No unknown) (unknown) (no (unknown) (unknown) 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 (unknown) (no (unknown) (unknown) Hospital: (units (u nknown) date) unknown) (unknown) (no (unknown) (unknown) [facility] (units (u nknown) date) Chorea, Denies unknown) Other inherited genetic or chromosomal disorder, (unknown) (no (unknown) (unknown) , Elieser (units ( unknown) date) Martell unknown) (unknown) (no (unknown) (unknown) Hx # (units (u nknown) date) Pregnancies 0 unknown) Elective abortions 0 (unknown) (no (unknown) (unknown) Hx # Term (units (unkn own) date) Pregnancies 0 unknown) Ectopic pregnancies 0 (unknown) (no (unknown) (unknown) Infant will be (units (unknown) date) adopted?: no unknown) (unknown) (no (unknown) (unknown) Infection (units (unkn own) date) History unknown) (unknown) (no (unknown) (unknown) Infectious (units (unk nown) date) Disease Education unknown) (unknown) (no (unknown) (unknown) Infectious (units (unk nown) date) disease exposure: unknown) chicken pox immunity discussed, hepatitis risk (unknown) (no (unknown) (unknown) Infertility (units (un known) date) () unknown) (unknown) (no (unknown) (unknown) Initial Weight: (units (unknown) date) 155 lb unknown) (unknown) (no (unknown) (unknown) Initials (units (unkno wn) date) unknown) (unknown) (no (unknown) (unknown) Intake Clinical (units (unknown) date) Staff unknown) (unknown) (no (unknown) (unknown) Intake Note: (units (u nknown) date) unknown) (unknown) (no (unknown) (unknown) Intake performed (units (unknown) date) by: unknown) Nu [facility] (unknown) (no (unknown) (unknown) Intake (units (unkno wn) date) unknown) (unknown) (no (unknown) (unknown) Irregular (units (unkn own) date) menstrual cycle unknown) () (unknown) (no (unknown) (unknown) LM (units (unkno wn) date) unknown) (unknown) (no (unknown) (unknown) Lipoma (units (unkno wn) date) unknown) (unknown) (no (unknown) (unknown) Live with (units (unkn own) date) someone with TB unknown) or exposed to TB: No (unknown) (no (unknown) (unknown) Loc: [facility] (units (unkno wn) date) unknown) (unknown) (no (unknown) (unknown) Marital status: (units (unknown) date) unknown) (unknown) (no (unknown) (unknown) Medical History (units (unknown) date) (Updated 06/28/22 unknown) @ 16:18 by Richelle Dawkins MD) (unknown) (no (unknown) (unknown) Medications (units (un known) date) unknown) (unknown) (no (unknown) (unknown) Medications: (units (u nknown) date) unknown) (unknown) (no (unknown) (unknown) Mother Gastric (units (unknown) date) cancer unknown) (unknown) (no (unknown) (unknown) N No 142 13 N/A (units (unknown) date) 4wk unknown) (unknown) (no (unknown) (unknown) N No no 143 17 (units (unknown) date) N/A absent AFP 4 unknown) wks (unknown) (no (unknown) (unknown) N No no 178 9 (units ( unknown) date) N/A absent unknown) long/closed AGA 9 (unknown) (no (unknown) (unknown) N Yes no 135 34 (units (unknown) date) Vertex absent 2 unknown) wks (unknown) (no (unknown) (unknown) N Yes no 141 24 (units (unknown) date) N/A absent 4 wks unknown) (unknown) (no (unknown) (unknown) N Yes no 142 20 (units (unknown) date) N/A absent AFP unknown) negative (unknown) (no (unknown) (unknown) N Yes no 144 29 (units (unknown) date) Vertex absent AGA unknown) 29w5d (unknown) (no (unknown) (unknown) N Yes no 150 32 (units (unknown) date) Vertex absent 2 unknown) wks (unknown) (no (unknown) (unknown) NF (units (unkno wn) date) unknown) (unknown) (no (unknown) (unknown) New (units (unkno wn) date) unknown) (unknown) (no (unknown) (unknown) Notes (units (unkno wn) date) unknown) (unknown) (no (unknown) (unknown) Number of Living (units (unknown) date) Children 0 unknown) (unknown) (no (unknown) (unknown) Number of (units (unkn own) date) fetuses:: Single unknown) (unknown) (no (unknown) (unknown) Nutrition and (units ( unknown) date) weight gain unknown) counseling: special diet: discussed (unknown) (no (unknown) (unknown) OB Office Visit (units (unknown) date) unknown) (unknown) (no (unknown) (unknown) OB Visit Log (units (u nknown) date) unknown) (unknown) (no (unknown) (unknown) OB check (units (unkno wn) date) unknown) (unknown) (no (unknown) (unknown) On U/S: AGA (units (un known) date) 29w5d. 3#4oz unknown) 66%ile. Nl AFV. Plan: Metformin 500mg BID. F/U 3 (unknown) (no (unknown) (unknown) On control (units (unknown) date) at conception?: unknown) No (unknown) (no (unknown) (unknown) Other Estimates (units (unknown) date) 08/18/22 LMP unknown) (Certain) 35w 6d (unknown) (no (unknown) (unknown) Ovarian cyst (units (u nknown) date) () unknown) (unknown) (no (unknown) (unknown) PCOS (polycystic (units (unknown) date) ovarian syndrome) unknown) (unknown) (no (unknown) (unknown) PFSH (units (unkno wn) date) unknown) (unknown) (no (unknown) (unknown) Pap performed?: (units (unknown) date) No unknown) (unknown) (no (unknown) (unknown) Para 0 (units (unkno wn) date) Spontaneous unknown) abortions 7 (unknown) (no (unknown) (unknown) Partner history (units (unknown) date) of STD: denies hx unknown) (unknown) (no (unknown) (unknown) Partner history (units (unknown) date) of genital unknown) herpes: No (unknown) (no (unknown) (unknown) Partner: Elieser (units ( unknown) date) Martell unknown) (unknown) (no (unknown) (unknown) Patient comes in (units (unknown) date) for follow-up OB unknown) visit. She had some pelvic pain that (unknown) (no (unknown) (unknown) Patient presents (units (unknown) date) for a new OB unknown) visit at 8 weeks gestation. She is (unknown) (no (unknown) (unknown) Patient presents (units (unknown) date) for a routine unknown) visit, accompanied by her . 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) [place] vs unknown) [facility] (unknown) (no (unknown) (unknown) Personal history (units (unknown) date) of STD: denies hx unknown) (unknown) (no (unknown) (unknown) Personal history (units (unknown) date) of genital unknown) herpes: No (unknown) (no (unknown) (unknown) Plantar (units (unkno wn) date) fasciitis unknown) (unknown) (no (unknown) (unknown) Position Sitting (units (unknown) date) unknown) (unknown) (no (unknown) (unknown) (units (unk nown) date) family unknown) planning/Tubal sterilization: further discussion needed (unknown) (no (unknown) (unknown) (units (unkn own) date) History unknown) (unknown) (no (unknown) (unknown) type:: (units (unknown) date) Other Normal unknown) (unknown) (no (unknown) (unknown) (units (unkno wn) date) Education unknown) (unknown) (no (unknown) (unknown) Initial (units (unknown) date) Assessment unknown) (unknown) (no (unknown) (unknown) (units (unkno wn) date) Specific unknown) Issues/Plans (unknown) (no (unknown) (unknown) (units (unkno wn) date) Testing: unknown) discussed (unknown) (no (unknown) (unknown) Visit (units (unknown) date) unknown) (unknown) (no (unknown) (unknown) (units (unkno wn) date) education packet: unknown) Child education/plan, symptoms, (unknown) (no (unknown) (unknown) Primary Care (units (u nknown) date) Provider: [place] Arboleda unknown) [place] (unknown) (no (unknown) (unknown) Primary Ob (units (unk nown) date) Provider: unknown) Richelle Dawkins (unknown) (no (unknown) (unknown) Prior (units (unkno wn) date) GBS-Infected unknown) child: No (unknown) (no (unknown) (unknown) Providers (units (unkn own) date) unknown) (unknown) (no (unknown) (unknown) Pt presents for (units (unknown) date) a PNV at 16+6 unknown) wks. No FM. No LOF/VB. Rec'd flu shot (unknown) (no (unknown) (unknown) Pt presents for (units (unknown) date) a routine PNV at unknown) 28 +6 wks gestation. Abnormal 3 hr GTT. 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 She unknown) has felt good movement. She says it is (unknown) (no (unknown) (unknown) Shingles (units (unkno wn) date) unknown) (unknown) (no (unknown) (unknown) Signed By: (units (unk nown) date) unknown) (unknown) (no (unknown) (unknown) Signs and (units (unkn own) date) symptoms of unknown) labor: discussed (unknown) (no (unknown) (unknown) Smoking Status: (units (unknown) date) Never smoker unknown) (unknown) (no (unknown) (unknown) Social History (units (unknown) date) unknown) (unknown) (no (unknown) (unknown) Support (units (unkno wn) date) Person(s):: Elieser unknown) (unknown) (no (unknown) (unknown) Surgical History (units (unknown) date) (Updated 01/24/22 unknown) @ 21:46 by Anamaria Cooper) (unknown) (no (unknown) (unknown) Surrogate (units (unkn own) date) ?: no unknown) (unknown) (no (unknown) (unknown) Symptoms since (units (unknown) date) LMP: Reports unknown) amenorrhea, nausea, fatigue, breast tenderness, (unknown) (no (unknown) (unknown) Take 1 1/2 tabs (units (unknown) date) twice a day 750 unknown) mg (1.5 x 500 mg) PO BID 90 tabs 1RF (unknown) (no (unknown) (unknown) Teratogen (units (unkn own) date) Exposures since unknown) LMP/Conception: Denies prescription medications, (unknown) (no (unknown) (unknown) Testing (units (unkno wn) date) Education unknown) (unknown) (no (unknown) (unknown) Testing (units (unkno wn) date) education unknown) completed: group B strep, Spina bifida testing and Cell Free (unknown) (no (unknown) (unknown) This note may (units ( unknown) date) have been all or unknown) partially generated using voice recognition (unknown) (no (unknown) (unknown) Tobacco + (units (unkn own) date) Substance Use unknown) (unknown) (no (unknown) (unknown) Tobacco Status (units (unknown) date) unknown) (unknown) (no (unknown) (unknown) Trimester:: 3rd (units (unknown) date) Trimester unknown) (28wks-Del) (unknown) (no (unknown) (unknown) Tumor () (units (unknown) date) unknown) (unknown) (no (unknown) (unknown) Type(s) of (units (unk nown) date) exercise: unknown) bicycling (stationary bike), regular exercise, weight (unknown) (no (unknown) (unknown) UProtein Movement (units (unknown) date) PreLabor FHR Fndl unknown) Ht Pres Edema Cerv Exam US/Comment Next Appt (unknown) (no (unknown) (unknown) Ultrasound (units (unk nown) date) performed?: No unknown) (unknown) (no (unknown) (unknown) Varicella/chicke (units (unknown) date) n pox status: unknown) previous disease (unknown) (no (unknown) (unknown) Visit Date: (units (un known) date) 05/19/22 Last unknown) Updated by: Richelle Dawkins MD (unknown) (no (unknown) (unknown) Visit Date: (units (un known) date) 06/16/22 Last unknown) Updated by: Richelle Dawkins MD (unknown) (no (unknown) (unknown) Visit Date: (units (un known) date) 01/27/22 Last unknown) Updated by: Richelle Dawkins MD (unknown) (no (unknown) (unknown) Visit Date: (units (un known) date) 02/24/22 Last unknown) Updated by: Marietta Massey MD (unknown) (no (unknown) (unknown) Visit Date: (units (un known) date) 03/24/22 Last unknown) Updated by: Richelle Dawkins MD (unknown) (no (unknown) (unknown) Visit Date: (units (un known) date) 04/20/22 Last unknown) Updated by: Xiao Boland P.A-C (unknown) (no (unknown) (unknown) Visit Reasons: (units (unknown) date) OB unknown) (unknown) (no (unknown) (unknown) Vitals (units (unkno wn) date) unknown) (unknown) (no (unknown) (unknown) Vitamins and (units (u nknown) date) iron, Diet and unknown) weight gain, Fish and mercury intake, Caffeine use, (unknown) (no (unknown) (unknown) WG (units (unkno wn) date) unknown) (unknown) (no (unknown) (unknown) Weeks (units (unkno wn) date) gestation:: 33 unknown) (unknown) (no (unknown) (unknown) Weight 178 lb (units ( unknown) date) unknown) (unknown) (no (unknown) (unknown) Ages [place] teeth (units (u nknown) date) extracted unknown) (unknown) (no (unknown) (unknown) Zika virus (units (unk n) date) exposure: No unknown) (unknown) (no (unknown) (unknown) accompanied by (units (unknown) date) her . She unknown) went through fertility treatments with (unknown) (no (unknown) (unknown) alcohol intake: (units (unknown) date) never unknown) (unknown) (no (unknown) (unknown) anterior (units (unkno wn) date) placenta. Routine unknown) precautions reviewed with the patient. Due to 1st (unknown) (no (unknown) (unknown) anyone in either (units (unknown) date) family with: unknown) (unknown) (no (unknown) (unknown) baby's father (units ( unknown) date) had a child with unknown) defects not listed above and Denies Other (unknown) (no (unknown) (unknown) back pain. (units (k ) date) Advised unknown) stretching, belly band, and PT if not improving. AFP was (unknown) (no (unknown) (unknown) blood sugar (units (un known) date) diagnostic (Blood unknown) Glucose Test strips) #100 ea 06/02/22 [Rx (unknown) (no (unknown) (unknown) blood-glucose (units ( unknown) date) meter #1 ea unknown) 06/02/22 [Rx Confirmed 07/20/22] (unknown) (no (unknown) (unknown) by ultrasound is (units (unknown) date) normal with good unknown) movement, normal appearing fluid, (unknown) (no (unknown) (unknown) caffeine: Yes (units ( unknown) date) (1-2 cups unknown) tea/day) (unknown) (no (unknown) (unknown) carbon monox (units (u nknown) date) detector in home: unknown) Yes (unknown) (no (unknown) (unknown) cfDNA normal (units (u nknown) date) female, AFP unknown) negative (unknown) (no (unknown) (unknown) consistent with (units (unknown) date) 9 weeks 0 days. unknown) Yolk sac visible. heart rate 178 beats (unknown) (no (unknown) (unknown) current (units (unkno wn) date) occupational unknown) exposures/hazards : No (unknown) (no (unknown) (unknown) daily servings (units (unknown) date) fruits/ve-4 unknown) (unknown) (no (unknown) (unknown) described, visit (units (unknown) date) schedule unknown) reviewed, ultrasounds policy reviewed, coverage 24 (unknown) (no (unknown) (unknown) developing a (units (u nknown) date) pattern. No unknown) leakage of fluid or vaginal bleeding. No contractions (unknown) (no (unknown) (unknown) discussed, (units (unk nown) date) tuberculosis unknown) exposure discussed, CMV discussed, Toxoplasmosis (unknown) (no (unknown) (unknown) disorders, (units (unk nown) date) Denies Cystic unknown) Fibrosis, Denies Mental Retardation/Autis m, Denies (unknown) (no (unknown) (unknown) do you feel safe (units (unknown) date) at home: Yes unknown) (unknown) (no (unknown) (unknown) during the past (units (unknown) date) year weight has: unknown) remained stable (unknown) (no (unknown) (unknown) education level: (units (unknown) date) college unknown) (Associate's degree) (unknown) (no (unknown) (unknown) enies Enio-Sachs (units (unknown) date) (Ashkenazi unknown) Sabianism, Cajun, Indonesian Paraguayan), Denies Jose (unknown) (no (unknown) (unknown) exposure, (units (unkn own) date) Medication use, unknown) Sauna/hot tub use, Dental care, Travel and Influenza (unknown) (no (unknown) (unknown) fire (units (unkno wn) date) extinguisher in unknown) home: Yes (unknown) (no (unknown) (unknown) firearms in (units (un known) date) home: Yes unknown) firearms unloaded and locked: Yes (unknown) (no (unknown) (unknown) frequency: 5-6 (units (unknown) date) times per week unknown) (unknown) (no (unknown) (unknown) gestational sac (units (unknown) date) with a fetus with unknown) a crown-rump length measuring 2.29 cm (unknown) (no (unknown) (unknown) have occurred. (units (unknown) date) If there are any unknown) questions, please contact the Medical Records (unknown) (no (unknown) (unknown) hours a day and (units (unknown) date) participation of unknown) father in care and office visits (unknown) (no (unknown) (unknown) household (units (unkn own) date) members: spouse unknown) and family (father and [id number]-[id number]-rrg) (unknown) (no (unknown) (unknown) housing: house (units (unknown) date) unknown) (unknown) (no (unknown) (unknown) illicit drugs (units ( unknown) date) and Denies other unknown) (unknown) (no (unknown) (unknown) kag (units (unkno wn) date) unknown) (unknown) (no (unknown) (unknown) lancets #100 ea (units (unknown) date) 06/02/22 [Rx unknown) Confirmed 07/20/22] (unknown) (no (unknown) (unknown) last visit. (units (un known) date) Plan: AFP today. unknown) 20 wk u/s reviewed. F/U 4 wks. Warning signs (unknown) (no (unknown) (unknown) lifting and (units (un known) date) other (hiking) unknown) (unknown) (no (unknown) (unknown) lives (units (unkno wn) date) independently: unknown) Yes (unknown) (no (unknown) (unknown) marital status: (units (unknown) date) unknown) (unknown) (no (unknown) (unknown) may occur. (units (unk nown) date) Occasional unknown) wrong-word or 'sound-alike' substitutions may have (unknown) (no (unknown) (unknown) medication only. (units (unknown) date) Had 7 unknown) miscarriages. No bleeding with this . This 1 (unknown) (no (unknown) (unknown) metformin 500 mg (units (unknown) date) tablet 500 mg PO unknown) BID #60 tabs 06/16/22 [Rx Confirmed 07/20/22] (unknown) (no (unknown) (unknown) metformin 500 mg (units (unknown) date) tablet 750 mg PO unknown) BID #90 tabs 07/20/22 [Rx Confirmed 07/20/22] (unknown) (no (unknown) (unknown) metformin (units (unkn own) date) unknown) (unknown) (no (unknown) (unknown) movement and (units (u nknown) date) denies VB, LOF, unknown) cramping and regular contractions. Pt reports low (unknown) (no (unknown) (unknown) negative. (units (unkn own) date) Anatomy US unknown) scheduled for later today. Warning precautions reviewed. 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 Please (unknown) (no (unknown) (unknown) or cramping. (units (u nknown) date) Plan: 1 hour unknown) glucose ordered. Follow-up in 4 weeks. Warning (unknown) (no (unknown) (unknown) per minute. (units (un known) date) Normal ovaries unknown) bilaterally. Plan: Follow-up in 4 weeks. Warning (unknown) (no (unknown) (unknown) pets and (units (unkno wn) date) animals: Yes (1 unknown) large dog, chickens) (unknown) (no (unknown) (unknown) precautions, (units (u nknown) date) Listeriosis unknown) prevention and Rubella Immunization (unknown) (no (unknown) (unknown) preeclampsia. (units ( unknown) date) unknown) (unknown) (no (unknown) (unknown) (units (unkn own) date) discussed unknown) starting baby aspirin per day to decrease her risk for (unknown) (no (unknown) (unknown) prenat.vits,dara, (units (unknown) date) vup-ixom-sqjia 1 unknown) tab PO DAILY 01/08/22 [History Confirmed (unknown) (no (unknown) (unknown) read the note (units ( unknown) date) carefully and unknown) recognize, using context, where these substitutions (unknown) (no (unknown) (unknown) reviewed. (units (unkn own) date) unknown) (unknown) (no (unknown) (unknown) seatbelt use: (units ( unknown) date) always unknown) (unknown) (no (unknown) (unknown) second hand (units (un known) date) exposure: Yes unknown) ([id number]-lb-[id number] smokes outside the house) (unknown) (no (unknown) (unknown) signs reviewed. (units (unknown) date) cfDNA ordered. unknown) (unknown) (no (unknown) (unknown) signs reviewed. (units (unknown) date) unknown) (unknown) (no (unknown) (unknown) software. (units (unkn own) date) Although every unknown) effort is made to edit content, snubber errors (unknown) (no (unknown) (unknown) special anjum (units ( unknown) date) needs: No unknown) (unknown) (no (unknown) (unknown) substance use (units ( unknown) date) type: does not unknown) use (unknown) (no (unknown) (unknown) travel history: (units (unknown) date) over 6 months ago unknown) (unknown) (no (unknown) (unknown) urinary (units (unkno wn) date) frequency and unknown) irritability (unknown) (no (unknown) (unknown) vaccine (Annual (units (unknown) date) flu, Phizer Covid unknown) x2) (unknown) (no (unknown) (unknown) w0d 4 wks (units (unkn own) date) unknown) (unknown) (no (unknown) (unknown) was not using (units ( unknown) date) any infertility unknown) medications. Ultrasound: An intrauterine (unknown) (no (unknown) (unknown) water heater (units (u nknown) date) temp set < 120 unknown) deg: Yes (unknown) (no (unknown) (unknown) well-balanced (units ( unknown) date) diet: daily or unknown) most days (unknown) (no (unknown) (unknown) went away with (units (unknown) date) laying down. No unknown) vaginal bleeding. No fevers. heart tone (unknown) (no (unknown) (unknown) while ) (units (unknown) date) unknown) (unknown) (no (unknown) (unknown) wks. Warning (units (u nknown) date) signs for PTL unknown) reviewed. (unknown) (no (unknown) (unknown) working smoke (units ( unknown) date) detector in home: unknown) Yes Result panel 24 (unknown) (no (unknown) (unknown) (no value) (units (unk nown) date) unknown) (unknown) (no (unknown) (unknown) (Gestational, (units ( unknown) date) on metformin) unknown) (unknown) (no (unknown) (unknown) 07/20/22 1738 (units ( unknown) date) unknown) (unknown) (no (unknown) (unknown) [id number] (units (unkno wn) date) unknown) (unknown) (no (unknown) (unknown) 32-year-old (units (un known) date) 8 para 0 unknown) at 33-,5/7 weeks gestation (unknown) (no (unknown) (unknown) Age/Sex: 32 / F (units (unknown) date) unknown) (unknown) (no (unknown) (unknown) Allergies (units (unkn own) date) (-2013) unknown) (unknown) (no (unknown) (unknown) Anesthesia (units (unk nown) date) unknown) (unknown) (no (unknown) (unknown) Anxiety (-2016) (units (unknown) date) unknown) (unknown) (no (unknown) (unknown) Arrhythmia (units (unk nown) date) unknown) (unknown) (no (unknown) (unknown) Assessment: (units (un known) date) unknown) (unknown) (no (unknown) (unknown) Baseline (units (unknown) date) heart rate: 135 unknown) (unknown) (no (unknown) (unknown) Chicken pox (units (un known) date) () unknown) (unknown) (no (unknown) (unknown) : 1990 (units (unknown) date) Acct:[id number] unknown) (unknown) (no (unknown) (unknown) Date of (units (unkno wn) date) Service: unknown) 07/20/22 (unknown) (no (unknown) (unknown) Date of (units (unkno wn) date) evaluation: unknown) 07/20/22 (unknown) (no (unknown) (unknown) Depression (units (unk nown) date) () unknown) (unknown) (no (unknown) (unknown) Diagnosis, (units (unk nown) date) Plan/Disposition unknown) (unknown) (no (unknown) (unknown) Eczema (-1999) (units (unknown) date) unknown) (unknown) (no (unknown) (unknown) Evaluation (units (unk nown) date) unknown) (unknown) (no (unknown) (unknown) Family History (units (unknown) date) (Updated unknown) 01/24/22 @ 21:49 by Anamaria Cooper) (unknown) (no (unknown) (unknown) Family/Other (units (u nknown) date) Multiple unknown) sclerosis (unknown) (no (unknown) (unknown) Father (units (unkno wn) date) Hypertension unknown) (unknown) (no (unknown) (unknown) Monitor (units ( unknown) date) Decelerations: unknown) Absent (unknown) (no (unknown) (unknown) Status: (units ( unknown) date) Category l unknown) (unknown) (no (unknown) (unknown) monitor (units ( unknown) date) accelerations: unknown) Present (unknown) (no (unknown) (unknown) Follow-up in 1 (units (unknown) date) week unknown) (unknown) (no (unknown) (unknown) Foot pain (units (unkn own) date) () unknown) (unknown) (no (unknown) (unknown) Gestational (units (un known) date) diabetes on unknown) metformin (unknown) (no (unknown) (unknown) Grandfather (units (un known) date) Cancer unknown) (unknown) (no (unknown) (unknown) Grandfather (units (un known) date) Stroke unknown) (unknown) (no (unknown) (unknown) Grandmother (units (un known) date) History unknown) of heart disease (unknown) (no (unknown) (unknown) Grandmother (units (un known) date) unknown) Multiple sclerosis (unknown) (no (unknown) (unknown) 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 (unknown) (no (unknown) (unknown) Infertility (units (un known) date) () unknown) (unknown) (no (unknown) (unknown) Irregular (units (unkn own) date) menstrual cycle unknown) () (unknown) (no (unknown) (unknown) [facility] (units (unknown) date) [address] unknown) [place] [address] (unknown) (no (unknown) (unknown) Labor and (units (unkn own) date) Delivery Triage unknown) Note (unknown) (no (unknown) (unknown) Lipoma (units (unkno wn) date) unknown) (unknown) (no (unknown) (unknown) Medical History (units (unknown) date) (Updated unknown) 06/28/22 @ 16:18 by Richelle Dawkins MD) (unknown) (no (unknown) (unknown) Mother Gastric (units (unknown) date) cancer unknown) (unknown) (no (unknown) (unknown) OB Disposition: (units (unknown) date) home unknown) (unknown) (no (unknown) (unknown) On-call OB (units (unk nown) date) Provider: unknown) Richelle Dawkins (unknown) (no (unknown) (unknown) Ovarian cyst (units (u nknown) date) () unknown) (unknown) (no (unknown) (unknown) PCOS (units (unkno wn) date) (polycystic unknown) ovarian syndrome) (unknown) (no (unknown) (unknown) PFSH (units (unkno wn) date) unknown) (unknown) (no (unknown) (unknown) Patient: (units (unkno wn) date) RowleyCorazon unknown) MR#: [id number] (unknown) (no (unknown) (unknown) Plan/Dispositio (units (unknown) date) n unknown) (unknown) (no (unknown) (unknown) Plan: (units (unkno wn) date) unknown) (unknown) (no (unknown) (unknown) Plantar (units (unkno wn) date) fasciitis unknown) (unknown) (no (unknown) (unknown) Primary OB (units (unk nown) date) Provider: unknown) Richelle Dawkins (unknown) (no (unknown) (unknown) Provider: (units (unkn own) date) Richelle Dawkins unknown) MD (unknown) (no (unknown) (unknown) Reactive (units (unkno wn) date) nonstress test unknown) (unknown) (no (unknown) (unknown) Reason for (units (unk nown) date) Evaluation: Yes unknown) non-stress test non-stress test reason: diabetes (unknown) (no (unknown) (unknown) Shingles (units (unkno wn) date) unknown) (unknown) (no (unknown) (unknown) Signed (units (unkno wn) date) By:<Electronical unknown) ly signed by Richelle Dawkins MD> (unknown) (no (unknown) (unknown) Smoking Status: (units (unknown) date) Never smoker unknown) (unknown) (no (unknown) (unknown) Social History (units (unknown) date) unknown) (unknown) (no (unknown) (unknown) Surgical (units (unkno wn) date) History (Updated unknown) 01/24/22 @ 21:46 by Anamaria Cooper) (unknown) (no (unknown) (unknown) Tumor (units (unkno wn) date) () unknown) (unknown) (no (unknown) (unknown) Type(s) of (units (unk nown) date) exercise: unknown) bicycling (stationary bike), regular exercise, weight (unknown) (no (unknown) (unknown) Variability: (units (u nknown) date) Moderate (11-25) unknown) (unknown) (no (unknown) (unknown) Visit (units (unkno wn) date) Information unknown) (unknown) (no (unknown) (unknown) Ages [place] teeth (units (u nknown) date) extracted unknown) (unknown) (no (unknown) (unknown) alcohol intake: (units (unknown) date) never unknown) (unknown) (no (unknown) (unknown) caffeine: Yes (units ( unknown) date) (1-2 cups unknown) tea/day) (unknown) (no (unknown) (unknown) carbon monox (units (u nknown) date) detector in unknown) home: Yes (unknown) (no (unknown) (unknown) current (units (unkno wn) date) occupational unknown) exposures/hazard s: No (unknown) (no (unknown) (unknown) daily servings (units (unknown) date) fruits/ve-4 unknown) (unknown) (no (unknown) (unknown) do you feel (units (un known) date) safe at home: unknown) Yes (unknown) (no (unknown) (unknown) during the past (units (unknown) date) year weight has: unknown) remained stable (unknown) (no (unknown) (unknown) education (units (unkn own) date) level: college unknown) (Associate's degree) (unknown) (no (unknown) (unknown) fire (units (unkno wn) date) extinguisher in unknown) home: Yes (unknown) (no (unknown) (unknown) firearms in (units (un known) date) home: Yes unknown) firearms unloaded and locked: Yes (unknown) (no (unknown) (unknown) frequency: 5-6 (units (unknown) date) times per week unknown) (unknown) (no (unknown) (unknown) household (units (unkn own) date) members: spouse unknown) and family (father and omgrwo-hx-eyo) (unknown) (no (unknown) (unknown) housing: house (units (unknown) date) unknown) (unknown) (no (unknown) (unknown) lifting and (units (un known) date) other (hiking) unknown) (unknown) (no (unknown) (unknown) lives (units (unkno wn) date) independently: unknown) Yes (unknown) (no (unknown) (unknown) marital status: (units (unknown) date) unknown) (unknown) (no (unknown) (unknown) number of (units (unkn own) date) children: 0 unknown) (unknown) (no (unknown) (unknown) occupational (units (u nknown) date) status: employed unknown) (active duty [employer], [employer] job (unknown) (no (unknown) (unknown) pets and (units (unkno wn) date) animals: Yes (1 unknown) large dog, chickens) (unknown) (no (unknown) (unknown) seatbelt use: (units ( unknown) date) always unknown) (unknown) (no (unknown) (unknown) second hand (units (un known) date) exposure: Yes unknown) ([id number]-rp-vkq smokes outside the house) (unknown) (no (unknown) (unknown) special anjum (units ( unknown) date) needs: No unknown) (unknown) (no (unknown) (unknown) substance use (units ( unknown) date) type: does not unknown) use (unknown) (no (unknown) (unknown) travel history: (units (unknown) date) over 6 months unknown) ago (unknown) (no (unknown) (unknown) water heater (units (u nknown) date) temp set < 120 unknown) deg: Yes (unknown) (no (unknown) (unknown) well-balanced (units ( unknown) date) diet: daily or unknown) most days (unknown) (no (unknown) (unknown) while ) (units (unknown) date) unknown) (unknown) (no (unknown) (unknown) working smoke (units ( unknown) date) detector in unknown) home: Yes Result panel 25 (unknown) (no (unknown) (unknown) (no value) (units (unk nown) date) unknown) (unknown) (no (unknown) (unknown) (+12 lb) 120/58 (units (unknown) date) N unknown) (unknown) (no (unknown) (unknown) (+13 lb) 104/54 (units (unknown) date) N unknown) (unknown) (no (unknown) (unknown) (+18 lb) 122/60 (units (unknown) date) N unknown) (unknown) (no (unknown) (unknown) (+22 lb) 110/62 (units (unknown) date) N unknown) (unknown) (no (unknown) (unknown) (+23 lb) 116/62 (units (unknown) date) N unknown) (unknown) (no (unknown) (unknown) (+24 lb) 128/62 (units (unknown) date) N unknown) (unknown) (no (unknown) (unknown) (+7 lb) 128/66 N (units (unknown) date) unknown) (unknown) (no (unknown) (unknown) (+8 lb) 122/68 N (units (unknown) date) unknown) (unknown) (no (unknown) (unknown) (1) Gestational (units (unknown) date) diabetes: unknown) (unknown) (no (unknown) (unknown) (2) H/O (units (unkno wn) date) infertility: unknown) (unknown) (no (unknown) (unknown) (3) 33 weeks (units (u nknown) date) gestation of unknown) : (unknown) (no (unknown) (unknown) Genetic (units (unkn own) date) Screening/Teratol unknown) ogy Counseling - Includes patient, baby's father, or (unknown) (no (unknown) (unknown) -?-?-?-?-?-?-?-? (units (unknown) date) -?-?-?-? unknown) (unknown) (no (unknown) (unknown) 05/19/22 (units (unkno wn) date) unknown) (unknown) (no (unknown) (unknown) 06/16/22 (units (unkno wn) date) unknown) (unknown) (no (unknown) (unknown) 07/07/22 (units (unkno wn) date) unknown) (unknown) (no (unknown) (unknown) 07/20/22 (units (unkno wn) date) unknown) (unknown) (no (unknown) (unknown) 07/20/22] (units (unkn own) date) unknown) (unknown) (no (unknown) (unknown) 07/21/22 0854 (units ( unknown) date) unknown) (unknown) (no (unknown) (unknown) 08/29/22 (units (unkno wn) date) Ultrasound #1 34w unknown) 3d (unknown) (no (unknown) (unknown) [id number] (units (unkno wn) date) unknown) (unknown) (no (unknown) (unknown) 01/27/22 (units (unkno wn) date) unknown) (unknown) (no (unknown) (unknown) 02/24/22 (units (unkno wn) date) unknown) (unknown) (no (unknown) (unknown) 03/24/22 (units (unkno wn) date) unknown) (unknown) (no (unknown) (unknown) 04/20/22 (units (unkno wn) date) unknown) (unknown) (no (unknown) (unknown) 12w 6d 163 lb (units ( unknown) date) unknown) (unknown) (no (unknown) (unknown) 15:40 (units (unkno wn) date) unknown) (unknown) (no (unknown) (unknown) 16w 6d 167 lb (units ( unknown) date) unknown) (unknown) (no (unknown) (unknown) 20w 5d 168 lb (units ( unknown) date) unknown) (unknown) (no (unknown) (unknown) 24w 6d 173 lb (units ( unknown) date) unknown) (unknown) (no (unknown) (unknown) 28w 6d 177 lb (units ( unknown) date) unknown) (unknown) (no (unknown) (unknown) 3 oz. 57%ile. (units ( unknown) date) DOLORES 15.87 cm. unknown) Grade 0 placenta. Plan: Increase metformin to (unknown) (no (unknown) (unknown) 3 wks (units (unkno wn) date) unknown) (unknown) (no (unknown) (unknown) 31w 6d 179 lb (units ( unknown) date) unknown) (unknown) (no (unknown) (unknown) 33w 5d 178 lb (units ( unknown) date) unknown) (unknown) (no (unknown) (unknown) 4 wk (units (unkno wn) date) unknown) (unknown) (no (unknown) (unknown) 750 mg twice a (units (unknown) date) day. She will unknown) follow-up in 1 week for a nonstress test. She (unknown) (no (unknown) (unknown) 8w 6d 162 lb (units (u nknown) date) unknown) (unknown) (no (unknown) (unknown) Abnormal lab (units (u nknown) date) values 1st unknown) trimester: discussed (unknown) (no (unknown) (unknown) Abnormal lab (units (u nknown) date) values 2nd unknown) trimester: discussed (unknown) (no (unknown) (unknown) Add'l Plan (units (unk nown) date) Details unknown) (unknown) (no (unknown) (unknown) Age/Sex: 32 / F (units (unknown) date) Date of Service: unknown) (unknown) (no (unknown) (unknown) Allergies (units (unkn own) date) (-2013) unknown) (unknown) (no (unknown) (unknown) Allergies (units (unkn own) date) unknown) (unknown) (no (unknown) (unknown) [place], [place] (units ( unknown) date) [id number] unknown) (unknown) (no (unknown) (unknown) Anesthesia (units (unk nown) date) unknown) (unknown) (no (unknown) (unknown) Aneuploidy (units (unk nown) date) Screening unknown) Offered: Accepted (wants CFDNA) (unknown) (no (unknown) (unknown) Anticipated (units (un known) date) course of unknown) care: discussed (unknown) (no (unknown) (unknown) Anxiety (-2016) (units (unknown) date) unknown) (unknown) (no (unknown) (unknown) Arrhythmia (units (unk nown) date) unknown) (unknown) (no (unknown) (unknown) Assessment and (units (unknown) date) Plan unknown) (unknown) (no (unknown) (unknown) Attending Dr: (units ( unknown) date) Richelle Dawkins unknown) (unknown) (no (unknown) (unknown) Corazon presents (units (unknown) date) today for routine unknown) OB f/u at 20w5d. She reports good (unknown) (no (unknown) (unknown) BMI 28.7 (units (unkno wn) date) unknown) (unknown) (no (unknown) (unknown) BP 116/62 (units (unkn own) date) unknown) (unknown) (no (unknown) (unknown) (units (unkno wn) date) Plan/Preferences unknown) (unknown) (no (unknown) (unknown) Planning (units (unknown) date) unknown) (unknown) (no (unknown) (unknown) Blood Pressure (units (unknown) date) Location Rt unknown) brachial (unknown) (no (unknown) (unknown) Blood (units (unkno wn) date) transfusions?: unknown) yes (Never had but would accept) (unknown) (no (unknown) (unknown) : (units (unknown) date) discussed unknown) (unknown) (no (unknown) (unknown) Chicken pox (units (un known) date) () unknown) (unknown) (no (unknown) (unknown) Childbirth (units (unk nown) date) Classes: unknown) discussed (unknown) (no (unknown) (unknown) Conceived (units (unkn own) date) naturally this unknown) (unknown) (no (unknown) (unknown) Confirmed (units (unkn own) date) 07/20/22] unknown) (unknown) (no (unknown) (unknown) Current Estimate (units (unknown) date) 09/02/22 unknown) Ultrasound #2 33w 6d (unknown) (no (unknown) (unknown) Current (units (unkno wn) date) History unknown) (unknown) (no (unknown) (unknown) DNA (units (unkno wn) date) unknown) (unknown) (no (unknown) (unknown) : 1990 (units (unknown) date) Acct:[id number] unknown) (unknown) (no (unknown) (unknown) Date of positive (units (unknown) date) home unknown) test: 12/29/21 (unknown) (no (unknown) (unknown) Date (units (unkno wn) date) unknown) (unknown) (no (unknown) (unknown) Denies Congenital (units (unknown) date) Heart Defect, unknown) Denies Down Syndrome, Denies Muscular Dystrophy, (unknown) (no (unknown) (unknown) Denies Maternal (units (unknown) date) Metabolic unknown) Disorder (EG,TYPE 1 Diabetes, PKU), Denies Patient or (unknown) (no (unknown) (unknown) Denies Neural (units ( unknown) date) Tube Defect unknown) (Meningomyelocele , Spina Bifida, or Anencephaly), (unknown) (no (unknown) (unknown) Denies Sickle (units ( unknown) date) Cell Disease or unknown) Trait (), Denies Hemophilia or other blood (unknown) (no (unknown) (unknown) Denies Enio-Sachs (units (unknown) date) (Ashkenazi unknown) Sabianism, Cajun, Indonesian Paraguayan), Denies Jose (unknown) (no (unknown) (unknown) Depression (units (unk nown) date) (-2016) unknown) (unknown) (no (unknown) (unknown) Depression: (units (un known) date) discussed unknown) (unknown) (no (unknown) (unknown) Dept at (units (unkno wn) date) . unknown) (unknown) (no (unknown) (unknown) Diet and (units (unkno wn) date) Exercise unknown) (unknown) (no (unknown) (unknown) Disease (units (unkno wn) date) (Ashkenazi unknown) Sabianism), Denies Familial Dysautonomia (Ashkenazi Sabianism), (unknown) (no (unknown) (unknown) Documented By: (units (unknown) date) Richelle Dawkins unknownShiva MAGALLON 07/20/22 1539 (unknown) (no (unknown) (unknown) MARIANNE Calculator (units (unknown) date) unknown) (unknown) (no (unknown) (unknown) EGA Weight BP (units ( unknown) date) UGlucose unknown) (unknown) (no (unknown) (unknown) Eczema (-2000) (units (unknown) date) unknown) (unknown) (no (unknown) (unknown) Estimated (units (unkn own) date) Delivery Date unknown) Method Current (unknown) (no (unknown) (unknown) Exercise and (units (u nknown) date) activity, unknown) work/environmenta l/hazards, Sexual activity, X-ray (unknown) (no (unknown) (unknown) F/u in 4 wks. (units ( unknown) date) unknown) (unknown) (no (unknown) (unknown) Family History (units (unknown) date) (Updated 01/24/22 unknown) @ 21:49 by Anamaria Cooper) (unknown) (no (unknown) (unknown) Family/Other (units (u nknown) date) Multiple unknown) sclerosis (unknown) (no (unknown) (unknown) Father (units (unkno wn) date) Hypertension unknown) (unknown) (no (unknown) (unknown) Father of Baby: (units (unknown) date) same unknown) (unknown) (no (unknown) (unknown) [facility] ([facility] unknown) (unknown) (no (unknown) (unknown) First Trimester (units (unknown) date) Education unknown) Checklist (unknown) (no (unknown) (unknown) Foot pain (units (unkn own) date) () unknown) (unknown) (no (unknown) (unknown) (SAB (units (unkn own) date) x7),Fertility Tx, unknown) meds only, started on baby aspirin 02/24/2022 (unknown) (no (unknown) (unknown) GDM, on (units (unkno wn) date) Metformin 500mg unknown) BID, increased to 750mg BID 07/20/22 (unknown) (no (unknown) (unknown) Genetic (units (unkno wn) date) Screening + unknown) Counseling (unknown) (no (unknown) (unknown) Genetic (units (unkno wn) date) Screening unknown) (unknown) (no (unknown) (unknown) Gestational (units (un known) date) diabetes mellitus unknown) control: oral hypoglycemic-cont rolled (unknown) (no (unknown) (unknown) Good (units (unk nown) date) movement. No unknown) leakage of fluid or vaginal bleeding. No regular (unknown) (no (unknown) (unknown) Grandfather (units (un known) date) Cancer unknown) (unknown) (no (unknown) (unknown) Grandfather (units (un known) date) Stroke unknown) (unknown) (no (unknown) (unknown) Grandmother (units (un known) date) History unknown) of heart disease (unknown) (no (unknown) (unknown) Grandmother (units (un known) date) Multiple unknown) sclerosis (unknown) (no (unknown) (unknown) 8 (units (unkn own) date) Multiple births 0 unknown) (unknown) (no (unknown) (unknown) HIV risk (units (unkno wn) date) evaluation: low unknown) risk (unknown) (no (unknown) (unknown) Health Center (units ( unknown) date) Education unknown) (unknown) (no (unknown) (unknown) Health center (units ( unknown) date) information: unknown) nature of practice discussed, personnel (unknown) (no (unknown) (unknown) Height 5 ft 6 in (units (unknown) date) unknown) (unknown) (no (unknown) (unknown) Hepatitis C risk (units (unknown) date) evaluation: low unknown) risk (unknown) (no (unknown) (unknown) History of (units (unk nown) date) Hepatitis B: No unknown) (unknown) (no (unknown) (unknown) History of (units (unk nown) date) Hepatitis C: No unknown) (unknown) (no (unknown) (unknown) 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 (unknown) (no (unknown) (unknown) Hospital: (units (u nknown) date) unknown) (unknown) (no (unknown) (unknown) [facility] (units (u nknown) date) Chorea, Denies unknown) Other inherited genetic or chromosomal disorder, (unknown) (no (unknown) (unknown) , Elieser (units ( unknown) date) Martell unknown) (unknown) (no (unknown) (unknown) Hx # (units (u nknown) date) Pregnancies 0 unknown) Elective abortions 0 (unknown) (no (unknown) (unknown) Hx # Term (units (unkn own) date) Pregnancies 0 unknown) Ectopic pregnancies 0 (unknown) (no (unknown) (unknown) will be (units (unknown) date) adopted?: no unknown) (unknown) (no (unknown) (unknown) Infection (units (unkn own) date) History unknown) (unknown) (no (unknown) (unknown) Infectious (units (unk nown) date) Disease Education unknown) (unknown) (no (unknown) (unknown) Infectious (units (unk nown) date) disease exposure: unknown) chicken pox immunity discussed, hepatitis risk (unknown) (no (unknown) (unknown) Infertility (units (un known) date) (-2017) unknown) (unknown) (no (unknown) (unknown) Initial Weight: (units (unknown) date) 155 lb unknown) (unknown) (no (unknown) (unknown) Initials (units (unkno wn) date) unknown) (unknown) (no (unknown) (unknown) Intake Clinical (units (unknown) date) Staff unknown) (unknown) (no (unknown) (unknown) Intake Note: (units (u nknown) date) unknown) (unknown) (no (unknown) (unknown) Intake performed (units (unknown) date) by: unknown) Nu Alexander (unknown) (no (unknown) (unknown) Intake (units (unkno wn) date) unknown) (unknown) (no (unknown) (unknown) Irregular (units (unkn own) date) menstrual cycle unknown) (-2017) (unknown) (no (unknown) (unknown) LM (units (unkno wn) date) unknown) (unknown) (no (unknown) (unknown) Lipoma (units (unkno wn) date) unknown) (unknown) (no (unknown) (unknown) Live with (units (unkn own) date) someone with TB unknown) or exposed to TB: No (unknown) (no (unknown) (unknown) Loc: [facility] (units (unkno wn) date) unknown) (unknown) (no (unknown) (unknown) Marital status: (units (unknown) date) unknown) (unknown) (no (unknown) (unknown) Medical History (units (unknown) date) (Updated 07/21/22 unknown) @ 08:54 by Richelle Dawkins MD) (unknown) (no (unknown) (unknown) Medications (units (un known) date) unknown) (unknown) (no (unknown) (unknown) Medications: (units (u nknown) date) unknown) (unknown) (no (unknown) (unknown) Mother Gastric (units (unknown) date) cancer unknown) (unknown) (no (unknown) (unknown) N No 142 13 N/A (units (unknown) date) 4wk unknown) (unknown) (no (unknown) (unknown) N No no 143 17 (units (unknown) date) N/A absent AFP 4 unknown) wks (unknown) (no (unknown) (unknown) N No no 178 9 (units ( unknown) date) N/A absent unknown) long/closed AGA 9 (unknown) (no (unknown) (unknown) N Yes no 135 34 (units (unknown) date) Vertex absent 2 unknown) wks (unknown) (no (unknown) (unknown) N Yes no 141 24 (units (unknown) date) N/A absent 4 wks unknown) (unknown) (no (unknown) (unknown) N Yes no 142 20 (units (unknown) date) N/A absent AFP unknown) negative (unknown) (no (unknown) (unknown) N Yes no 144 29 (units (unknown) date) Vertex absent AGA unknown) 29w5d (unknown) (no (unknown) (unknown) N Yes no 150 32 (units (unknown) date) Vertex absent 2 unknown) wks (unknown) (no (unknown) (unknown) NF (units (unkno wn) date) unknown) (unknown) (no (unknown) (unknown) New (units (unkno wn) date) unknown) (unknown) (no (unknown) (unknown) Notes (units (unkno wn) date) unknown) (unknown) (no (unknown) (unknown) Number of Living (units (unknown) date) Children 0 unknown) (unknown) (no (unknown) (unknown) Number of (units (unkn own) date) fetuses:: Single unknown) (unknown) (no (unknown) (unknown) Nutrition and (units ( unknown) date) weight gain unknown) counseling: special diet: discussed (unknown) (no (unknown) (unknown) OB Office Visit (units (unknown) date) unknown) (unknown) (no (unknown) (unknown) OB Visit Log (units (u nknown) date) unknown) (unknown) (no (unknown) (unknown) OB check (units (unkno wn) date) unknown) (unknown) (no (unknown) (unknown) On U/S: AGA (units (un known) date) 29w5d. 3#4oz unknown) 66%ile. Nl AFV. Plan: Metformin 500mg BID. F/U 3 (unknown) (no (unknown) (unknown) On control (units (unknown) date) at conception?: unknown) No (unknown) (no (unknown) (unknown) Other Estimates (units (unknown) date) 08/18/22 LMP unknown) (Certain) 36w 0d (unknown) (no (unknown) (unknown) Ovarian cyst (units (u nknown) date) (-2017) unknown) (unknown) (no (unknown) (unknown) PCOS (polycystic (units (unknown) date) ovarian syndrome) unknown) (unknown) (no (unknown) (unknown) PFSH (units (unkno wn) date) unknown) (unknown) (no (unknown) (unknown) Pap performed?: (units (unknown) date) No unknown) (unknown) (no (unknown) (unknown) Para 0 (units (unkno wn) date) Spontaneous unknown) abortions 7 (unknown) (no (unknown) (unknown) Partner history (units (unknown) date) of STD: denies hx unknown) (unknown) (no (unknown) (unknown) Partner history (units (unknown) date) of genital unknown) herpes: No (unknown) (no (unknown) (unknown) Partner: Elieser (units ( unknown) date) Martell unknown) (unknown) (no (unknown) (unknown) Patient comes in (units (unknown) date) for follow-up OB unknown) visit. She had some pelvic pain that (unknown) (no (unknown) (unknown) Patient presents (units (unknown) date) for a new OB unknown) visit at 8 weeks gestation. She is (unknown) (no (unknown) (unknown) Patient presents (units (unknown) date) for a routine unknown) visit at 33+ 5 weeks' gestation. (unknown) (no (unknown) (unknown) Patient presents (units (unknown) date) for a routine unknown) visit, accompanied by her . 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) [facility] vs unknown) [facility] (unknown) (no (unknown) (unknown) Personal history (units (unknown) date) of STD: denies hx unknown) (unknown) (no (unknown) (unknown) Personal history (units (unknown) date) of genital unknown) herpes: No (unknown) (no (unknown) (unknown) Plantar (units (unkno wn) date) fasciitis unknown) (unknown) (no (unknown) (unknown) Position Sitting (units (unknown) date) unknown) (unknown) (no (unknown) (unknown) (units (unk nown) date) family unknown) planning/Tubal sterilization: further discussion needed (unknown) (no (unknown) (unknown) (units (unkn own) date) History unknown) (unknown) (no (unknown) (unknown) type:: (units (unknown) date) Other Normal unknown) (unknown) (no (unknown) (unknown) (units (unkno wn) date) Education unknown) (unknown) (no (unknown) (unknown) Initial (units (unknown) date) Assessment unknown) (unknown) (no (unknown) (unknown) (units (unkno wn) date) Specific unknown) Issues/Plans (unknown) (no (unknown) (unknown) (units (unkno wn) date) Testing: unknown) discussed (unknown) (no (unknown) (unknown) Visit (units (unknown) date) unknown) (unknown) (no (unknown) (unknown) (units (unkno wn) date) education packet: unknown) Child education/plan, symptoms, (unknown) (no (unknown) (unknown) Primary Care (units (u nknown) date) Provider: [place] Arboleda unknown) [place] (unknown) (no (unknown) (unknown) Primary Ob (units (unk nown) date) Provider: unknown) Richelle Dawkins (unknown) (no (unknown) (unknown) Prior (units (unkno wn) date) GBS-Infected unknown) child: No (unknown) (no (unknown) (unknown) Providers (units (unkn own) date) unknown) (unknown) (no (unknown) (unknown) Pt presents for (units (unknown) date) a PNV at 16+6 unknown) wks. No FM. No LOF/VB. Rec'd flu shot (unknown) (no (unknown) (unknown) Pt presents for (units (unknown) date) a routine PNV at unknown) 28 +6 wks gestation. Abnormal 3 hr GTT. (unknown) (no (unknown) (unknown) Qualifiers: (units (un known) date) unknown) (unknown) (no (unknown) (unknown) Rash or viral (units ( unknown) date) illness since unknown) last menstrual period: No (unknown) (no (unknown) (unknown) Rash (units (unkno wn) date) unknown) (unknown) (no (unknown) (unknown) Reason For Visit (units (unknown) date) unknown) (unknown) (no (unknown) (unknown) Recent travel (units ( unknown) date) outside of unknown) country?: No (unknown) (no (unknown) (unknown) Recurrent (units (unkn own) date) loss or unknown) a stillbirth: Yes (unknown) (no (unknown) (unknown) Reports over the (units (unknown) date) counter unknown) medications (diclofenac), Denies alcohol, Denies (unknown) (no (unknown) (unknown) Safety (units (unkno wn) date) unknown) (unknown) (no (unknown) (unknown) Second Trimester (units (unknown) date) Education unknown) Checklist (unknown) (no (unknown) (unknown) Selecting a (units (un known) date) care unknown) provider: further discussion needed (unknown) (no (unknown) (unknown) She is at 24 (units (u nknown) date) weeks 6 days. She unknown) has felt good movement. She says it is (unknown) (no (unknown) (unknown) Shingles (units (unkno wn) date) unknown) (unknown) (no (unknown) (unknown) Signed By: (units (unk nown) date) <Electronically unknown) signed by Richelle Dawkins MD> (unknown) (no (unknown) (unknown) Signed (units (unkno wn) date) unknown) (unknown) (no (unknown) (unknown) Signs and (units (unkn own) date) symptoms of unknown) labor: discussed (unknown) (no (unknown) (unknown) Smoking Status: (units (unknown) date) Never smoker unknown) (unknown) (no (unknown) (unknown) Social History (units (unknown) date) unknown) (unknown) (no (unknown) (unknown) Status: Acute (units ( unknown) date) unknown) (unknown) (no (unknown) (unknown) Support (units (unkno wn) date) Person(s):: Elieser unknown) (unknown) (no (unknown) (unknown) Surgical History (units (unknown) date) (Updated 01/24/22 unknown) @ 21:46 by Anamaria Cooper) (unknown) (no (unknown) (unknown) Surrogate (units (unkn own) date) ?: no unknown) (unknown) (no (unknown) (unknown) Symptoms since (units (unknown) date) LMP: Reports unknown) amenorrhea, nausea, fatigue, breast tenderness, (unknown) (no (unknown) (unknown) Take 1 1/2 tabs (units (unknown) date) twice a day 750 unknown) mg (1.5 x 500 mg) PO BID 90 tabs 1RF (unknown) (no (unknown) (unknown) Teratogen (units (unkn own) date) Exposures since unknown) LMP/Conception: Denies prescription medications, (unknown) (no (unknown) (unknown) Testing (units (unkno wn) date) Education unknown) (unknown) (no (unknown) (unknown) Testing (units (unkno wn) date) education unknown) completed: group B strep, Spina bifida testing and Cell Free (unknown) (no (unknown) (unknown) This note may (units ( unknown) date) have been all or unknown) partially generated using voice recognition (unknown) (no (unknown) (unknown) Tobacco + (units (unkn own) date) Substance Use unknown) (unknown) (no (unknown) (unknown) Tobacco Status (units (unknown) date) unknown) (unknown) (no (unknown) (unknown) Trimester: third (units (unknown) date) trimester unknown) Qualified Code(s): O24.415 - Gestational diabetes (unknown) (no (unknown) (unknown) Trimester:: 3rd (units (unknown) date) Trimester unknown) (28wks-Del) (unknown) (no (unknown) (unknown) Tumor () (units (unknown) date) unknown) (unknown) (no (unknown) (unknown) Type(s) of (units (unk nown) date) exercise: unknown) bicycling (stationary bike), regular exercise, weight (unknown) (no (unknown) (unknown) UProtein Movement (units (unknown) date) PreLabor FHR Fndl unknown) Ht Pres Edema Cerv Exam US/Comment Next Appt (unknown) (no (unknown) (unknown) Ultrasound (units (unk nown) date) performed?: No unknown) (unknown) (no (unknown) (unknown) Varicella/chicke (units (unknown) date) n pox status: unknown) previous disease (unknown) (no (unknown) (unknown) Visit Date: (units (un known) date) 05/19/22 Last unknown) Updated by: Richelle Dawkins MD (unknown) (no (unknown) (unknown) Visit Date: (units (un known) date) 06/16/22 Last unknown) Updated by: Richelle Dawkins MD (unknown) (no (unknown) (unknown) Visit Date: (units (un known) date) 07/20/22 Last unknown) Updated by: Richelle Dawkins MD (unknown) (no (unknown) (unknown) Visit Date: (units (un known) date) 01/27/22 Last unknown) Updated by: Richelle Dawkins MD (unknown) (no (unknown) (unknown) Visit Date: (units (un known) date) 02/24/22 Last unknown) Updated by: Marietta Massey MD (unknown) (no (unknown) (unknown) Visit Date: (units (un known) date) 03/24/22 Last unknown) Updated by: Richelle Dawkins MD (unknown) (no (unknown) (unknown) Visit Date: (units (un known) date) 04/20/22 Last unknown) Updated by: Xiao Boland P.A-C (unknown) (no (unknown) (unknown) Visit Reasons: (units (unknown) date) OB unknown) (unknown) (no (unknown) (unknown) Vitals (units (unkno wn) date) unknown) (unknown) (no (unknown) (unknown) Vitamins and (units (u nknown) date) iron, Diet and unknown) weight gain, Fish and mercury intake, Caffeine use, (unknown) (no (unknown) (unknown) WG (units (unkno wn) date) unknown) (unknown) (no (unknown) (unknown) Weeks (units (unkno wn) date) gestation:: 33 unknown) (unknown) (no (unknown) (unknown) Weight 178 lb (units ( unknown) date) unknown) (unknown) (no (unknown) (unknown) Ages [place] teeth (units (u nknown) date) extracted unknown) (unknown) (no (unknown) (unknown) Zika virus (units (unk nown) date) exposure: No unknown) (unknown) (no (unknown) (unknown) accompanied by (units (unknown) date) her . She unknown) went through fertility treatments with (unknown) (no (unknown) (unknown) alcohol intake: (units (unknown) date) never unknown) (unknown) (no (unknown) (unknown) anterior (units (unkno wn) date) placenta. Routine unknown) precautions reviewed with the patient. Due to 1st (unknown) (no (unknown) (unknown) anyone in either (units (unknown) date) family with: unknown) (unknown) (no (unknown) (unknown) baby's father (units ( unknown) date) had a child with unknown) defects not listed above and Denies Other (unknown) (no (unknown) (unknown) back pain. (units (unk nown) date) Advised unknown) stretching, belly band, and PT if not improving. AFP was (unknown) (no (unknown) (unknown) blood sugar (units (un known) date) diagnostic (Blood unknown) Glucose Test strips) #100 ea 06/02/22 [Rx (unknown) (no (unknown) (unknown) blood-glucose (units ( unknown) date) meter #1 ea unknown) 06/02/22 [Rx Confirmed 07/20/22] (unknown) (no (unknown) (unknown) by ultrasound is (units (unknown) date) normal with good unknown) movement, normal appearing fluid, (unknown) (no (unknown) (unknown) caffeine: Yes (units ( unknown) date) (1-2 cups unknown) tea/day) (unknown) (no (unknown) (unknown) carbon monox (units (u nknown) date) detector in home: unknown) Yes (unknown) (no (unknown) (unknown) cfDNA normal (units (u nknown) date) female, AFP unknown) negative (unknown) (no (unknown) (unknown) consistent with (units (unknown) date) 9 weeks 0 days. unknown) Yolk sac visible. heart rate 178 beats (unknown) (no (unknown) (unknown) contractions. (units ( unknown) date) Her fasting unknown) glucose has been in the 98-100 range. She is (unknown) (no (unknown) (unknown) current (units (unkno wn) date) occupational unknown) exposures/hazards : No (unknown) (no (unknown) (unknown) currently on (units (u nknown) date) metformin 500 mg unknown) twice a day. She had a nonstress test today which (unknown) (no (unknown) (unknown) daily servings (units (unknown) date) fruits/ve-4 unknown) (unknown) (no (unknown) (unknown) described, visit (units (unknown) date) schedule unknown) reviewed, ultrasounds policy reviewed, coverage 24 (unknown) (no (unknown) (unknown) developing a (units (u nknown) date) pattern. No unknown) leakage of fluid or vaginal bleeding. No contractions (unknown) (no (unknown) (unknown) discussed, (units (unk nown) date) tuberculosis unknown) exposure discussed, CMV discussed, Toxoplasmosis (unknown) (no (unknown) (unknown) disorders, (units (unk nown) date) Denies Cystic unknown) Fibrosis, Denies Mental Retardation/Autis m, Denies (unknown) (no (unknown) (unknown) do you feel safe (units (unknown) date) at home: Yes unknown) (unknown) (no (unknown) (unknown) during the past (units (unknown) date) year weight has: unknown) remained stable (unknown) (no (unknown) (unknown) education level: (units (unknown) date) college unknown) (Associate's degree) (unknown) (no (unknown) (unknown) exposure, (units (unkn own) date) Medication use, unknown) Sauna/hot tub use, Dental care, Travel and Influenza (unknown) (no (unknown) (unknown) fire (units (unkno wn) date) extinguisher in unknown) home: Yes (unknown) (no (unknown) (unknown) firearms in (units (un known) date) home: Yes unknown) firearms unloaded and locked: Yes (unknown) (no (unknown) (unknown) frequency: 5-6 (units (unknown) date) times per week unknown) (unknown) (no (unknown) (unknown) gestational sac (units (unknown) date) with a fetus with unknown) a crown-rump length measuring 2.29 cm (unknown) (no (unknown) (unknown) have occurred. (units (unknown) date) If there are any unknown) questions, please contact the Medical Records (unknown) (no (unknown) (unknown) hours a day and (units (unknown) date) participation of unknown) father in care and office visits (unknown) (no (unknown) (unknown) household (units (unkn own) date) members: spouse unknown) and family (father and [id number]-slu) (unknown) (no (unknown) (unknown) housing: house (units (unknown) date) unknown) (unknown) (no (unknown) (unknown) illicit drugs (units ( unknown) date) and Denies other unknown) (unknown) (no (unknown) (unknown) kag (units (unkno wn) date) unknown) (unknown) (no (unknown) (unknown) lancets #100 ea (units (unknown) date) 06/02/22 [Rx unknown) Confirmed 07/20/22] (unknown) (no (unknown) (unknown) last visit. (units (un known) date) Plan: AFP today. unknown) 20 wk u/s reviewed. F/U 4 wks. Warning signs (unknown) (no (unknown) (unknown) lifting and (units (un known) date) other (hiking) unknown) (unknown) (no (unknown) (unknown) lives (units (unkno wn) date) independently: unknown) Yes (unknown) (no (unknown) (unknown) marital status: (units (unknown) date) unknown) (unknown) (no (unknown) (unknown) may occur. (units (unk nown) date) Occasional unknown) wrong-word or 'sound-alike' substitutions may have (unknown) (no (unknown) (unknown) medication only. (units (unknown) date) Had 7 unknown) miscarriages. No bleeding with this . This 1 (unknown) (no (unknown) (unknown) mellitus in (units (un known) date) , unknown) controlled by oral hypoglycemic drugs (unknown) (no (unknown) (unknown) metformin 500 mg (units (unknown) date) tablet 500 mg PO unknown) BID #60 tabs 06/16/22 [Rx Confirmed 07/20/22] (unknown) (no (unknown) (unknown) metformin 500 mg (units (unknown) date) tablet 750 mg PO unknown) BID #90 tabs 07/20/22 [Rx Confirmed 07/20/22] (unknown) (no (unknown) (unknown) metformin (units (unkn own) date) unknown) (unknown) (no (unknown) (unknown) movement and (units (u nknown) date) denies VB, LOF, unknown) cramping and regular contractions. Pt reports low (unknown) (no (unknown) (unknown) negative. (units (unkn own) date) Anatomy US unknown) scheduled for later today. Warning precautions reviewed. 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 Please (unknown) (no (unknown) (unknown) or cramping. (units (u nknown) date) Plan: 1 hour unknown) glucose ordered. Follow-up in 4 weeks. Warning (unknown) (no (unknown) (unknown) per minute. (units (un known) date) Normal ovaries unknown) bilaterally. Plan: Follow-up in 4 weeks. Warning (unknown) (no (unknown) (unknown) pets and (units (unkno wn) date) animals: Yes (1 unknown) large dog, chickens) (unknown) (no (unknown) (unknown) precautions, (units (u nknown) date) Listeriosis unknown) prevention and Rubella Immunization (unknown) (no (unknown) (unknown) preeclampsia. (units ( unknown) date) unknown) (unknown) (no (unknown) (unknown) (units (unkn own) date) discussed unknown) starting baby aspirin per day to decrease her risk for (unknown) (no (unknown) (unknown) prenat.vits,dara, (units (unknown) date) [id number] 1 unknown) tab PO DAILY 01/08/22 [History Confirmed (unknown) (no (unknown) (unknown) read the note (units ( unknown) date) carefully and unknown) recognize, using context, where these substitutions (unknown) (no (unknown) (unknown) reviewed. (units (unkn own) date) unknown) (unknown) (no (unknown) (unknown) seatbelt use: (units ( unknown) date) always unknown) (unknown) (no (unknown) (unknown) second hand (units (un known) date) exposure: Yes unknown) (aadyeg-rm-oau smokes outside the house) (unknown) (no (unknown) (unknown) signs for (units (unkn own) date) labor unknown) reviewed. (unknown) (no (unknown) (unknown) signs reviewed. (units (unknown) date) cfDNA ordered. unknown) (unknown) (no (unknown) (unknown) signs reviewed. (units (unknown) date) unknown) (unknown) (no (unknown) (unknown) software. (units (unkn own) date) Although every unknown) effort is made to edit content, snubber errors (unknown) (no (unknown) (unknown) special anjum (units ( unknown) date) needs: No unknown) (unknown) (no (unknown) (unknown) substance use (units ( unknown) date) type: does not unknown) use (unknown) (no (unknown) (unknown) travel history: (units (unknown) date) over 6 months ago unknown) (unknown) (no (unknown) (unknown) urinary (units (unkno wn) date) frequency and unknown) irritability (unknown) (no (unknown) (unknown) vaccine (Annual (units (unknown) date) flu, Phizer Covid unknown) x2) (unknown) (no (unknown) (unknown) w0d 4 wks (units (unkn own) date) unknown) (unknown) (no (unknown) (unknown) was not using (units ( unknown) date) any infertility unknown) medications. Ultrasound: An intrauterine (unknown) (no (unknown) (unknown) was reactive. On (units (unknown) date) ultrasound: unknown) Vertex presentation. AGA 34 weeks 0 days. 5 lb (unknown) (no (unknown) (unknown) water heater (units (u nknown) date) temp set < 120 unknown) deg: Yes (unknown) (no (unknown) (unknown) well-balanced (units ( unknown) date) diet: daily or unknown) most days (unknown) (no (unknown) (unknown) went away with (units (unknown) date) laying down. No unknown) vaginal bleeding. No fevers. heart tone (unknown) (no (unknown) (unknown) while ) (units (unknown) date) unknown) (unknown) (no (unknown) (unknown) will follow-up (units (unknown) date) in 2 weeks with unknown) Dr. Massey for an DOLORES/nonstress test. Warning (unknown) (no (unknown) (unknown) wks. Warning (units (u nknown) date) signs for PTL unknown) reviewed. (unknown) (no (unknown) (unknown) working smoke (units ( unknown) date) detector in home: unknown) Yes Result panel 26 (unknown) (no (unknown) (unknown) (no value) (units (unk nown) date) unknown) (unknown) (no (unknown) (unknown) (1) 34 weeks (units (u nknown) date) gestation of unknown) : (unknown) (no (unknown) (unknown) (2) Gestational (units (unknown) date) diabetes: unknown) (unknown) (no (unknown) (unknown) (Metformin) and (units (unknown) date) other (7 prior unknown) miscarriages) (unknown) (no (unknown) (unknown) 07/27/22 1359 (units ( unknown) date) unknown) (unknown) (no (unknown) (unknown) [id number] (units (unkno wn) date) unknown) (unknown) (no (unknown) (unknown) Age/Sex: 32 / F (units (unknown) date) unknown) (unknown) (no (unknown) (unknown) Allergies (units (unkn own) date) () unknown) (unknown) (no (unknown) (unknown) Anesthesia (units (unk nown) date) unknown) (unknown) (no (unknown) (unknown) Anxiety (-2015) (units (unknown) date) unknown) (unknown) (no (unknown) (unknown) Arrhythmia (units (unk nown) date) unknown) (unknown) (no (unknown) (unknown) Baseline (units (unknown) date) heart rate: 130 unknown) (unknown) (no (unknown) (unknown) Blood pressure (units (unknown) date) 115/65, pulse unknown) 90, temperature 36.5? (unknown) (no (unknown) (unknown) Category of (units (un known) date) Tracing: unknown) Reactive (unknown) (no (unknown) (unknown) Chicken pox (units (un known) date) () unknown) (unknown) (no (unknown) (unknown) : 1990 (units (unknown) date) Acct:[id number] unknown) (unknown) (no (unknown) (unknown) Date of (units (unkno wn) date) Service: unknown) 07/27/22 (unknown) (no (unknown) (unknown) Date of (units (unkno wn) date) evaluation: unknown) 07/27/22 (unknown) (no (unknown) (unknown) Depression (units (unk nown) date) () unknown) (unknown) (no (unknown) (unknown) Diagnosis, (units (unk nown) date) Plan/Disposition unknown) (unknown) (no (unknown) (unknown) Eczema (-1999) (units (unknown) date) unknown) (unknown) (no (unknown) (unknown) Evaluation (units (unk nown) date) unknown) (unknown) (no (unknown) (unknown) Family History (units (unknown) date) (Updated unknown) 01/24/22 @ 21:49 by Anamaria Cooper) (unknown) (no (unknown) (unknown) Family/Other (units (u nknown) date) Multiple unknown) sclerosis (unknown) (no (unknown) (unknown) Father (units (unkno wn) date) Hypertension unknown) (unknown) (no (unknown) (unknown) Monitor (units ( unknown) date) Decelerations: unknown) Absent (unknown) (no (unknown) (unknown) Status: (units ( unknown) date) Category l unknown) (unknown) (no (unknown) (unknown) monitor (units ( unknown) date) accelerations: unknown) Present (unknown) (no (unknown) (unknown) Final Diagnosis (units (unknown) date) unknown) (unknown) (no (unknown) (unknown) Foot pain (units (unkn own) date) () unknown) (unknown) (no (unknown) (unknown) Grandfather (units (un known) date) Cancer unknown) (unknown) (no (unknown) (unknown) Grandfather (units (un known) date) Stroke unknown) (unknown) (no (unknown) (unknown) Grandmother (units (un known) date) History unknown) of heart disease (unknown) (no (unknown) (unknown) Grandmother (units (un known) date) unknown) Multiple sclerosis (unknown) (no (unknown) (unknown) 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 (unknown) (no (unknown) (unknown) Infertility (units (un known) date) () unknown) (unknown) (no (unknown) (unknown) Irregular (units (unkn own) date) menstrual cycle unknown) () (unknown) (no (unknown) (unknown) [facility] (units (unknown) date) [address] [place] [address] unknown) [place] [address] (unknown) (no (unknown) (unknown) Labor and (units (unkn own) date) Delivery Triage unknown) Note (unknown) (no (unknown) (unknown) Lipoma (units (unkno wn) date) unknown) (unknown) (no (unknown) (unknown) Medical History (units (unknown) date) (Updated unknown) 07/27/22 @ 13:59 by Marietta Massey MD) (unknown) (no (unknown) (unknown) Mother Gastric (units (unknown) date) cancer unknown) (unknown) (no (unknown) (unknown) OB Disposition: (units (unknown) date) home unknown) (unknown) (no (unknown) (unknown) On-call OB (units (unk nown) date) Provider: Marietta unknown) Leonard Massey (unknown) (no (unknown) (unknown) Ovarian cyst (units (u nknown) date) (-2018) unknown) (unknown) (no (unknown) (unknown) PCOS (units (unkno wn) date) (polycystic unknown) ovarian syndrome) (unknown) (no (unknown) (unknown) PFSH (units (unkno wn) date) unknown) (unknown) (no (unknown) (unknown) Patient: (units (unkno wn) date) Corazon Rowley unknown) MR#: [id number] (unknown) (no (unknown) (unknown) Plan/Dispositio (units (unknown) date) n unknown) (unknown) (no (unknown) (unknown) Plan: (units (unkno wn) date) unknown) (unknown) (no (unknown) (unknown) Plantar (units (unkno wn) date) fasciitis unknown) (unknown) (no (unknown) (unknown) Primary OB (units (unk nown) date) Provider: unknown) Richelle Dawkins (unknown) (no (unknown) (unknown) Provider: (units (unkn own) date) Marietta Massey unknown) (unknown) (no (unknown) (unknown) Reactive (units (unkno wn) date) nonstress test unknown) keep normal OB appointment (unknown) (no (unknown) (unknown) Reason for (units (unk nown) date) Evaluation: Yes unknown) non-stress test non-stress test reason: diabetes (unknown) (no (unknown) (unknown) Shingles (units (unkno wn) date) unknown) (unknown) (no (unknown) (unknown) Signed (units (unkno wn) date) By:<Electronical unknown) ly signed by Marietta Massey MD> (unknown) (no (unknown) (unknown) Smoking Status: (units (unknown) date) Never smoker unknown) (unknown) (no (unknown) (unknown) Social History (units (unknown) date) unknown) (unknown) (no (unknown) (unknown) Status: Acute (units ( unknown) date) unknown) (unknown) (no (unknown) (unknown) Surgical (units (unkno wn) date) History (Updated unknown) 01/24/22 @ 21:46 by Anamaria Cooper) (unknown) (no (unknown) (unknown) Tumor (units (unkno wn) date) (-02/2012) unknown) (unknown) (no (unknown) (unknown) Type(s) of (units (unk nown) date) exercise: unknown) bicycling (stationary bike), regular exercise, weight (unknown) (no (unknown) (unknown) Variability: (units (u nknown) date) Moderate (11-25) unknown) (unknown) (no (unknown) (unknown) Visit (units (unkno wn) date) Information unknown) (unknown) (no (unknown) (unknown) Vital Signs (units (un known) date) unknown) (unknown) (no (unknown) (unknown) Vital Signs: (units (u nknown) date) unknown) (unknown) (no (unknown) (unknown) Ages [place] teeth (units (u nknown) date) extracted unknown) (unknown) (no (unknown) (unknown) alcohol intake: (units (unknown) date) never unknown) (unknown) (no (unknown) (unknown) caffeine: Yes (units ( unknown) date) (1-2 cups unknown) tea/day) (unknown) (no (unknown) (unknown) carbon monox (units (u nknown) date) detector in unknown) home: Yes (unknown) (no (unknown) (unknown) current (units (unkno wn) date) occupational unknown) exposures/hazard s: No (unknown) (no (unknown) (unknown) daily servings (units (unknown) date) fruits/ve-4 unknown) (unknown) (no (unknown) (unknown) do you feel (units (un known) date) safe at home: unknown) Yes (unknown) (no (unknown) (unknown) during the past (units (unknown) date) year weight has: unknown) remained stable (unknown) (no (unknown) (unknown) education (units (unkn own) date) level: college unknown) (Associate's degree) (unknown) (no (unknown) (unknown) fire (units (unkno wn) date) extinguisher in unknown) home: Yes (unknown) (no (unknown) (unknown) firearms in (units (un known) date) home: Yes unknown) firearms unloaded and locked: Yes (unknown) (no (unknown) (unknown) frequency: 5-6 (units (unknown) date) times per week unknown) (unknown) (no (unknown) (unknown) household (units (unkn own) date) members: spouse unknown) and family (father and xwcuwj-fa-kxd) (unknown) (no (unknown) (unknown) housing: house (units (unknown) date) unknown) (unknown) (no (unknown) (unknown) lifting and (units (un known) date) other (hiking) unknown) (unknown) (no (unknown) (unknown) lives (units (unkno wn) date) independently: unknown) Yes (unknown) (no (unknown) (unknown) marital status: (units (unknown) date) unknown) (unknown) (no (unknown) (unknown) number of (units (unkn own) date) children: 0 unknown) (unknown) (no (unknown) (unknown) occupational (units (u nknown) date) status: employed 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 (unknown) (no (unknown) (unknown) pets and (units (unkno wn) date) animals: Yes (1 unknown) large dog, chickens) (unknown) (no (unknown) (unknown) seatbelt use: (units ( unknown) date) always unknown) (unknown) (no (unknown) (unknown) second hand (units (un known) date) exposure: Yes unknown) (cfjzoz-fz-gqq smokes outside the house) (unknown) (no (unknown) (unknown) special anjum (units ( unknown) date) needs: No unknown) (unknown) (no (unknown) (unknown) substance use (units ( unknown) date) type: does not unknown) use (unknown) (no (unknown) (unknown) travel history: (units (unknown) date) over 6 months unknown) ago (unknown) (no (unknown) (unknown) water heater (units (u nknown) date) temp set < 120 unknown) deg: Yes (unknown) (no (unknown) (unknown) well-balanced (units ( unknown) date) diet: daily or unknown) most days (unknown) (no (unknown) (unknown) while ) (units (unknown) date) unknown) (unknown) (no (unknown) (unknown) working smoke (units ( unknown) date) detector in unknown) home: Yes Result panel 27 (unknown) (no (unknown) (unknown) (no value) (units (unk nown) date) unknown) (unknown) (no (unknown) (unknown) (1) Gestational (units (unknown) date) diabetes: unknown) (unknown) (no (unknown) (unknown) (2) 35 weeks (units (u nknown) date) gestation of unknown) : (unknown) (no (unknown) (unknown) (3) History of (units (unknown) date) recurrent unknown) miscarriages: (unknown) (no (unknown) (unknown) (Oral glycemic (units (unknown) date) control) and unknown) other (Recurring miscarriages) (unknown) (no (unknown) (unknown) 08/03/22 1353 (units ( unknown) date) unknown) (unknown) (no (unknown) (unknown) [id number] (units (unkno wn) date) unknown) (unknown) (no (unknown) (unknown) Age/Sex: 32 / F (units (unknown) date) unknown) (unknown) (no (unknown) (unknown) Allergies (units (unkn own) date) () unknown) (unknown) (no (unknown) (unknown) Anesthesia (units (unk nown) date) unknown) (unknown) (no (unknown) (unknown) Anxiety (-2016) (units (unknown) date) unknown) (unknown) (no (unknown) (unknown) Arrhythmia (units (unk nown) date) unknown) (unknown) (no (unknown) (unknown) Baseline (units (unknown) date) heart rate: 140 unknown) (unknown) (no (unknown) (unknown) Blood pressure (units (unknown) date) 105/59, pulse 96 unknown) (unknown) (no (unknown) (unknown) Category of (units (un known) date) Tracing: unknown) Reactive (unknown) (no (unknown) (unknown) Chicken pox (units (un known) date) () unknown) (unknown) (no (unknown) (unknown) Contraction (units (un known) date) Frequency unknown) (minutes): 0 (unknown) (no (unknown) (unknown) : 1990 (units (unknown) date) Acct:[id number] unknown) (unknown) (no (unknown) (unknown) Date of (units (unkno wn) date) Service: unknown) 08/03/22 (unknown) (no (unknown) (unknown) Date of (units (unkno wn) date) evaluation: unknown) 08/03/22 (unknown) (no (unknown) (unknown) Depression (units (unk nown) date) () unknown) (unknown) (no (unknown) (unknown) Diagnosis, (units (unk nown) date) Plan/Disposition unknown) (unknown) (no (unknown) (unknown) Eczema (-1999) (units (unknown) date) unknown) (unknown) (no (unknown) (unknown) Evaluation (units (unk nown) date) unknown) (unknown) (no (unknown) (unknown) Family History (units (unknown) date) (Updated unknown) 01/24/22 @ 21:49 by Anamaria Cooper) (unknown) (no (unknown) (unknown) Family/Other (units (u nknown) date) Multiple unknown) sclerosis (unknown) (no (unknown) (unknown) Father (units (unkno wn) date) Hypertension unknown) (unknown) (no (unknown) (unknown) Status: (units ( unknown) date) Category l unknown) (unknown) (no (unknown) (unknown) monitor (units ( unknown) date) accelerations: unknown) Present (unknown) (no (unknown) (unknown) Final Diagnosis (units (unknown) date) unknown) (unknown) (no (unknown) (unknown) Foot pain (units (unkn own) date) () unknown) (unknown) (no (unknown) (unknown) Grandfather (units (un known) date) Cancer unknown) (unknown) (no (unknown) (unknown) Grandfather (units (un known) date) Stroke unknown) (unknown) (no (unknown) (unknown) Grandmother (units (un known) date) History unknown) of heart disease (unknown) (no (unknown) (unknown) Grandmother (units (un known) date) unknown) Multiple sclerosis (unknown) (no (unknown) (unknown) 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 (unknown) (no (unknown) (unknown) Infertility (units (un known) date) () unknown) (unknown) (no (unknown) (unknown) Irregular (units (unkn own) date) menstrual cycle unknown) () (unknown) (no (unknown) (unknown) [facility] (units (unknown) date) [address] unknown) [place] [address] (unknown) (no (unknown) (unknown) Labor and (units (unkn own) date) Delivery Triage unknown) Note (unknown) (no (unknown) (unknown) Lipoma (units (unkno wn) date) unknown) (unknown) (no (unknown) (unknown) Medical History (units (unknown) date) (Updated unknown) 08/03/22 @ 13:53 by Marietta Massey MD) (unknown) (no (unknown) (unknown) Mother Gastric (units (unknown) date) cancer unknown) (unknown) (no (unknown) (unknown) OB Disposition: (units (unknown) date) home unknown) (unknown) (no (unknown) (unknown) On metformin (units (u nknown) date) unknown) (unknown) (no (unknown) (unknown) On-call OB (units (unk nown) date) Provider: Marietta unknown) Leonard Massey (unknown) (no (unknown) (unknown) Ovarian cyst (units (u nknown) date) () unknown) (unknown) (no (unknown) (unknown) PCOS (units (unkno wn) date) (polycystic unknown) ovarian syndrome) (unknown) (no (unknown) (unknown) PFSH (units (unkno wn) date) unknown) (unknown) (no (unknown) (unknown) Patient: (units (unkno wn) date) Corazon Rowley unknown) MR#: [id number] (unknown) (no (unknown) (unknown) Plan/Dispositio (units (unknown) date) n unknown) (unknown) (no (unknown) (unknown) Plan: (units (unkno wn) date) unknown) (unknown) (no (unknown) (unknown) Plantar (units (unkno wn) date) fasciitis unknown) (unknown) (no (unknown) (unknown) Primary OB (units (unk nown) date) Provider: unknown) Richelle Dawkins (unknown) (no (unknown) (unknown) Problem (units (unkno wn) date) details: unknown) (unknown) (no (unknown) (unknown) Provider: (units (unkn own) date) Marietta Massey unknown) (unknown) (no (unknown) (unknown) Reactive (units (unkno wn) date) nonstress test. unknown) Continue weekly nonstress tests and OB visits. (unknown) (no (unknown) (unknown) Reason for (units (unk nown) date) Evaluation: Yes unknown) non-stress test non-stress test reason: diabetes (unknown) (no (unknown) (unknown) Shingles (units (unkno wn) date) unknown) (unknown) (no (unknown) (unknown) Signed (units (unkno wn) date) By:<Electronical unknown) ly signed by Marietta Massey MD> (unknown) (no (unknown) (unknown) Smoking Status: (units (unknown) date) Never smoker unknown) (unknown) (no (unknown) (unknown) Social History (units (unknown) date) unknown) (unknown) (no (unknown) (unknown) Status: Acute (units ( unknown) date) unknown) (unknown) (no (unknown) (unknown) Surgical (units (unkno wn) date) History (Updated unknown) 01/24/22 @ 21:46 by Anamaria Cooper) (unknown) (no (unknown) (unknown) Tumor (units (unkno wn) date) () unknown) (unknown) (no (unknown) (unknown) Type(s) of (units (unk nown) date) exercise: unknown) bicycling (stationary bike), regular exercise, weight (unknown) (no (unknown) (unknown) Variability: (units (u nknown) date) Moderate (11-25) unknown) (unknown) (no (unknown) (unknown) Visit (units (unkno wn) date) Information unknown) (unknown) (no (unknown) (unknown) Vital Signs (units (un known) date) unknown) (unknown) (no (unknown) (unknown) Vital Signs: (units (u nknown) date) unknown) (unknown) (no (unknown) (unknown) Ages [place] teeth (units (u nknown) date) extracted unknown) (unknown) (no (unknown) (unknown) alcohol intake: (units (unknown) date) never unknown) (unknown) (no (unknown) (unknown) caffeine: Yes (units ( unknown) date) (1-2 cups unknown) tea/day) (unknown) (no (unknown) (unknown) carbon monox (units (u nknown) date) detector in unknown) home: Yes (unknown) (no (unknown) (unknown) current (units (unkno wn) date) occupational unknown) exposures/hazard s: No (unknown) (no (unknown) (unknown) daily servings (units (unknown) date) fruits/ve-4 unknown) (unknown) (no (unknown) (unknown) do you feel (units (un known) date) safe at home: unknown) Yes (unknown) (no (unknown) (unknown) during the past (units (unknown) date) year weight has: unknown) remained stable (unknown) (no (unknown) (unknown) education (units (unkn own) date) level: college unknown) (Associate's degree) (unknown) (no (unknown) (unknown) fire (units (unkno wn) date) extinguisher in unknown) home: Yes (unknown) (no (unknown) (unknown) firearms in (units (un known) date) home: Yes unknown) firearms unloaded and locked: Yes (unknown) (no (unknown) (unknown) frequency: 5-6 (units (unknown) date) times per week unknown) (unknown) (no (unknown) (unknown) household (units (unkn own) date) members: spouse unknown) and family (father and xgttay-le-qin) (unknown) (no (unknown) (unknown) housing: house (units (unknown) date) unknown) (unknown) (no (unknown) (unknown) lifting and (units (un known) date) other (hiking) unknown) (unknown) (no (unknown) (unknown) lives (units (unkno wn) date) independently: unknown) Yes (unknown) (no (unknown) (unknown) marital status: (units (unknown) date) unknown) (unknown) (no (unknown) (unknown) number of (units (unkn own) date) children: 0 unknown) (unknown) (no (unknown) (unknown) occupational (units (u nknown) date) status: 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, 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 (unknown) (no (unknown) (unknown) pets and (units (unkno wn) date) animals: Yes (1 unknown) large dog, chickens) (unknown) (no (unknown) (unknown) seatbelt use: (units ( unknown) date) always unknown) (unknown) (no (unknown) (unknown) second hand (units (un known) date) exposure: Yes unknown) (tpvriz-ry-izt smokes outside the house) (unknown) (no (unknown) (unknown) special anjum (units ( unknown) date) needs: No unknown) (unknown) (no (unknown) (unknown) substance use (units ( unknown) date) type: does not unknown) use (unknown) (no (unknown) (unknown) travel history: (units (unknown) date) over 6 months unknown) ago (unknown) (no (unknown) (unknown) water heater (units (u nknown) date) temp set < 120 unknown) deg: Yes (unknown) (no (unknown) (unknown) well-balanced (units ( unknown) date) diet: daily or unknown) most days (unknown) (no (unknown) (unknown) while ) (units (unknown) date) unknown) (unknown) (no (unknown) (unknown) working smoke (units ( unknown) date) detector in unknown) home: Yes Result panel 28 (unknown) (no (unknown) (unknown) (no value) (units (unk nown) date) unknown) (unknown) (no (unknown) (unknown) (+12 lb) 120/58 (units (unknown) date) N unknown) (unknown) (no (unknown) (unknown) (+13 lb) 104/54 (units (unknown) date) N unknown) (unknown) (no (unknown) (unknown) (+18 lb) 122/60 (units (unknown) date) N unknown) (unknown) (no (unknown) (unknown) (+22 lb) 110/62 (units (unknown) date) N unknown) (unknown) (no (unknown) (unknown) (+23 lb) 116/62 (units (unknown) date) N unknown) (unknown) (no (unknown) (unknown) (+24 lb) 128/62 (units (unknown) date) N unknown) (unknown) (no (unknown) (unknown) (+7 lb) 128/66 N (units (unknown) date) unknown) (unknown) (no (unknown) (unknown) (+8 lb) 122/68 N (units (unknown) date) unknown) (unknown) (no (unknown) (unknown) Genetic (units (unkn own) date) Screening/Teratol unknown) ogy Counseling - Includes patient, baby's father, or (unknown) (no (unknown) (unknown) -?-?-?-?-?-?-?-? (units (unknown) date) -?-?-?-? unknown) (unknown) (no (unknown) (unknown) 05/19/22 (units (unkno wn) date) unknown) (unknown) (no (unknown) (unknown) 06/16/22 (units (unkno wn) date) unknown) (unknown) (no (unknown) (unknown) 07/07/22 (units (unkno wn) date) unknown) (unknown) (no (unknown) (unknown) 07/20/22 (units (unkno wn) date) unknown) (unknown) (no (unknown) (unknown) 08/03/22 (units (unkno wn) date) unknown) (unknown) (no (unknown) (unknown) 08/03/22] (units (unkn own) date) unknown) (unknown) (no (unknown) (unknown) 08/29/22 (units (unkno wn) date) Ultrasound #1 36w unknown) 2d (unknown) (no (unknown) (unknown) [id number] (units (unkno wn) date) unknown) (unknown) (no (unknown) (unknown) 01/27/22 (units (unkno wn) date) unknown) (unknown) (no (unknown) (unknown) 02/24/22 (units (unkno wn) date) unknown) (unknown) (no (unknown) (unknown) 03/24/22 (units (unkno wn) date) unknown) (unknown) (no (unknown) (unknown) 04/20/22 (units (unkno wn) date) unknown) (unknown) (no (unknown) (unknown) 12w 6d 163 lb (units ( unknown) date) unknown) (unknown) (no (unknown) (unknown) 14:37 (units (unkno wn) date) unknown) (unknown) (no (unknown) (unknown) 16w 6d 167 lb (units ( unknown) date) unknown) (unknown) (no (unknown) (unknown) 20w 5d 168 lb (units ( unknown) date) unknown) (unknown) (no (unknown) (unknown) 24w 6d 173 lb (units ( unknown) date) unknown) (unknown) (no (unknown) (unknown) 28w 6d 177 lb (units ( unknown) date) unknown) (unknown) (no (unknown) (unknown) 3 oz. 57%ile. (units ( unknown) date) DOLORES 15.87 cm. unknown) Grade 0 placenta. Plan: Increase metformin to (unknown) (no (unknown) (unknown) 3 wks (units (unkno wn) date) unknown) (unknown) (no (unknown) (unknown) 31w 6d 179 lb (units ( unknown) date) unknown) (unknown) (no (unknown) (unknown) 33w 5d 178 lb (units ( unknown) date) unknown) (unknown) (no (unknown) (unknown) 4 wk (units (unkno wn) date) unknown) (unknown) (no (unknown) (unknown) 750 mg twice a (units (unknown) date) day. She will unknown) follow-up in 1 week for a nonstress test. She (unknown) (no (unknown) (unknown) 8w 6d 162 lb (units (u nknown) date) unknown) (unknown) (no (unknown) (unknown) Abnormal lab (units (u nknown) date) values 1st unknown) trimester: discussed (unknown) (no (unknown) (unknown) Abnormal lab (units (u nknown) date) values 2nd unknown) trimester: discussed (unknown) (no (unknown) (unknown) Add'l Plan (units (unk nown) date) Details unknown) (unknown) (no (unknown) (unknown) Age/Sex: 32 / F (units (unknown) date) Date of Service: unknown) (unknown) (no (unknown) (unknown) Allergies (units (unkn own) date) (-2013) unknown) (unknown) (no (unknown) (unknown) Allergies (units (unkn own) date) unknown) (unknown) (no (unknown) (unknown) [place] (units ( unknown) date) [id number] unknown) (unknown) (no (unknown) (unknown) Anesthesia (units (unk nown) date) unknown) (unknown) (no (unknown) (unknown) Aneuploidy (units (unk nown) date) Screening unknown) Offered: Accepted (wants CFDNA) (unknown) (no (unknown) (unknown) Anticipated (units (un known) date) course of unknown) care: discussed (unknown) (no (unknown) (unknown) Anxiety (-2015) (units (unknown) date) unknown) (unknown) (no (unknown) (unknown) Arrhythmia (units (unk nown) date) unknown) (unknown) (no (unknown) (unknown) Assessment and (units (unknown) date) Plan unknown) (unknown) (no (unknown) (unknown) Attending Dr: (units ( unknown) date) Marietta Massey MD unknown) (unknown) (no (unknown) (unknown) Corazon presents (units (unknown) date) today for routine unknown) OB f/u at 20w5d. She reports good (unknown) (no (unknown) (unknown) BMI 29.2 (units (unkno wn) date) unknown) (unknown) (no (unknown) (unknown) BP 110/60 (units (unkn own) date) unknown) (unknown) (no (unknown) (unknown) (units (unkno wn) date) Plan/Preferences unknown) (unknown) (no (unknown) (unknown) Planning (units (unknown) date) unknown) (unknown) (no (unknown) (unknown) Blood Pressure (units (unknown) date) Location Lt unknown) brachial (unknown) (no (unknown) (unknown) Blood (units (unkno wn) date) transfusions?: unknown) yes (Never had but would accept) (unknown) (no (unknown) (unknown) : (units (unknown) date) discussed unknown) (unknown) (no (unknown) (unknown) Chicken pox (units (un known) date) () unknown) (unknown) (no (unknown) (unknown) Childbirth (units (unk nown) date) Classes: unknown) discussed (unknown) (no (unknown) (unknown) Conceived (units (unkn own) date) naturally this unknown) (unknown) (no (unknown) (unknown) Confirmed (units (unkn own) date) 08/03/22] unknown) (unknown) (no (unknown) (unknown) Current Estimate (units (unknown) date) 09/02/22 unknown) Ultrasound #2 35w 5d (unknown) (no (unknown) (unknown) Current (units (unkno wn) date) History unknown) (unknown) (no (unknown) (unknown) DNA (units (unkno wn) date) unknown) (unknown) (no (unknown) (unknown) : 1990 (units (unknown) date) Acct:[id number] unknown) (unknown) (no (unknown) (unknown) Date of positive (units (unknown) date) home unknown) test: 12/29/21 (unknown) (no (unknown) (unknown) Date (units (unkno wn) date) unknown) (unknown) (no (unknown) (unknown) Denies Congenital (units (unknown) date) Heart Defect, unknown) Denies Down Syndrome, Denies Muscular Dystrophy, (unknown) (no (unknown) (unknown) Denies Maternal (units (unknown) date) Metabolic unknown) Disorder (EG,TYPE 1 Diabetes, PKU), Denies Patient or (unknown) (no (unknown) (unknown) Denies Neural (units ( unknown) date) Tube Defect unknown) (Meningomyelocele , Spina Bifida, or Anencephaly), (unknown) (no (unknown) (unknown) Denies Sickle (units ( unknown) date) Cell Disease or unknown) Trait (), Denies Hemophilia or other blood (unknown) (no (unknown) (unknown) Denies Enio-Sachs (units (unknown) date) (Ashkenazi unknown) Sabianism, Cajun, Indonesian Paraguayan), Denies Jose (unknown) (no (unknown) (unknown) Depression (units (unk nown) date) (-2016) unknown) (unknown) (no (unknown) (unknown) Depression: (units (un known) date) discussed unknown) (unknown) (no (unknown) (unknown) Dept at (units (unkno wn) date) . unknown) (unknown) (no (unknown) (unknown) Diet and (units (unkno wn) date) Exercise unknown) (unknown) (no (unknown) (unknown) Disease (units (unkno wn) date) (Ashkenazi unknown) Sabianism), Denies Familial Dysautonomia (Ashkenazi Sabianism), (unknown) (no (unknown) (unknown) Documented By: (units (unknown) date) Marietta Massey MD unknown) 08/03/22 1437 (unknown) (no (unknown) (unknown) Draft (units (unkno wn) date) unknown) (unknown) (no (unknown) (unknown) MARIANNE Calculator (units (unknown) date) unknown) (unknown) (no (unknown) (unknown) EGA Weight BP (units ( unknown) date) UGlucose unknown) (unknown) (no (unknown) (unknown) Eczema (-2000) (units (unknown) date) unknown) (unknown) (no (unknown) (unknown) Estimated (units (unkn own) date) Delivery Date unknown) Method Current (unknown) (no (unknown) (unknown) Exercise and (units (u nknown) date) activity, unknown) work/environmenta l/hazards, Sexual activity, X-ray (unknown) (no (unknown) (unknown) F/u in 4 wks. (units ( unknown) date) unknown) (unknown) (no (unknown) (unknown) Family History (units (unknown) date) (Updated 01/24/22 unknown) @ 21:49 by Anamaria Cooper) (unknown) (no (unknown) (unknown) Family/Other (units (u nknown) date) Multiple unknown) sclerosis (unknown) (no (unknown) (unknown) Father (units (unkno wn) date) Hypertension unknown) (unknown) (no (unknown) (unknown) Father of Baby: (units (unknown) date) same unknown) (unknown) (no (unknown) (unknown) [facility]) (unknown) (no (unknown) (unknown) First Trimester (units (unknown) date) Education unknown) Checklist (unknown) (no (unknown) (unknown) Foot pain (units (unkn own) date) (-2019) unknown) (unknown) (no (unknown) (unknown) (SAB (units (unkn own) date) x7),Fertility Tx, unknown) meds only, started on baby aspirin 02/24/2022 (unknown) (no (unknown) (unknown) GDM, on (units (unkno wn) date) Metformin 500mg unknown) BID, increased to 750mg BID 07/20/22 (unknown) (no (unknown) (unknown) Genetic (units (unkno wn) date) Screening + unknown) Counseling (unknown) (no (unknown) (unknown) Genetic (units (unkno wn) date) Screening unknown) (unknown) (no (unknown) (unknown) Good (units (unk nown) date) movement. No unknown) leakage of fluid or vaginal bleeding. No regular (unknown) (no (unknown) (unknown) Grandfather (units (un known) date) Cancer unknown) (unknown) (no (unknown) (unknown) Grandfather (units (un known) date) Stroke unknown) (unknown) (no (unknown) (unknown) Grandmother (units (un known) date) History unknown) of heart disease (unknown) (no (unknown) (unknown) Grandmother (units (un known) date) Multiple unknown) sclerosis (unknown) (no (unknown) (unknown) 8 (units (unkn own) date) Multiple births 0 unknown) (unknown) (no (unknown) (unknown) HIV risk (units (unkno wn) date) evaluation: low unknown) risk (unknown) (no (unknown) (unknown) Health Center (units ( unknown) date) Education unknown) (unknown) (no (unknown) (unknown) Health center (units ( unknown) date) information: unknown) nature of practice discussed, personnel (unknown) (no (unknown) (unknown) Height 5 ft 6 in (units (unknown) date) unknown) (unknown) (no (unknown) (unknown) Hepatitis C risk (units (unknown) date) evaluation: low unknown) risk (unknown) (no (unknown) (unknown) History of (units (unk nown) date) Hepatitis B: No unknown) (unknown) (no (unknown) (unknown) History of (units (unk nown) date) Hepatitis C: No unknown) (unknown) (no (unknown) (unknown) 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 (unknown) (no (unknown) (unknown) Hospital[facility] (units (u nknown) date) unknown) (unknown) (no (unknown) (unknown) [facility] (units (u nknown) date) Chorea, Denies unknown) Other inherited genetic or chromosomal disorder, (unknown) (no (unknown) (unknown) , Elieser (units ( unknown) date) Martell unknown) (unknown) (no (unknown) (unknown) Hx # (units (u nknown) date) Pregnancies 0 unknown) Elective abortions 0 (unknown) (no (unknown) (unknown) Hx # Term (units (unkn own) date) Pregnancies 0 unknown) Ectopic pregnancies 0 (unknown) (no (unknown) (unknown) Infant will be (units (unknown) date) adopted?: no unknown) (unknown) (no (unknown) (unknown) Infection (units (unkn own) date) History unknown) (unknown) (no (unknown) (unknown) Infectious (units (unk nown) date) Disease Education unknown) (unknown) (no (unknown) (unknown) Infectious (units (unk nown) date) disease exposure: unknown) chicken pox immunity discussed, hepatitis risk (unknown) (no (unknown) (unknown) Infertility (units (un known) date) (-2018) unknown) (unknown) (no (unknown) (unknown) Initial Weight: (units (unknown) date) 155 lb unknown) (unknown) (no (unknown) (unknown) Initials (units (unkno wn) date) unknown) (unknown) (no (unknown) (unknown) Intake Clinical (units (unknown) date) Staff unknown) (unknown) (no (unknown) (unknown) Intake Note: (units (u nknown) date) unknown) (unknown) (no (unknown) (unknown) Intake performed (units (unknown) date) by: unknown) Nu [facility] (unknown) (no (unknown) (unknown) Intake (units (unkno wn) date) unknown) (unknown) (no (unknown) (unknown) Irregular (units (unkn own) date) menstrual cycle unknown) (-2017) (unknown) (no (unknown) (unknown) LM (units (unkno wn) date) unknown) (unknown) (no (unknown) (unknown) Lipoma (units (unkno wn) date) unknown) (unknown) (no (unknown) (unknown) Live with (units (unkn own) date) someone with TB unknown) or exposed to TB: No (unknown) (no (unknown) (unknown) Loc: [facility] (units (unkno wn) date) unknown) (unknown) (no (unknown) (unknown) Marital status: (units (unknown) date) unknown) (unknown) (no (unknown) (unknown) Medical History (units (unknown) date) (Updated 08/03/22 unknown) @ 13:53 by Marietta Massey MD) (unknown) (no (unknown) (unknown) Medications (units (un known) date) unknown) (unknown) (no (unknown) (unknown) Mother Gastric (units (unknown) date) cancer unknown) (unknown) (no (unknown) (unknown) N No 142 13 N/A (units (unknown) date) 4wk unknown) (unknown) (no (unknown) (unknown) N No no 143 17 (units (unknown) date) N/A absent AFP 4 unknown) wks (unknown) (no (unknown) (unknown) N No no 178 9 (units ( unknown) date) N/A absent unknown) long/closed AGA 9 (unknown) (no (unknown) (unknown) N Yes no 135 34 (units (unknown) date) Vertex absent 2 unknown) wks (unknown) (no (unknown) (unknown) N Yes no 141 24 (units (unknown) date) N/A absent 4 wks unknown) (unknown) (no (unknown) (unknown) N Yes no 142 20 (units (unknown) date) N/A absent AFP unknown) negative (unknown) (no (unknown) (unknown) N Yes no 144 29 (units (unknown) date) Vertex absent AGA unknown) 29w5d (unknown) (no (unknown) (unknown) N Yes no 150 32 (units (unknown) date) Vertex absent 2 unknown) wks (unknown) (no (unknown) (unknown) NF (units (unkno wn) date) unknown) (unknown) (no (unknown) (unknown) Notes (units (unkno wn) date) unknown) (unknown) (no (unknown) (unknown) Number of Living (units (unknown) date) Children 0 unknown) (unknown) (no (unknown) (unknown) Number of (units (unkn own) date) fetuses:: Single unknown) (unknown) (no (unknown) (unknown) Nutrition and (units ( unknown) date) weight gain unknown) counseling: special diet: discussed (unknown) (no (unknown) (unknown) OB Office Visit (units (unknown) date) unknown) (unknown) (no (unknown) (unknown) OB Visit Log (units (u nknown) date) unknown) (unknown) (no (unknown) (unknown) OB check (units (unkno wn) date) unknown) (unknown) (no (unknown) (unknown) On U/S: AGA (units (un known) date) 29w5d. 3#4oz unknown) 66%ile. Nl AFV. Plan: Metformin 500mg BID. F/U 3 (unknown) (no (unknown) (unknown) On control (units (unknown) date) at conception?: unknown) No (unknown) (no (unknown) (unknown) Other Estimates (units (unknown) date) 08/18/22 LMP unknown) (Certain) 37w 6d (unknown) (no (unknown) (unknown) Ovarian cyst (units (u nknown) date) (-2018) unknown) (unknown) (no (unknown) (unknown) PCOS (polycystic (units (unknown) date) ovarian syndrome) unknown) (unknown) (no (unknown) (unknown) PFSH (units (unkno wn) date) unknown) (unknown) (no (unknown) (unknown) Pap performed?: (units (unknown) date) No unknown) (unknown) (no (unknown) (unknown) Para 0 (units (unkno wn) date) Spontaneous unknown) abortions 7 (unknown) (no (unknown) (unknown) Partner history (units (unknown) date) of STD: denies hx unknown) (unknown) (no (unknown) (unknown) Partner history (units (unknown) date) of genital unknown) herpes: No (unknown) (no (unknown) (unknown) Partner: Elieesr (units ( unknown) date) Martell unknown) (unknown) (no (unknown) (unknown) Patient comes in (units (unknown) date) for follow-up OB unknown) visit. She had some pelvic pain that (unknown) (no (unknown) (unknown) Patient presents (units (unknown) date) for a new OB unknown) visit at 8 weeks gestation. She is (unknown) (no (unknown) (unknown) Patient presents (units (unknown) date) for a routine unknown) visit at 33+ 5 weeks' gestation. (unknown) (no (unknown) (unknown) Patient presents (units (unknown) date) for a routine unknown) visit, accompanied by her . 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) [place] [place] vs unknown) [facility] (unknown) (no (unknown) (unknown) Personal history (units (unknown) date) of STD: denies hx unknown) (unknown) (no (unknown) (unknown) Personal history (units (unknown) date) of genital unknown) herpes: No (unknown) (no (unknown) (unknown) Plantar (units (unkno wn) date) fasciitis unknown) (unknown) (no (unknown) (unknown) Position Sitting (units (unknown) date) unknown) (unknown) (no (unknown) (unknown) (units (unk nown) date) family unknown) planning/Tubal sterilization: further discussion needed (unknown) (no (unknown) (unknown) (units (unkn own) date) History unknown) (unknown) (no (unknown) (unknown) type:: (units (unknown) date) Other Normal unknown) (unknown) (no (unknown) (unknown) (units (unkno wn) date) Education unknown) (unknown) (no (unknown) (unknown) Initial (units (unknown) date) Assessment unknown) (unknown) (no (unknown) (unknown) (units (unkno wn) date) Specific unknown) Issues/Plans (unknown) (no (unknown) (unknown) (units (unkno wn) date) Testing: unknown) discussed (unknown) (no (unknown) (unknown) Visit (units (unknown) date) unknown) (unknown) (no (unknown) (unknown) (units (unkno wn) date) education packet: unknown) Child education/plan, symptoms, (unknown) (no (unknown) (unknown) Primary Care (units (u nknown) date) Provider: [place] Arboleda unknown) Lindy (unknown) (no (unknown) (unknown) Primary Ob (units (unk nown) date) Provider: unknown) Richelle Dawkins (unknown) (no (unknown) (unknown) Prior (units (unkno wn) date) GBS-Infected unknown) child: No (unknown) (no (unknown) (unknown) Providers (units (unkn own) date) unknown) (unknown) (no (unknown) (unknown) Pt presents for (units (unknown) date) a PNV at 16+6 unknown) wks. No FM. No LOF/VB. Rec'd flu shot (unknown) (no (unknown) (unknown) Pt presents for (units (unknown) date) a routine PNV at unknown) 28 +6 wks gestation. Abnormal 3 hr GTT. 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 She unknown) has felt good movement. She says it is (unknown) (no (unknown) (unknown) Shingles (units (unkno wn) date) unknown) (unknown) (no (unknown) (unknown) Signed By: (units (unk nown) date) unknown) (unknown) (no (unknown) (unknown) Signs and (units (unkn own) date) symptoms of unknown) labor: discussed (unknown) (no (unknown) (unknown) Smoking Status: (units (unknown) date) Never smoker unknown) (unknown) (no (unknown) (unknown) Social History (units (unknown) date) unknown) (unknown) (no (unknown) (unknown) Support (units (unkno wn) date) Person(s):: Elieser unknown) (unknown) (no (unknown) (unknown) Surgical History (units (unknown) date) (Updated 01/24/22 unknown) @ 21:46 by Anamaria Cooper) (unknown) (no (unknown) (unknown) Surrogate (units (unkn own) date) ?: no unknown) (unknown) (no (unknown) (unknown) Symptoms since (units (unknown) date) LMP: Reports unknown) amenorrhea, nausea, fatigue, breast tenderness, (unknown) (no (unknown) (unknown) Teratogen (units (unkn own) date) Exposures since unknown) LMP/Conception: Denies prescription medications, (unknown) (no (unknown) (unknown) Testing (units (unkno wn) date) Education unknown) (unknown) (no (unknown) (unknown) Testing (units (unkno wn) date) education unknown) completed: group B strep, Spina bifida testing and Cell Free (unknown) (no (unknown) (unknown) This note may (units ( unknown) date) have been all or unknown) partially generated using voice recognition (unknown) (no (unknown) (unknown) Tobacco + (units (unkn own) date) Substance Use unknown) (unknown) (no (unknown) (unknown) Tobacco Status (units (unknown) date) unknown) (unknown) (no (unknown) (unknown) Trimester:: 3rd (units (unknown) date) Trimester unknown) (28wks-Del) (unknown) (no (unknown) (unknown) Tumor () (units (unknown) date) unknown) (unknown) (no (unknown) (unknown) Type(s) of (units (unk nown) date) exercise: unknown) bicycling (stationary bike), regular exercise, weight (unknown) (no (unknown) (unknown) UProtein Movement (units (unknown) date) PreLabor FHR Fndl unknown) Ht Pres Edema Cerv Exam US/Comment Next Appt (unknown) (no (unknown) (unknown) Ultrasound (units (unk nown) date) performed?: Yes unknown) (unknown) (no (unknown) (unknown) Varicella/chicke (units (unknown) date) n pox status: unknown) previous disease (unknown) (no (unknown) (unknown) Visit Date: (units (un known) date) 05/19/22 Last unknown) Updated by: Richelle Dawkins MD (unknown) (no (unknown) (unknown) Visit Date: (units (un known) date) 06/16/22 Last unknown) Updated by: Richelle Dawkins MD (unknown) (no (unknown) (unknown) Visit Date: (units (un known) date) 07/20/22 Last unknown) Updated by: Richelle Dawkins MD (unknown) (no (unknown) (unknown) Visit Date: (units (un known) date) 01/27/22 Last unknown) Updated by: Richelle Dawkins MD (unknown) (no (unknown) (unknown) Visit Date: (units (un known) date) 02/24/22 Last unknown) Updated by: Marietta Massey MD (unknown) (no (unknown) (unknown) Visit Date: (units (un known) date) 03/24/22 Last unknown) Updated by: Richelle Dawkins MD (unknown) (no (unknown) (unknown) Visit Date: (units (un known) date) 04/20/22 Last unknown) Updated by: Xiao Boland P.A-C (unknown) (no (unknown) (unknown) Visit Reasons: (units (unknown) date) OB w/DOLORES * Mariza unknown) (unknown) (no (unknown) (unknown) Vitals (units (unkno wn) date) unknown) (unknown) (no (unknown) (unknown) Vitamins and (units (u nknown) date) iron, Diet and unknown) weight gain, Fish and mercury intake, Caffeine use, (unknown) (no (unknown) (unknown) WG (units (unkno wn) date) unknown) (unknown) (no (unknown) (unknown) Weeks (units (unkno wn) date) gestation:: 35 unknown) (unknown) (no (unknown) (unknown) Weight 181 lb (units ( unknown) date) unknown) (unknown) (no (unknown) (unknown) Ages [place] teeth (units (u nknown) date) extracted unknown) (unknown) (no (unknown) (unknown) Zika virus (units (unk n) date) exposure: No unknown) (unknown) (no (unknown) (unknown) accompanied by (units (unknown) date) her . She unknown) went through fertility treatments with (unknown) (no (unknown) (unknown) alcohol intake: (units (unknown) date) never unknown) (unknown) (no (unknown) (unknown) anterior (units (unkno wn) date) placenta. Routine unknown) precautions reviewed with the patient. Due to 1st (unknown) (no (unknown) (unknown) anyone in either (units (unknown) date) family with: unknown) (unknown) (no (unknown) (unknown) baby's father (units ( unknown) date) had a child with unknown) defects not listed above and Denies Other (unknown) (no (unknown) (unknown) back pain. (units (unk nown) date) Advised unknown) stretching, belly band, and PT if not improving. AFP was (unknown) (no (unknown) (unknown) blood sugar (units (un known) date) diagnostic (Blood unknown) Glucose Test strips) #100 ea 06/02/22 [Rx (unknown) (no (unknown) (unknown) blood-glucose (units ( unknown) date) meter #1 ea unknown) 06/02/22 [Rx Confirmed 08/03/22] (unknown) (no (unknown) (unknown) by ultrasound is (units (unknown) date) normal with good unknown) movement, normal appearing fluid, (unknown) (no (unknown) (unknown) caffeine: Yes (units ( unknown) date) (1-2 cups unknown) tea/day) (unknown) (no (unknown) (unknown) carbon monox (units (u nknown) date) detector in home: unknown) Yes (unknown) (no (unknown) (unknown) cfDNA normal (units (u nknown) date) female, AFP unknown) negative (unknown) (no (unknown) (unknown) consistent with (units (unknown) date) 9 weeks 0 days. unknown) Yolk sac visible. heart rate 178 beats (unknown) (no (unknown) (unknown) contractions. (units ( unknown) date) Her fasting unknown) glucose has been in the 98-100 range. She is (unknown) (no (unknown) (unknown) current (units (unkno wn) date) occupational unknown) exposures/hazards : No (unknown) (no (unknown) (unknown) currently on (units (u nknown) date) metformin 500 mg unknown) twice a day. She had a nonstress test today which (unknown) (no (unknown) (unknown) daily servings (units (unknown) date) fruits/ve-4 unknown) (unknown) (no (unknown) (unknown) described, visit (units (unknown) date) schedule unknown) reviewed, ultrasounds policy reviewed, coverage 24 (unknown) (no (unknown) (unknown) developing a (units (u nknown) date) pattern. No unknown) leakage of fluid or vaginal bleeding. No contractions (unknown) (no (unknown) (unknown) discussed, (units (unk nown) date) tuberculosis unknown) exposure discussed, CMV discussed, Toxoplasmosis (unknown) (no (unknown) (unknown) disorders, (units (unk nown) date) Denies Cystic unknown) Fibrosis, Denies Mental Retardation/Autis m, Denies (unknown) (no (unknown) (unknown) do you feel safe (units (unknown) date) at home: Yes unknown) (unknown) (no (unknown) (unknown) during the past (units (unknown) date) year weight has: unknown) remained stable (unknown) (no (unknown) (unknown) education level: (units (unknown) date) college unknown) (Associate's degree) (unknown) (no (unknown) (unknown) exposure, (units (unkn own) date) Medication use, unknown) Sauna/hot tub use, Dental care, Travel and Influenza (unknown) (no (unknown) (unknown) fire (units (unkno wn) date) extinguisher in unknown) home: Yes (unknown) (no (unknown) (unknown) firearms in (units (un known) date) home: Yes unknown) firearms unloaded and locked: Yes (unknown) (no (unknown) (unknown) frequency: 5-6 (units (unknown) date) times per week unknown) (unknown) (no (unknown) (unknown) gestational sac (units (unknown) date) with a fetus with unknown) a crown-rump length measuring 2.29 cm (unknown) (no (unknown) (unknown) have occurred. (units (unknown) date) If there are any unknown) questions, please contact the Medical Records (unknown) (no (unknown) (unknown) hours a day and (units (unknown) date) participation of unknown) father in care and office visits (unknown) (no (unknown) (unknown) household (units (unkn own) date) members: spouse unknown) and family (father and [id number]) (unknown) (no (unknown) (unknown) housing: house (units (unknown) date) unknown) (unknown) (no (unknown) (unknown) illicit drugs (units ( unknown) date) and Denies other unknown) (unknown) (no (unknown) (unknown) kag (units (unkno wn) date) unknown) (unknown) (no (unknown) (unknown) lancets #100 ea (units (unknown) date) 06/02/22 [Rx unknown) Confirmed 08/03/22] (unknown) (no (unknown) (unknown) last visit. (units (un known) date) Plan: AFP today. unknown) 20 wk u/s reviewed. F/U 4 wks. Warning signs (unknown) (no (unknown) (unknown) lifting and (units (un known) date) other (hiking) unknown) (unknown) (no (unknown) (unknown) lives (units (unkno wn) date) independently: unknown) Yes (unknown) (no (unknown) (unknown) marital status: (units (unknown) date) unknown) (unknown) (no (unknown) (unknown) may occur. (units (unk nown) date) Occasional unknown) wrong-word or 'sound-alike' substitutions may have (unknown) (no (unknown) (unknown) medication only. (units (unknown) date) Had 7 unknown) miscarriages. No bleeding with this . This 1 (unknown) (no (unknown) (unknown) metformin 500 mg (units (unknown) date) tablet 500 mg PO unknown) BID #60 tabs 06/16/22 [Rx Confirmed 08/03/22] (unknown) (no (unknown) (unknown) metformin 500 mg (units (unknown) date) tablet 750 mg PO unknown) BID #90 tabs 07/20/22 [Rx Confirmed 08/03/22] (unknown) (no (unknown) (unknown) movement and (units (u nknown) date) denies VB, LOF, unknown) cramping and regular contractions. Pt reports low (unknown) (no (unknown) (unknown) negative. (units (unkn own) date) Anatomy US unknown) scheduled for later today. Warning precautions reviewed. 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 Please (unknown) (no (unknown) (unknown) or cramping. (units (u nknown) date) Plan: 1 hour unknown) glucose ordered. Follow-up in 4 weeks. Warning (unknown) (no (unknown) (unknown) per minute. (units (un known) date) Normal ovaries unknown) bilaterally. Plan: Follow-up in 4 weeks. Warning (unknown) (no (unknown) (unknown) pets and (units (unkno wn) date) animals: Yes (1 unknown) large dog, chickens) (unknown) (no (unknown) (unknown) precautions, (units (u nknown) date) Listeriosis unknown) prevention and Rubella Immunization (unknown) (no (unknown) (unknown) preeclampsia. (units ( unknown) date) unknown) (unknown) (no (unknown) (unknown) (units (unkn own) date) discussed unknown) starting baby aspirin per day to decrease her risk for (unknown) (no (unknown) (unknown) prenat.vits,dara, (units (unknown) date) [id number]-mjgwn 1 unknown) tab PO DAILY 01/08/22 [History Confirmed (unknown) (no (unknown) (unknown) read the note (units ( unknown) date) carefully and unknown) recognize, using context, where these substitutions (unknown) (no (unknown) (unknown) reviewed. (units (unkn own) date) unknown) (unknown) (no (unknown) (unknown) seatbelt use: (units ( unknown) date) always unknown) (unknown) (no (unknown) (unknown) second hand (units (un known) date) exposure: Yes unknown) (zicuag-lq-mix smokes outside the house) (unknown) (no (unknown) (unknown) signs for (units (unkn own) date) labor unknown) reviewed. (unknown) (no (unknown) (unknown) signs reviewed. (units (unknown) date) cfDNA ordered. unknown) (unknown) (no (unknown) (unknown) signs reviewed. (units (unknown) date) unknown) (unknown) (no (unknown) (unknown) software. (units (unkn own) date) Although every unknown) effort is made to edit content, snubber errors (unknown) (no (unknown) (unknown) special anjum (units ( unknown) date) needs: No unknown) (unknown) (no (unknown) (unknown) substance use (units ( unknown) date) type: does not unknown) use (unknown) (no (unknown) (unknown) travel history: (units (unknown) date) over 6 months ago unknown) (unknown) (no (unknown) (unknown) urinary (units (unkno wn) date) frequency and unknown) irritability (unknown) (no (unknown) (unknown) vaccine (Annual (units (unknown) date) flu, Phizer Covid unknown) x2) (unknown) (no (unknown) (unknown) w0d 4 wks (units (unkn own) date) unknown) (unknown) (no (unknown) (unknown) was not using (units ( unknown) date) any infertility unknown) medications. Ultrasound: An intrauterine (unknown) (no (unknown) (unknown) was reactive. On (units (unknown) date) ultrasound: unknown) Vertex presentation. AGA 34 weeks 0 days. 5 lb (unknown) (no (unknown) (unknown) water heater (units (u nknown) date) temp set < 120 unknown) deg: Yes (unknown) (no (unknown) (unknown) well-balanced (units ( unknown) date) diet: daily or unknown) most days (unknown) (no (unknown) (unknown) went away with (units (unknown) date) laying down. No unknown) vaginal bleeding. No fevers. heart tone (unknown) (no (unknown) (unknown) while ) (units (unknown) date) unknown) (unknown) (no (unknown) (unknown) will follow-up (units (unknown) date) in 2 weeks with unknown) Dr. Massey for an DOLORES/nonstress test. Warning (unknown) (no (unknown) (unknown) wks. Warning (units (u nknown) date) signs for PTL unknown) reviewed. (unknown) (no (unknown) (unknown) working smoke (units ( unknown) date) detector in home: unknown) Yes Result panel 29 (unknown) (no (unknown) (unknown) (no value) (units (unk nown) date) unknown) (unknown) (no (unknown) (unknown) (+12 lb) 120/58 (units (unknown) date) N unknown) (unknown) (no (unknown) (unknown) (+13 lb) 104/54 (units (unknown) date) N unknown) (unknown) (no (unknown) (unknown) (+18 lb) 122/60 (units (unknown) date) N unknown) (unknown) (no (unknown) (unknown) (+22 lb) 110/62 (units (unknown) date) N unknown) (unknown) (no (unknown) (unknown) (+23 lb) 116/62 (units (unknown) date) N unknown) (unknown) (no (unknown) (unknown) (+24 lb) 128/62 (units (unknown) date) N unknown) (unknown) (no (unknown) (unknown) (+26 lb) 110/60 (units (unknown) date) unknown) (unknown) (no (unknown) (unknown) (+7 lb) 128/66 N (units (unknown) date) unknown) (unknown) (no (unknown) (unknown) (+8 lb) 122/68 N (units (unknown) date) unknown) (unknown) (no (unknown) (unknown) (1) 35 weeks (units (u nknown) date) gestation of unknown) : (unknown) (no (unknown) (unknown) Genetic (units (unkn own) date) Screening/Teratol unknown) ogy Counseling - Includes patient, baby's father, or (unknown) (no (unknown) (unknown) -?-?-?-?-?-?-?-? (units (unknown) date) -?-?-?-? unknown) (unknown) (no (unknown) (unknown) 05/19/22 (units (unkno wn) date) unknown) (unknown) (no (unknown) (unknown) 06/16/22 (units (unkno wn) date) unknown) (unknown) (no (unknown) (unknown) 07/07/22 (units (unkno wn) date) unknown) (unknown) (no (unknown) (unknown) 07/20/22 (units (unkno wn) date) unknown) (unknown) (no (unknown) (unknown) 08/03/22 1457 (units ( unknown) date) unknown) (unknown) (no (unknown) (unknown) 08/03/22 (units (unkno wn) date) unknown) (unknown) (no (unknown) (unknown) 08/03/22] (units (unkn own) date) unknown) (unknown) (no (unknown) (unknown) 08/29/22 (units (unkno wn) date) Ultrasound #1 36w unknown) 2d (unknown) (no (unknown) (unknown) [id number] (units (unkno wn) date) unknown) (unknown) (no (unknown) (unknown) 01/27/22 (units (unkno wn) date) unknown) (unknown) (no (unknown) (unknown) 02/24/22 (units (unkno wn) date) unknown) (unknown) (no (unknown) (unknown) 03/24/22 (units (unkno wn) date) unknown) (unknown) (no (unknown) (unknown) 04/20/22 (units (unkno wn) date) unknown) (unknown) (no (unknown) (unknown) 12w 6d 163 lb (units ( unknown) date) unknown) (unknown) (no (unknown) (unknown) 14:37 (units (unkno wn) date) unknown) (unknown) (no (unknown) (unknown) 16w 6d 167 lb (units ( unknown) date) unknown) (unknown) (no (unknown) (unknown) 20w 5d 168 lb (units ( unknown) date) unknown) (unknown) (no (unknown) (unknown) 24w 6d 173 lb (units ( unknown) date) unknown) (unknown) (no (unknown) (unknown) 28w 6d 177 lb (units ( unknown) date) unknown) (unknown) (no (unknown) (unknown) 3 oz. 57%ile. (units ( unknown) date) DOLORES 15.87 cm. unknown) Grade 0 placenta. Plan: Increase metformin to (unknown) (no (unknown) (unknown) 3 wks (units (unkno wn) date) unknown) (unknown) (no (unknown) (unknown) 31w 6d 179 lb (units ( unknown) date) unknown) (unknown) (no (unknown) (unknown) 33w 5d 178 lb (units ( unknown) date) unknown) (unknown) (no (unknown) (unknown) 35w 5d 181 lb (units ( unknown) date) unknown) (unknown) (no (unknown) (unknown) 4 wk (units (unkno wn) date) unknown) (unknown) (no (unknown) (unknown) 750 mg twice a (units (unknown) date) day. She will unknown) follow-up in 1 week for a nonstress test. She (unknown) (no (unknown) (unknown) 8w 6d 162 lb (units (u nknown) date) unknown) (unknown) (no (unknown) (unknown) Abnormal lab (units (u nknown) date) values 1st unknown) trimester: discussed (unknown) (no (unknown) (unknown) Abnormal lab (units (u nknown) date) values 2nd unknown) trimester: discussed (unknown) (no (unknown) (unknown) Add'l Plan (units (unk nown) date) Details unknown) (unknown) (no (unknown) (unknown) Age/Sex: 32 / F (units (unknown) date) Date of Service: unknown) (unknown) (no (unknown) (unknown) Allergies (units (unkn own) date) () unknown) (unknown) (no (unknown) (unknown) Allergies (units (unkn own) date) unknown) (unknown) (no (unknown) (unknown) [place], [place] (units ( unknown) date) [id number] unknown) (unknown) (no (unknown) (unknown) Anesthesia (units (unk nown) date) unknown) (unknown) (no (unknown) (unknown) Aneuploidy (units (unk nown) date) Screening unknown) Offered: Accepted (wants CFDNA) (unknown) (no (unknown) (unknown) Anticipated (units (un known) date) course of unknown) care: discussed (unknown) (no (unknown) (unknown) Anxiety (-2016) (units (unknown) date) unknown) (unknown) (no (unknown) (unknown) Arrhythmia (units (unk nown) date) unknown) (unknown) (no (unknown) (unknown) Assessment and (units (unknown) date) Plan unknown) (unknown) (no (unknown) (unknown) Attending Dr: (units ( unknown) date) Marietta Massey MD unknown) (unknown) (no (unknown) (unknown) Corazon presents (units (unknown) date) today for routine unknown) OB f/u at 20w5d. She reports good (unknown) (no (unknown) (unknown) BMI 29.2 (units (unkno wn) date) unknown) (unknown) (no (unknown) (unknown) BP 110/60 (units (unkn own) date) unknown) (unknown) (no (unknown) (unknown) (units (unkno wn) date) Plan/Preferences unknown) (unknown) (no (unknown) (unknown) Planning (units (unknown) date) unknown) (unknown) (no (unknown) (unknown) Blood Pressure (units (unknown) date) Location Lt unknown) brachial (unknown) (no (unknown) (unknown) Blood (units (unkno wn) date) transfusions?: unknown) yes (Never had but would accept) (unknown) (no (unknown) (unknown) : (units (unknown) date) discussed unknown) (unknown) (no (unknown) (unknown) Chicken pox (units (un known) date) () unknown) (unknown) (no (unknown) (unknown) Childbirth (units (unk nown) date) Classes: unknown) discussed (unknown) (no (unknown) (unknown) Conceived (units (unkn own) date) naturally this unknown) (unknown) (no (unknown) (unknown) Confirmed (units (unkn own) date) 08/03/22] unknown) (unknown) (no (unknown) (unknown) Current Estimate (units (unknown) date) 09/02/22 unknown) Ultrasound #2 35w 5d (unknown) (no (unknown) (unknown) Current (units (unkno wn) date) History unknown) (unknown) (no (unknown) (unknown) DNA (units (unkno wn) date) unknown) (unknown) (no (unknown) (unknown) : 1990 (units (unknown) date) Acct:[id number] unknown) (unknown) (no (unknown) (unknown) Date of positive (units (unknown) date) home unknown) test: 12/29/21 (unknown) (no (unknown) (unknown) Date (units (unkno wn) date) unknown) (unknown) (no (unknown) (unknown) Denies Congenital (units (unknown) date) Heart Defect, unknown) Denies Down Syndrome, Denies Muscular Dystrophy, (unknown) (no (unknown) (unknown) Denies Maternal (units (unknown) date) Metabolic unknown) Disorder (EG,TYPE 1 Diabetes, PKU), Denies Patient or (unknown) (no (unknown) (unknown) Denies Neural (units ( unknown) date) Tube Defect unknown) (Meningomyelocele , Spina Bifida, or Anencephaly), (unknown) (no (unknown) (unknown) Denies Sickle (units ( unknown) date) Cell Disease or unknown) Trait (), Denies Hemophilia or other blood (unknown) (no (unknown) (unknown) Denies Enio-Sachs (units (unknown) date) (Ashkenazi unknown) Sabianism, Cajun, Indonesian Paraguayan), Denies Jose (unknown) (no (unknown) (unknown) Depression (units (unk nown) date) (-2016) unknown) (unknown) (no (unknown) (unknown) Depression: (units (un known) date) discussed unknown) (unknown) (no (unknown) (unknown) Dept at (units (unkno wn) date) . unknown) (unknown) (no (unknown) (unknown) Diet and (units (unkno wn) date) Exercise unknown) (unknown) (no (unknown) (unknown) Disease (units (unkno wn) date) (Ashkenazi unknown) Sabianism), Denies Familial Dysautonomia (Ashkenazi Sabianism), (unknown) (no (unknown) (unknown) Documented By: (units (unknown) date) Marietta Massey MD unknown) 08/03/22 1437 (unknown) (no (unknown) (unknown) MARIANNE Calculator (units (unknown) date) unknown) (unknown) (no (unknown) (unknown) EGA Weight BP (units ( unknown) date) UGlucose unknown) (unknown) (no (unknown) (unknown) Eczema (-2000) (units (unknown) date) unknown) (unknown) (no (unknown) (unknown) Estimated (units (unkn own) date) Delivery Date unknown) Method Current (unknown) (no (unknown) (unknown) Exercise and (units (u nknown) date) activity, unknown) work/environmenta l/hazards, Sexual activity, X-ray (unknown) (no (unknown) (unknown) F/u in 4 wks. (units ( unknown) date) unknown) (unknown) (no (unknown) (unknown) Family History (units (unknown) date) (Updated 01/24/22 unknown) @ 21:49 by Anamaria Cooper) (unknown) (no (unknown) (unknown) Family/Other (units (u nknown) date) Multiple unknown) sclerosis (unknown) (no (unknown) (unknown) Father (units (unkno wn) date) Hypertension unknown) (unknown) (no (unknown) (unknown) Father of Baby: (units (unknown) date) same unknown) (unknown) (no (unknown) (unknown) [facility]) (unknown) (no (unknown) (unknown) First Trimester (units (unknown) date) Education unknown) Checklist (unknown) (no (unknown) (unknown) Foot pain (units (unkn own) date) () unknown) (unknown) (no (unknown) (unknown) (SAB (units (unkn own) date) x7),Fertility Tx, unknown) meds only, started on baby aspirin 02/24/2022 (unknown) (no (unknown) (unknown) GDM, on (units (unkno wn) date) Metformin 500mg unknown) BID, increased to 750mg BID 07/20/22 (unknown) (no (unknown) (unknown) Genetic (units (unkno wn) date) Screening + unknown) Counseling (unknown) (no (unknown) (unknown) Genetic (units (unkno wn) date) Screening unknown) (unknown) (no (unknown) (unknown) Good (units (unk nown) date) movement. No unknown) leakage of fluid or vaginal bleeding. No regular (unknown) (no (unknown) (unknown) Grandfather (units (un known) date) Cancer unknown) (unknown) (no (unknown) (unknown) Grandfather (units (un known) date) Stroke unknown) (unknown) (no (unknown) (unknown) Grandmother (units (un known) date) History unknown) of heart disease (unknown) (no (unknown) (unknown) Grandmother (units (un known) date) Multiple unknown) sclerosis (unknown) (no (unknown) (unknown) 8 (units (unkn own) date) Multiple births 0 unknown) (unknown) (no (unknown) (unknown) HIV risk (units (unkno wn) date) evaluation: low unknown) risk (unknown) (no (unknown) (unknown) [facility] Center (units ( unknown) date) Education unknown) (unknown) (no (unknown) (unknown) Health center (units ( unknown) date) information: unknown) nature of practice discussed, personnel (unknown) (no (unknown) (unknown) Height 5 ft 6 in (units (unknown) date) unknown) (unknown) (no (unknown) (unknown) Hepatitis C risk (units (unknown) date) evaluation: low unknown) risk (unknown) (no (unknown) (unknown) History of (units (unk nown) date) Hepatitis B: No unknown) (unknown) (no (unknown) (unknown) History of (units (unk nown) date) Hepatitis C: No unknown) (unknown) (no (unknown) (unknown) 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 (unknown) (no (unknown) (unknown) Hospital[facility] (units (u nknown) date) unknown) (unknown) (no (unknown) (unknown) [facility] (units (u nknown) date) Chorea, Denies unknown) Other inherited genetic or chromosomal disorder, (unknown) (no (unknown) (unknown) , Elieser (units ( unknown) date) Martell unknown) (unknown) (no (unknown) (unknown) Hx # (units (u nknown) date) Pregnancies 0 unknown) Elective abortions 0 (unknown) (no (unknown) (unknown) Hx # Term (units (unkn own) date) Pregnancies 0 unknown) Ectopic pregnancies 0 (unknown) (no (unknown) (unknown) Infant will be (units (unknown) date) adopted?: no unknown) (unknown) (no (unknown) (unknown) Infection (units (unkn own) date) History unknown) (unknown) (no (unknown) (unknown) Infectious (units (unk nown) date) Disease Education unknown) (unknown) (no (unknown) (unknown) Infectious (units (unk nown) date) disease exposure: unknown) chicken pox immunity discussed, hepatitis risk (unknown) (no (unknown) (unknown) Infertility (units (un known) date) () unknown) (unknown) (no (unknown) (unknown) Initial Weight: (units (unknown) date) 155 lb unknown) (unknown) (no (unknown) (unknown) Initials (units (unkno wn) date) unknown) (unknown) (no (unknown) (unknown) Intake Clinical (units (unknown) date) Staff unknown) (unknown) (no (unknown) (unknown) Intake Note: (units (u nknown) date) unknown) (unknown) (no (unknown) (unknown) Intake performed (units (unknown) date) by: unknown) [facility] (unknown) (no (unknown) (unknown) Intake (units (unkno wn) date) unknown) (unknown) (no (unknown) (unknown) Irregular (units (unkn own) date) menstrual cycle unknown) () (unknown) (no (unknown) (unknown) LM (units (unkno wn) date) unknown) (unknown) (no (unknown) (unknown) Lipoma (units (unkno wn) date) unknown) (unknown) (no (unknown) (unknown) Live with (units (unkn own) date) someone with TB unknown) or exposed to TB: No (unknown) (no (unknown) (unknown) Loc: [facility] (units (unkno wn) date) unknown) (unknown) (no (unknown) (unknown) Marital status: (units (unknown) date) unknown) (unknown) (no (unknown) (unknown) Medical History (units (unknown) date) (Updated 08/03/22 unknown) @ 13:53 by Marietta Massey MD) (unknown) (no (unknown) (unknown) Medications (units (un known) date) unknown) (unknown) (no (unknown) (unknown) Mother Gastric (units (unknown) date) cancer unknown) (unknown) (no (unknown) (unknown) N No 142 13 N/A (units (unknown) date) 4wk unknown) (unknown) (no (unknown) (unknown) N No no 143 17 (units (unknown) date) N/A absent AFP 4 unknown) wks (unknown) (no (unknown) (unknown) N No no 178 9 (units ( unknown) date) N/A absent unknown) long/closed AGA 9 (unknown) (no (unknown) (unknown) N Yes no 135 34 (units (unknown) date) Vertex absent 2 unknown) wks (unknown) (no (unknown) (unknown) N Yes no 141 24 (units (unknown) date) N/A absent 4 wks unknown) (unknown) (no (unknown) (unknown) N Yes no 142 20 (units (unknown) date) N/A absent AFP unknown) negative (unknown) (no (unknown) (unknown) N Yes no 144 29 (units (unknown) date) Vertex absent AGA unknown) 29w5d (unknown) (no (unknown) (unknown) N Yes no 150 32 (units (unknown) date) Vertex absent 2 unknown) wks (unknown) (no (unknown) (unknown) NF (units (unkno wn) date) unknown) (unknown) (no (unknown) (unknown) Notes (units (unkno wn) date) unknown) (unknown) (no (unknown) (unknown) Number of Living (units (unknown) date) Children 0 unknown) (unknown) (no (unknown) (unknown) Number of (units (unkn own) date) fetuses:: Single unknown) (unknown) (no (unknown) (unknown) Nutrition and (units ( unknown) date) weight gain unknown) counseling: special diet: discussed (unknown) (no (unknown) (unknown) OB Office Visit (units (unknown) date) unknown) (unknown) (no (unknown) (unknown) OB Visit Log (units (u nknown) date) unknown) (unknown) (no (unknown) (unknown) OB check (units (unkno wn) date) unknown) (unknown) (no (unknown) (unknown) On U/S: AGA (units (un known) date) 29w5d. 3#4oz unknown) 66%ile. Nl AFV. Plan: Metformin 500mg BID. F/U 3 (unknown) (no (unknown) (unknown) On control (units (unknown) date) at conception?: unknown) No (unknown) (no (unknown) (unknown) Other Estimates (units (unknown) date) 08/18/22 LMP unknown) (Certain) 37w 6d (unknown) (no (unknown) (unknown) Ovarian cyst (units (u nknown) date) () unknown) (unknown) (no (unknown) (unknown) PCOS (polycystic (units (unknown) date) ovarian syndrome) unknown) (unknown) (no (unknown) (unknown) PFSH (units (unkno wn) date) unknown) (unknown) (no (unknown) (unknown) Pap performed?: (units (unknown) date) No unknown) (unknown) (no (unknown) (unknown) Para 0 (units (unkno wn) date) Spontaneous unknown) abortions 7 (unknown) (no (unknown) (unknown) Partner history (units (unknown) date) of STD: denies hx unknown) (unknown) (no (unknown) (unknown) Partner history (units (unknown) date) of genital unknown) herpes: No (unknown) (no (unknown) (unknown) Partner: Elieser (units ( unknown) date) Martell unknown) (unknown) (no (unknown) (unknown) Patient comes in (units (unknown) date) for follow-up OB unknown) visit. She had some pelvic pain that (unknown) (no (unknown) (unknown) Patient comes in (units (unknown) date) for routine unknown) visit. Good movement. No (unknown) (no (unknown) (unknown) Patient presents (units (unknown) date) for a new OB unknown) visit at 8 weeks gestation. She is (unknown) (no (unknown) (unknown) Patient presents (units (unknown) date) for a routine unknown) visit at 33+ 5 weeks' gestation. (unknown) (no (unknown) (unknown) Patient presents (units (unknown) date) for a routine unknown) visit, accompanied by her . 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: (units ( unknown) date) [facility] vs unknown) [facility] (unknown) (no (unknown) (unknown) Personal history (units (unknown) date) of STD: denies hx unknown) (unknown) (no (unknown) (unknown) Personal history (units (unknown) date) of genital unknown) herpes: No (unknown) (no (unknown) (unknown) Plantar (units (unkno wn) date) fasciitis unknown) (unknown) (no (unknown) (unknown) Position Sitting (units (unknown) date) unknown) (unknown) (no (unknown) (unknown) (units (unk nown) date) family unknown) planning/Tubal sterilization: further discussion needed (unknown) (no (unknown) (unknown) (units (unkn own) date) History unknown) (unknown) (no (unknown) (unknown) type:: (units (unknown) date) Other Normal unknown) (unknown) (no (unknown) (unknown) (units (unkno wn) date) Education unknown) (unknown) (no (unknown) (unknown) Initial (units (unknown) date) Assessment unknown) (unknown) (no (unknown) (unknown) (units (unkno wn) date) Specific unknown) Issues/Plans (unknown) (no (unknown) (unknown) (units (unkno wn) date) Testing: unknown) discussed (unknown) (no (unknown) (unknown) Visit (units (unknown) date) unknown) (unknown) (no (unknown) (unknown) (units (unkno wn) date) education packet: unknown) Child education/plan, symptoms, (unknown) (no (unknown) (unknown) Primary Care (units (u nknown) date) Provider: [place] Arboleda unknown) [place] (unknown) (no (unknown) (unknown) Primary Ob (units (unk nown) date) Provider: unknown) Richelle Dawkins (unknown) (no (unknown) (unknown) Prior (units (unkno wn) date) GBS-Infected unknown) child: No (unknown) (no (unknown) (unknown) Providers (units (unkn own) date) unknown) (unknown) (no (unknown) (unknown) Pt presents for (units (unknown) date) a PNV at 16+6 unknown) wks. No FM. No LOF/VB. Rec'd flu shot (unknown) (no (unknown) (unknown) Pt presents for (units (unknown) date) a routine PNV at unknown) 28 +6 wks gestation. Abnormal 3 hr GTT. 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 She unknown) has felt good movement. She says it is (unknown) (no (unknown) (unknown) Shingles (units (unkno wn) date) unknown) (unknown) (no (unknown) (unknown) Signed By: (units (unk nown) date) <Electronically unknown) signed by aMrietta Massey MD> (unknown) (no (unknown) (unknown) Signed (units (unkno wn) date) unknown) (unknown) (no (unknown) (unknown) Signs and (units (unkn own) date) symptoms of unknown) labor: discussed (unknown) (no (unknown) (unknown) Smoking Status: (units (unknown) date) Never smoker unknown) (unknown) (no (unknown) (unknown) Social History (units (unknown) date) unknown) (unknown) (no (unknown) (unknown) Status: Acute (units ( unknown) date) unknown) (unknown) (no (unknown) (unknown) Support (units (unkno wn) date) Person(s):: Elieser unknown) (unknown) (no (unknown) (unknown) Surgical History (units (unknown) date) (Updated 01/24/22 unknown) @ 21:46 by Anamaria Cooper) (unknown) (no (unknown) (unknown) Surrogate (units (unkn own) date) ?: no unknown) (unknown) (no (unknown) (unknown) Symptoms since (units (unknown) date) LMP: Reports unknown) amenorrhea, nausea, fatigue, breast tenderness, (unknown) (no (unknown) (unknown) Teratogen (units (unkn own) date) Exposures since unknown) LMP/Conception: Denies prescription medications, (unknown) (no (unknown) (unknown) Testing (units (unkno wn) date) Education unknown) (unknown) (no (unknown) (unknown) Testing (units (unkno wn) date) education unknown) completed: group B strep, Spina bifida testing and Cell Free (unknown) (no (unknown) (unknown) This note may (units ( unknown) date) have been all or unknown) partially generated using voice recognition (unknown) (no (unknown) (unknown) Tobacco + (units (unkn own) date) Substance Use unknown) (unknown) (no (unknown) (unknown) Tobacco Status (units (unknown) date) unknown) (unknown) (no (unknown) (unknown) Trimester:: 3rd (units (unknown) date) Trimester unknown) (28wks-Del) (unknown) (no (unknown) (unknown) Tumor () (units (unknown) date) unknown) (unknown) (no (unknown) (unknown) Type(s) of (units (unk nown) date) exercise: unknown) bicycling (stationary bike), regular exercise, weight (unknown) (no (unknown) (unknown) UProtein Movement (units (unknown) date) PreLabor FHR Fndl unknown) Ht Pres Edema Cerv Exam US/Comment Next Appt (unknown) (no (unknown) (unknown) Ultrasound (units (unk nown) date) performed?: Yes unknown) (unknown) (no (unknown) (unknown) Varicella/chicke (units (unknown) date) n pox status: unknown) previous disease (unknown) (no (unknown) (unknown) Visit Date: (units (un known) date) 05/19/22 Last unknown) Updated by: Richelle Dawkins MD (unknown) (no (unknown) (unknown) Visit Date: (units (un known) date) 06/16/22 Last unknown) Updated by: Richelle Dawkins MD (unknown) (no (unknown) (unknown) Visit Date: (units (un known) date) 07/20/22 Last unknown) Updated by: Richelle Dawkins MD (unknown) (no (unknown) (unknown) Visit Date: (units (un known) date) 08/03/22 Last unknown) Updated by: Marietta Massey MD (unknown) (no (unknown) (unknown) Visit Date: (units (un known) date) 01/27/22 Last unknown) Updated by: Richelle Dawkins MD (unknown) (no (unknown) (unknown) Visit Date: (units (un known) date) 02/24/22 Last unknown) Updated by: Marietta Massey MD (unknown) (no (unknown) (unknown) Visit Date: (units (un known) date) 03/24/22 Last unknown) Updated by: Richelel Dawkins MD (unknown) (no (unknown) (unknown) Visit Date: (units (un known) date) 04/20/22 Last unknown) Updated by: Xiao Boland P.A-C (unknown) (no (unknown) (unknown) Visit Reasons: (units (unknown) date) OB w/DOLORES * [place] unknown) (unknown) (no (unknown) (unknown) Vitals (units (unkno wn) date) unknown) (unknown) (no (unknown) (unknown) Vitamins and (units (u nknown) date) iron, Diet and unknown) weight gain, Fish and mercury intake, Caffeine use, (unknown) (no (unknown) (unknown) WG (units (unkno wn) date) unknown) (unknown) (no (unknown) (unknown) Weeks (units (unkno wn) date) gestation:: 35 unknown) (unknown) (no (unknown) (unknown) Weight 181 lb (units ( unknown) date) unknown) (unknown) (no (unknown) (unknown) Ages [place] teeth (units (u nknown) date) extracted unknown) (unknown) (no (unknown) (unknown) Yes no 140 37 (units ( unknown) date) Vertex absent unknown) (unknown) (no (unknown) (unknown) Zika virus (units (unk nown) date) exposure: No unknown) (unknown) (no (unknown) (unknown) accompanied by (units (unknown) date) her . She unknown) went through fertility treatments with (unknown) (no (unknown) (unknown) alcohol intake: (units (unknown) date) never unknown) (unknown) (no (unknown) (unknown) another (units (unkno wn) date) provider. Records unknown) were given to the patient. Routine precautions (unknown) (no (unknown) (unknown) anterior (units (unkno wn) date) placenta. Routine unknown) precautions reviewed with the patient. Due to 1st (unknown) (no (unknown) (unknown) anyone in either (units (unknown) date) family with: unknown) (unknown) (no (unknown) (unknown) are never over (units (unknown) date) 130. She did not unknown) bring in a log. Patient had a reactive (unknown) (no (unknown) (unknown) baby's father (units ( unknown) date) had a child with unknown) defects not listed above and Denies Other (unknown) (no (unknown) (unknown) back pain. (units (unk nown) date) Advised unknown) stretching, belly band, and PT if not improving. AFP was (unknown) (no (unknown) (unknown) blood sugar (units (un known) date) diagnostic (Blood unknown) Glucose Test strips) #100 ea 06/02/22 [Rx (unknown) (no (unknown) (unknown) blood-glucose (units ( unknown) date) meter #1 ea unknown) 06/02/22 [Rx Confirmed 08/03/22] (unknown) (no (unknown) (unknown) breathing. DOLORES (units (unknown) date) of 10. 60th unknown) percentile for weight. Patient has decided to see (unknown) (no (unknown) (unknown) by ultrasound is (units (unknown) date) normal with good unknown) movement, normal appearing fluid, (unknown) (no (unknown) (unknown) caffeine: Yes (units ( unknown) date) (1-2 cups unknown) tea/day) (unknown) (no (unknown) (unknown) carbon monox (units (u nknown) date) detector in home: unknown) Yes (unknown) (no (unknown) (unknown) cfDNA normal (units (u nknown) date) female, AFP unknown) negative (unknown) (no (unknown) (unknown) consistent with (units (unknown) date) 9 weeks 0 days. unknown) Yolk sac visible. heart rate 178 beats (unknown) (no (unknown) (unknown) contractions. (units ( unknown) date) Her fasting unknown) glucose has been in the 98-100 range. She is (unknown) (no (unknown) (unknown) current (units (unkno wn) date) occupational unknown) exposures/hazards : No (unknown) (no (unknown) (unknown) currently on (units (u nknown) date) metformin 500 mg unknown) twice a day. She had a nonstress test today which (unknown) (no (unknown) (unknown) daily servings (units (unknown) date) fruits/ve-4 unknown) (unknown) (no (unknown) (unknown) described, visit (units (unknown) date) schedule unknown) reviewed, ultrasounds policy reviewed, coverage 24 (unknown) (no (unknown) (unknown) developing a (units (u nknown) date) pattern. No unknown) leakage of fluid or vaginal bleeding. No contractions (unknown) (no (unknown) (unknown) discussed, (units (unk nown) date) tuberculosis unknown) exposure discussed, CMV discussed, Toxoplasmosis (unknown) (no (unknown) (unknown) disorders, (units (unk nown) date) Denies Cystic unknown) Fibrosis, Denies Mental Retardation/Autis m, Denies (unknown) (no (unknown) (unknown) do you feel safe (units (unknown) date) at home: Yes unknown) (unknown) (no (unknown) (unknown) during the past (units (unknown) date) year weight has: unknown) remained stable (unknown) (no (unknown) (unknown) education level: (units (unknown) date) college unknown) (Associate's degree) (unknown) (no (unknown) (unknown) exposure, (units (unkn own) date) Medication use, unknown) Sauna/hot tub use, Dental care, Travel and Influenza (unknown) (no (unknown) (unknown) fire (units (unkno wn) date) extinguisher in unknown) home: Yes (unknown) (no (unknown) (unknown) firearms in (units (un known) date) home: Yes unknown) firearms unloaded and locked: Yes (unknown) (no (unknown) (unknown) frequency: 5-6 (units (unknown) date) times per week unknown) (unknown) (no (unknown) (unknown) gestational sac (units (unknown) date) with a fetus with unknown) a crown-rump length measuring 2.29 cm (unknown) (no (unknown) (unknown) have occurred. (units (unknown) date) If there are any unknown) questions, please contact the Medical Records (unknown) (no (unknown) (unknown) hours a day and (units (unknown) date) participation of unknown) father in care and office visits (unknown) (no (unknown) (unknown) household (units (unkn own) date) members: spouse unknown) and family (father and kndsvj-yi-bne) (unknown) (no (unknown) (unknown) housing: house (units (unknown) date) unknown) (unknown) (no (unknown) (unknown) illicit drugs (units ( unknown) date) and Denies other unknown) (unknown) (no (unknown) (unknown) kag (units (unkno wn) date) unknown) (unknown) (no (unknown) (unknown) lancets #100 ea (units (unknown) date) 06/02/22 [Rx unknown) Confirmed 08/03/22] (unknown) (no (unknown) (unknown) last visit. (units (un known) date) Plan: AFP today. unknown) 20 wk u/s reviewed. F/U 4 wks. Warning signs (unknown) (no (unknown) (unknown) leakage of fluid (units (unknown) date) or vaginal unknown) bleeding. No labor symptoms. Patient (unknown) (no (unknown) (unknown) lifting and (units (un known) date) other (hiking) unknown) (unknown) (no (unknown) (unknown) lives (units (unkno wn) date) independently: unknown) Yes (unknown) (no (unknown) (unknown) marital status: (units (unknown) date) unknown) (unknown) (no (unknown) (unknown) may occur. (units (unk nown) date) Occasional unknown) wrong-word or 'sound-alike' substitutions may have (unknown) (no (unknown) (unknown) medication only. (units (unknown) date) Had 7 unknown) miscarriages. No bleeding with this . This 1 (unknown) (no (unknown) (unknown) metformin 500 mg (units (unknown) date) tablet 500 mg PO unknown) BID #60 tabs 06/16/22 [Rx Confirmed 08/03/22] (unknown) (no (unknown) (unknown) metformin 500 mg (units (unknown) date) tablet 750 mg PO unknown) BID #90 tabs 07/20/22 [Rx Confirmed 08/03/22] (unknown) (no (unknown) (unknown) movement and (units (u nknown) date) denies VB, LOF, unknown) cramping and regular contractions. Pt reports low (unknown) (no (unknown) (unknown) negative. (units (unkn own) date) Anatomy US unknown) scheduled for later today. Warning precautions reviewed. (unknown) (no (unknown) (unknown) nickel Allergy (units (unknown) date) (Mild, Verified unknown) 08/03/22 14:37) (unknown) (no (unknown) (unknown) nonstress test (units (unknown) date) today. 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 Please (unknown) (no (unknown) (unknown) or cramping. (units (u nknown) date) Plan: 1 hour unknown) glucose ordered. Follow-up in 4 weeks. Warning (unknown) (no (unknown) (unknown) per minute. (units (un known) date) Normal ovaries unknown) bilaterally. Plan: Follow-up in 4 weeks. Warning (unknown) (no (unknown) (unknown) pets and (units (unkno wn) date) animals: Yes (1 unknown) large dog, chickens) (unknown) (no (unknown) (unknown) precautions, (units (u nknown) date) Listeriosis unknown) prevention and Rubella Immunization (unknown) (no (unknown) (unknown) preeclampsia. (units ( unknown) date) unknown) (unknown) (no (unknown) (unknown) (units (unkn own) date) discussed unknown) starting baby aspirin per day to decrease her risk for (unknown) (no (unknown) (unknown) prenat.vits,dara, (units (unknown) date) [id number] 1 unknown) tab PO DAILY 01/08/22 [History Confirmed (unknown) (no (unknown) (unknown) read the note (units ( unknown) date) carefully and unknown) recognize, using context, where these substitutions (unknown) (no (unknown) (unknown) reviewed. (units (unkn own) date) unknown) (unknown) (no (unknown) (unknown) seatbelt use: (units ( unknown) date) always unknown) (unknown) (no (unknown) (unknown) second hand (units (un known) date) exposure: Yes unknown) (ftkele-pn-xuc smokes outside the house) (unknown) (no (unknown) (unknown) signs for (units (unkn own) date) labor unknown) reviewed. (unknown) (no (unknown) (unknown) signs reviewed. (units (unknown) date) cfDNA ordered. unknown) (unknown) (no (unknown) (unknown) signs reviewed. (units (unknown) date) unknown) (unknown) (no (unknown) (unknown) software. (units (unkn own) date) Although every unknown) effort is made to edit content, snubber errors (unknown) (no (unknown) (unknown) special anjum (units ( unknown) date) needs: No unknown) (unknown) (no (unknown) (unknown) states fasting (units (unknown) date) blood sugars have unknown) been in the low 90s. The 2 hour postprandial (unknown) (no (unknown) (unknown) substance use (units ( unknown) date) type: does not unknown) use (unknown) (no (unknown) (unknown) travel history: (units (unknown) date) over 6 months ago unknown) (unknown) (no (unknown) (unknown) urinary (units (unkno wn) date) frequency and unknown) irritability (unknown) (no (unknown) (unknown) vaccine (Annual (units (unknown) date) flu, Phizer Covid unknown) x2) (unknown) (no (unknown) (unknown) w0d 4 wks (units (unkn own) date) unknown) (unknown) (no (unknown) (unknown) was not using (units ( unknown) date) any infertility unknown) medications. Ultrasound: An intrauterine (unknown) (no (unknown) (unknown) was reactive. On (units (unknown) date) ultrasound: unknown) Vertex presentation. AGA 34 weeks 0 days. 5 lb (unknown) (no (unknown) (unknown) water heater (units (u nknown) date) temp set < 120 unknown) deg: Yes (unknown) (no (unknown) (unknown) well-balanced (units ( unknown) date) diet: daily or unknown) most days (unknown) (no (unknown) (unknown) went away with (units (unknown) date) laying down. No unknown) vaginal bleeding. No fevers. heart tone (unknown) (no (unknown) (unknown) while ) (units (unknown) date) unknown) (unknown) (no (unknown) (unknown) will follow-up (units (unknown) date) in 2 weeks with unknown) Dr. Massey for an DOLORES/nonstress test. Warning (unknown) (no (unknown) (unknown) wks. Warning (units (u nknown) date) signs for PTL unknown) reviewed. (unknown) (no (unknown) (unknown) working smoke (units ( unknown) date) detector in home: unknown) Yes Result panel 30 (unknown) (no (unknown) (unknown) (no value) (units (unk nown) date) unknown) (unknown) (no (unknown) (unknown) (+12 lb) 120/58 (units (unknown) date) N unknown) (unknown) (no (unknown) (unknown) (+13 lb) 104/54 (units (unknown) date) N unknown) (unknown) (no (unknown) (unknown) (+18 lb) 122/60 (units (unknown) date) N unknown) (unknown) (no (unknown) (unknown) (+22 lb) 110/62 (units (unknown) date) N unknown) (unknown) (no (unknown) (unknown) (+23 lb) 116/62 (units (unknown) date) N unknown) (unknown) (no (unknown) (unknown) (+24 lb) 128/62 (units (unknown) date) N unknown) (unknown) (no (unknown) (unknown) (+26 lb) 110/60 (units (unknown) date) N unknown) (unknown) (no (unknown) (unknown) (+7 lb) 128/66 N (units (unknown) date) unknown) (unknown) (no (unknown) (unknown) (+8 lb) 122/68 N (units (unknown) date) unknown) (unknown) (no (unknown) (unknown) (1) History of (units (unknown) date) recurrent unknown) miscarriages: (unknown) (no (unknown) (unknown) (2) 31 weeks (units (u nknown) date) gestation of unknown) : (unknown) (no (unknown) (unknown) Genetic (units (unkn own) date) Screening/Teratol unknown) ogy Counseling - Includes patient, baby's father, or (unknown) (no (unknown) (unknown) -?-?-?-?-?-?-?-? (units (unknown) date) -?-?-?-? unknown) (unknown) (no (unknown) (unknown) 05/19/22 (units (unkno wn) date) unknown) (unknown) (no (unknown) (unknown) 06/16/22 (units (unkno wn) date) unknown) (unknown) (no (unknown) (unknown) 07/07/22 (units (unkno wn) date) unknown) (unknown) (no (unknown) (unknown) 07/20/22 (units (unkno wn) date) unknown) (unknown) (no (unknown) (unknown) 08/03/22 (units (unkno wn) date) unknown) (unknown) (no (unknown) (unknown) 08/03/22] (units (unkn own) date) unknown) (unknown) (no (unknown) (unknown) 08/13/222049 (units ( unknown) date) unknown) (unknown) (no (unknown) (unknown) 08/29/22 (units (unkno wn) date) Ultrasound #1 37w unknown) 5d (unknown) (no (unknown) (unknown) [id number] (units (unkno wn) date) unknown) (unknown) (no (unknown) (unknown) 01/27/22 (units (unkno wn) date) unknown) (unknown) (no (unknown) (unknown) 02/24/22 (units (unkno wn) date) unknown) (unknown) (no (unknown) (unknown) 03/24/22 (units (unkno wn) date) unknown) (unknown) (no (unknown) (unknown) 04/20/22 (units (unkno wn) date) unknown) (unknown) (no (unknown) (unknown) 12w 6d 163 lb (units ( unknown) date) unknown) (unknown) (no (unknown) (unknown) 15:28 (units (unkno wn) date) unknown) (unknown) (no (unknown) (unknown) 16w 6d 167 lb (units ( unknown) date) unknown) (unknown) (no (unknown) (unknown) 20w 5d 168 lb (units ( unknown) date) unknown) (unknown) (no (unknown) (unknown) 24w 6d 173 lb (units ( unknown) date) unknown) (unknown) (no (unknown) (unknown) 28w 6d 177 lb (units ( unknown) date) unknown) (unknown) (no (unknown) (unknown) 3 oz. 57%ile. (units ( unknown) date) DOLORES 15.87 cm. unknown) Grade 0 placenta. Plan: Increase metformin to (unknown) (no (unknown) (unknown) 3 wks (units (unkno wn) date) unknown) (unknown) (no (unknown) (unknown) 31w 6d 179 lb (units ( unknown) date) unknown) (unknown) (no (unknown) (unknown) 33w 5d 178 lb (units ( unknown) date) unknown) (unknown) (no (unknown) (unknown) 35w 5d 181 lb (units ( unknown) date) unknown) (unknown) (no (unknown) (unknown) 4 wk (units (unkno wn) date) unknown) (unknown) (no (unknown) (unknown) 750 mg twice a (units (unknown) date) day. She will unknown) follow-up in 1 week for a nonstress test. She (unknown) (no (unknown) (unknown) 8w 6d 162 lb (units (u nknown) date) unknown) (unknown) (no (unknown) (unknown) Abnormal lab (units (u nknown) date) values 1st unknown) trimester: discussed (unknown) (no (unknown) (unknown) Abnormal lab (units (u nknown) date) values 2nd unknown) trimester: discussed (unknown) (no (unknown) (unknown) Add'l Plan (units (unk nown) date) Details unknown) (unknown) (no (unknown) (unknown) Age/Sex: 32 / F (units (unknown) date) Date of Service: unknown) (unknown) (no (unknown) (unknown) Allergies (units (unkn own) date) () unknown) (unknown) (no (unknown) (unknown) Allergies (units (unkn own) date) unknown) (unknown) (no (unknown) (unknown) [place] (units ( unknown) date) [id number] unknown) (unknown) (no (unknown) (unknown) Anesthesia (units (unk nown) date) unknown) (unknown) (no (unknown) (unknown) Aneuploidy (units (unk nown) date) Screening unknown) Offered: Accepted (wants CFDNA) (unknown) (no (unknown) (unknown) Anticipated (units (un known) date) course of unknown) care: discussed (unknown) (no (unknown) (unknown) Anxiety (-2016) (units (unknown) date) unknown) (unknown) (no (unknown) (unknown) Arrhythmia (units (unk nown) date) unknown) (unknown) (no (unknown) (unknown) Assessment and (units (unknown) date) Plan unknown) (unknown) (no (unknown) (unknown) Attending : (units ( unknown) date) Richelle Dawkins unknown) (unknown) (no (unknown) (unknown) Corazon presents (units (unknown) date) today for routine unknown) OB f/u at 20w5d. She reports good (unknown) (no (unknown) (unknown) BMI 28.8 (units (unkno wn) date) unknown) (unknown) (no (unknown) (unknown) BP 128/62 (units (unkn own) date) unknown) (unknown) (no (unknown) (unknown) (units (unkno wn) date) Plan/Preferences unknown) (unknown) (no (unknown) (unknown) Planning (units (unknown) date) unknown) (unknown) (no (unknown) (unknown) Blood Pressure (units (unknown) date) Location Rt unknown) brachial (unknown) (no (unknown) (unknown) Blood (units (unkno wn) date) transfusions?: unknown) yes (Never had but would accept) (unknown) (no (unknown) (unknown) : (units (unknown) date) discussed unknown) (unknown) (no (unknown) (unknown) Chicken pox (units (un known) date) (-1994) unknown) (unknown) (no (unknown) (unknown) Childbirth (units (unk nown) date) Classes: unknown) discussed (unknown) (no (unknown) (unknown) Conceived (units (unkn own) date) naturally this unknown) (unknown) (no (unknown) (unknown) Confirmed (units (unkn own) date) 08/03/22] unknown) (unknown) (no (unknown) (unknown) Current Estimate (units (unknown) date) 09/02/22 unknown) Ultrasound #2 37w 1d (unknown) (no (unknown) (unknown) Current (units (unkno wn) date) History unknown) (unknown) (no (unknown) (unknown) DNA (units (unkno wn) date) unknown) (unknown) (no (unknown) (unknown) : 1990 (units (unknown) date) Acct:[id number] unknown) (unknown) (no (unknown) (unknown) Date of positive (units (unknown) date) home unknown) test: 12/29/21 (unknown) (no (unknown) (unknown) Date (units (unkno wn) date) unknown) (unknown) (no (unknown) (unknown) Denies Congenital (units (unknown) date) Heart Defect, unknown) Denies Down Syndrome, Denies Muscular Dystrophy, (unknown) (no (unknown) (unknown) Denies Maternal (units (unknown) date) Metabolic unknown) Disorder (EG,TYPE 1 Diabetes, PKU), Denies Patient or (unknown) (no (unknown) (unknown) Denies Neural (units ( unknown) date) Tube Defect unknown) (Meningomyelocele , Spina Bifida, or Anencephaly), (unknown) (no (unknown) (unknown) Denies Sickle (units ( unknown) date) Cell Disease or unknown) Trait (), Denies Hemophilia or other blood (unknown) (no (unknown) (unknown) Denies Enio-Sachs (units (unknown) date) (Ashkenazi unknown) Sabianism, Cajun, Indonesian Paraguayan), Denies Jose (unknown) (no (unknown) (unknown) Depression (units (unk nown) date) (-2016) unknown) (unknown) (no (unknown) (unknown) Depression: (units (un known) date) discussed unknown) (unknown) (no (unknown) (unknown) Dept at (units (unkno wn) date) . unknown) (unknown) (no (unknown) (unknown) Diet and (units (unkno wn) date) Exercise unknown) (unknown) (no (unknown) (unknown) Disease (units (unkno wn) date) (Ashkenazi unknown) Sabianism), Denies Familial Dysautonomia (Ashkenazi Sabianism), (unknown) (no (unknown) (unknown) Documented By: (units (unknown) date) Richelle Dawkins unknownShiva MAGALLON 07/07/22 1521 (unknown) (no (unknown) (unknown) MARIANNE Calculator (units (unknown) date) unknown) (unknown) (no (unknown) (unknown) EGA Weight BP (units ( unknown) date) UGlucose unknown) (unknown) (no (unknown) (unknown) Eczema (-1999) (units (unknown) date) unknown) (unknown) (no (unknown) (unknown) Estimated (units (unkn own) date) Delivery Date unknown) Method Current (unknown) (no (unknown) (unknown) Exercise and (units (u nknown) date) activity, unknown) work/environmenta l/hazards, Sexual activity, X-ray (unknown) (no (unknown) (unknown) F/u in 4 wks. (units ( unknown) date) unknown) (unknown) (no (unknown) (unknown) Family History (units (unknown) date) (Updated 01/24/22 unknown) @ 21:49 by Anamaria Cooper) (unknown) (no (unknown) (unknown) Family/Other (units (u nknown) date) Multiple unknown) sclerosis (unknown) (no (unknown) (unknown) Father (units (unkno wn) date) Hypertension unknown) (unknown) (no (unknown) (unknown) Father of Baby: (units (unknown) date) same unknown) (unknown) (no (unknown) (unknown) [facility] ([facility] unknown) (unknown) (no (unknown) (unknown) First Trimester (units (unknown) date) Education unknown) Checklist (unknown) (no (unknown) (unknown) Foot pain (units (unkn own) date) (-2019) unknown) (unknown) (no (unknown) (unknown) (SAB (units (unkn own) date) x7),Fertility Tx, unknown) meds only, started on baby aspirin 02/24/2022 (unknown) (no (unknown) (unknown) GDM, on (units (unkno wn) date) Metformin 500mg unknown) BID, increased to 750mg BID 07/20/22 (unknown) (no (unknown) (unknown) Genetic (units (unkno wn) date) Screening + unknown) Counseling (unknown) (no (unknown) (unknown) Genetic (units (unkno wn) date) Screening unknown) (unknown) (no (unknown) (unknown) Good (units (unk nown) date) movement. No unknown) leakage of fluid or vaginal bleeding. No regular (unknown) (no (unknown) (unknown) Grandfather (units (un known) date) Cancer unknown) (unknown) (no (unknown) (unknown) Grandfather (units (un known) date) Stroke unknown) (unknown) (no (unknown) (unknown) Grandmother (units (un known) date) History unknown) of heart disease (unknown) (no (unknown) (unknown) Grandmother (units (un known) date) Multiple unknown) sclerosis (unknown) (no (unknown) (unknown) 8 (units (unkn own) date) Multiple births 0 unknown) (unknown) (no (unknown) (unknown) HIV risk (units (unkno wn) date) evaluation: low unknown) risk (unknown) (no (unknown) (unknown) Health Center (units ( unknown) date) Education unknown) (unknown) (no (unknown) (unknown) Health center (units ( unknown) date) information: unknown) nature of practice discussed, personnel (unknown) (no (unknown) (unknown) Height 5 ft 6 in (units (unknown) date) unknown) (unknown) (no (unknown) (unknown) Hepatitis C risk (units (unknown) date) evaluation: low unknown) risk (unknown) (no (unknown) (unknown) History of (units (unk nown) date) Hepatitis B: No unknown) (unknown) (no (unknown) (unknown) History of (units (unk nown) date) Hepatitis C: No unknown) (unknown) (no (unknown) (unknown) 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 (unknown) (no (unknown) (unknown) Hospital[facility] (units (u nknown) date) unknown) (unknown) (no (unknown) (unknown) [facility] (units (u nknown) date) Chorea, Denies unknown) Other inherited genetic or chromosomal disorder, (unknown) (no (unknown) (unknown) , Elieser (units ( unknown) date) Martell unknown) (unknown) (no (unknown) (unknown) Hx # (units (u nknown) date) Pregnancies 0 unknown) Elective abortions 0 (unknown) (no (unknown) (unknown) Hx # Term (units (unkn own) date) Pregnancies 0 unknown) Ectopic pregnancies 0 (unknown) (no (unknown) (unknown) will be (units (unknown) date) adopted?: no unknown) (unknown) (no (unknown) (unknown) Infection (units (unkn own) date) History unknown) (unknown) (no (unknown) (unknown) Infectious (units (unk nown) date) Disease Education unknown) (unknown) (no (unknown) (unknown) Infectious (units (unk nown) date) disease exposure: unknown) chicken pox immunity discussed, hepatitis risk (unknown) (no (unknown) (unknown) Infertility (units (un known) date) () unknown) (unknown) (no (unknown) (unknown) Initial Weight: (units (unknown) date) 155 lb unknown) (unknown) (no (unknown) (unknown) Initials (units (unkno wn) date) unknown) (unknown) (no (unknown) (unknown) Intake Clinical (units (unknown) date) Staff unknown) (unknown) (no (unknown) (unknown) Intake Note: (units (u nknown) date) unknown) (unknown) (no (unknown) (unknown) Intake performed (units (unknown) date) by: unknown) Nu Alexander (unknown) (no (unknown) (unknown) Intake (units (unkno wn) date) unknown) (unknown) (no (unknown) (unknown) Irregular (units (unkn own) date) menstrual cycle unknown) () (unknown) (no (unknown) (unknown) LM (units (unkno wn) date) unknown) (unknown) (no (unknown) (unknown) Lipoma (units (unkno wn) date) unknown) (unknown) (no (unknown) (unknown) Live with (units (unkn own) date) someone with TB unknown) or exposed to TB: No (unknown) (no (unknown) (unknown) Loc: [facility] (units (unkno wn) date) unknown) (unknown) (no (unknown) (unknown) Marital status: (units (unknown) date) unknown) (unknown) (no (unknown) (unknown) Medical History (units (unknown) date) (Updated 08/13/22 unknown) @ 20:49 by Richelle Dawkins MD) (unknown) (no (unknown) (unknown) Medications (units (un known) date) unknown) (unknown) (no (unknown) (unknown) Mother Gastric (units (unknown) date) cancer unknown) (unknown) (no (unknown) (unknown) N No 142 13 N/A (units (unknown) date) 4wk unknown) (unknown) (no (unknown) (unknown) N No no 143 17 (units (unknown) date) N/A absent AFP 4 unknown) wks (unknown) (no (unknown) (unknown) N No no 178 9 (units ( unknown) date) N/A absent unknown) long/closed AGA 9 (unknown) (no (unknown) (unknown) N Yes no 135 34 (units (unknown) date) Vertex absent 2 unknown) wks (unknown) (no (unknown) (unknown) N Yes no 140 37 (units (unknown) date) Vertex absent unknown) (unknown) (no (unknown) (unknown) N Yes no 141 24 (units (unknown) date) N/A absent 4 wks unknown) (unknown) (no (unknown) (unknown) N Yes no 142 20 (units (unknown) date) N/A absent AFP unknown) negative (unknown) (no (unknown) (unknown) N Yes no 144 29 (units (unknown) date) Vertex absent AGA unknown) 29w5d (unknown) (no (unknown) (unknown) N Yes no 150 32 (units (unknown) date) Vertex absent 2 unknown) wks (unknown) (no (unknown) (unknown) NF (units (unkno wn) date) unknown) (unknown) (no (unknown) (unknown) Notes (units (unkno wn) date) unknown) (unknown) (no (unknown) (unknown) Number of Living (units (unknown) date) Children 0 unknown) (unknown) (no (unknown) (unknown) Number of (units (unkn own) date) fetuses:: Single unknown) (unknown) (no (unknown) (unknown) Nutrition and (units ( unknown) date) weight gain unknown) counseling: special diet: discussed (unknown) (no (unknown) (unknown) OB Office Visit (units (unknown) date) unknown) (unknown) (no (unknown) (unknown) OB Visit Log (units (u nknown) date) unknown) (unknown) (no (unknown) (unknown) OB check (units (unkno wn) date) unknown) (unknown) (no (unknown) (unknown) On U/S: AGA (units (un known) date) 29w5d. 3#4oz unknown) 66%ile. Nl AFV. Plan: Metformin 500mg BID. F/U 3 (unknown) (no (unknown) (unknown) On control (units (unknown) date) at conception?: unknown) No (unknown) (no (unknown) (unknown) Other Estimates (units (unknown) date) 08/18/22 LMP unknown) (Certain) 39w 2d (unknown) (no (unknown) (unknown) Ovarian cyst (units (u nknown) date) () unknown) (unknown) (no (unknown) (unknown) PCOS (polycystic (units (unknown) date) ovarian syndrome) unknown) (unknown) (no (unknown) (unknown) PFSH (units (unkno wn) date) unknown) (unknown) (no (unknown) (unknown) Pap performed?: (units (unknown) date) No unknown) (unknown) (no (unknown) (unknown) Para 0 (units (unkno wn) date) Spontaneous unknown) abortions 7 (unknown) (no (unknown) (unknown) Partner history (units (unknown) date) of STD: denies hx unknown) (unknown) (no (unknown) (unknown) Partner history (units (unknown) date) of genital unknown) herpes: No (unknown) (no (unknown) (unknown) Partner: Elieser (units ( unknown) date) Martell unknown) (unknown) (no (unknown) (unknown) Patient comes in (units (unknown) date) for follow-up OB unknown) visit. She had some pelvic pain that (unknown) (no (unknown) (unknown) Patient comes in (units (unknown) date) for routine unknown) visit. Good movement. No (unknown) (no (unknown) (unknown) Patient presents (units (unknown) date) for a new OB unknown) visit at 8 weeks gestation. She is (unknown) (no (unknown) (unknown) Patient presents (units (unknown) date) for a routine PNV unknown) at 31 wks gestation. FBS's 90-94. 2 (unknown) (no (unknown) (unknown) Patient presents (units (unknown) date) for a routine unknown) visit at 33+ 5 weeks' gestation. (unknown) (no (unknown) (unknown) Patient presents (units (unknown) date) for a routine unknown) visit, accompanied by her . 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) [place] vs unknown) [facility] (unknown) (no (unknown) (unknown) Personal history (units (unknown) date) of STD: denies hx unknown) (unknown) (no (unknown) (unknown) Personal history (units (unknown) date) of genital unknown) herpes: No (unknown) (no (unknown) (unknown) Plantar (units (unkno wn) date) fasciitis unknown) (unknown) (no (unknown) (unknown) Position Sitting (units (unknown) date) unknown) (unknown) (no (unknown) (unknown) (units (unk nown) date) family unknown) planning/Tubal sterilization: further discussion needed (unknown) (no (unknown) (unknown) (units (unkn own) date) History unknown) (unknown) (no (unknown) (unknown) type:: (units (unknown) date) Other Normal unknown) (unknown) (no (unknown) (unknown) (units (unkno wn) date) Education unknown) (unknown) (no (unknown) (unknown) Initial (units (unknown) date) Assessment unknown) (unknown) (no (unknown) (unknown) (units (unkno wn) date) Specific unknown) Issues/Plans (unknown) (no (unknown) (unknown) (units (unkno wn) date) Testing: unknown) discussed (unknown) (no (unknown) (unknown) Visit (units (unknown) date) unknown) (unknown) (no (unknown) (unknown) (units (unkno wn) date) education packet: unknown) Child education/plan, symptoms, (unknown) (no (unknown) (unknown) Primary Care (units (u nknown) date) Provider: [place] Arboleda unknown) [place] (unknown) (no (unknown) (unknown) Primary Ob (units (unk nown) date) Provider: unknown) Richelle Dawkins (unknown) (no (unknown) (unknown) Prior (units (unkno wn) date) GBS-Infected unknown) child: No (unknown) (no (unknown) (unknown) Providers (units (unkn own) date) unknown) (unknown) (no (unknown) (unknown) Pt presents for (units (unknown) date) a PNV at 16+6 unknown) wks. No FM. No LOF/VB. Rec'd flu shot (unknown) (no (unknown) (unknown) Pt presents for (units (unknown) date) a routine PNV at unknown) 28 +6 wks gestation. Abnormal 3 hr GTT. 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 She unknown) has felt good movement. She says it is (unknown) (no (unknown) (unknown) Shingles (units (unkno wn) date) unknown) (unknown) (no (unknown) (unknown) Signed By: (units (unk nown) date) <Electronically unknown) signed by Richelle Dawkins MD> (unknown) (no (unknown) (unknown) Signed (units (unkno wn) date) unknown) (unknown) (no (unknown) (unknown) Signs and (units (unkn own) date) symptoms of unknown) labor: discussed (unknown) (no (unknown) (unknown) Smoking Status: (units (unknown) date) Never smoker unknown) (unknown) (no (unknown) (unknown) Social History (units (unknown) date) unknown) (unknown) (no (unknown) (unknown) Status: Acute (units ( unknown) date) unknown) (unknown) (no (unknown) (unknown) Support (units (unkno wn) date) Person(s):: Elieser unknown) (unknown) (no (unknown) (unknown) Surgical History (units (unknown) date) (Updated 01/24/22 unknown) @ 21:46 by Anamaria Cooper) (unknown) (no (unknown) (unknown) Surrogate (units (unkn own) date) ?: no unknown) (unknown) (no (unknown) (unknown) Symptoms since (units (unknown) date) LMP: Reports unknown) amenorrhea, nausea, fatigue, breast tenderness, (unknown) (no (unknown) (unknown) Teratogen (units (unkn own) date) Exposures since unknown) LMP/Conception: Denies prescription medications, (unknown) (no (unknown) (unknown) Testing (units (unkno wn) date) Education unknown) (unknown) (no (unknown) (unknown) Testing (units (unkno wn) date) education unknown) completed: group B strep, Spina bifida testing and Cell Free (unknown) (no (unknown) (unknown) This note may (units ( unknown) date) have been all or unknown) partially generated using voice recognition (unknown) (no (unknown) (unknown) Tobacco + (units (unkn own) date) Substance Use unknown) (unknown) (no (unknown) (unknown) Tobacco Status (units (unknown) date) unknown) (unknown) (no (unknown) (unknown) Trimester:: 3rd (units (unknown) date) Trimester unknown) (28wks-Del) (unknown) (no (unknown) (unknown) Tumor () (units (unknown) date) unknown) (unknown) (no (unknown) (unknown) Type(s) of (units (unk nown) date) exercise: unknown) bicycling (stationary bike), regular exercise, weight (unknown) (no (unknown) (unknown) UProtein Movement (units (unknown) date) PreLabor FHR Fndl unknown) Ht Pres Edema Cerv Exam US/Comment Next Appt (unknown) (no (unknown) (unknown) Ultrasound (units (unk nown) date) performed?: No unknown) (unknown) (no (unknown) (unknown) Varicella/chicke (units (unknown) date) n pox status: unknown) previous disease (unknown) (no (unknown) (unknown) Visit Date: (units (un known) date) 05/19/22 Last unknown) Updated by: Richelle Dawkins MD (unknown) (no (unknown) (unknown) Visit Date: (units (un known) date) 06/16/22 Last unknown) Updated by: Richelle Dawkins MD (unknown) (no (unknown) (unknown) Visit Date: (units (un known) date) 07/07/22 Last unknown) Updated by: Richelle Dawkins MD (unknown) (no (unknown) (unknown) Visit Date: (units (un known) date) 07/20/22 Last unknown) Updated by: Richelle Dawkins MD (unknown) (no (unknown) (unknown) Visit Date: (units (un known) date) 08/03/22 Last unknown) Updated by: Marietta Massey MD (unknown) (no (unknown) (unknown) Visit Date: (units (un known) date) 01/27/22 Last unknown) Updated by: Richelle Dawkins MD (unknown) (no (unknown) (unknown) Visit Date: (units (un known) date) 02/24/22 Last unknown) Updated by: Marietta Massey MD (unknown) (no (unknown) (unknown) Visit Date: (units (un known) date) 03/24/22 Last unknown) Updated by: Richelle Dawkins MD (unknown) (no (unknown) (unknown) Visit Date: (units (un known) date) 04/20/22 Last unknown) Updated by: Xiao Boland P.A-C (unknown) (no (unknown) (unknown) Visit Reasons: (units (unknown) date) OB unknown) (unknown) (no (unknown) (unknown) Vitals (units (unkno wn) date) unknown) (unknown) (no (unknown) (unknown) Vitamins and (units (u nknown) date) iron, Diet and unknown) weight gain, Fish and mercury intake, Caffeine use, (unknown) (no (unknown) (unknown) WG (units (unkno wn) date) unknown) (unknown) (no (unknown) (unknown) Weeks (units (unkno wn) date) gestation:: 31 unknown) (unknown) (no (unknown) (unknown) Weight 179 lb (units ( unknown) date) unknown) (unknown) (no (unknown) (unknown) Ages [place] teeth (units (u nknown) date) extracted unknown) (unknown) (no (unknown) (unknown) Zika virus (units (unn) date) exposure: No unknown) (unknown) (no (unknown) (unknown) accompanied by (units (unknown) date) her . She unknown) went through fertility treatments with (unknown) (no (unknown) (unknown) alcohol intake: (units (unknown) date) never unknown) (unknown) (no (unknown) (unknown) another (units (o wn) date) provider. Records unknown) were given to the patient. Routine precautions (unknown) (no (unknown) (unknown) anterior (units (o wn) date) placenta. Routine unknown) precautions reviewed with the patient. Due to 1st (unknown) (no (unknown) (unknown) anyone in either (units (unknown) date) family with: unknown) (unknown) (no (unknown) (unknown) are never over (units (unknown) date) 130. She did not unknown) bring in a log. Patient had a reactive (unknown) (no (unknown) (unknown) baby's father (units ( unknown) date) had a child with unknown) defects not listed above and Denies Other (unknown) (no (unknown) (unknown) back pain. (units (unk n) date) Advised unknown) stretching, belly band, and PT if not improving. AFP was (unknown) (no (unknown) (unknown) blood sugar (units (un known) date) diagnostic (Blood unknown) Glucose Test strips) #100 ea 06/02/22 [Rx (unknown) (no (unknown) (unknown) blood-glucose (units ( unknown) date) meter #1 ea unknown) 06/02/22 [Rx Confirmed 08/03/22] (unknown) (no (unknown) (unknown) breathing. DOLORES (units (unknown) date) of 10. 60th unknown) percentile for weight. Patient has decided to see (unknown) (no (unknown) (unknown) by ultrasound is (units (unknown) date) normal with good unknown) movement, normal appearing fluid, (unknown) (no (unknown) (unknown) caffeine: Yes (units ( unknown) date) (1-2 cups unknown) tea/day) (unknown) (no (unknown) (unknown) carbon monox (units (u nknown) date) detector in home: unknown) Yes (unknown) (no (unknown) (unknown) cfDNA normal (units (u nknown) date) female, AFP unknown) negative (unknown) (no (unknown) (unknown) consistent with (units (unknown) date) 9 weeks 0 days. unknown) Yolk sac visible. heart rate 178 beats (unknown) (no (unknown) (unknown) contractions. (units ( unknown) date) Her fasting unknown) glucose has been in the 98-100 range. She is (unknown) (no (unknown) (unknown) current (units (unkno wn) date) occupational unknown) exposures/hazards : No (unknown) (no (unknown) (unknown) currently on (units (u nknown) date) metformin 500 mg unknown) twice a day. She had a nonstress test today which (unknown) (no (unknown) (unknown) daily servings (units (unknown) date) fruits/ve-4 unknown) (unknown) (no (unknown) (unknown) described, visit (units (unknown) date) schedule unknown) reviewed, ultrasounds policy reviewed, coverage 24 (unknown) (no (unknown) (unknown) developing a (units (u nknown) date) pattern. No unknown) leakage of fluid or vaginal bleeding. No contractions (unknown) (no (unknown) (unknown) discussed, (units (unk nown) date) tuberculosis unknown) exposure discussed, CMV discussed, Toxoplasmosis (unknown) (no (unknown) (unknown) disorders, (units (unk nown) date) Denies Cystic unknown) Fibrosis, Denies Mental Retardation/Autis m, Denies (unknown) (no (unknown) (unknown) do you feel safe (units (unknown) date) at home: Yes unknown) (unknown) (no (unknown) (unknown) during the past (units (unknown) date) year weight has: unknown) remained stable (unknown) (no (unknown) (unknown) education level: (units (unknown) date) college unknown) (Associate's degree) (unknown) (no (unknown) (unknown) exposure, (units (unkn own) date) Medication use, unknown) Sauna/hot tub use, Dental care, Travel and Influenza (unknown) (no (unknown) (unknown) fire (units (unkno wn) date) extinguisher in unknown) home: Yes (unknown) (no (unknown) (unknown) firearms in (units (un known) date) home: Yes unknown) firearms unloaded and locked: Yes (unknown) (no (unknown) (unknown) frequency: 5-6 (units (unknown) date) times per week unknown) (unknown) (no (unknown) (unknown) gestational sac (units (unknown) date) with a fetus with unknown) a crown-rump length measuring 2.29 cm (unknown) (no (unknown) (unknown) have occurred. (units (unknown) date) If there are any unknown) questions, please contact the Medical Records (unknown) (no (unknown) (unknown) hours a day and (units (unknown) date) participation of unknown) father in care and office visits (unknown) (no (unknown) (unknown) household (units (unkn own) date) members: spouse unknown) and family (father and [id number]) (unknown) (no (unknown) (unknown) housing: house (units (unknown) date) unknown) (unknown) (no (unknown) (unknown) hr PP (units (unkno wn) date) 120's-130's. Max unknown) 145. Good FM. No LOF/VB. Plan: NST weekly. F/U 2 (unknown) (no (unknown) (unknown) illicit drugs (units ( unknown) date) and Denies other unknown) (unknown) (no (unknown) (unknown) kag (units (unkno wn) date) unknown) (unknown) (no (unknown) (unknown) lancets #100 ea (units (unknown) date) 06/02/22 [Rx unknown) Confirmed 08/03/22] (unknown) (no (unknown) (unknown) last visit. (units (un known) date) Plan: AFP today. unknown) 20 wk u/s reviewed. F/U 4 wks. Warning signs (unknown) (no (unknown) (unknown) leakage of fluid (units (unknown) date) or vaginal unknown) bleeding. No labor symptoms. Patient (unknown) (no (unknown) (unknown) lifting and (units (un known) date) other (hiking) unknown) (unknown) (no (unknown) (unknown) lives (units (unkno wn) date) independently: unknown) Yes (unknown) (no (unknown) (unknown) marital status: (units (unknown) date) unknown) (unknown) (no (unknown) (unknown) may occur. (units (unk nown) date) Occasional unknown) wrong-word or 'sound-alike' substitutions may have (unknown) (no (unknown) (unknown) medication only. (units (unknown) date) Had 7 unknown) miscarriages. No bleeding with this . This 1 (unknown) (no (unknown) (unknown) metformin 500 mg (units (unknown) date) tablet 500 mg PO unknown) BID #60 tabs 06/16/22 [Rx Confirmed 08/03/22] (unknown) (no (unknown) (unknown) metformin 500 mg (units (unknown) date) tablet 750 mg PO unknown) BID #90 tabs 07/20/22 [Rx Confirmed 08/03/22] (unknown) (no (unknown) (unknown) movement and (units (u nknown) date) denies VB, LOF, unknown) cramping and regular contractions. Pt reports low (unknown) (no (unknown) (unknown) negative. (units (unkn own) date) Anatomy US unknown) scheduled for later today. Warning precautions reviewed. (unknown) (no (unknown) (unknown) nickel Allergy (units (unknown) date) (Mild, Verified unknown) 08/03/22 14:37) (unknown) (no (unknown) (unknown) nonstress test (units (unknown) date) today. 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 Please (unknown) (no (unknown) (unknown) or cramping. (units (u nknown) date) Plan: 1 hour unknown) glucose ordered. Follow-up in 4 weeks. Warning (unknown) (no (unknown) (unknown) per minute. (units (un known) date) Normal ovaries unknown) bilaterally. Plan: Follow-up in 4 weeks. Warning (unknown) (no (unknown) (unknown) pets and (units (unkno wn) date) animals: Yes (1 unknown) large dog, chickens) (unknown) (no (unknown) (unknown) precautions, (units (u nknown) date) Listeriosis unknown) prevention and Rubella Immunization (unknown) (no (unknown) (unknown) preeclampsia. (units ( unknown) date) unknown) (unknown) (no (unknown) (unknown) (units (unkn own) date) discussed unknown) starting baby aspirin per day to decrease her risk for (unknown) (no (unknown) (unknown) prenat.vits,dara, (units (unknown) date) elt-[id number] 1 unknown) tab PO DAILY 01/08/22 [History Confirmed (unknown) (no (unknown) (unknown) read the note (units ( unknown) date) carefully and unknown) recognize, using context, where these substitutions (unknown) (no (unknown) (unknown) reviewed. (units (unkn own) date) unknown) (unknown) (no (unknown) (unknown) seatbelt use: (units ( unknown) date) always unknown) (unknown) (no (unknown) (unknown) second hand (units (un known) date) exposure: Yes unknown) (ityjcu-rf-was smokes outside the house) (unknown) (no (unknown) (unknown) signs for (units (unkn own) date) labor unknown) reviewed. (unknown) (no (unknown) (unknown) signs reviewed. (units (unknown) date) cfDNA ordered. unknown) (unknown) (no (unknown) (unknown) signs reviewed. (units (unknown) date) unknown) (unknown) (no (unknown) (unknown) software. (units (unkn own) date) Although every unknown) effort is made to edit content, snubber errors (unknown) (no (unknown) (unknown) special anjum (units ( unknown) date) needs: No unknown) (unknown) (no (unknown) (unknown) states fasting (units (unknown) date) blood sugars have unknown) been in the low 90s. The 2 hour postprandial (unknown) (no (unknown) (unknown) substance use (units ( unknown) date) type: does not unknown) use (unknown) (no (unknown) (unknown) travel history: (units (unknown) date) over 6 months ago unknown) (unknown) (no (unknown) (unknown) urinary (units (unkno wn) date) frequency and unknown) irritability (unknown) (no (unknown) (unknown) vaccine (Annual (units (unknown) date) flu, Phizer Covid unknown) x2) (unknown) (no (unknown) (unknown) w0d 4 wks (units (unkn own) date) unknown) (unknown) (no (unknown) (unknown) was not using (units ( unknown) date) any infertility unknown) medications. Ultrasound: An intrauterine (unknown) (no (unknown) (unknown) was reactive. On (units (unknown) date) ultrasound: unknown) Vertex presentation. AGA 34 weeks 0 days. 5 lb (unknown) (no (unknown) (unknown) water heater (units (u nknown) date) temp set < 120 unknown) deg: Yes (unknown) (no (unknown) (unknown) well-balanced (units ( unknown) date) diet: daily or unknown) most days (unknown) (no (unknown) (unknown) went away with (units (unknown) date) laying down. No unknown) vaginal bleeding. No fevers. heart tone (unknown) (no (unknown) (unknown) while ) (units (unknown) date) unknown) (unknown) (no (unknown) (unknown) will follow-up (units (unknown) date) in 2 weeks with unknown) Dr. Massey for an DOLORES/nonstress test. Warning (unknown) (no (unknown) (unknown) wks. Warning (units (u nknown) date) signs for PTL unknown) reviewed. (unknown) (no (unknown) (unknown) wks. Warning (units (u nknown) date) signs reviewed. unknown) (unknown) (no (unknown) (unknown) working smoke (units ( unknown) date) detector in home: unknown) Yes Social History date description facility 2022-06-16 00:00 Never smoked tobacco (finding) [facility] 2022-07-07 00:00 Never smoked tobacco (finding) [facility] 2022-07-20 00:00 Never smoked tobacco (finding) [facility] 2022-08-03 00:00 Never smoked tobacco (finding) [facility] Vital Signs date measurement value units 2022-06-16 00:00 BMI 28.5 kg/m2 2022-06-16 00:00 BP_diastolic 62 mmHg 2022-06-16 00:00 BP_systolic 110 mmHg 2022-06-16 00:00 height_metric 167.64 cm 2022-06-16 00:00 height_standard 66 in 2022-06-16 00:00 weight_metric 80.28 kg 2022-06-16 00:00 weight_standard 176.99 lb 2022-07-07 00:00 BMI 28.8 kg/m2 2022-07-07 00:00 BP_diastolic 62 mmHg 2022-07-07 00:00 BP_systolic 128 mmHg 2022-07-07 00:00 height_metric 167.64 cm 2022-07-07 00:00 height_standard 66 in 2022-07-07 00:00 weight_metric 81.19 kg 2022-07-07 00:00 weight_standard 178.99 lb 2022-07-20 00:00 BMI 28.7 kg/m2 2022-07-20 00:00 BP_diastolic 62 mmHg 2022-07-20 00:00 BP_systolic 116 mmHg 2022-07-20 00:00 height_metric 167.64 cm 2022-07-20 00:00 height_standard 66 in 2022-07-20 00:00 weight_metric 80.73 kg 2022-07-20 00:00 weight_standard 177.98 lb 2022-08-03 00:00 BMI 29.2 kg/m2 2022-08-03 00:00 BP_diastolic 60 mmHg 2022-08-03 00:00 BP_systolic 110 mmHg 2022-08-03 00:00 height_metric 167.64 cm 2022-08-03 00:00 height_standard 66 in 2022-08-03 00:00 weight_metric 82.1 kg 2022-08-03 00:00 weight_standard 181 lb
[2022-08-19] MEDS ORDERED: lidocaine 1% 20 ML MDV ONE (21:18)
[2022-08-19] MEDS ORDERED: WITCH HAZEL/GLYCERIN 1 PAD TOP PRN (21:54)
[2022-08-19] MEDS ORDERED: HYDROCORTISONE 1% CREAM 28 GM TUBE PR PRN (21:54)
[2022-08-19] MEDS ORDERED: OXYTOCIN 10 UNIT/ML VIAL IM PRN (21:55)
[2022-08-19] MEDS ORDERED: NIFEdipine 10 MG CAPSULE PO PRN (21:55)
[2022-08-19] MEDS ORDERED: METHYLERGONOVINE 0.2 MG/ML VIAL IM PRN (21:55)
[2022-08-19] MEDS ORDERED: hydrALAZINE INJ 20 MG/ML VIAL IVP PRN ×2 (21:55)
[2022-08-19] MEDS ORDERED: miSOPROStoL 200 MCG TABLET BC PRN (21:55)
[2022-08-19] MEDS ORDERED: lidocaine 1% 20 ML MDV ID PRN (21:55)
[2022-08-19] MEDS ORDERED: miSOPROStoL 200 MCG TABLET PR PRN (21:55)
[2022-08-19] MEDS ORDERED: TRANEXAMIC ACID IN NACL 1,000 MG/100 ML BAG IV PRN (21:55)
[2022-08-19] MEDS ORDERED: OXYTOCIN/SODIUM CHLORIDE 500 ML IV PRN (21:55)
[2022-08-19] MEDS ORDERED: CARBOPROST TROMETHAMINE 250 MCG/ML AMP IM PRN (21:55)
[2022-08-19] MEDS ORDERED: LABETALOL 20 MG/4 ML SYRINGE IVP PRN ×3 (21:55)
[2022-08-19] MEDS ORDERED: SODIUM CHLORIDE FLUSH 0.9% 10 ML SYRINGE IVP PRN (21:55)
[2022-08-19] MEDS ORDERED: IBUPROFEN 800 MG TABLET PO SCH (22:00)
[2022-08-19] MEDS ORDERED: SODIUM CHLORIDE FLUSH 0.9% 10 ML SYRINGE IVP SCH (22:00)
--- NOTE | 2022-08-19 22:06 | DELIVERY NOTE ---
Delivery Note - Infant Delivery Method Infant Delivery Method: positive: Spontaneous vaginal delivery - Presentation Presentation: positive: Vertex, BREANNA - right occiput anterior - Nuchal Cord Nuchal Cord: positive: None - Anesthetic Anesthetic: positive: Lidocaine - 1% plain Volume: positive: 5cc - Amniotic Fluid Description Amniotic Fluid Description: positive: Clear - Episiotomy Type Episiotomy Type: positive: None - Laceration Laceration: positive: 2nd degree (Bilateral vaginal lacerations) - Suture Suture Type: positive: Vicryl Suture Size: positive: 3-0 - Delivery Outcome Delivery Outcome: positive: Livebirth - [place]: positive: Placed in direct skin contact with mother, Stimulated, Wa rmed, [place] used [place] sex: positive: Female - Cord Cord: positive: 3 vessels - Placenta Placenta: positive: Intact, Spontaneous - Estimated Blood Loss Estimated Blood Loss (in cc): 200 - Delivery Comments (Free Text/Narrative) Delivery Comments (Free Text/Narrative): Called for delivery. /+1. Maternal pushing with good efforts. Head delivered. Shoulders and body followed with ease. placed on mother's abdomen. Delayed cord clamping. Fundus firm. Placenta delivered spontaneously and intact, 3vc. Vagina and perineum inspected, bilateral vaginal lacerations noted. Lidocaine 1% infiltrated. Repaired with 3-0 vicryl in usual fashion. Hemostasis. Tolerated delivery well. QBL 200cc.
--- NOTE | 2022-08-19 22:27 | HISTORY & PHYSICAL EXAMINATION ---
Admit History - Visit Reason Visit Reason: Contractions - : 1 Risk/History: positive: None Complications This : positive: Gestational diabetes (Metformin) Smoking Status: Never smoker - Mother's Labs Mother's Blood Type: positive: O Mother's RH: positive: Positive GBS: positive: Group B Strep Positive Rubella Status: positive: Non-immune, Equivocal - Other Maternal History Other Maternal History: Med: Anxiety, depression, PCOS Surg: [place] teeth Fam: Hypertension Social: , denies katelyn Meds/Allgy - Home Medications Home Medications: Ambulatory Orders Medication Instructions Recorded Confirmed Control 1 tab PO DAILY 10/18/15 08/14/20 - Allergies Allergies/Adverse Reactions: Allergies Allergy/AdvReac Type Severity Reaction Status Date / Time No Known Drug Allergies Allergy Verified 01/29/21 16:36 Review of Systems - All Other Systems All Other Systems: reports: Reviewed and negative Physical - Abdominal Exam Contraction Frequency (min/apart): 2 Contraction Intensity: positive: Moderate to strong Uterine Resting Tone: positive: Soft - Monitoring Heart Rate Baseline: 150 Strip Review: positive: Category I - Presentation Presentation: positive: Vertex - Vaginal Exam Dilation (in cm): 10 Effacement (%): 100 Station: positive: 0 Plan for Labor - Plan For Labor I expect patient to be DC'd or transferred within 96 hours.: Yes Plan for Labor: 32yo at 38w by 9w US admitted in active labor - Admit - GBS POS, received one dose ampicillin - Anticipate
[2022-08-19] MEDS: ACETAMINOPHEN 500 MG TABLET PO SCH (22:33)
[2022-08-20] MEDS ORDERED: AMPICILLIN 1 GM in SODIUM CHLORIDE 0.9% MINIBAG 100 ML IV SCH ×2
[2022-08-20] MEDS: IBUPROFEN 800 MG TABLET PO SCH ×3 (04:26→18:32)
[2022-08-20] MEDS: ACETAMINOPHEN 500 MG TABLET PO SCH ×2 (07:53→16:21)
--- NOTE | 2022-08-20 08:55 | PROVIDER PROGRESS NOTE ---
Progress Note day 1 Doing well Trying to do nursing but having little difficulty and we will ask nurse to help her for Abdomen soft fundus firm Perineum intact, repair is good and she is not having any trouble with it Normal lochia plan : possibly home tomorrow with the baby
[2022-08-20] MEDS: DOCUSATE SODIUM 100 MG CAPSULE PO SCH ×2 (12:20→21:00)
[2022-08-20] MEDS: PRENATAL VITAMIN TABLET PO SCH (21:00)
[2022-08-21] MEDS: ACETAMINOPHEN 500 MG TABLET PO SCH ×2 (00:24→08:22)
[2022-08-21] MEDS: IBUPROFEN 800 MG TABLET PO SCH ×2 (00:25→08:22)
[2022-08-21] MEDS: DOCUSATE SODIUM 100 MG CAPSULE PO SCH (08:22)
[2022-08-21 08:39] VITALS: BP 119/64
--- NOTE | 2022-08-21 10:07 | Discharge Plan ---
Discharge Plan Problem Reviewed?: Yes Disposition: Home, Self Care Diet: Regular Activity Restrictions: Activity as Tolerated Shower Restrictions: No Driving Restrictions: Yes (until PP check) Weight Bearing: Partial Weight No Smoking: If you smoke, Please STOP! Call for help.
--- NOTE | 2022-08-21 10:09 | DISCHARGE SUMMARY ---
Discharge Summary Discharge Disposition: 01 Home, Self Care - DIAGNOSES Admission Diagnoses: Intrauterine at term In active labor - HPI History of Present Illness: She did have a normal course and care and she presented after onset of spontaneous labor and she quickly progressed and delivered without any difficulties - HOSPITAL COURSE Hospital Course: Uneventful course - ALLERGIES Allergies/Adverse Reactions: Allergies Allergy/AdvReac Type Severity Reaction Status Date / Time No Known Drug Allergies Allergy Verified 01/29/21 16:36 - MEDICATIONS Home Medications: Ambulatory Orders Medication Instructions Recorded Confirmed Control 1 tab PO DAILY 10/18/15 08/14/20 - PHYSICAL EXAM AT DISCHARGE General Appearance: positive: No acute distress Eyes Bilateral: positive: Normal inspection ENT: positive: ENT inspection nml Neck: positive: Nml inspection Respiratory: positive: No respiratory distress, Breath sounds nml Cardiovascular: positive: Regular rate & rhythm Neurologic/Psychiatric: positive: Oriented x3 - LABS Result Diagrams: 08/19/22 19:25 - FOLLOW UP Follow Up: check next week
--- NOTE | 2022-08-21 10:13 | PROVIDER PROGRESS NOTE ---
Subjective - Prog Note Date Prog Note Date: 08/21/22 Prog Note Time: 10:11 - Subjective Pt reports feeling: Improved (Doing well Using breast pump Using bottles before she produces enough milk Not taking any medication for the pain) Objective - Vital Signs/Intake & Output Reviewed Vital Signs: Yes Vital Signs: Vital Signs x48h Temp Pulse Resp BP Pulse Ox 08/21/22 08:00 98.2 F 90 15 119/64 100 Intake & Output: Intake & Output 08/18/22 08/19/22 08/20/22 08/21/22 23:59 23:59 23:59 23:59 Intake Total 600 Balance 600 - Objective General Appearance: positive: No acute distress Eyes Bilateral: positive: Normal inspection ENT: positive: ENT inspection nml Neck: positive: Nml inspection Respiratory: positive: No respiratory distress Cardiovascular: positive: Regular rate & rhythm Abdomen: positive: Non-tender Back: positive: Nml inspection Skin: positive: Color nml Extremities: positive: Non-tender Neurologic/Psychiatric: positive: Oriented x3 - Lab Results Fish Bones: 08/19/22 19:25 Assessment/Plan - Problem List (1) Normal course Impression: Plan: follow-up checkup next week with her care provider
[2022-08-21] MEDS ORDERED: MEASLES,MUMPS & RUBELLA VACC 0.5 ML VIAL SUBQ ONE (12:26)
[2022-08-21] MEDS: PRENATAL VITAMIN TABLET PO SCH (13:05)
--- NOTE | 2022-08-21 13:57 | Labor Flowsheet ---
Labor Flowsheet Datetime Report Generated by CPN: 08/21/2022 13:57 Datetime: 08/21/2022 08:17 VITAL SIGNS NBP Sys/Crista/Mean (mmHg): 119 : 64 : 78 Pulse: 90 Datetime: 08/19/2022 23:49 SpO2 (%): 99 Datetime: 08/19/2022 21:42 Respirations: 16 Temperature (C): 36.6 Datetime: 08/19/2022 21:19 Stage of : Recovery Datetime: 08/19/2022 21:18 MEDICATIONS Pitocin (milliunits): Started @ 999 Datetime: 08/19/2022 21:17 LaborFlag: Labor Datetime: 08/19/2022 21:00 ASSESSMENT A Monitor Mode: External US FHR Baseline Rate : 120 Variability: Moderate 6-25 bpm Accelerations: 15X15 Decelerations: Variable Category: Category II Comments: pushing Datetime: 08/19/2022 20:33 STAGE 2 Pushing: Coached on Pushing; Urge to Push Pushing Position: Pushing with Contractions; Pushing Left Side Datetime: 08/19/2022 20:30 UTERINE ACTIVITY Monitor Mode: External Frequency (min): 2-3 Quality: Strong Duration (sec): 60 Pattern: Normal: <= 5 Contractions in 10 Minutes Resting Tone (Palpate): Relaxed Datetime: 08/19/2022 20:23 Stage 2 Comments: Provider bedside Datetime: 08/19/2022 20:14 FHR Baseline Changes: Return to Previous Baseline Datetime: 08/19/2022 20:08 PATIENT CARE Patient Position/Activity: Left Lateral Patient Care Comments: with peanut ball inbetween legs Datetime: 08/19/2022 19:59 VAGINAL EXAM Dilatation (cm): 9.0 Effacement (%): 100 Station: 0 Exam by: Leonel Marrero RN Vaginal Bleeding: Normal Show COMMUNICATION Communication Comments: Dr. Pham is enroute, to cover for Dominique Riggins
== END 2022-08-21 13:45 | disposition home or self-care (01) | DRG 807 ==
LOC: WFO 18:59 → FBP 19:00 → UNDOADMIN 19:00 → WFO 19:00 → FBP 19:02
PROVIDERS: ADMIT Obstetrics & Gynecology; ATTEND Obstetrics & Gynecology
PROC: 0KQM0ZZ Repair Perineum Muscle, Open Approach (ICD-10-PCS; principal; 2022-08-19)
PROC: 10E0XZZ Delivery of Products of Conception, External Approach (ICD-10-PCS; 2022-08-19)
DX: O70.1 Second degree perineal laceration during delivery (principal); Z37.0 Single live birth; O24.425 Gestational diabetes mellitus in childbirth, controlled by oral hypoglycemic drugs; O99.824 Streptococcus B carrier state complicating childbirth; Z3A.38 38 weeks gestation of pregnancy
CPT/HCPCS: 36415; 85025; A9270; J7120